=== PATIENT | male | born 1950 | race Caucasian/White ===

== ENCOUNTER 2020-09-21 10:05 | Inpatient (IN) ==
--- NOTE | 2020-08-22 14:44 | PAT Medication Instructions ---
Medication Instructions Date of Service August 22, 2020 Home Medications Medication Instructions Recorded tramadol 50 mg PO Q4H PRN #30 tab 05/23/18 diphenhydramine HCl [Benadryl] 50 mg PO HS PRN hydrocodone-acetaminophen [Vicodin HP] 1 tab PO Q6H PRN tramadol 50 mg PO Q4H PRN cholecalciferol (vitamin D3) [Vitamin D3] 100 mcg PO PM rosuvastatin 10 mg PO PM Take morning of surgery With a small sip of water, OTHERWISE NOTHING TO EAT OR DRINK AFTER MIDNIGHT: hydrocodone-acetaminophen [Vicodin HP] 1 tab PO Q6H PRN (okay to take up to 4 hours prior to surgery if needed) tramadol 50 mg PO Q4H PRN (okay to take up to 4 hours prior to surgery if needed) Take evening before surgery diphenhydramine HCl [Benadryl] 50 mg PO HS PRN (if needed) hydrocodone-acetaminophen [Vicodin HP] 1 tab PO Q6H PRN (if needed) tramadol 50 mg PO Q4H PRN (if needed) cholecalciferol (vitamin D3) [Vitamin D3] 100 mcg PO PM rosuvastatin 10 mg PO PM Other Notes If you have any questions please call us at [phone] or [phone] or [phone] or [phone]
--- NOTE | 2020-08-24 11:59 | Anesthesiology Consultation ---
Date of Service August 24, 2020 Assessment & Plan (1) Encounter for pre-operative examination: - Cardiac hx: Per patient, recent seen by cardiology for preop evaluation and stress test scheduled for 09/13. Awaiting stress test report and final cardiology clearance. - COVID screening: Per assessment on 08/24: Travel screen negative, no known COVID-19 positive contacts or current COVID-19 related symptoms. Surgeon arranging preop COVID testing. Awaiting results. - S/P Removal previous hardware, L3-L5 decompression with fusion (05/22/2018): Failed with MAC3, easy with Glidescope #4 at [facility] Chart Review Chart Review: Patient seen in Pre Admission Testing Teaching & Discussion Pre-Anesthesia Teaching/Discussion Notes: Instructed NPO after midnight before surgery,except medications with 15 cc of water. Medication instructions provided according to the PAT guidelines. History Surgery Operation Date: 09/21/20 11:25 Proposed Procedures p Right Reversed Total Shoulder Arthroplasty - Lamont Guillen MD Height/Weight Height: 5 ft 10 in Weight: 126.9 kg Allergies Allergy/AdvReac Type Severity Reaction Status Date / Time Iodinated Contrast Media Allergy Severe Anaphylaxis Verified 08/21/20 07:34 meperidine Allergy Mild Rash Verified 08/23/20 15:52 oxycodone AdvReac Mild Percocet/Percodan- Verified 08/23/20 15:52 skin crawling Penicillins AdvReac Mild Dyspepsia Verified 08/23/20 15:52 propoxyphene AdvReac Mild Darvon/Darvocet- Verified 08/23/20 15:52 skin crawling Medications Home Medications Medication Instructions Recorded Confirmed Last Taken diphenhydramine HCl [Benadryl] 50 mg PO HS PRN 04/23/18 08/21/20 Unknown hydrocodone-acetaminophen [Vicodin 1 tab PO Q6H PRN 04/23/18 08/21/20 Unknown HP] tramadol 50 mg PO Q4H PRN #30 tab 05/23/18 08/21/20 Unknown cholecalciferol (vitamin D3) 100 mcg PO PM 08/21/20 08/21/20 Unknown [Vitamin D3] rosuvastatin 10 mg PO PM 08/21/20 08/21/20 Unknown Past Medical History Medical History Concern about infectious disease without diagnosis Pt reports that if he gets an infection, he does not get any normal signs of it like fever/elevated WBC. He states he had a bad infection (? sepsis) and almost from when had colon cancer, but showed no signs until almost too late. GERD (gastroesophageal reflux disease) Occasional History of colon cancer s/p resection (hx of blood transfusion remotely in 1980s in setting of ca ncer) History of DVT (deep vein thrombosis) LLE DVT (2011) s/p TKA- treated with AC History of ileus 2018 Ileus Recurrent s/p colon cancer/resection Osteoarthritis Sleep apnea CPAP Exercise / Class Metabolic Activity II 4-5 Yardwork/Stairs/Walk up hill Past Family History Family History Mother Family history of diabetes mellitus Past Surgical History Surgical History Fusion of spine Lumbar x2 Removal previous hardware, L3-L5 decompression with fusion (05/22/2018): Failed with MAC3, easy with Glidescope #4 at [facility] H/O squamous cell carcinoma excision Left arm History of arthroscopy Right elbow History of bilateral carpal tunnel release History of bowel resection History of colonoscopy History of colostomy 2/2 colon cancer History of colostomy reversal History of esophagogastroduodenoscopy (EGD) History of repair of rotator cuff Right History of tooth extraction History of total knee replacement R/L Hx of abdominal surgery Age 2/3 (no further details) Hx of discectomy Lumbar (prior to fusion) Status post trigger finger release R/L Past Anesthesia History Difficult Airway (Removal previous hardware, L3-L5 decompression with fusion (05/22/2018): Failed with MAC3, easy with Glidescope #4 at [facility]) and No Family Hx of Anesthesia Complications History of PONV No Hx of Motion Sickness and History of PONV (Remote hx) Social History Smoking Status: Never smoker Do You Dip or Chew Tobacco: No Hx Alcohol Use: No Hx Substance Use: No substance use type: does not use Review of Systems Patient reports abdominal pain x1 day. He states he does get recurrent ileus after remotely having colon cancer and resection. He did have COVID vaccine yesterday. He states if it doesn't resolve, he will contact PCP or proceed to ER for further evaluation and let PAT know as well. Patient denies chest pain, shortness of breath, dyspnea on exertion, fever, chills, cough, wheezing, palpitations. Physical Exam Vital Signs VITALS BP 149/87 P 62 TEMP 98.0 SP02 98%RA RESP 16 PHYSICAL Mildly decreased cervical extension range of motion. Full TMJ range of motion. TMD 3.5 finger breaths Mallampati Score 3 Dentition: partial upper plate Lungs: clear throughout to auscultation Cardiac: regular rate and rhythm, no murmurs noted Spine: normal Abdomen:+ bowel sounds, soft, no guarding Carotid arteries: negative bruit Extremities: no edema Short neck Lab Results Anesthesia Preop Results Results Anesthesia Widget: WBC 4.18 K/uL (4.8-10.8) L 08/24/20 Hgb 14.2 g/dL (14.0-18.0) 08/24/20 Hct 43.0 % (42-52) 08/24/20 Plt 137 K/uL (130-400) 08/24/20 Na 140 mmol/L (136-145) 08/24/20 K 4.4 mmol/L (3.5-5.1) 08/24/20 Cl 107 mmol/L (98-107) 08/24/20 CO2 28 mmol/L (21-32) 08/24/20 BUN 14 mg/dl (7-18) 08/24/20 Creat 1.05 mg/dl (0.6-1.4) 08/24/20 Glucose Level 89 mg/dl (70-99) 08/24/20 PT 11.1 Seconds (9.0-12.0) 08/24/20 PTT 27.1 Seconds (21.0-31.0) 08/24/20 INR 1.1 (0.9-1.1) 08/24/20 HA1c 5.6 % (4.5-5.6) 08/24/20 Urine Color Dark Yellow 08/24/20 Urine Appearance Clear (Clear) 08/24/20 Urine pH 5.0 (4.5-7.5) 08/24/20 Urine Specific [place] 1.026 (1.000-1.030) 08/24/20 Urine Protein Negative (Negative) 08/24/20 Urine Glucose (UA) Negative (Negative) 08/24/20 Urine Ketones Trace (Negative) H 08/24/20 Urine Blood Negative (Negative) 08/24/20 Urine Nitrite Negative (Negative) 08/24/20 Urine Bilirubin 1+ (Negative) H 08/24/20 Urine Urobilinogen Negative (Negative) 08/24/20 Urine Leukocyte Esterase Negative (Negative) 08/24/20 Blood Type A Positive 08/24/20 Antibody Screen NEGATIVE 08/24/20 Lab Comments: Low WBC > preop testing to be forwarded to PCP for continuity of care Testing Electrocardiogram Date: 05/31/20 Sinus bradycardia with fusion complexes at 59 bpm. LAD. Chest X-Ray Date: 08/24/20 FINDINGS: PA and lateral chest radiographs are compared to study dated 12/12/2017. The heart is top normal for projection noting atherosclerotic calcification of the thoracic aorta. Chronic interstitial thickening is similar to previous. There is mild bibasilar scarring/atelectasis. No airspace consolidation or pleural effusion is identified. There is no pneumothorax. The skeletal structures are osteopenic. The bony thorax appears intact. Degenerative change is seen throughout the thoracic spine. IMPRESSION: No active disease in the chest. Echocardiogram Date: 05/31/20 EF 55%. No regional motion abnormality. Mild LVH. Mild aortic valve mitral valve sclerotic changes. Trace to mild VT/TI.
--- NOTE | 2020-09-20 20:47 | History & Physical Report ---
Date of Service September 20, 2020 Assessment & Plan (1) Rotator cuff arthropathy of right shoulder: Plan: Treatment options discussed with patient. He has a massive irreparable rotator cuff tear. He has significant pain and dysfunction. He would like to proceed with surgical management. Risks, benefits and alternatives to surgery including but not limited to infection, DVT, pain, stiffness, need for revision surgery, damage to blood vessels, damage to nerves, PE, , were discussed with the patient and they wish to proceed. Plan on right reverse total shoulder arthroplasty at [facility] on 09/21/20. All questions answered. He will follow up post operatively. History of Present Illness Chief Complaint: Right shoulder pain Primary Care Provider: Maykel Chiang 69 year old male with PMHx significant for AMRIK, high cholesterol, ileus, and colon Ca presents with ongoing right shoulder pain post a fall. Pain and weakness significantly interfering with his daily activities. He has a massive, irreparable rotator cuff tear. Has history. of prior rotator cuff repair 5 years ago. He has failed conservative management including anti-inflammatories and home exercises. He would like to proceed with replacement. Patient denies headaches, sweats, fevers, chills, double vision, blurred vision, cough, sore throat, dysphagia, chest pain, sob, wheezing, n/v/d/c, numbness, tingling, fatigue, urinary symptoms, mood disorders. ROS positive for right shoulder pain and stiffness. Allergies Allergy/AdvReac Type Severity Reaction Status Date / Time Iodinated Contrast Media Allergy Severe Anaphylaxis Verified 08/21/20 07:34 meperidine Allergy Mild Rash Verified 08/23/20 15:52 oxycodone AdvReac Mild Percocet/Percodan- Verified 08/23/20 15:52 skin crawling Penicillins AdvReac Mild Dyspepsia Verified 08/23/20 15:52 propoxyphene AdvReac Mild Darvon/Darvocet- Verified 08/23/20 15:52 skin crawling Home Medications Medication Instructions Recorded Confirmed Type diphenhydramine HCl 25 mg capsule 50 mg PO HS PRN 04/23/18 08/21/20 History (Benadryl) hydrocodone 10 mg-acetaminophen 1 tab PO Q6H PRN 04/23/18 08/21/20 History 300 mg tablet (Vicodin HP) tramadol 50 mg tablet 50 mg PO Q4H PRN #30 tab 05/23/18 08/21/20 Rx cholecalciferol (vitamin D3) 100 100 mcg PO PM 08/21/20 08/21/20 History mcg (4,000 unit) capsule rosuvastatin 10 mg tablet 10 mg PO PM 08/21/20 08/21/20 History Past Med/Surg History Medical History Concern about infectious disease without diagnosis Pt reports that if he gets an infection, he does not get any normal signs of it like fever/elevated WBC. He states he had a bad infection (? sepsis) and almost from when had colon cancer, but showed no signs until almost too late. GERD (gastroesophageal reflux disease) Occasional History of colon cancer s/p resection (hx of blood transfusion remotely in 1980s in setting of cancer) History of DVT (deep vein thrombosis) LLE DVT (2011) s/p TKA- treated with AC History of ileus 2018 Ileus Recurrent s/p colon cancer/resection Osteoarthritis Sleep apnea CPAP Surgical History Fusion of spine Lumbar x2 Removal previous hardware, L3-L5 decompression with fusion (05/22/2018): Failed with MAC3, easy with Glidescope #4 at [facility] H/O squamous cell carcinoma excision Left arm History of arthroscopy Right elbow History of bilateral carpal tunnel release History of bowel resection History of colonoscopy History of colostomy 2/2 colon cancer History of colostomy reversal History of esophagogastroduodenoscopy (EGD) History of repair of rotator cuff Right History of tooth extraction History of total knee replacement R/L Hx of abdominal surgery Age 2/3 (no further details) Hx of discectomy Lumbar (prior to fusion) Status post trigger finger release R/L Family History Mother Family history of diabetes mellitus Social History Smoking Status: Never smoker Second Hand Exposure: Yes (as kid); Hx Alcohol Use: No Hx Substance Use: No Preferred Language: Turkmen Communication Ability: Effective Visual Impairment: No Limitations Dispatcher Service Chief Required: No Beliefs That Will Affect Care: None Current Living Situation: Spouse Feels Safe at Home: Yes Assistive Devices: CPAP and Glasses Review of Systems All systems reviewed & are unremarkable except as noted in HPI & below Physical Exam Constitutional: well developed and well nourished; no acute distress Eyes: PERRL, conjunctivae normal, anicteric sclerae ENMT: external ear and nose normal, oropharynx normal Neck: trachea midline, no thyromegaly Respiratory: normal respiratory effort, lungs clear to auscultation Cardiovascular: RRR, no murmur, no edema Musculoskeletal: Right shoulder: Tenderness anterolateral acromion. Positive impingement signs. Weakness with strength testing in all directions. Active painful ROM. FF to 180 degrees, abduction to 90 degrees actively, ER to 90 degrees Skin: no rashes, warm and dry Neurologic: patellar DTR's 2+ bilat, sensation intact Psychiatric: A+Ox3, euthymic affect Results & Data ([facility]) Diagnostic Findings Right shoulder x-rays: X-rays of his right shoulder demonstrate he has a previous decompression and distal clavicle excision with some heterotopic bone around the distal clavicle, typical findings post right shoulder arthroscopic surgery. There is no proximal migration of the humerus. He has a maintained glenohumeral joint space. There are some degenerative changes of the greater tuberosity and some post surgical findings there. No acute fracture. His left shoulder he has inferior acromial spurs causing subacromial impingement, AC joint osteoarthritis, normal glenohumeral joint, no fracture. MRI demonstrates massive retracted tear of his rotator cuff with atrophy supraspinatus, tearing near musculotendinous junction as well. Superior migragtion humeral head.
[~2020-09-21 10:05] MED LIST: ACETAMINOPHEN 500 MG TAB PO SCH; BUPIVACAINE 0.5 % 5 MG/1 ML PF 10ML VIAL ONE; CeleBREX 200 MG CAP PO SCH; FAMOTIDINE 20 MG TAB PO SCH; GABAPENTIN 300 MG CAP PO SCH; LR 15ML/HR IV SCH; METOCLOPRAMIDE HCL 10 MG TABLET PO SCH; TRANEXAMIC ACID / 0.7% NACL 1,000 MG/100 ML BAG IV SCH; TRANEXAMIC ACID 1,000 MG **IV Pre-op IV SCH; dexAMETHasone 4 MG TAB PO SCH
--- NOTE | 2020-09-21 10:45 | History & Physical Bridge Note ---
Date of Service September 21, 2020 History & Physical Bridge Note I have examined the patient, reviewed the History & Physical and in the interval since the performance of the History & Physical I have noted the following changes of clinical significance: no changes noted
[2020-09-21] MEDS ORDERED: ePHEDrine sulfate 50 MG/ML AMP IV PRN (10:51)
[2020-09-21] MEDS ORDERED: fentaNYL citrate 100 MCG/2 ML VIAL IV PRN (10:51)
[2020-09-21] MEDS ORDERED: PHENYLEPHRINE 100MCG/ML 5ML SYR IV PRN (10:51)
[2020-09-21] MEDS ORDERED: LABETALOL HCL IV 5 MG/ML 20ML IV PRN (10:51)
[2020-09-21] MEDS ORDERED: HYDROmorphone INJ 1 MG/ML SYRINGE IV PRN (10:51)
[2020-09-21] MEDS ORDERED: ONDANSETRON INJ 2 MG/ML 2 ML VIAL IV PRN ×2 (10:51→16:32)
[2020-09-21] MEDS ORDERED: ATROPINE SULFATE 0.1 MG/ML 10ML SYR IV PRN (10:51)
[2020-09-21] MEDS ORDERED: fentaNYL citrate 100 MCG/2 ML VIAL ONE (11:05)
[2020-09-21] MEDS ORDERED: MIDAZOLAM HCL 1 MG/ML 2ML VIAL ONE (11:05)
[2020-09-21] MEDS ORDERED: ONDANSETRON INJ 2 MG/ML 2 ML VIAL ONE (13:15)
[2020-09-21] MEDS ORDERED: DEXAMETHASONE SOD INJ 4 MG/ML VIAL ONE (13:15)
[2020-09-21] MEDS ORDERED: PROPOFOL IV EMULSION 10 MG/ML 20 ML VIAL IV ONE (13:16)
[2020-09-21] MEDS ORDERED: SUCCINYLCHOLINE CHLORIDE 20 MG/ML 10 ML VIAL IV ONE (13:16)
[2020-09-21] MEDS ORDERED: LIDOCAINE 2% 2 ML VIAL/AMP(20MG/ML) INFIL ONE (13:16)
--- NOTE | 2020-09-21 14:42 | Operative Report ---
Post Operative Report Pre & Post Diagnosis Operation Date: 09/21/20 12:00 Pre-Op Diagnosis: Rotator cuff arthropathy of right shoulder, failed rotator cuff repair, irreparable rotator cuff tear, obesity BMI 39.8. Post-Op Diagnosis: Rotator cuff arthropathy of right shoulder, failed rotator cuff repair, irreparable rotator cuff tear, biceps tendinopathy, retained hardware post rotator cuff repair, obesity BMI 39.8. I identified the patient and participated in the time-out.: Yes Procedure Operation Date: 09/21/20 12:00 Actual Procedures p Right Reversed Total Shoulder Arthroplasty, Biceps Tenodesis, removal hardware (suture anchors and suture material) - Lamont Guillen MD Surgeon Lamont Guillen MD Fire Lieutenant Wyatt BURKETT Estimated Blood Loss 100 Findings Consistent with Post-Op Diagnosis Specimens Humeral head Drains 2 Hemovac Anesthesia Type General Regional Complications none Disposition Disposition: Recovery Room Indications 69-year-old male with chronic right shoulder pain weakness failed conservative management. History of rotator cuff repair in the past that failed. Now has a large retracted rotator cuff tear with significant tendinopathy of subscapularis tendon with possible previous tenotomy of the biceps are ruptured biceps with biceps tendinopathy in the lower groove area with rotator cuff arthropathy and arthritic changes developing in the glenohumeral joint. Description of Procedure The patient was taken to the operating room and anesthetized under regional block and general anesthetic. The patient was positioned on the operating table in a 30 beach chair position with a towel roll under the medial border of the right scapula. The arm was draped free to be able to manipulate the shoulder as needed. The right upper extremity was prepped and draped in usual sterile fashion. Exam demonstrated good passive range of motion crepitation range of motion and patient had moderate obesity of the arm and shoulder area.. An anterior deltopectoral approach was performed. A longitudinal incision was made in the deltopectoral interval. The skin was incised sharply. Subcutaneous flaps were elevated off the fascia. The cephalic vein was dissected out and retracted lateral with the deltoid. The clavipectoral fascia was divided at the lateral margin of the conjoined tendon and extended up to the CA ligament. The following findings were noted: The subscapularis tendon was intact but was thin and there was tendinopathy on the intra-articular side of the tendon with some partial tearing of the upper third of the subscapularis tendon. There was some scarred supraspinatus rotator interval tissue anteriorly but then there was a complete tear of the supraspinatus and infraspinatus with retraction intact teres minor. There were old suture tapes and anchors from prior rotator cuff repair noted. There was thickened subacromial bursa and bursa over the subscapularis tendon which was resected.. The upper centimeter of the pectoralis was released for inferior exposure. The biceps tendon findings demonstrated edematous biceps tendon with some loose articular fragments in the biceps tendon sheath that came off the joint. Biceps tendon appeared to have ruptured intra-articularly and scarred in the upper bicipital groove area. the biceps tendon was freed up in the bicipital groove retracted proximally and then was tenodesed to the pectoralis tendon with #2 FiberWire. The thickened biceps tenosynovitis was removed along with the loose bodies and then the the proximal degenerative biceps was resected. The subscapularis tendon was taken down off the lesser tuberosity using a subperiosteal dissection. A #1 Vicryl traction suture was placed into the free end of the subscapularis tendon and capsule. The subscapular muscle fibers were split longitudinally at the level of the circumflex vessels. The circumflex vessels were identified and tied off with silk ties and divided laterally. A Kitner elevator was used to free up the inferior fibers of the subscapularis off of the capsule. The axillary nerve was identified with a tug test and protected with a blunt Truman retractor between the nerve and the capsule. The subscapularis tendon was then taken down off of the lesser tuberosity subperiosteally and subperiosteal dissection was performed along the neck of the humerus as the arm is gradually externally rotated exposing the humeral head. The humeral head findings demonstrated transverse marked articular thinning close to being exposed bone extending from anterior to posterior along the inferior humeral head and some generalized arthritic changes and superior humeral head with grade II chondromalacia. A Hyde elevator was used to assist in releasing the capsule of the neck of the humerus. The capsule which was very thickened was divided with Chan scissors down to the glenoid released off the anterior glenoid and the rotator interval was released to meet the capsular release and a 360 release of the subscapularis was accomplished. The scarred right interval tissue was resected and the torn retracted supraspinatus tendon tissue was resected. A Fukuda retractor was placed into the joint retracting the humeral head posterior. Glenoid findings demonstrated the inferior articular surface was delaminating off the glenoid and blistering away from the glenoid bone and there was grade 2 -3 chondromalacia of the glenoid.. The the glenoid labrum was resected circumferentially. an anterior-inferior and posterior inferior capsular release were performed with electrocautery and a Hyde elevator on bone with the axillary nerve protected inferiorly by the retractor. Attention was then taken to the humeral preparation. The cutting guide was placed into the humeral head. It was positioned at 20 of retroversion. Oscillating saw was used to resect the humeral head giving the cut above the level of the posterior rotator cuff insertion site. The humerus was then prepared for the stem. I used the ascend flex stem from [employer]. First because were several suture anchors in the canal and suture material noted from prior failed rotator cuff repair the suture tapes were removed and the anchors that were in the way which were peek type plastic anchors were removed with a rongeur. The sizing broaches were used followed by trial broaches up to a size 4B long for the ascend flex PTC stem which had the appropriate fit and fill. The appropriate sized cut protector was placed. The humerus was then retracted posterior to the glenoid. The glenoid was sized for a 29 standard baseplate. The guide for the baseplate was positioned in a 10 inferior tilt and the central drill hole was made. The reamer for the 29 baseplate was used. The central drill was widened for the peg. The Tornier aequalis 29 mm hydroxyapatite-coated baseplate was impacted into position. The base plate was transfixed with superior and inferior locking screws and anterior and posterior compression screws with stable fixation. The fan reamer was used for the 42 millimeter glenoid sphere. After irrigation the 42 standard glenoid sphere was impacted onto the baseplate and the security screw was tightened. Attention was taken back to the humerus. The cut protector was removed and the plus or high offset humeral tray trial was assembled to the trial stem rotated appropriately to get bony coverage and then screwed in position. A trial reduction was performed. A 9 mm trial insert demonstrated good stability and no shuck. The trials were removed. 3 drill holes are made into the harder bone in the bicipital groove area and 3 #5 FiberWire sutures were placed transosseously. The canal was irrigated with pulsatile lavage saline solution. The final component was assembled. The final component was 4B long ascend flex PTC stem assembled to the plus or high offset tray and a 42+9 reversed insert. This was then impacted into the humerus with a tight press-fit. It was reduced to the glenoid sphere. Stability was verified. Subscapularis was repaired with the #5 FiberWire sutures using Jarod-Sharad suture technique. Lateral row soft tissue repair was performed with #2 FiberWire [id number] sutures. I stressed the infraspinatus this was able to be mobilized laterally and sutured to the teres minor. Some of the frayed edge of the infraspinatus was debrided first and then 2 [id number] #2 FiberWire sutures were used to repair the infraspinatus to the teres minor to increase external rotation strength. The pectoralis was repaired with #2 FiberWire [id number] sutures reinforcing the biceps tendon tenodesis. The arm was taken through a range of motion which demonstrated 130 degrees forward flexion 60 degrees external rotation 90 degrees abduction and without any tension on repair.. The implant was stable through the range of motion tested. The wound was copiously irrigated. 2 Hemovac drains were placed. The deltopectoral interval was closed with [id number] #1 Vicryl sutures. The subcutaneous tissues were closed with 2-0 Vicryl sutures. The skin was closed with miriam. Sterile dressings were applied and a shoulder immobilizer. Wyatt BURKETT my physician speech therapy assistant assisted in the procedure to the entire procedure including patient positioning arm positioning prepping and draping soft tissue retraction instrument management suture management and performed the subcutaneous and skin closure and will participate in the postoperative care of the patient. I attest to the content of the Intraoperative Record and any orders documented therein. Any exceptions are noted below.
--- NOTE | 2020-09-21 15:46 | XRay Report ---
XR shoulder RT min 2V routine CLINICAL HISTORY: Post shoulder surgery COMPARISON: None. DISCUSSION: Metallic prosthetic right shoulder joint is seen. Subcutaneous emphysema, surgical drainage and skin miriam are seen. Visualized portion of the lung parenchyma is clear. Degenerative changes of the spine are seen. IMPRESSION: Postoperative changes as above. ACT 112: Negative or not required by law. The above report was generated using voice recognition software. It may contain grammatical, syntax o r spelling errors. Electronically signed by: Cortney Peña DO 09/21/2020 3:45 PM
[2020-09-21] MEDS ORDERED: diphenhydrAMINE Capsule 25 MG CAP PO PRN (16:32)
[2020-09-21] MEDS ORDERED: bisacodyL 10 MG SUPP PR PRN (16:32)
[2020-09-21] MEDS ORDERED: MAGNESIUM HYDROXIDE SUSP 30 ML UDC PO PRN (16:32)
[2020-09-21] MEDS ORDERED: NALOXONE HCL 0.4 MG/1 ML VIAL/CARP IV PRN (16:32)
[2020-09-21] MEDS ORDERED: METOCLOPRAMIDE HCL INJ 5 MG/ML 2 ML VIAL IV PRN (16:32)
--- NOTE | 2020-09-21 16:36 | Anesthesiology Progress Note ---
Date of Service September 21, 2020 Anesthesia Post Procedure Vital Signs Vital Signs: Temp Pulse Pulse Pulse Resp BP Pulse Ox 09/21/20 16:20 36.4 C L 65 18 137/72 94 09/21/20 16:05 66 15 136/69 96 09/21/20 15:50 36.5 C 61 15 133/70 94 09/21/20 15:40 67 18 125/74 94 09/21/20 15:30 65 19 140/75 94 09/21/20 15:20 70 19 130/72 95 09/21/20 15:10 69 20 124/70 97 09/21/20 15:03 36 C L 69 18 128/67 98 09/21/20 10:47 36.7 C 61 18 137/73 97 Pain Intensity Right Arm: Pain Intensity: 4 Transfer of Care Handoff Completed per policy Notes Mental Status: alert / awake / arousable Patient Amnestic to Procedure: Yes Nausea / Vomiting: adequately controlled Pain: adequately controlled Airway Patency, RR, SpO2: stable & adequate BP & HR: stable & adequate Hydration State: stable & adequate Anesthetic Complications: no major complications apparent Notes: block working well in pacu
[2020-09-21] MEDS: SODIUM CHLORIDE 0.9% 1000ML 1,000 ML IV SCH (17:40)
[2020-09-21] MEDS ORDERED: HYDROmorphone INJ 0.5 MG/0.5 ML SYR IV PRN (19:35)
[2020-09-21] MEDS: HYDROmorphone INJ 0.5 MG/0.5 ML SYR IV PRN (19:58)
[2020-09-21] MEDS: HYDROmorphone HCL 2 MG TAB PO PRN (21:30)
[2020-09-21] MEDS: ceFAZolin 2000MG 2,000 MG/15 ML SYR IV SCH (21:30)
[2020-09-21] MEDS: ACETAMINOPHEN 500 MG TAB PO SCH (21:34)
[2020-09-21] MEDS: CHOLECALCIFEROL 1,000 UNITS 25 MCG TAB PO SCH (21:34)
[2020-09-21] MEDS: DOCUSATE SODIUM 100 MG CAP PO SCH (21:34)
[2020-09-21] MEDS: ROSUVASTATIN CALCIUM 10 MG TAB PO SCH (21:35)
[2020-09-21] MEDS: SENNA 8.6 MG TAB PO SCH (21:35)
[2020-09-22] MEDS: HYDROmorphone INJ 0.5 MG/0.5 ML SYR IV PRN ×4 (00:03→21:13)
[2020-09-22] MEDS: SODIUM CHLORIDE 0.9% 1000ML 1,000 ML IV SCH (02:12)
[2020-09-22] MEDS: HYDROmorphone HCL 2 MG TAB PO PRN ×3 (02:12→22:04)
[2020-09-22] MEDS: ceFAZolin 2000MG 2,000 MG/15 ML SYR IV SCH (04:11)
[2020-09-22] MEDS: ACETAMINOPHEN 500 MG TAB PO SCH ×3 (06:05→21:12)
[2020-09-22 06:37] LABS: Hematocrit (blood only) 36.3 % (42-52); Hemoglobin 12.1 g/dL (14.0-18.0); Immature Granulocytes # (auto) 0.02 K/uL (0.00-0.02); Immature Granulocytes % (auto) 0.2 %; Lymphocytes # (auto) 0.66 K/uL (1.2-3.4); Mean Corpuscular Hemoglobin 29.6 pg (25-34); Mean Corpuscular Hgb Conc 33.3 g/dL (32-36); Mean Corpuscular Volume 88.8 fL (80-100); Mean Platelet Volume 10.9 fL (7.4-10.4); Monocytes # (auto) 0.55 K/uL (0.11-0.59); Monocytes % (auto) 5.9 %; Neutrophils # (auto) 8.15 K/uL (1.4-6.5); Neutrophils % (auto) 86.9 %; Platelet Count 140 K/uL (130-400); RDW Coefficient of Variation 14.6 % (11.5-14.5); RDW Standard Deviation 47.6 fL (36.4-46.3); Red Blood Count 4.09 M/uL (4.7-6.1); White Blood Count 9.38 K/uL (4.8-10.8)
[2020-09-22 07:08] LABS: BUN Creatinine Ratio 15.9 (10-20); Calcium 7.8 mg/dl (8.5-10.1); Creatinine Clr Calc Pharmacy 87.6 ml/min; Est GFR (Non-African American) 69.9 ml/min; Potassium 3.9 mmol/L (3.5-5.1)
--- NOTE | 2020-09-22 07:25 | Orthopedic Progress Note ---
Date of Service September 22, 2020 Assessment & Plan (1) S/p reverse total shoulder arthroplasty: Plan: POD#1 right reverse TSA -Pain management as written -PT/OT-no shoulder motion, may do elbow/wrist/hand, shrugs, pendulums -DVT prophylaxis-ASA 81mg once daily -Am labs-hemoglobin at 12.1 from 14.2 preoperative due to surgical loss/dilutional effect -D/C planning-plan on discharge home likely tomorrow when pain is better controlled, Admission and Anticipated Discharge Date Admission Date: September 21, 2020 Subjective Patient is POD#1 right reverse TSA. Having increasing pain in shoulder, states was unable to sleep last night. No other complaints. Denies chest pain, sob, dizziness, headache, fever, chills. Review of Systems Review of Systems: All systems reviewed & are unremarkable except as noted in Subjective Physical Exam Physical Exam: Dressing and sling to RUE c/d/i. Sensation to hand is increasing, has not regained motor activity of hand yet, likely due to block. H emovac inplace. Constitutional: well developed and well nourished; no acute distress Results & Data ([facility]) Vital Signs (Past 12 Hours) Vital Signs Temp Pulse Resp BP Pulse Ox 09/22/20 03:08 36.6 C 70 17 118/66 97 09/21/20 23:03 36.7 C 75 17 148/73 H 96 Laboratory Results H & H 09/22/20 Range/Units 06:24 Hgb 12.1 L (14.0-18.0) g/dL Hct 36.3 L (42-52) %
--- NOTE | 2020-09-22 08:00 | Hospitalist Consultation ---
Date of Consultation September 22, 2020 Assessment & Plan (1) S/p reverse total shoulder arthroplasty: POD #1 s/p Right Reversed Total Shoulder Arthroplasty, Biceps Tenodesis, removal hardware (suture anchors and suture material) - Lamont Guillen MD EBL 100cc Hemovac 170cc Pre-op h/h 14.2/43 H/h dropped to 12.1/36.3 -- acute blood loss anemia and some dilutional from IVF PT/OT/pain management/bowel regimen/DVT prophylaxis per primary service Given prior DVT after joint surgery, discussion was had with ortho and increased aspirin to 81mg BID. No lovenox given increased risk for bleeding. No evidence of DVT at this time, but monitor closely Labs in AM Also with hx spinal stenosis and chronic nerve/neuropathy type pain. Will order dose of gabapentin 100mg x 1 -- if effective could continue Ca low 7.8, albumin 3.2 --> correct 8.4 and will order 1gm calcium and added Vit D level to am labs --> low normal in 40s. On 100mcg daily supplementation and would consider increase at discharge (2) HLD (hyperlipidemia): Continue crestor daily (3) Sleep apnea: Continue CPAP HS (4) History of DVT (deep vein thrombosis): following knee replacement in 2011 DVT prophylaxis per primary service --> discussed as above and placed on ASA 81mg BID. (5) Morbid obesity: diet/weight loss recommended (6) History of colon cancer: s/p resection, temporary colostomy and reversal bowel regimen and ambulation encouraged to prevent post-op ileus -- scheduled senna, docusate. will add miralax BID continue to monitor Dispo: continued inpatient stay to ensure pain controlled with plans for d/c tomorrow Thank you for allowing hospitalist group to participate in the care of Mr Orourke. Hospitalist service will sign off at this time. Please call with any questions/concerns. Supervising Physician Co-Signing Physician Notes KWADWO Supervision Note: I personally saw and examined the patient. I verified all moralez points and agree with KWADWO Daniels with the following exceptions and/or additions: S-patient is here for postop medical management after right reverse total shoulder arthroplasty. He is getting sensation of movement back in his hand and wants to make sure that his pain is controlled prior to discharge. Reports that the gabapentin he took today did make his stomach hurt and he recalled in the past that he is tried this medicine and it did the same thing then. I will discontinue the medication. He denies chest pain or shortness of breath, no nausea. Is passing flatus but no bowel movement yet. O- Vitals reviewed Gen: AAOx3, NAD HEENT: Anicteric sclerae, EOMI CV: RRR no mgr nl S1S2 Pulm: CTAB no wcr Abd: +BS soft NT ND no masses or hernias Ext: RUE in sling, dressing in place over right shoulder, neurovascularly intact in the right hand Skin: No rashes, warm/dry Neuro: Full strength throughout except right shoulder not tested A/O[id number]-old male with history noted as above, here recovering from right reverse TSA. Doing well, continue postop care Plan for increasing aspirin to 81 mg twice daily given history of DVT in the past. KWADWO Daniels discussed the care with the orthopedic PA who thought that Lovenox presented to have a bleeding risk especially in a shoulder arthroplasty. Shoulder arthroplasties are also less risk for DVT. -Discontinue gabapentin as this causes stomach upset Continue increased bowel regimen Medical service will sign off at this time. Please feel free to reconsult for new or acute issues. History of Present Illness Reason for Consultation: medical management Requesting Physician: Dr Guillen Attending Physician: Lamont Guillen MD History of Present Illness 69yo male with PMHx significant for HLD, spinal stenosis, AMRIK, colon ca (s/p colon resection and colostomy, since reversed), DVT in L popliteal region s/p knee replacement in May 2011, and strong family history of heart disease presented to the hospital for right shoulder replacement with Dr. Guillen. Underwent Right Reversed Total Shoulder Arthroplasty, Biceps Tenodesis, removal hardware (suture anchors and suture material) with Dr. Guillen yesterday. Had increased pain and was uncomfortable overnight and pain medications were ordered, which have been effective today. He notes previous ileus after surgeries and hadn't had one in several years but he thought he was getting one this morning. He notes he has thought he had one a couple of times over the past couple months and knows when he vomits that he has one, from his previous surgeries and adhesive disease and plans on follow up with prior surgeon about possible lysis of adhesions in future if they become more frequent. Has been up and moving and passing gas since then and feeling better. Discussed continued ambulation and if abd pain increased/pain to alert nursing sooner. He still has numbness and lack of motor sensation since nerve block but is regaining sensation to fingers, slowly. Discussed ASA increased to BID for DVT proph given prior DVT after knee surgery. He notes multiple other surgeries without complications but he does note he was to start a baby aspirin per his primary in the past but never did. Has CPAP in room and uses faithfully. Plans for OPPT in several weeks after eval by ortho. He does note great experience with hospital staff/surgery but he was upset about surgeon only calling and not speaking to her directly in the waiting room. No fever, chills, chest pain, shortness of breath, abdominal pain , nausea vomiting or dysuria at this time. Plans for d/c tomorrow if pain controlled. Strong family cardiac history in brother and was seen by PCP and had negative pharmacological stress test September 13, 2020. Also notes brother paralyzed from recent back surgery by Dr. Rodríguez earlier this month (patient has had [address] Rodríguez himself, most recent 2018). Allergies Allergy/AdvReac Type Severity Reaction Status Date / Time Iodinated Contrast Media Allergy Severe Anaphylaxis Verified 09/21/20 10:42 meperidine Allergy Mild Rash Verified 09/21/20 10:42 oxycodone AdvReac Mild Percocet/Percodan- Verified 09/21/20 10:42 skin crawling Penicillins AdvReac Mild Dyspepsia Verified 09/21/20 10:42 propoxyphene AdvReac Mild Darvon/Darvocet- Verified 09/21/20 10:42 skin crawling Home Medications Medication Instructions Recorded Confirmed Type diphenhydramine HCl 25 mg capsule 50 mg PO HS PRN 04/23/18 09/21/20 History (Benadryl) hydrocodone 10 mg-acetaminophen 1 tab PO Q6H PRN 04/23/18 09/21/20 History 300 mg tablet (Vicodin HP) cholecalciferol (vitamin D3) 100 100 mcg PO PM 08/21/20 09/21/20 History mcg (4,000 unit) capsule rosuvastatin 10 mg tablet 10 mg PO PM 08/21/20 09/21/20 History Patient History Medical History (Updated 09/22/20 @ 07:57 by Arlette Daniels PA-C) Concern about infectious disease without diagnosis Pt reports that if he gets an infection, he does not get any normal signs of it like fever/elevated WBC. He states he had a bad infection (? sepsis) and almost from when had colon cancer, but showed no signs until almost too late. 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 History of arthroscopy Right elbow History of bilateral carpal tunnel release History of bowel resection History of colonoscopy History of colostomy 2/2 colon cancer History of colostomy reversal History of esophagogastroduodenoscopy (EGD) History of repair of rotator cuff Right History of tooth extraction History of total knee replacement R/L Hx of abdominal surgery Age 2/3 (no further details) Hx of discectomy Lumbar (prior to fusion) Status post trigger finger release R/L Family History Mother Family history of diabetes mellitus Social History Smoking Status: Never smoker Second Hand Exposure: Yes (as kid); Do You Dip or Chew Tobacco: No; Tobacco Cessation Education Requested by Patient: No Hx Alcohol Use: No Hx Substance Use: No Preferred Language: Samoan Communication Ability: Effective Visual Impairment: No Limitations Budget Consultant Required: No Beliefs That Will Affect Care: None marital status: Current Living Situation: Spouse Other Information That Helps Us Care for You: No Feels Safe at Home: Yes Safety Concerns: Feels Safe At This Time Assistive Devices: None Review of Systems Review of Systems: All systems reviewed & are unremarkable except as noted in HPI & below Physical Exam Physical Exam: WN, WD, obese male sitting up in bed, laughing, no acute d istress HEENT: normocephalic, atraumatic, trachea midline without deviation, mmm, EOMI RESP: CTAB, no w/c/r CV: RRR, no m/r/g ABD: previous surgical scar well healed, +BS throughout, non-tender to palpation MSK: prior back incisions well healed, some decreased sensation to dorsum of R foot, but plantar service with some neuropathy R shoulder in sling, hemovac with bloody drainage, numbness throughout with some sensation to light touch returning to lateral 5th digit. No motor function yet. Some edema, but pulses palpable and good cap refill. dressing c/d/i Skin: warm, dry : No reza Results & Data Results & Data ([facility]) Vital Signs (Past 12 Hours) Vital Signs Temp Pulse Resp BP Pulse Ox 09/22/20 03:08 36.6 C 70 17 118/66 97 09/21/20 23:03 36.7 C 75 17 148/73 H 96 Laboratory Results 09/22/20 09/22/20 09/22/20 Range/Units 08:35 08:35 06:24 WBC (4.8-10.8) K/uL RBC (4.7-6.1) M/uL Hgb (14.0-18.0) g/dL Hct (42-52) % MCV (80-100) fL MCH (25-34) pg MCHC (32-36) g/dL RDW Std Deviation (36.4-46.3) fL RDW Coeff of Saray (11.5-14.5) % Plt Count (130-400) K/uL MPV (7.4-10.4) fL Immature Gran % (Auto) % Neut % (Auto) % Lymph % (Auto) % [place] % (Auto) % Eos % (Auto) % Baso % (Auto) % Neut # (Auto) (1.4-6.5) K/uL Lymph # (Auto) (1.2-3.4) K/uL [place] # (Auto) (0.11-0.59) K/uL Eos # (Auto) (0-0.5) K/uL Baso # (Auto) (0-0.2) K/uL Immature Gran # (Auto) (0.00-0.02) K/uL Sodium 137 (136-145) mmol/L Potassium 3.9 (3.5-5.1) mmol/L Chloride 107 (98-107) mmol/L Carbon Dioxide 24 (21-32) mmol/L Anion Gap 6.0 (3-11) BUN 17 (7-18) mg/dl Creatinine 1.09 (0.6-1.4) mg/dl Est Cr Clr Drug Dosing 87.6 ml/min Est GFR ( Amer) 81.0 ml/min Est GFR (Non-Af Amer) 69.9 ml/min BUN/Creatinine Ratio 15.9 (10-20) Glucose 134 H (70-99) mg/dl Calcium 7.8 L (8.5-10.1) mg/dl Albumin 3.2 L (3.4-5.0) gm/dl 25-OH Vitamin D Total 41.1 (30-100) ng/ml Hepatitis C Ab Screen (Neg) SARS-CoV-2, RNA, NAAT (NEGATIVE) 09/22/20 09/21/20 09/21/20 Range/Units 06:24 10:46 10:28 WBC 9.38 (4.8-10.8) K/uL RBC 4.09 L (4.7-6.1) M/uL Hgb 12.1 L (14.0-18.0) g/dL Hct 36.3 L (42-52) % MCV 88.8 (80-100) fL MCH 29.6 (25-34) pg MCHC 33.3 (32-36) g/dL RDW Std Deviation 47.6 H (36.4-46.3) fL RDW Coeff of Saray 14.6 H (11.5-14.5) % Plt Count 140 (130-400) K/uL MPV 10.9 H (7.4-10.4) fL Immature Gran % (Auto) 0.2 % Neut % (Auto) 86.9 % Lymph % (Auto) 7.0 % [place] % (Auto) 5.9 % Eos % (Auto) 0.0 % Baso % (Auto) 0.0 % Neut # (Auto) 8.15 H (1.4-6.5) K/uL Lymph # (Auto) 0.66 L (1.2-3.4) K/uL [place] # (Auto) 0.55 (0.11-0.59) K/uL Eos # (Auto) 0.00 (0-0.5) K/uL Baso # (Auto) 0.00 (0-0.2) K/uL Immature Gran # (Auto) 0.02 (0.00-0.02) K/uL Sodium (136-145) mmol/L Potassium (3.5-5.1) mmol/L Chloride (98-107) mmol/L Carbon Dioxide (21-32) mmol/L Anion Gap (3-11) BUN (7-18) mg/dl Creatinine (0.6-1.4) mg/dl Est Cr Clr Drug Dosing ml/min Est GFR ( Amer) ml/min Est GFR (Non-Af Amer) ml/min BUN/Creatinine Ratio (10-20) Glucose (70-99) mg/dl Calcium (8.5-10.1) mg/dl Albumin (3.4-5.0) gm/dl 25-OH Vitamin D Total (30-100) ng/ml Hepatitis C Ab Screen Neg (Neg) SARS-CoV-2, RNA, NAAT NEGATIVE (NEGATIVE) Diagnostic Findings Shoulder X-Ray 09/21/20 15:06 XR shoulder RT min 2V routine CLINICAL HISTORY: Post shoulder surgery COMPARISON: None. DISCUSSION: Metallic prosthetic right shoulder joint is seen. Subcutaneous emphysema, surgical drainage and skin miriam are seen. Visualized portion of the lung parenchyma is clear. Degenerative changes of the spine are seen. IMPRESSION: Postoperative changes as above. ACT 112: Negative or not required by law. The above report was generated using voice recognition software. It may contain grammatical, syntax or spelling errors. Electronically signed by: Cortney Peña DO 09/21/2020 3:45 PM PG Care Time/CCT Total # of Minutes Spent Total Time Spent with Patient: Total time spent is greater than 50% in coordination of care (as documented) at patient's floor/unit and/or counseling patient: Coding Level of Care Code 66425 Inpt Consult Level 3 Diagnoses S/p reverse total shoulder arthroplasty Z96.619 Morbid obesity E66.01 History of colon cancer Z85.038 History of DVT (deep vein thrombosis) Z86.718 HLD (hyperlipidemia) E78.5 Sleep apnea G47.30
[2020-09-22] MEDS: DOCUSATE SODIUM 100 MG CAP PO SCH ×2 (08:39→21:12)
[2020-09-22] MEDS: MULTIVITAMIN TAB PO SCH (08:39)
[2020-09-22] MEDS ORDERED: ASPIRIN 81 MG ECTAB PO SCH (09:00)
[2020-09-22] MEDS ORDERED: GABAPENTIN 100 MG CAP PO SCH (11:00)
[2020-09-22] MEDS ORDERED: CALCIUM GLUCONATE 10% 1,000 MG in SODIUM CHLORIDE 0.9% 50 ML IV ONE (11:00)
[2020-09-22] MEDS: POLYETHYLENE (MIRALAX) 17 GM PACK PO SCH ×2 (12:11→21:12)
[2020-09-22] MEDS: ASPIRIN 81 MG ECTAB PO SCH (21:12)
[2020-09-22] MEDS: SENNA 8.6 MG TAB PO SCH (21:12)
[2020-09-22] MEDS: CHOLECALCIFEROL 1,000 UNITS 25 MCG TAB PO SCH (21:13)
[2020-09-22] MEDS: ROSUVASTATIN CALCIUM 10 MG TAB PO SCH (21:13)
[2020-09-23] MEDS: HYDROmorphone INJ 0.5 MG/0.5 ML SYR IV PRN ×3 (01:01→13:33)
[2020-09-23] MEDS: HYDROmorphone HCL 2 MG TAB PO PRN ×3 (01:58→11:20)
[2020-09-23] MEDS: CALCIUM CARBONATE 500 MG CHEWABLE TAB PO PRN ×3 (01:58→11:20)
[2020-09-23] MEDS: ACETAMINOPHEN 500 MG TAB PO SCH ×2 (05:03→13:33)
[2020-09-23] MEDS ORDERED: HYDROmorphone INJ 0.5 MG/0.5 ML SYR IV STA (08:06)
[2020-09-23] MEDS: POLYETHYLENE (MIRALAX) 17 GM PACK PO SCH (08:37)
[2020-09-23] MEDS: MULTIVITAMIN TAB PO SCH (08:37)
[2020-09-23] MEDS: ASPIRIN 81 MG ECTAB PO SCH (08:37)
[2020-09-23] MEDS: DOCUSATE SODIUM 100 MG CAP PO SCH (08:37)
--- NOTE | 2020-09-23 10:52 | Orthopedic Progress Note ---
Date of Service September 23, 2020 Assessment & Plan (1) S/p reverse total shoulder arthroplasty: Plan: POD#2 right reverse TSA -Pain management as written -PT/OT-no shoulder motion, may do elbow/wrist/hand, shrugs, pendulums -DVT prophylaxis-ASA 81mg once daily -D/C planning-plan on discharge home today Admission and Anticipated Discharge Date Admission Date: September 21, 2020 Subjective Patient is POD#2 right reverse TSA.He notes appropriate pain through the night. No other complaints. Denies chest pain, sob, dizziness, headache, fever, chills. Physical Exam Physical Exam: Digits mobile, NVI. Calves soft, non tender. Dressing in place right shoulder. Results & Data ([facility]) Vital Signs (Past 12 Hours) Vital Signs Temp Pulse Resp BP Pulse Ox 09/23/20 07:00 36.6 C 60 20 134/76 97 09/22/20 23:07 36.4 C L 61 16 130/74 97
--- NOTE | 2020-09-23 22:14 | Discharge Summary ---
Date of Service September 23, 2020 Admission HPI Per Admitting Provider 69 year old male with PMHx significant for AMRIK, high cholesterol, ileus, and colon Ca presents with ongoing right shoulder pain post a fall. Pain and weakness significantly interfering with his daily activities. He has a massive, irreparable rotator cuff tear. Has history. of prior rotator cuff repair 5 years ago. He has failed conservative management including anti-inflammatories and home exercises. He would like to proceed with replacement. Patient denies headaches, sweats, fevers, chills, double vision, blurred vision, cough, sore throat, dysphagia, chest pain, sob, wheezing, n/v/d/c, numbness, tingling, fat igue, urinary symptoms, mood disorders. ROS positive for right shoulder pain and stiffness. Admission Exam Per Admitting Provider Constitutional: well developed and well nourished; no acute distress Eyes: PERRL, conjunctivae normal, anicteric sclerae ENMT: external ear and nose normal, oropharynx normal Neck: trachea midline, no thyromegaly Respiratory: normal respiratory effort, lungs clear to auscultation Cardiovascular: RRR, no murmur, no edema Musculoskeletal: Right shoulder: Tenderness anterolateral acromion. Positive impingement signs. Weakness with strength testing in all directions. Active painful ROM. FF to 180 degrees, abduction to 90 degrees actively, ER to 90 degrees Skin: no rashes, warm and dry Neurologic: patellar DTR's 2+ bilat, sensation intact Psychiatric: A+Ox3, euthymic affect Principal Diagnosis Right shoulder rotator cuff arthropathy Discharge Exam Constitutional well developed and well nourished; no acute distress Eyes PERRL, conjunctivae normal, anicteric sclerae ENMT external ear and nose normal, oropharynx normal Neck trachea midline, no thyromegaly Respiratory normal respiratory effort, lungs clear to auscultation Cardiovascular RRR, no murmur, no edema Skin no rashes, warm and dry Neurologic patellar DTR's 2+ bilat, sensation intact Psychiatric A+Ox3, euthymic affect Discharge Data Allergies Allergy/AdvReac Type Severity Reaction Status Date / Time Iodinated Contrast Media Allergy Severe Anaphylaxis Verified 09/21/20 10:42 meperidine Allergy Mild Rash Verified 09/21/20 10:42 oxycodone AdvReac Mild Percocet/Percodan- Verified 09/21/20 10:42 skin crawling Penicillins AdvReac Mild Dyspepsia Verified 09/21/20 10:42 propoxyphene AdvReac Mild Darvon/Darvocet- Verified 09/21/20 10:42 skin crawling Consultations 09/18/20 17:55 Consult Hospitalist Routine Procedures Performed Operation Date: 09/21/20 12:00 Actual Procedures p Right Reversed Total Shoulder Arthroplasty; Biceps Tenodesis - Lamont Guillen MD Ordered Studies 09/21/20 05:00 US - OR guided needle placemen Routine Hospital Course (1) S/p reverse total shoulder arthroplasty: Patient presented for same day admission following right reverse total shoulder arthroplasty on 09/21/20. He tolerated procedure well. The Patient had an uneventful hospital course. Post-operatively, his activity was progressed and well tolerated. They participated in PT without complication. Labs remained stable- lowest hemoglobin recorded:12.1. Dr. Skye Pagan of medical service was consulted for medical management during admission. Pain controlled on oral medications. Please refer to daily progress notes and PT notes for complete details. After exam on 09/23/20, patient was felt to be stable for discharge home. Patient will f/u in the office in about 2 weeks for further evaluation including x-rays and incision check, sooner if having any issues or concerns. POD#2 right reverse TSA -Pain management as written -PT/OT-no shoulder motion, may do elbow/wrist/hand, shrugs, pendulums -DVT prophylaxis-ASA 81mg once daily -D/C planning-plan on discharge home today Lab Results 09/21/20 09/21/20 09/21/20 Range/Units 10:28 10:28 10:46 WBC (4.8-10.8) K/uL RBC (4.7-6.1) M/uL Hgb (14.0-18.0) g/dL Hct (42-52) % MCV (80-100) fL MCH (25-34) pg MCHC (32-36) g/dL RDW Std Deviation (36.4-46.3) fL RDW Coeff of Saray (11.5-14.5) % Plt Count (130-400) K/uL MPV (7.4-10.4) fL Immature Gran % (Auto) % Neut % (Auto) % Lymph % (Auto) % Bryan % (Auto) % Eos % (Auto) % Baso % (Auto) % Neut # (Auto) (1.4-6.5) K/uL Lymph # (Auto) (1.2-3.4) K/uL Bryan # (Auto) (0.11-0.59) K/uL Eos # (Auto) (0-0.5) K/uL Baso # (Auto) (0-0.2) K/uL Immature Gran # (Auto) (0.00-0.02) K/uL Sodium (136-145) mmol/L Potassium (3.5-5.1) mmol/L Chloride (98-107) mmol/L Carbon Dioxide (21-32) mmol/L Anion Gap (3-11) BUN (7-18) mg/dl Creatinine (0.6-1.4) mg/dl Est Cr Clr Drug Dosing ml/min Est GFR ( Amer) ml/min Est GFR (Non-Af Amer) ml/min BUN/Creatinine Ratio (10-20) Glucose (70-99) mg/dl Calcium (8.5-10.1) mg/dl Albumin (3.4-5.0) gm/dl 25-OH Vitamin D Total (30-100) ng/ml COVID-19 Eval Order Covid19 [facility] Hepatitis C Ab Screen Neg (Neg) SARS-CoV-2, RNA, NAAT NEGATIVE (NEGATIVE) 09/22/20 09/22/20 09/22/20 Range/Units 06:24 06:24 08:35 WBC 9.38 (4.8-10.8) K/uL RBC 4.09 L (4.7-6.1) M/uL Hgb 12.1 L (14.0-18.0) g/dL Hct 36.3 L (42-52) % MCV 88.8 (80-100) fL MCH 29.6 (25-34) pg MCHC 33.3 (32-36) g/dL RDW Std Deviation 47.6 H (36.4-46.3) fL RDW Coeff of Saray 14.6 H (11.5-14.5) % Plt Count 140 (130-400) K/uL MPV 10.9 H (7.4-10.4) fL Immature Gran % (Auto) 0.2 % Neut % (Auto) 86.9 % Lymph % (Auto) 7.0 % Bryan % (Auto) 5.9 % Eos % (Auto) 0.0 % Baso % (Auto) 0.0 % Neut # (Auto) 8.15 H (1.4-6.5) K/uL Lymph # (Auto) 0.66 L (1.2-3.4) K/uL Bryan # (Auto) 0.55 (0.11-0.59) K/uL Eos # (Auto) 0.00 (0-0.5) K/uL Baso # (Auto) 0.00 (0-0.2) K/uL Immature Gran # (Auto) 0.02 (0.00-0.02) K/uL Sodium 137 (136-145) mmol/L Potassium 3.9 (3.5-5.1) mmol/L Chloride 107 (98-107) mmol/L Carbon Dioxide 24 (21-32) mmol/L Anion Gap 6.0 (3-11) BUN 17 (7-18) mg/dl Creatinine 1.09 (0.6-1.4) mg/dl Est Cr Clr Drug Dosing 87.6 ml/min Est GFR ( Amer) 81.0 ml/min Est GFR (Non-Af Amer) 69.9 ml/min BUN/Creatinine Ratio 15.9 (10-20) Glucose 134 H (70-99) mg/dl Calcium 7.8 L (8.5-10.1) mg/dl Albumin 3.2 L (3.4-5.0) gm/dl 25-OH Vitamin D Total (30-100) ng/ml COVID-19 Eval Order Hepatitis C Ab Screen (Neg) SARS-CoV-2, RNA, NAAT (NEGATIVE) 09/22/20 Range/Units 08:35 WBC (4.8-10.8) K/uL RBC (4.7-6.1) M/uL Hgb (14.0-18.0) g/dL Hct (42-52) % MCV (80-100) fL MCH (25-34) pg MCHC (32-36) g/dL RDW Std Deviation (36.4-46.3) fL RDW Coeff of Saray (11.5-14.5) % Plt Count (130-400) K/uL MPV (7.4-10.4) fL Immature Gran % (Auto) % Neut % (Auto) % Lymph % (Auto) % Bryan % (Auto) % Eos % (Auto) % Baso % (Auto) % Neut # (Auto) (1.4-6.5) K/uL Lymph # (Auto) (1.2-3.4) K/uL Bryan # (Auto) (0.11-0.59) K/uL Eos # (Auto) (0-0.5) K/uL Baso # (Auto) (0-0.2) K/uL Immature Gran # (Auto) (0.00-0.02) K/uL Sodium (136-145) mmol/L Potassium (3.5-5.1) mmol/L Chloride (98-107) mmol/L Carbon Dioxide (21-32) mmol/L Anion Gap (3-11) BUN (7-18) mg/dl Creatinine (0.6-1.4) mg/dl Est Cr Clr Drug Dosing ml/min Est GFR ( Amer) ml/min Est GFR (Non-Af Amer) ml/min BUN/Creatinine Ratio (10-20) Glucose (70-99) mg/dl Calcium (8.5-10.1) mg/dl Albumin (3.4-5.0) gm/dl 25-OH Vitamin D Total 41.1 (30-100) ng/ml COVID-19 Eval Order Hepatitis C Ab Screen (Neg) SARS-CoV-2, RNA, NAAT (NEGATIVE) Total Time Total Time Spent Total Time Spent (In Minutes): 20 Discharge Plan Discharge Items Patient Disposition: Home - Self-Care Reason For Visit: Right Shoulder Arthropathy Discharge Diagnosis: Right shoulder arthropathy Activity: Per Instructions section Weightbearing: Right non-weightbearing Non-emergency contact: Surgeon Call non-emergency contact if: you have any medication questions, your pain is not controlled, your temperature is above 101.5, your wound has increased redness and your wound has increased drainage Follow-up/Referrals: Maykel Chiang [Primary Care Provider] - Diet: Regular Addtl Attending Provider Instructions: ACTIVITY RECOMMENDATIONS: SELF CARE INSTRUCTIONS AFTER TOTAL SHOULDER ARTHROPLASTY REVERSE A. You may do daily exercises as taught in physical therapy while in hospital. No lifting with the operative arm. B. You are to wear your sling/immobilizer at all times EXCEPT when performing your daily exercises and for hygiene purposes. C. You may perform dry, daily dressing changes. Please keep your incision covered. You may shower 48 hours after surgery. Do not apply soap or any ointment/lotions directly over incision. Do not soak incision in bath tub/swimming pool. D. You may use ice as needed to operative shoulder. SPECIAL CARE INSTRUCTIONS: VERY IMPORTANT TO READ AND REVIEW A. There are a few signs you need to watch for after you are home. Call [facility] at [phone] if you experience any of the followin. Increased severe shoulder pain. Some pain is expected especially when you exercise. 2. Increased swelling in you shoulder or arm; pain or swelling in either upper extremity. 3. Any fluid drainage from the incision. 4. Shortness of breath or chest pain. B. Please call [facility] at [phone] if you have any questions or concerns about your operation or recovery. C. Call your physician if: 1. Temperature is greater than 101 degrees (F). 2. Pain is not relieved by prescribed pain medications. 3. Increase drainage or redness from incision. 4. Unanswered questions or concerns. FOLLOW UP VISIT: Please call [facility] at [phone] to schedule a follow up appointment with Dr. Guillen or his PA in 12-14 days from your surgery date. Pending Studies at Discharge: No Stand-Alone Forms: [facility], Opioid Pain Management, Smoking Cessation Medications and DC Order Prescriptions: New multivitamin [Daily-Aster] Tablet 1 tab PO QAM 30 Days Qty: 30 RF: 0 sennosides [Senokot] 8.6 mg Tablet 17.2 mg PO HS 30 Days Qty: 60 RF: 0 aspirin 81 mg Tablet,Delayed Release (Dr/Ec) 81 mg PO BID 30 Days Qty: 60 RF: 0 acetaminophen [Tylenol Extra Strength] 500 mg Tablet 1,000 mg PO Q8 30 Days Qty: 180 RF: 0 hydromorphone [Dilaudid] 2 mg Tablet 2 mg PO Q4H PRN (Reason: pain) Qty: 20 RF: 0 calcium carbonate [Tums] 200 mg calcium (500 mg) Tablet,Chewable 500 mg PO DAILY PRN (Reason: dyspepsia) 30 Days Qty: 90 RF: 0 docusate sodium 100 mg Capsule 100 mg PO BID 30 Days Qty: 60 RF: 0 cholecalciferol (vitamin D3) 25 mcg (1,000 unit) Capsule 4,000 unit PO PM 30 Days RF: 0 gabapentin 100 mg capsule 100 mg PO DAILY Qty: 30 RF: 0 Continued diphenhydramine HCl [Benadryl] 25 mg Capsule 50 mg PO HS PRN (Reason: Insomnia) RF: 0 rosuvastatin 10 mg Tablet 10 mg PO PM RF: 0 Discontinued hydrocodone-acetaminophen [Vicodin HP] 10-300 mg Tablet 1 tab PO Q6H PRN (Reason: Pain) RF: 0 Vitamin D3 100 mcg (4,000 unit) Capsule 100 mcg PO PM RF: 0 Discharge Orders: Discharge Order (Routine); Ordered 09/23/20 Ordered By: Alee Cordova/Other Patient Handouts: DVT Post Op Prevention Admission Data Admit Date/Time: 09/21/20 15:06 Attending Provider: Lamont Guillen Admit Provider: Lamont Guillen Primary Care Provider: Maykel Chiang Other Providers: Skye Pagan Other Interventions: Discharge Summary Assessment (RN) Last Done: 09/23/20 11:50
== END 2020-09-23 14:35 | disposition home or self-care (01) | DRG 483 ==
LOC: EDBD → ASU 10:05 → PACUINP 15:06 → 3E 16:29

== ENCOUNTER 2023-11-19 17:07 | Observation (INO) ==
[2023-11-19] MEDS: HYDROmorphone INJ 1 MG/ML SYRINGE IV STA (18:51)
[2023-11-19] MEDS: ONDANSETRON INJ 2 MG/ML 2 ML VIAL IV STA (18:51)
[2023-11-19] MEDS: SODIUM CHLORIDE 0.9% 500 ML IV SCH (18:51)
--- NOTE | 2023-11-19 18:57 | CT Scan Report ---
ABDOMEN AND PELVIS CT WITHOUT CONTRAST CT DOSE: 1465.17 mGy.cm HISTORY: Acute left upper quadrant abdominal pain abd pain TECHNIQUE: Multiaxial CT images of the abdomen and pelvis were performed without contrast. A dose lo wering technique was utilized adhering to the principles of ALARA. COMPARISON STUDY: None. FINDINGS: Coronary artery calcifications. Mild right hemidiaphragmatic elevation. No free air. Unrema rkable spleen, atrophic pancreas and right adrenal gland. 1.5 cm left adrenal adenoma. Probable cyst of the left hepatic lobe, 1.9 cm. Gallbladder is within normal limits. No hydronephrosis. Probable cyst of the lateral interpolar left kidney, 3 cm. Unremarkable urinary bl adder. Prostatomegaly. Atherosclerosis of the aorta. No lymphadenopathy. Moderate colonic fecal reten tion. There are small bilateral fat filled ventral hernias. The right inguinal hernia contains trace free fluid in nonobstructed appendix. The left inguinal hernia contains mesenteric fat and a portion of nonobstructed sigmoid colon. There are a few loops of fluid and stool filled nondilated small aime l within the midabdomen measuring up to 2.6 cm transversely which demonstrate mild circumferential wa ll thickening with trace interloop edema. No high-grade bowel obstruction. Degenerative and postopera tive changes of the spine. IMPRESSION: 1. No high-grade bowel obstruction or pneumoperitoneum. 2. There are a few air, fluid and stool filled loops of mid abdominal small bowel which demonstrate m ild wall thickening with interloop edema suggestive of a mild enteritis. Low-grade small bowel obstru ction considered less likely. 3. Small fat filled inguinal hernias. The right inguinal hernia contains a noninflamed appendix and t he left hernia contains a portion of the sigmoid colon. ACT 112: Negative or not required by law. The above report was generated using voice recognition software. It may contain grammatical, syntax o r spelling errors. Electronically signed by: Clemente Woodson M.D. 11/19/2023 6:55 PM
[2023-11-19 18:59] LABS: Basophils # (auto) 0.04 K/uL (0.00-0.20); Basophils % (auto) 0.4 %; Eosinophils # (auto) 0.06 K/uL (0.00-0.50); Eosinophils % (auto) 0.6 %; Hematocrit (blood only) 43.2 % (42.0-52.0); Hemoglobin 14.2 g/dl (14.0-18.0); Immature Granulocytes # (auto) 0.02 K/uL (0.01-0.20); Immature Granulocytes % (auto) 0.2 %; Lymphocytes # (auto) 1.65 K/uL (1.20-3.40); Lymphocytes % (auto) 17.5 %; Mean Corpuscular Hemoglobin 28.9 pg (25.0-34.0); Mean Corpuscular Hgb Conc 32.9 g/dL (32.0-36.0); Mean Platelet Volume 11.2 fL (9.4-12.4); Monocytes # (auto) 0.65 K/uL (0.11-0.59); Monocytes % (auto) 6.9 %; Neutrophils # (auto) 7.03 K/uL (1.40-6.50); Neutrophils % (auto) 74.4 %; Platelet Count 154 K/uL (130-400); RDW Coefficient of Variation 14.5 % (11.5-14.5); RDW Standard Deviation 46.7 fL (36.4-46.3); Red Blood Count 4.91 M/uL (4.70-6.10); White Blood Count 9.45 K/ul (4.8-10.8)
[2023-11-19 19:01] LABS: iSTAT Creatinine 0.7 mg/dl (0.6-1.3); iSTAT Hemoglobin 11.9 g/dl (14.0-18.0); iSTAT Ionized Calcium 1.01 mmol/l (1.12-1.32); iSTAT Potassium 3.5 mmol/L (3.3-5.0)
[2023-11-19 19:05] LABS: Albumin Globulin Ratio 1.5 (0.9-2); Albumin Level 4.4 gm/dl (3.4-5.0); BUN Creatinine Ratio 12.6 (10-20); Bilirubin,Total 0.7 mg/dl (0.2-1.0); Calcium 9.2 mg/dl (8.6-10.3); Creatinine Clr Calc Pharmacy 96.8 ml/min; Est GFR (Non-African American) 80.2 ml/min; Potassium 3.9 mmol/L (3.5-5.1); Total Protein 7.4 gm/dl (6.0-8.3)
--- NOTE | 2023-11-19 19:43 | Emergency Department Note ---
History of Present Illness General Chief Complaint: Abdominal Pain Stated Complaint: ABD PAIN Time Seen by Provider: 11/19/23 18:01 History of Present Illness Provider Complaint: abdominal pain Onset (ago): 1 day(s) Pain Consistency: constant Location: diffuse Severity: moderate Maximum Pain Intensity: 6 Quality: + stabbing, + aching, + sharp and + dull Relieved By: + nothing Exacerbated By: + nothing Context: + history of similar episodes (History of multiple ileus as well as SBO's. Feels very similar.); no foreign travel, no possible food poisoning, no sick contacts, no recent antibiotic use, no recent surgery/procedure or no recent injury Associated Symptoms: + nausea; no vomiting, no diarrhea, no fever, no chills, no constipation, no dysuria, no hematemesis, no hematochezia, no melena, no hematuria, no headache, no chest pain and no breathing difficulty Home Medications Medication Instructions Recorded Confirmed Type diphenhydramine HCl 25 mg capsule 50 mg PO HS PRN Insomnia 04/23/18 11/19/23 History (Benadryl) rosuvastatin 10 mg tablet 10 mg PO PM 08/21/20 11/19/23 History cholecalciferol (vitamin D3) 100 1,000 unit PO DAILY 11/19/23 11/19/23 History mcg (4,000 unit) capsule hydrocodone 5 mg-acetaminophen 325 1 tab PO DAILY PRN Pain, Mild 11/19/23 11/19/23 History mg tablet losartan 50 mg tablet 50 mg PO DAILY 11/19/23 11/19/23 History methocarbamol 500 mg tablet 500 mg PO DAILY PRN MUSCLE SPASMS 11/19/23 11/19/23 History Allergies Allergy/AdvReac Type Severity Reaction Status Date / Time Iodinated Contrast Media Allergy Severe Anaphylaxis Verified 11/19/23 19:36 meperidine Allergy Mild Rash Verified 11/19/23 19:36 oxycodone AdvReac Mild Percocet/Percodan- Verified 11/19/23 19:36 skin crawling Penicillins AdvReac Mild Dyspepsia Verified 11/19/23 19:36 propoxyphene AdvReac Mild Darvon/Darvocet- Verified 11/19/23 19:36 skin crawling Past Med/Surg History Problem List (Updated 11/19/23 @ 19:45 by Saeed Serrano MD) SBO (small bowel obstruction) (Acute) Lumbosacral radiculopathy Sleep apnea CPAP HLD (hyperlipidemia) History of colon cancer s/p resection (hx of blood transfusion remotely in 1980s in setting of cancer) History of DVT (deep vein thrombosis) LLE DVT (2011) s/p TKA- treated with AC S/p reverse total shoulder arthroplasty Morbid obesity Rotator cuff arthropathy of right shoulder Wrist pain, right (Acute) Osteoarthritis of right knee Status post total right knee replacement Encounter for pre-operative examination Spinal stenosis, lumbar region with neurogenic claudication Medical History Ileus Recurrent s/p colon cancer/resection Concern about infectious disease without diagnosis Pt reports that if he gets an infection, he does not get any normal signs of it like fever/elevated WBC. He states he had a bad infection (? sepsis) and almost from when had colon cancer, but showed no signs until almost too late. Osteoarthritis GERD (gastroesophageal reflux disease) Occasional History of ileus 2018 Surgical History Hx of abdominal surgery Age 2/3 (no further details) History of esophagogastroduodenoscopy (EGD) History of tooth extraction H/O squamous cell carcinoma excision Left arm Hx of discectomy Lumbar (prior to fusion) History of repair of rotator cuff Right Status post trigger finger release R/L History of total knee replacement R/L History of bilateral carpal tunnel release History of bowel resection History of colonoscopy History of arthroscopy Right elbow History of colostomy reversal History of colostomy 2/2 colon cancer Fusion of spine Lumbar x2 Removal previous hardware, L3-L5 decompression with fusion (05/22/2018): Failed with MAC3, easy with Glidescope #4 at [facility] Family History Mother Family history of diabetes mellitus Social History Smoking Status: Never smoker Second Hand Exposure: Yes (as kid); Do You Dip or Chew Tobacco: No; Hx Alcohol Use: No Hx Substance Use: No Preferred Language: Mauritian Communication Ability: Effective Visual Impairment: No Limitations Disintegrator Operator Required: No Beliefs That Will Affect Care: None marital status: Current Living Situation: Spouse Feels Safe at Home: Yes Assistive Devices: None Physical Exam 2 Vital Signs: Vital Signs - 24 hr 11/19/23 17:39 11/19/23 18:44 11/19/23 19:00 Temperature 36.8 C Temperature Source Temporal Artery Sc an Pulse Rate 64 66 Pulse Rate [Finger ] 63 Respiratory Rate 18 18 Respiratory Effort / Characteristics Non-Labored Sponta neous Respiratory Depth Normal Blood Pressure 160/102 H Blood Pressure [Ri ght Arm] 144/84 H Blood Pressure Marissa n 121 Blood Pressure Marissa n [Right Arm] 104 Pulse Oximetry 98 99 Oxygen Delivery Me thod Room Air Room Air Sepsis Recent Feve r Within 48 Hours No Sepsis New/Unexpla ined Change in Men harshad Status No Sepsis Action Take n by Nursing No Action Required Physical Exam: Physical Exam GENERAL: oriented to person, place, and time. appears well-developed and well- nourished. HENT: Exam performed. - Head: Normocephalic and atraumatic. EYES: Conjunctivae and EOM are normal. Right eye exhibits no discharge. Left eye exhibits no discharge. No scleral icterus. NECK: Normal range of motion. Neck supple. No JVD present. CV: Normal rate, regular rhythm, normal heart sounds and intact distal pulses. There is no peripheral edema. Palpable radial pulses bue. PULM/CHEST: Effort normal and breath sounds normal. No respiratory distress. No stridor. no wheezes. no rales. ABD: The abdomen is soft. There is diffuse tenderness to palpation. NEURO: Motor and sensation grossly intact. SKIN: Skin is warm and dry. He is not diaphoretic. PSYCH: normal mood and affect. Behavior is normal. Judgment and thought content normal. Course Course 1800: The patient was evaluated in room B4. A complete history and physical exam was performed Cardiac monitoring: An order was placed for continuous cardiac monitoring. The monitor shows a rate of 70 with sinus rhythm interpreted by me 1944: Vital signs stable. Labs are unremarkable. Imaging shows possible low- grade small bowel obstruction versus enteritis. [facility] team. Dr. Barr on-call general surgery notified via [place] text and agreed to be on consult. Administered Medications Sodium Chloride (Nss) 500 mls @ 125 mls/hr IV .Q4H MARJ Stop: 12/19/23 18:29 Last Admin: 11/19/23 18:51 Dose: 125 mls/hr Documented By: ASHLEY Discontinued Medications Hydromorphone HCl (Hydromorphone Inj 1 Mg/Ml Syringe) 1 mg IV NOW STA Stop: 11/19/23 18:26 Last Admin: 11/19/23 18:51 Dose: 1 mg Documented By: ASHLEY Ondansetron HCl (Ondansetron Inj 2 Mg/Ml 2 Ml Vial) 4 mg IV NOW STA Stop: 11/19/23 18:26 Last Admin: 11/19/23 18:51 Dose: 4 mg Documented By: ASHLEY Medical Decision Making Laboratory Data Attestation: I reviewed the patient's lab results. 11/19/23 17:53 11/19/23 17:53 Lab Results 11/19/23 11/19/23 Range/Units 17:53 18:48 WBC 9.45 (4.8-10.8) K/ul RBC 4.91 (4.70-6.10) M/uL Hgb 14.2 (14.0-18.0) g/dl POC Hgb 11.9 L (14.0-18.0) g/dl Hct 43.2 (42.0-52.0) % POC Hct 35 L (42-52) % MCV 88.0 (80.0-100.0) fL MCH 28.9 (25.0-34.0) pg MCHC 32.9 (32.0-36.0) g/dL RDW Std Deviation 46.7 H (36.4-46.3) fL RDW Coeff of Saray 14.5 (11.5-14.5) % Plt Count 154 (130-400) K/uL MPV 11.2 (9.4-12.4) fL Immature Gran % (Auto) 0.2 % Neut % (Auto) 74.4 % Lymph % (Auto) 17.5 % [place] % (Auto) 6.9 % Eos % (Auto) 0.6 % Baso % (Auto) 0.4 % Neut # (Auto) 7.03 H (1.40-6.50) K/uL Lymph # (Auto) 1.65 (1.20-3.40) K/uL [place] # (Auto) 0.65 H (0.11-0.59) K/uL Eos # (Auto) 0.06 (0.00-0.50) K/uL Baso # (Auto) 0.04 (0.00-0.20) K/uL Immature Gran # (Auto) 0.02 (0.01-0.20) K/uL POC Sodium 143 (135-144) mmol/L Sodium 139 (136-145) mmol/L POC Potassium 3.5 (3.3-5.0) mmol/L Potassium 3.9 (3.5-5.1) mmol/L POC Chloride 111 (101-112) mmol/L Chloride 105 (98-107) mmol/L Carbon Dioxide 27 (21-32) mmol/L POC Total CO2 21 L (24-31) mmol/L Anion Gap 7 (3-11) POC Anion Gap 16.0 (16-25) mmol/L POC BUN 10 (7-18) mg/dl BUN 12 (6-23) mg/dl Creatinine 0.95 (0.6-1.4) mg/dl POC Creatinine 0.7 (0.6-1.3) mg/dl Est Cr Clr Drug Dosing 96.8 ml/min Est GFR ( Amer) 93.0 ml/min Est GFR (Non-Af Amer) 80.2 ml/min BUN/Creatinine Ratio 12.6 (10-20) Glucose 82 (70-99(Fasting)) mg/dl POC Glucose (other) 72 (70-99) mg/dl Calcium 9.2 (8.6-10.3) mg/dl POC Ioniz Calcium Jesus 1.01 L (1.12-1.32) mmol/l Total Bilirubin 0.7 (0.2-1.0) mg/dl AST 23 (13-39) U/L ALT 28 (7-52) U/L Alkaline Phosphatase 58 (34-104) U/L Total Protein 7.4 (6.0-8.3) gm/dl Albumin 4.4 (3.4-5.0) gm/dl Globulin 3.0 (2.5-4.0) gm/dl Albumin/Globulin Ratio 1.5 (0.9-2) Lipase 24 (11-82) U/L Imaging Data Radiologist's Impression: Abdomen/Pelvis CT 11/19/23 18:[address] WITHOUT CONTRAST CT DOSE: 1465.17 mGy.cm HISTORY: Acute left upper quadrant abdominal pain abd pain TECHNIQUE: Multiaxial CT images of the abdomen and pelvis were performed without contrast. A dose lowering technique was utilized adhering to the principles of ALARA. COMPARISON STUDY: None. FINDINGS: Coronary artery calcifications. Mild right hemidiaphragmatic elevation. No free air. Unremarkable spleen, atrophic pancreas and right adrenal gland. 1.5 cm left adrenal adenoma. Probable cyst of the left hepatic lobe, 1.9 cm. Gallbladder is within normal limits. No hydronephrosis. Probable cyst of the lateral interpolar left kidney, 3 cm. Unremarkable urinary bladder. Prostatomegaly. Atherosclerosis of the aorta. No lymphadenopathy. Moderate colonic fecal retention. There are small bilateral fat filled ventral hernias. The right inguinal hernia contains trace free fluid in nonobstructed appendix. The left inguinal hernia contains mesenteric fat and a portion of nonobstructed sigmoid colon. There are a few loops of fluid and stool filled nondilated small bowel within the midabdomen measuring up to 2.6 cm transversely which demonstrate mild circumferential wall thickening with trace interloop edema. No high-grade bowel obstruction. Degenerative and postoperative changes of the spine. IMPRESSION: 1. No high-grade bowel obstruction or pneumoperitoneum. 2. There are a few air, fluid and stool filled loops of mid abdominal small bowel which demonstrate mild wall thickening with interloop edema suggestive of a mild enteritis. Low-grade small bowel obstruction considered less likely. 3. Small fat filled inguinal hernias. The right inguinal hernia contains a noninflamed appendix and the left hernia contains a portion of the sigmoid colon. ACT 112: Negative or not required by law. The above report was generated using voice recognition software. It may contain grammatical, syntax or spelling errors. Electronically signed by: Clemente Woodson M.D. 11/19/2023 6:55 PM [facility] Narrative 1801: The patient was evaluated in room B4. A complete history and physical exam was performed Cardiac monitoring: An order was placed for continuous cardiac monitoring. The monitor shows a rate of 70 with sinus rhythm interpreted by me 1944: Vital signs stable. Labs are unremarkable. Imaging shows possible low- grade small bowel obstruction versus enteritis. Patient will be admitted to the [facility] team. Dr. Barr on-call general surgery notified via [place] text and agreed to be on consult. Impression & Plan SBO (small bowel obstruction) Discharge Plan Visit Data Chief Complaint: Abdominal Pain Stated Complaint: ABD PAIN ED Provider: Saeed Serrano Discharge Problem: SBO (small bowel obstruction) Patient Disposition: Admitted As Inpatient Forms Stand Alone Forms: My [facility] Prescriptions Prescriptions: No Action diphenhydramine HCl [Benadryl] 25 mg Capsule 50 mg PO HS PRN (Reason: Insomnia) rosuvastatin 10 mg Tablet 10 mg PO PM losartan 50 mg tablet 50 mg PO DAILY methocarbamol 500 mg tablet 500 mg PO DAILY PRN (Reason: MUSCLE SPASMS) hydrocodone-acetaminophen 5-325 mg tablet 1 tab PO DAILY PRN (Reason: Pain, Mild) Vitamin D3 100 mcg (4,000 unit) Capsule 1,000 unit PO DAILY Referrals Referrals: Denver Dinero [Primary Care Provider] -
[2023-11-19] MEDS ORDERED: KETOROLAC TROMETHAMINE 15 MG/ML VIAL IV PRN (20:05)
--- NOTE | 2023-11-19 20:12 | History & Physical Report ---
Date of Service November 19, 2023 Assessment & Plan (1) SBO (small bowel obstruction): (2) Enteritis: (3) Sleep apnea: (4) HLD (hyperlipidemia): (5) History of colon cancer: (6) History of DVT (deep vein thrombosis): (7) Spinal stenosis, lumbar region with neurogenic claudication: Plan Recurrent small bowel obstruction/ileus/enteritis- History of colon cancer status post resection in the [place] Status post 500 mL normal saline, Zofran 4 mg IV and Dilaudid 1 mg IV from the ED Place on NSS + KCl 20 mill equivalents at 100 mL/h x 2 L Acetaminophen 1 g IV every 8 hours as needed for mild pain or fever Toradol 15 mg IV every 6 hours as needed for moderate pain Dilaudid 0.5 mg IV every 3 hours as needed for severe pain Zofran 4 mg IV every 4 hours as needed History of DVT- Associated with TKA in 2011 SCDs Heparin 5000 subcu every 12 hours Lumbar spinal stenosis with neurogenic claudication- IV pain medications as noted above, holding oral [place] Hypertension- Hold losartan, current blood pressure 139/82 with pulse 58 History of Present Illness Chief Complaint: The patient presents to the emergency department with acute onset of abdominal pain that began the evening of 11/17, persisted throughout the day today, and despite his usual conservative treatment when he gets the symptoms, the symptoms have progressed and he presents to the ED for assessment this evening. He has also had nausea without vomiting. He has had multiple episodes of enteritis and bowel obstructions in the past. He denies any recent travels or sick exposures. He denies any questionable food or liquid intakes. He denies blood in stool. Primary Care Provider: Denver Dinero The patient is a 73-year-old male with a past medical history including sleep apnea, hyperlipidemia, colon cancer, history of DVT, morbid obesity, osteoarthritis, lumbar spinal stenosis with neurogenic claudication. He presents with symptoms similar to previous bowel obstructions, with the symptoms having been ongoing for the past 24 hours. Allergies Allergy/AdvReac Type Severity Reaction Status Date / Time Iodinated Contrast Media Allergy Severe Anaphylaxis Verified 11/19/23 19:36 meperidine Allergy Mild Rash Verified 11/19/23 19:36 oxycodone AdvReac Mild Percocet/Percodan- Verified 11/19/23 19:36 skin crawling Penicillins AdvReac Mild Dyspepsia Verified 11/19/23 19:36 propoxyphene AdvReac Mild Darvon/Darvocet- Verified 11/19/23 19:36 skin crawling Home Medications Medication Instructions Recorded Confirmed Type diphenhydramine HCl 25 mg capsule 50 mg PO HS PRN Insomnia 04/23/18 11/19/23 History (Benadryl) rosuvastatin 10 mg tablet 10 mg PO PM 08/21/20 11/19/23 History cholecalciferol (vitamin D3) 100 1,000 unit PO DAILY 11/19/23 11/19/23 History mcg (4,000 unit) capsule hydrocodone 5 mg-acetaminophen 325 1 tab PO DAILY PRN Pain, Mild 11/19/23 11/19/23 History mg tablet losartan 50 mg tablet 50 mg PO DAILY 11/19/23 11/19/23 History methocarbamol 500 mg tablet 500 mg PO DAILY PRN MUSCLE SPASMS 11/19/23 11/19/23 History Past Med/Surg History Problem List (Updated 11/19/23 @ 23:00 by Lucas Koo MD) Enteritis SBO (small bowel obstruction) (Acute) Lumbosacral radiculopathy Sleep apnea CPAP HLD (hyperlipidemia) History of colon cancer s/p resection (hx of blood transfusion remotely in 1980s in setting of cancer) History of DVT (deep vein thrombosis) LLE DVT (2011) s/p TKA- treated with AC S/p reverse total shoulder arthroplasty Morbid obesity Rotator cuff arthropathy of right shoulder Wrist pain, right (Acute) Osteoarthritis of right knee Status post total right knee replacement Encounter for pre-operative examination Spinal stenosis, lumbar region with neurogenic claudication Medical History Ileus Recurrent s/p colon cancer/resection Concern about infectious disease without diagnosis Pt reports that if he gets an infection, he does not get any normal signs of it like fever/elevated WBC. He states he had a bad infection (? sepsis) and almost from when had colon cancer, but showed no signs until almost too late. Osteoarthritis GERD (gastroesophageal reflux disease) Occasional History of ileus 2018 Surgical History Hx of abdominal surgery Age 2/3 (no further details) History of esophagogastroduodenoscopy (EGD) History of tooth extraction H/O squamous cell carcinoma excision Left arm Hx of discectomy Lumbar (prior to fusion) History of repair of rotator cuff Right Status post trigger finger release R/L History of total knee replacement R/L History of bilateral carpal tunnel release History of bowel resection History of colonoscopy History of arthroscopy Right elbow History of colostomy reversal History of colostomy 2/2 colon cancer Fusion of spine Lumbar x2 Removal previous hardware, L3-L5 decompression with fusion (05/22/2018): Failed with MAC3, easy with Glidescope #4 at [facility] Family History Mother Family history of diabetes mellitus Social History Smoking Status: Never smoker Second Hand Exposure: Yes (as kid); Do You Dip or Chew Tobacco: No; Hx Alcohol Use: No Hx Substance Use: No Preferred Language: Tuvaluan Communication Ability: Effective Visual Impairment: No Limitations Foreign Languages Professor Required: No Beliefs That Will Affect Care: None marital status: Current Living Situation: Spouse Feels Safe at Home: Yes Assistive Devices: None Review of Systems Review of Systems: The patient denies chest pain, palpitations, shortness of breath, dyspnea on exertion, cough, lower extremity swelling, sore throat, fevers, chills, sweats, weight change, vomiting blood in urine or stool, dysuria, urinary frequency or urgency, lightheadedness, dizziness, headache, memory loss, loss of consciousness, rash, abnormal bruising or bleeding, imbalance, focal or generalized weakness, numbness or tingling in arms or legs, generalized arthralgias or myalgias, back or neck pain, or night sweats. The review of systems is otherwise negative other than for that already noted above, and at least 10 systems have been reviewed. Physical Exam Physical Exam: The patient is awake, alert and oriented 3, well developed and well nourished, normocephalic and atraumatic, lying in bed and in no acute distress. HEENT--PERRL, EOMI, mucous membranes and oropharynx mildly dry. Neck--supple. No JVD. No bruits. Thyroid normal, trachea midline, no adenopathy. Heart--normal S1 and S2. No murmurs, rubs or gallops. Lungs--clear bilaterally, no respiratory distress, no accessory muscle use. Abdomen--decreased bowel sounds and soft. Nontender post Dilaudid. Mildly distended. Extremities--no cyanosis or clubbing. No edema. There are good distal pulses b/l. Dermatologic--normal skin turgor, normal color, no abnormal lymph nodes, no rash. Neurologic--cranial nerves II through XII grossly intact. Rheumatologic--normal range of motion. Psychiatric--normal affect. Results & Data Results & Data Vital Signs (Past 12 Hours) Vital Signs Temp Pulse Pulse Resp BP BP Pulse Ox 11/19/23 19:00 66 11/19/23 18:44 63 18 144/84 H 99 11/19/23 17:39 36.8 C 64 18 160/102 H 98 O2 Del Method 11/19/23 19:00 11/19/23 18:44 Room Air 11/19/23 17:39 Room Air Laboratory Results Laboratory Results WBC 9.45 K/ul (4.8-10.8) 11/19/23 17:53 RBC 4.91 M/uL (4.70-6.10) 11/19/23 17:53 Hgb 14.2 g/dl (14.0-18.0) 11/19/23 17:53 POC Hgb 11.9 g/dl (14.0-18.0) L 11/19/23 18:48 Hct 43.2 % (42.0-52.0) 11/19/23 17:53 POC Hct 35 % (42-52) L 11/19/23 18:48 MCV 88.0 fL (80.0-100.0) 11/19/23 17:53 MCH 28.9 pg (25.0-34.0) 11/19/23 17:53 MCHC 32.9 g/dL (32.0-36.0) 11/19/23 17:53 RDW Std Deviation 46.7 fL (36.4-46.3) H 11/19/23 17:53 RDW Coeff of [place]ay 14.5 % (11.5-14.5) 11/19/23 17:53 Plt Count 154 K/uL (130-400) 11/19/23 17:53 MPV 11.2 fL (9.4-12.4) 11/19/23 17:53 Immature Gran % (Auto) 0.2 % 11/19/23 17:53 Neut % (Auto) 74.4 % 11/19/23 17:53 Lymph % (Auto) 17.5 % 11/19/23 17:53 [place] % (Auto) 6.9 % 11/19/23 17:53 Eos % (Auto) 0.6 % 11/19/23 17:53 Baso % (Auto) 0.4 % 11/19/23 17:53 Neut # (Auto) 7.03 K/uL (1.40-6.50) H 11/19/23 17:53 Lymph # (Auto) 1.65 K/uL (1.20-3.40) 11/19/23 17:53 [place] # (Auto) 0.65 K/uL (0.11-0.59) H 11/19/23 17:53 Eos # (Auto) 0.06 K/uL (0.00-0.50) 11/19/23 17:53 Baso # (Auto) 0.04 K/uL (0.00-0.20) 11/19/23 17:53 Immature Gran # (Auto) 0.02 K/uL (0.01-0.20) 11/19/23 17:53 POC Sodium 143 mmol/L (135-144) 11/19/23 18:48 Sodium 139 mmol/L (136-145) 11/19/23 17:53 POC Potassium 3.5 mmol/L (3.3-5.0) 11/19/23 18:48 Potassium 3.9 mmol/L (3.5-5.1) 11/19/23 17:53 POC Chloride 111 mmol/L (101-112) 11/19/23 18:48 Chloride 105 mmol/L (98-107) 11/19/23 17:53 Carbon Dioxide 27 mmol/L (21-32) 11/19/23 17:53 POC Total CO2 21 mmol/L (24-31) L 11/19/23 18:48 Anion Gap 7 (3-11) 11/19/23 17:53 POC Anion Gap 16.0 mmol/L (16-25) 11/19/23 18:48 POC BUN 10 mg/dl (7-18) 11/19/23 18:48 BUN 12 mg/dl (6-23) 11/19/23 17:53 Creatinine 0.95 mg/dl (0.6-1.4) 11/19/23 17:53 POC Creatinine 0.7 mg/dl (0.6-1.3) 11/19/23 18:48 Est Cr Clr Drug Dosing 96.8 ml/min 11/19/23 17:53 Est GFR ( Amer) 93.0 ml/min 11/19/23 17:53 Est GFR (Non-Af Amer) 80.2 ml/min 11/19/23 17:53 BUN/Creatinine Ratio 12.6 (10-20) 11/19/23 17:53 Glucose 82 mg/dl (70-99(Fasting)) 11/19/23 17:53 POC Glucose (other) 72 mg/dl (70-99) 11/19/23 18:48 Calcium 9.2 mg/dl (8.6-10.3) 11/19/23 17:53 POC Ioniz Calcium Jesus 1.01 mmol/l (1.12-1.32) L 11/19/23 18:48 Total Bilirubin 0.7 mg/dl (0.2-1.0) 11/19/23 17:53 AST 23 U/L (13-39) 11/19/23 17:53 ALT 28 U/L (7-52) 11/19/23 17:53 Alkaline Phosphatase 58 U/L (34-104) 11/19/23 17:53 Total Protein 7.4 gm/dl (6.0-8.3) 11/19/23 17:53 Albumin 4.4 gm/dl (3.4-5.0) 11/19/23 17:53 Globulin 3.0 gm/dl (2.5-4.0) 11/19/23 17:53 Albumin/Globulin Ratio 1.5 (0.9-2) 11/19/23 17:53 Lipase 24 U/L (11-82) 11/19/23 17:53 Impressions Abdomen/Pelvis CT 11/19/23 18:[address] WITHOUT CONTRAST CT DOSE: 1465.17 mGy.cm HISTORY: Acute left upper quadrant abdominal pain abd pain TECHNIQUE: Multiaxial CT images of the abdomen and pelvis were performed without contrast. A dose lowering technique was utilized adhering to the principles of ALARA. COMPARISON STUDY: None. FINDINGS: Coronary artery calcifications. Mild right hemidiaphragmatic elevation. No free air. Unremarkable spleen, atrophic pancreas and right adrenal gland. 1.5 cm left adrenal adenoma. Probable cyst of the left hepatic lobe, 1.9 cm. Gallbladder is within normal limits. No hydronephrosis. Probable cyst of the lateral interpolar left kidney, 3 cm. Unremarkable urinary bladder. Prostatomegaly. Atherosclerosis of the aorta. No lymphadenopathy. Moderate colonic fecal retention. There are small bilateral fat filled ventral hernias. The right inguinal hernia contains trace free fluid in nonobstructed appendix. The left inguinal hernia contains mesenteric fat and a portion of nonobstructed sigmoid colon. There are a few loops of fluid and stool filled nondilated small bowel within the midabdomen measuring up to 2.6 cm transversely which demonstrate mild circumferential wall thickening with trace interloop edema. No high-grade bowel obstruction. Degenerative and postoperative changes of the spine. IMPRESSION: 1. No high-grade bowel obstruction or pneumoperitoneum. 2. There are a few air, fluid and stool filled loops of mid abdominal small bowel which demonstrate mild wall thickening with interloop edema suggestive of a mild enteritis. Low-grade small bowel obstruction considered less likely. 3. Small fat filled inguinal hernias. The right inguinal hernia contains a noninflamed appendix and the left hernia contains a portion of the sigmoid colon. ACT 112: Negative or not required by law. The above report was generated using voice recognition software. It may contain grammatical, syntax or spelling errors. Electronically signed by: Clemente Woodson M.D. 11/19/2023 6:55 PM Code Status & VTE Plan Code Status Full code VTE Prophylaxis Plan VTE Prophylaxis will be ordered: Yes PG Care Time/CCT Total # of Minutes Spent Total Time Spent with Patient: Total time spent is greater than 50% in coordination of care (as documented) at patient's floor/unit and/or counseling patient: Coding Level of Care Code 62136 INT INP/OBS CARE 3/75MIN Diagnoses SBO (small bowel obstruction) K56.609 Enteritis K52.9 Sleep apnea G47.30 HLD (hyperlipidemia) E78.5 History of colon cancer Z85.038 History of DVT (deep vein thrombosis) Z86.718 Spinal stenosis, lumbar region with neurogenic claudication M48.062
[2023-11-19] MEDS: NSS + 20MEQ KCL 20 MEQ/1,000 ML BAG IV SCH (21:07)
[2023-11-19] MEDS: ACETAMINOPHEN 1,000 MG/100 ML VIAL IV PRN (22:52)
[2023-11-20] MEDS: HYDROmorphone INJ 0.5 MG/0.5 ML SYR IV PRN ×3 (00:35→12:43)
[2023-11-20] MEDS: HEPARIN SOD 5,000 UNIT/0.5 ML VIAL SQ SCH (00:35)
[2023-11-20 00:59] VITALS: RESP 16
[2023-11-20 07:04] VITALS: TEMP 97.3
[2023-11-20 08:03] LABS: Basophils # (auto) 0.03 K/uL (0.00-0.20); Basophils % (auto) 0.7 %; Eosinophils # (auto) 0.09 K/uL (0.00-0.50); Hematocrit (blood only) 38.1 % (42.0-52.0); Hemoglobin 12.5 g/dl (14.0-18.0); Immature Granulocytes # (auto) 0.01 K/uL (0.01-0.20); Immature Granulocytes % (auto) 0.2 %; Lymphocytes # (auto) 1.29 K/uL (1.20-3.40); Lymphocytes % (auto) 28.4 %; Mean Corpuscular Hemoglobin 28.9 pg (25.0-34.0); Mean Corpuscular Hgb Conc 32.8 g/dL (32.0-36.0); Mean Corpuscular Volume 88.2 fL (80.0-100.0); Mean Platelet Volume 10.9 fL (9.4-12.4); Monocytes # (auto) 0.43 K/uL (0.11-0.59); Monocytes % (auto) 9.5 %; Neutrophils % (auto) 59.2 %; Platelet Count 116 K/uL (130-400); RDW Coefficient of Variation 14.5 % (11.5-14.5); Red Blood Count 4.32 M/uL (4.70-6.10); White Blood Count 4.55 K/ul (4.8-10.8)
[2023-11-20 09:31] LABS: Appearance Urine Clear (Clear); Bilirubin Urine Negative (Negative); Blood Urine Negative (Negative); Color Urine Yellow; Glucose Urine UA Negative (Negative); Ketones Urine Negative (Negative); Leukocyte Esterase Urine Negative (Negative); Nitrite Urine Negative (Negative); Protein Urine Negative (Negative); Specific Gravity Urine 1.016 (1.000-1.030); Urobilinogen Urine Negative (Negative); pH Urine 5.5 (4.5-7.5)
[2023-11-20 09:44] LABS: Albumin Level 3.8 gm/dl (3.4-5.0); Bilirubin,Total 0.7 mg/dl (0.2-1.0); Calcium 8.6 mg/dl (8.6-10.3); Magnesium 1.9 mg/dl (1.7-2.4); Potassium 4.1 mmol/L (3.5-5.1)
[2023-11-20 09:50] LABS: Albumin Globulin Ratio 1.5 (0.9-2); BUN Creatinine Ratio 15.7 (10-20); Creatinine Clr Calc Pharmacy 110.6 ml/min; Est GFR (African American) 102.6 ml/min; Est GFR (Non-African American) 88.5 ml/min; Globulin 2.5 gm/dl (2.5-4.0); Total Protein 6.3 gm/dl (6.0-8.3)
--- NOTE | 2023-11-20 10:10 | Hospitalist Progress Note ---
Date of Service November 20, 2023 Assessment & Plan (1) SBO (small bowel obstruction): (2) History of DVT (deep vein thrombosis): (3) History of colon cancer: (4) Lumbosacral radiculopathy: Plan 73-year-old male with a past medical history including sleep apnea, hyperlipidem ia, colon cancer, history of DVT, morbid obesity, osteoarthritis, lumbar spinal stenosis with neurogenic claudication. Recurrent small bowel obstruction/ileus/enteritis- History of colon cancer status post resection in the [facility] Place on NSS + KCl 20 mill equivalents at 100 mL/h x 2 L Acetaminophen 1 g IV every 8 hours as needed for mild pain or fever Toradol 15 mg IV every 6 hours as needed for moderate pain Dilaudid 0.5 mg IV every 3 hours as needed for severe pain Zofran 4 mg IV every 4 hours as needed - Will advanced diet as tolerate History of DVT- Associated with TKA in 2011 SCDs Heparin 5000 subcu every 12 hours Lumbar spinal stenosis with neurogenic claudication- IV pain medications as noted above, holding oral [place] Hypertension- Hold losartan, current blood pressure 139/82 with pulse 58 Plan: Med Surg DVT prophylaxis: Heparin sq 5,000 BID Clear liquid, advanced as tolerate Admission and Anticipated Discharge Date Admission Date: November 19, 2023 Supervising Physician Co-Signing Physician Notes I personally examined the patient and verified all moralez points of history and exam, discussed case, and agree with decision making with Dr Jayce Seymour feeling better. Feels like he could probably get home by the end of the day or tomorrow. Symptoms resolving nicely. Vitals noted, in general he is awake and alert pleasant no distress. HEENT normocephalic atraumatic mucous membranes moist. Breathing unlabored no accessory muscle use good effort. Skin without rashes pallor or icterus. Neuro without focal deficits. Abdomen soft nondistended nontender no masses organomegaly. Recurrent small bowel obstructionalmost certainly adhesionalappears to be resolving nicely. Advance diet. Once tolerating regular diet without pain or nauseahome. Small chance of hopefully later today versus likely into tomorrow depending on his progress. Subjective Seen this morning. Refers pain had improved since admission. Review of Systems Review of Systems: as per HPI Physical Exam Constitutional: WD/WN, vitals as above Eyes: PERRL, conjunctivae normal, anicteric sclerae Respiratory: normal respiratory effort, lungs clear to auscultation Cardiovascular: RRR, no murmur, no edema Gastrointestinal (Abdomen): normal bowel sounds, soft, nontender, no hepatosp lenomegaly Neurologic: PERRL, EOMI, accommodation nl, no face palsy, no dysarthria Results & Data Results & Data Vital Signs (Past 12 Hours) Vital Signs Temp Pulse Resp BP Pulse Ox O2 Del Method 11/20/23 07:02 36.3 C L 53 L 16 136/74 97 Room Air 11/20/23 00:15 Room Air 11/20/23 00:15 36.4 C L 57 L 16 160/90 H 97 Room Air 11/19/23 23:04 Room Air Resident Activity Tracking Resident Involvement: Resident Care Provided Care Provided: Adult Hospital Medicine
--- NOTE | 2023-11-20 12:26 | Billing Data ---
Date of Service November 20, 2023 Coding Level of Care Code 99722 SUB INP/OBS CARE
[2023-11-20] MEDS: ONDANSETRON INJ 2 MG/ML 2 ML VIAL IV PRN (14:14)
[2023-11-20 14:37] VITALS: BP 145/69; PULSE 63; O2SAT 96
--- NOTE | 2023-11-20 18:11 | Discharge Summary ---
Date of Service November 20, 2023 Admission HPI Per Admitting Provider The patient is a 73-year-old male with a past medical history including sleep apnea, hyperlipidemia, colon cancer, history of DVT, morbid obesity, osteoarthritis, lumbar spinal stenosis with neurogenic claudication. He presents with symptoms similar to previous bowel obstructions, with the symptoms having been ongoing for the past 24 hours. Principal Diagnosis Small bowel obstruction Discharge Exam Constitutional WD/WN, vitals as above Eyes PERRL, conjunctivae normal, anicteric sclerae Respiratory normal respiratory effort, lungs clear to auscultation Cardiovascular RRR, no murmur, no edema Gastrointestinal (Abdomen) normal bowel sounds, soft, nontender, no hepatosplenomegaly Neurologic PERRL, EOMI, accommodation nl, no face palsy, no dysarthria Discharge Data Allergies Allergy/AdvReac Type Severity Reaction Status Date / Time Iodinated Contrast Media Allergy Severe Anaphylaxis Verified 11/19/23 19:36 meperidine Allergy Mild Rash Verified 11/19/23 19:36 oxycodone AdvReac Mild Percocet/Percodan- Verified 11/19/23 19:36 skin crawling Penicillins AdvReac Mild Dyspepsia Verified 11/19/23 19:36 propoxyphene AdvReac Mild Darvon/Darvocet- Verified 11/19/23 19:36 skin crawling Consultations 11/19/23 19:43 ED Decision to Admit Stat Ordered Studies 11/19/23 18:02 CT abd pelvis wo con Stat Hospital Course (1) SBO (small bowel obstruction): (2) History of DVT (deep vein thrombosis): (3) History of colon cancer: (4) Lumbosacral radiculopathy: Plan 73-year-old male with a past medical history including sleep apnea, hyperlipidemia, colon cancer, history of DVT, morbid obesity, osteoarthritis, lumbar spinal stenosis with neurogenic claudication. Recurrent small bowel obstruction/ileus/enteritis- History of colon cancer status post resection in the 1980s s/p NSS + KCl 20 mill equivalents at 100 mL/h x 2 L Pain management prn Zofran 4 mg IV every 4 hours as needed - After bowel rest, pain and nausea resolved - Diet was advanced as tolerated - Recommended low fiber diet History of DVT- Associated with TKA in 2011 Lumbar spinal stenosis with neurogenic claudication- continue oral [place] Hypertension- Continue losartan Plan: Med Surg DVT prophylaxis: Heparin sq 5,000 BID Clear liquid, advanced as tolerate Total Time Total Time Spent Total Time Spent (In Minutes): . Discharge Plan Discharge Items Patient Disposition: Home - Self-Care Reason For Visit: ENTERITIS Discharge Diagnosis: Small bowel obstruction Activity: Per Instructions section Non-emergency contact: Primary Care Provider Call non-emergency contact if: you have any medication questions, your symptoms worsen and your pain is not controlled Follow-up/Referrals: Denver Dinero [Primary Care Provider] - 11/24/23 10:00 am Diet: Low Fiber Addtl Attending Provider Instructions: You were admitted to the hospital for small bowel obstruction. After bowel rest your abdominal benavides and nausea resolved. You were hydrated with IV fluids. You are stable to be discharge home. We recommend low fiber diet. A discharge summary will be sent to your primary care physician to ensure continuity of care. Please bring this discharge summary with you to your next office appointment so that your provider can review it at that time. Medications: Your medication list has been reviewed and reconciled upon discharge to ensure accuracy and continuity of care. An updated list of all your medications is included with your hospital discharge paperwork. Please review this list closely and make note of any changes to your medications. Follow up appointments: - Make a follow up appointment with your PCP within the next week. It is very important that you follow up with them shortly after discharge from the hospital. - Keep all of your follow up appointments as already scheduled. If you cannot make an appointment, notify your provider. CONTACT YOUR PRIMARY CARE PROVIDER if you experience any of the following: - Difficulty following your treatment plan - Difficulty taking any of your medications CALL 911 OR GO TO THE EMERGENCY DEPARTMENT if you experience any of the following: - Sudden, severe abdominal pain or nausea/vomiting - Severe chest pain or chest pain that radiates to your jaw or arm - Sudden, severe shortness of breath or difficulty breathing Pending Studies at Discharge: No Stand-Alone Forms: My [employer], Smoking Cessation Medications and DC Order Prescriptions: Continued diphenhydramine HCl [Benadryl] 25 mg Capsule 50 mg PO HS PRN (Reason: Insomnia) rosuvastatin 10 mg Tablet 10 mg PO PM losartan 50 mg tablet 50 mg PO DAILY methocarbamol 500 mg tablet 500 mg PO DAILY PRN (Reason: MUSCLE SPASMS) hydrocodone-acetaminophen 5-325 mg tablet 1 tab PO DAILY PRN (Reason: Pain, Mild) cholecalciferol (vitamin D3) 100 mcg (4,000 unit) Capsule 1,000 unit PO DAILY Discharge Orders: Discharge Order (Routine); Ordered 11/20/23 Ordered By: Dot Seymour Admission Data Admit Date/Time: 11/19/23 20:12 Attending Provider: Solomon Murphy Admit Provider: Lucas Koo Primary Care Provider: Denver Dinero Other Providers: Lucas Koo Other Interventions: Discharge Summary Assessment (RN) Last Done: 11/20/23 18:28 Supervising Physician Co-Signing Physician Notes I personally examined the patient and verified all moralez points of history and exam, discussed case, and agree with decision making with Dr Jayce Seymour feeling better. Feels like he could probably get home by the end of the day or tomorrow. Symptoms resolving nicely. Vitals noted, in general he is awake and alert pleasant no distress. HEENT normocephalic atraumatic mucous membranes moist. Breathing unlabored no accessory muscle use good effort. Skin without rashes pallor or icterus. Neuro without focal deficits. Abdomen soft nondistended nontender no masses organomegaly. Recurrent small bowel obstructionalmost certainly adhesionalappears to be resolving nicely. Advance diet. Once tolerating regular diet without pain or nauseahome. Small chance of hopefully later today versus likely into tomorrow depending on his progress. *late addendum - did well, able to go home.
--- NOTE | 2023-11-21 17:27 | Billing Data ---
Date of Service November 20, 2023 Coding Level of Care Code 16644 IN/OBS DISCH 30 MIN/LESS Comment disregard other code, was discharged
== END 2023-11-20 19:17 | disposition home or self-care (01) ==
LOC: ED 17:07 → 3N 17:07 → SUATTDRO 20:12 → 3N 23:04
DX: Z79.899 Other long term (current) drug therapy; Z85.038 Personal history of other malignant neoplasm of large intestine; K56.609 Unspecified intestinal obstruction, unspecified as to partial versus complete obstruction; Z88.5 Allergy status to narcotic agent; Z88.8 Allergy status to other drugs, medicaments and biological substances; G47.30 Sleep apnea, unspecified; K52.9 Noninfective gastroenteritis and colitis, unspecified; E78.5 Hyperlipidemia, unspecified; Z86.718 Personal history of other venous thrombosis and embolism; M48.062 Spinal stenosis, lumbar region with neurogenic claudication; Z91.041 Radiographic dye allergy status; Z88.0 Allergy status to penicillin

== ENCOUNTER 2024-04-16 23:08 | Observation (INO) ==
--- NOTE | 2024-04-17 00:12 | Emergency Department Note ---
Impression & Plan Abdominal pain ED Provider Note ED Provider Note NAME: JOHN JACINTO AGE:73 SEX: Male : 1950 ARRIVES VIA: Private vehicle INFORMANT: Patient ED PROVIDER(s): Yolanda Neely DO CHIEF COMPLAINT: Abdominal pain HPI: This is a 73-year-old male presents emergency department due to concern for abdominal pain. Patient states he has been having intermittent abdominal pain over the course of the last month. He did see his PCP and was sent for an outpatient ultrasound. Patient states symptoms do feel similar to prior episodes of ileus which she has had. He denies fevers or chills, change in medication, or change in diet. Patient with prior colon cancer requiring extensive abdominal surgery. He states this is the cause of his multiple ileus is that of occurred as well as a few bowel obstructions. He states he has intermittently taken a muscle relaxer and oxycodone which he has at home to help with pain over the course of the last few weeks although states it never seemed to help. Patient states he did have a bowel movement today. He has not noted any recent melena or hematochezia. No other recent illness, no recent travel. PAST MEDICAL HISTORY:See Below PAST SURGICAL HISTORY:See Below FAMILY HISTORY:See Below SOCIAL HISTORY:See Below HOME MEDICATIONS:See Below ALLERGIES:See Below VITALS:See Below PHYSICAL EXAMINATION: GENERAL: alert, well appearing, well nourished, no distress, non-toxic, BMI 42 EYE EXAM: normal conjunctiva, PERRL and EOM's grossly intact OROPHARYNX: no exudate, no erythema, lips, buccal mucosa, and tongue normal and mucous membranes are moist NECK: supple, no nuchal rigidity, no adenopathy, non-tender LUNGS: Clear to auscultation. Normal chest wall mechanics, no w/r/r HEART: no murmurs, S1 normal and S2 normal ABDOMEN: abdomen soft, mild right mid abdominal tenderness with palpation, normo-active bowel sounds, no masses, no rebound or guarding. BACK: Back is symmetrical on inspection and there is no deformity, no midline tenderness, no CVA tenderness. SKIN: no rashes, petechiae, orbruising UPPER EXTREMITIES: upper extremities are grossly normal. FROM, nml pulses b/l. LOWER EXTREMITIES: No pitting edema. FROM, nml pulses b/l. NEURO EXAM: Normal sensorium, cranial nerves II-XII grossly intact, normal speech, no facial droop,nogross weakness of arms, no gross weakness of legs. Gross sensation intact. No ataxia. Vital Signs: reviewed and remarkable Differential Diagnosis: Appendicitis, diverticulitis, UTI, obstruction, mesenteric ischemia, aortic pathology, inflammatory bowel disease, renal colic, PUD, pancreatitis, biliary pathology, hernia, volvulus, constipation, as well as other pathologies. MEDICAL DECISION MAKING: This is a 73-year-old male presents due to concern for waxing and waning abdominal pain over the course of the last month, worse in recent days. Patient was afebrile hemodynamically stable. Labs drawn and sent, IV established, EKG performed at bedside interpreted by me and patient monitored on telemetry. Patient given IV Zofran and IV Dilaudid initially for symptoms and was started on gentle IV fluid hydration. Patient given IV Reglan and oral Bentyl additionally as well as IV Tylenol. Patient continued to have pain and required additional IV Dilaudid. Labs and imaging reassuring. We discussed all results as well as ongoing symptoms. Due to concern for symptomatic control and unclear etiology as well as prior surgical history and risk of recurrent SBO versus ileus, case was discussed with the hospitalist team for additional evaluation and management. At this time I do not suspect occult infectious etiology or mesenteric ischemia, no evidence of other acute vascular emergency. Consultation(s): 0445: Discussed with Dr. Koo, [facility] hospitalist team, for additional evaluation and management. ER Treatment Provided: See below Diagnostics Interpreted By Me: -ECG: Normal sinus at 60, leftward axis, normal intervals, no acute ST/T wave changes, PAC noted -Cardiac Monitoring: An order was placed for continuous cardiac monitoring. The monitor shows a rate of 59 with sinus bradycardia rhythm. -Laboratory studies: As stated above and show below. -Imaging studies: CT a/p -no SBO, no perf Triage Nursing Note Reviewed Prior/Outside Records Reviewed Past Med/Surg History Problem List Abdominal pain (Acute) S/p reverse total shoulder arthroplasty Morbid obesity Rotator cuff arthropathy of right shoulder Wrist pain, right (Acute) Osteoarthritis of right knee Status post total right knee replacement Encounter for pre-operative examination Medical History Enteritis SBO (small bowel obstruction) Lumbosacral radiculopathy HLD (hyperlipidemia) Spinal stenosis, lumbar region with neurogenic claudication History of colon cancer s/p resection (hx of blood transfusion remotely in 1980s in setting of cancer) History of DVT (deep vein thrombosis) LLE DVT (2011) s/p TKA- treated with AC Sleep apnea CPAP Ileus Recurrent s/p colon cancer/resection Concern about infectious disease without diagnosis Pt reports that if he gets an infection, he does not get any normal signs of it like fever/elevated WBC. He states he had a bad infection (? sepsis) and almost from when had colon cancer, but showed no signs until almost too late. Osteoarthritis GERD (gastroesophageal reflux disease) Occasional History of ileus 2018 Surgical History Hx of abdominal surgery Age 2/3 (no further details) History of esophagogastroduodenoscopy (EGD) History of tooth extraction H/O squamous cell carcinoma excision Left arm Hx of discectomy Lumbar (prior to fusion) History of repair of rotator cuff Right Status post trigger finger release R/L History of total knee replacement R/L History of bilateral carpal tunnel release History of bowel resection History of colonoscopy History of arthroscopy Right elbow History of colostomy reversal History of colostomy 2/2 colon cancer Fusion of spine Lumbar x2 Removal previous hardware, L3-L5 decompression with fusion (05/22/2018): Failed with MAC3, easy with Glidescope #4 at [facility] Family History Mother Family history of diabetes mellitus Social History Smoking Status: Never smoker Second Hand Exposure: No; Do You Dip or Chew Tobacco: No; Tobacco Cessation Education Requested by Patient: No Hx Alcohol Use: No Hx Substance Use: No Preferred Language: Brazilian Communication Ability: Effective Visual Impairment: No Limitations Hand Lens Polisher Required: No Beliefs That Will Affect Care: None marital status: Current Living Situation: Spouse Other Information That Helps Us Care for You: No Feels Safe at Home: Yes Safety Concerns: Feels Safe At This Time Assistive Devices: Glasses and Hospital Bed Allergies Allergies Allergy/AdvReac Type Severity Reaction Status Date / Time Iodinated Contrast Media Allergy Severe Anaphylaxis Verified 04/16/24 23:30 meperidine Allergy Mild Rash Verified 04/16/24 23:30 oxycodone AdvReac Mild Percocet/Percodan- Verified 04/16/24 23:30 skin crawling Penicillins AdvReac Mild Dyspepsia Verified 04/16/24 23:30 propoxyphene AdvReac Mild Darvon/Darvocet- Verified 04/16/24 23:30 skin crawling Home Meds Home Medications Medication Instructions Recorded Confirmed diphenhydramine HCl 25 mg capsule 50 mg PO HS PRN Insomnia 04/23/18 04/16/24 (Benadryl) rosuvastatin 10 mg tablet 10 mg PO PM 08/21/20 04/16/24 cholecalciferol (vitamin D3) 100 1,000 unit PO DAILY 11/19/23 04/16/24 mcg (4,000 unit) capsule losartan 50 mg tablet 50 mg PO DAILY 11/19/23 04/16/24 acetaminophen 325 mg tablet 650 mg PO . NEEDED PRN Pain 04/16/24 04/16/24 methocarbamol 750 mg tablet 750 mg PO Q4H 04/16/24 04/16/24 oxycodone 10 mg tablet 10 mg PO Q4 PRN Pain 04/16/24 04/16/24 Results & Data (ED) Vital Signs Vital Signs - 24 hr 04/16/24 23:13 04/16/24 23:57 04/17/24 00:30 Temperature 36.5 C Temperature Source Temporal Artery Scan Pulse Rate 64 62 61 Respiratory Rate 19 20 Blood Pressure 168/98 H 123/70 Blood Pressure Mean 121 101 Pulse Oximetry 98 99 Oxygen Delivery Method Room Air Room Air Sepsis Recent Fever Within 48 Hours No Sepsis New/Unexplained Change in Mental Status N/A Sepsis Action Taken by Nursing No Action Required 04/17/24 01:41 04/17/24 02:30 04/17/24 04:00 Temperature Temperature Source Pulse Rate 66 54 L 56 L Respiratory Rate 18 16 Blood Pressure 155/84 H 140/76 Blood Pressure Mean 97 107 Pulse Oximetry 99 97 Oxygen Delivery Method Room Air Room Air Sepsis Recent Fever Within 48 Hours Sepsis New/Unexplained Change in Mental Status Sepsis Action Taken by Nursing 04/17/24 04:00 04/17/24 04:30 Temperature Temperature Source Pulse Rate 56 L 65 Respiratory Rate 16 16 Blood Pressure 116/65 134/81 Blood Pressure Mean 92 92 Pulse Oximetry 98 95 Oxygen Delivery Method Room Air Room Air Sepsis Recent Fever Within 48 Hours Sepsis New/Unexplained Change in Mental Status Sepsis Action Taken by Nursing Laboratory Data 04/17/24 00:40 04/17/24 00:40 Lab Results 04/17/24 04/17/24 Range/Units 00:15 00:40 WBC 5.99 (4.8-10.8) K/ul RBC 4.53 L (4.70-6.10) M/uL Hgb 12.4 L (14.0-18.0) g/dl Hct 37.8 L (42.0-52.0) % MCV 83.4 (80.0-100.0) fL MCH 27.4 (25.0-34.0) pg MCHC 32.8 (32.0-36.0) g/dL RDW Std Deviation 46.6 H (36.4-46.3) fL RDW Coeff of Saray 15.4 H (11.5-14.5) % Plt Count 154 (130-400) K/uL MPV 10.5 (9.4-12.4) fL Immature Gran % (Auto) 0.3 % Neut % (Auto) 57.3 % Lymph % (Auto) 29.5 % [place] % (Auto) 10.2 % Eos % (Auto) 2.0 % Baso % (Auto) 0.7 % Neut # (Auto) 3.43 (1.40-6.50) K/uL Lymph # (Auto) 1.77 (1.20-3.40) K/uL [place] # (Auto) 0.61 H (0.11-0.59) K/uL Eos # (Auto) 0.12 (0.00-0.50) K/uL Baso # (Auto) 0.04 (0.00-0.20) K/uL Immature Gran # (Auto) 0.02 (0.01-0.20) K/uL Sodium 139 (136-145) mmol/L Potassium 4.0 (3.5-5.1) mmol/L Chloride 107 (98-107) mmol/L Carbon Dioxide 26 (21-32) mmol/L Anion Gap 6 (3-11) BUN 19 (6-23) mg/dl Creatinine 0.98 (0.6-1.4) mg/dl Est Cr Clr Drug Dosing 92.4 ml/min eGFR 82.44 BUN/Creatinine Ratio 19.4 (10-20) Glucose 110 H (70-99(Fasting)) mg/dl Lactate 1.4 (0.4-2.0) mmol/L Calcium 9.4 (8.6-10.3) mg/dl Magnesium 2.0 (1.7-2.4) mg/dl Total Bilirubin 0.4 (0.2-1.0) mg/dl AST 19 (13-39) U/L ALT 20 (7-52) U/L Alkaline Phosphatase 54 (34-104) U/L Total Protein 7.3 (6.0-8.3) gm/dl Albumin 4.1 (3.4-5.0) gm/dl Globulin 3.2 (2.5-4.0) gm/dl Albumin/Globulin Ratio 1.3 (0.9-2) Lipase 38 (11-82) U/L Urine Color Yellow Urine Appearance Clear (Clear) Urine pH 5.5 (4.5-7.5) Ur Specific [place] 1.027 (1.000-1.030) Urine Protein Negative (Negative) Urine Glucose (UA) Negative (Negative) Urine Ketones Trace H (Negative) Urine Blood Trace H (Negative) Urine Nitrite Negative (Negative) Urine Bilirubin Negative (Negative) Urine Urobilinogen Negative (Negative) Ur Leukocyte Esterase Negative (Negative) Urine WBC (Auto) 0-5 (0-5) /hpf Urine RBC (Auto) 0-2 (0-2) /hpf U Hyaline Cast (Auto) 0-2 (0-2) /lpf U Epithel Cells (Auto) 0-2 (0-2) /hpf Urine Bacteria (Auto) None Seen (None Seen) Administered Medications Sodium Chloride (Nss) 1,000 mls @ 125 mls/hr IV .Q8H MARJ Stop: 04/18/24 00:14 Last Admin: 04/17/24 01:32 Dose: 125 mls/hr Documented By: MBL Lactated Ringer's (Lr) 1,000 mls @ 125 mls/hr IV .Q8H MARJ Stop: 04/17/24 13:29 Last Admin: 04/17/24 05:50 Dose: 125 mls/hr Documented By: MARGOTH Discontinued Medications Dicyclomine HCl (Dicyclomine Hcl 10 Mg Cap) 10 mg PO NOW ONE Stop: 04/17/24 03:12 Last Admin: 04/17/24 03:23 Dose: 10 mg Documented By: ROMIE Diphenhydramine HCl (Diphenhydramine 50 Mg/Ml Vial) 25 mg IV NOW STA Stop: 04/17/24 00:28 Last Admin: 04/17/24 01:32 Dose: 25 mg Documented By: ROMIE Hydromorphone HCl (Hydromorphone Inj 0.5 Mg/0.5 Ml Syr) 0.5 mg IV Q15M PRN PRN Reason: Pain Stop: 05/01/24 00:03 Last Admin: 04/17/24 04:37 Dose: 0.5 mg Documented By: Admin: 04/17/24 01:44 Dose: 0.5 mg Documented By: ROMIE Acetaminophen (Ofirmev) 1,000 mg in 100 mls @ 400 mls/hr IV NOW STA Stop: 04/17/24 04:48 Last Infusion: 04/17/24 06:31 Dose: Infused Documented By: Admin: 04/17/24 04:46 Dose: 400 mls/hr Documented By: ROMIE Ioversol (Optiray 320 100ml) 94 ml IV ONCE ONE Stop: 04/17/24 01:59 Last Admin: 04/17/24 01:58 Dose: 94 ml Documented By: LASHAE Metoclopramide HCl (Metoclopramide Hcl Inj 5 Mg/Ml 2 Ml Vial) 5 mg IV ONE ONE Stop: 04/17/24 03:12 Last Admin: 04/17/24 03:23 Dose: 5 mg Documented By: ROMIE Ondansetron HCl (Ondansetron Inj 2 Mg/Ml 2 Ml Vial) 4 mg IV NOW STA Stop: 04/17/24 00:05 Last Admin: 04/17/24 01:33 Dose: 4 mg Documented By: ROMIE Imaging Data Radiologist's Impression: Abdomen/Pelvis CT 04/17/24 00:27 EXAM: CT abd pelvis IV con only CLINICAL HISTORY: abd pain, nausea, TECHNIQUE: Contiguous axial images were obtained from the level of the diaphragm to the pubic symphysis without and with intravenous contrast. Coronal and sagittal reconstructions were likewise performed and indicated to increase the sensitivity for detecting clinically relevant pathology. If IV contrast material had not been administered, the likelihood of detecting abnormalities relevant to the patient's condition would have been substantially decreased. CT scan was performed according to ALARA (as low as reasonable achievable). COMPARISON: 19 November 2023 FINDINGS: The visualized lung bases are clear. The liver is normal in size and attenuation. Stable hypodense lesion of size10 x 10 mm is noted involving left lobe of liver - appears hemangioma. There is no intra or extrahepatic biliary ductal dilatation. Hepatic vasculature is patent. The gallbladder is present. The spleen, pancreas, and adrenal glands are unremarkable. Stable nodule of size 9 x 9 mm involving left adrenal gland. The kidneys are normal in size and attenuation. There is no hydronephrosis or perinephric fat stranding. No renal calculi or renal masses are identified. Stable cortical cyst is noted involving left kidney. The ureters are normal in caliber and no ureteral calculi are seen. The bladder is normal in contour. Pelvic viscera are unremarkable. No focal or diffuse bowel wall thickening or evidence of bowel obstruction is identified. The appendix is visualized in the right lower quadrant and appears within normal limits. Abdominal and pelvic vasculature is patent. No adenopathy or fluid collections are seen. No aggressive appearing osseous lesions are identified. IMPRESSION: 1. Stable cortical cyst is noted involving left kidney. 2. Stable hypodense lesion involving left lobe of liver - appears hemangioma. 3. Stable left adrenal nodule. 4. No other new interval abnormality since prior study. Electronically signed by Walter Lazcano 04-17-2024 03:01 AM Discharge Plan Visit Data Chief Complaint: Abdominal Pain Stated Complaint: ABD PAIN, BACK PAIN, POS BLOCKAGE ED Provider: Yolanda Neely Discharge Problem: Abdominal pain
[2024-04-17 00:34] LABS: Appearance Urine Clear (Clear); Bacteria Urine Automated None Seen (None Seen); Bilirubin Urine Negative (Negative); Blood Urine Trace (Negative); Cast Urine Automated 0-2 /lpf (0-2); Color Urine Yellow; Epithelial Cell Urine Auto 0-2 /hpf (0-2); Glucose Urine UA Negative (Negative); Ketones Urine Trace (Negative); Leukocyte Esterase Urine Negative (Negative); Nitrite Urine Negative (Negative); Protein Urine Negative (Negative); RBC Urine Automated 0-2 /hpf (0-2); Specific Gravity Urine 1.027 (1.000-1.030); Urobilinogen Urine Negative (Negative); WBC Urine Automated 0-5 /hpf (0-5); pH Urine 5.5 (4.5-7.5)
[2024-04-17 01:04] LABS: Basophils # (auto) 0.04 K/uL (0.00-0.20); Basophils % (auto) 0.7 %; Eosinophils # (auto) 0.12 K/uL (0.00-0.50); Hematocrit (blood only) 37.8 % (42.0-52.0); Hemoglobin 12.4 g/dl (14.0-18.0); Immature Granulocytes # (auto) 0.02 K/uL (0.01-0.20); Immature Granulocytes % (auto) 0.3 %; Lymphocytes # (auto) 1.77 K/uL (1.20-3.40); Lymphocytes % (auto) 29.5 %; Mean Corpuscular Hemoglobin 27.4 pg (25.0-34.0); Mean Corpuscular Hgb Conc 32.8 g/dL (32.0-36.0); Mean Corpuscular Volume 83.4 fL (80.0-100.0); Mean Platelet Volume 10.5 fL (9.4-12.4); Monocytes # (auto) 0.61 K/uL (0.11-0.59); Monocytes % (auto) 10.2 %; Neutrophils # (auto) 3.43 K/uL (1.40-6.50); Neutrophils % (auto) 57.3 %; Platelet Count 154 K/uL (130-400); RDW Coefficient of Variation 15.4 % (11.5-14.5); RDW Standard Deviation 46.6 fL (36.4-46.3); Red Blood Count 4.53 M/uL (4.70-6.10); White Blood Count 5.99 K/ul (4.8-10.8)
[2024-04-17 01:16] LABS: Albumin Globulin Ratio 1.3 (0.9-2); Albumin Level 4.1 gm/dl (3.4-5.0); BUN Creatinine Ratio 19.4 (10-20); Bilirubin,Total 0.4 mg/dl (0.2-1.0); Calcium 9.4 mg/dl (8.6-10.3); Creatinine Clr Calc Pharmacy 92.4 ml/min; Globulin 3.2 gm/dl (2.5-4.0); Total Protein 7.3 gm/dl (6.0-8.3)
[2024-04-17] MEDS: SODIUM CHLORIDE 0.9% 1,000 ML IV SCH (01:32)
[2024-04-17] MEDS: diphenhydrAMINE 50 MG/ML VIAL IV STA (01:32)
[2024-04-17] MEDS: ONDANSETRON INJ 2 MG/ML 2 ML VIAL IV STA (01:33)
[2024-04-17] MEDS: HYDROmorphone INJ 0.5 MG/0.5 ML SYR IV PRN ×2 (01:44→11:43)
[2024-04-17] MEDS: OPTIRAY 320 100ml IV ONE (01:58)
--- NOTE | 2024-04-17 03:01 | CT Scan Report ---
EXAM: CT abd pelvis IV con only CLINICAL HISTORY: abd pain, nausea, TECHNIQUE: Contiguous axial images were obtained from the level of the diaphragm to the pubic symphysis without and with intravenous contrast. Coronal and sagittal reconstructions were likewise performed and indicated to increase the sensitivity for detecting clinically relevant pathology. If IV contrast material had not been administered, the likelihood of detecting abnormalities relevant to the patient's condition would have been substantially decreased. CT scan was performed according to ALARA (as low as reasonable achievable). COMPARISON: 19 November 2023 FINDINGS: The visualized lung bases are clear. The liver is normal in size and attenuation. Stable hypodense lesion of size10 x 10 mm is noted involving left lobe of liver - appears hemangioma. There is no intra or extrahepatic biliary ductal dilatation. Hepatic vasculature is patent. The gallbladder is present. The spleen, pancreas, and adrenal glands are unremarkable. Stable nodule of size 9 x 9 mm involving left adrenal gland. The kidneys are normal in size and attenuation. There is no hydronephrosis or perinephric fat stranding. No renal calculi or renal masses are identified. Stable cortical cyst is noted involving left kidney. The ureters are normal in caliber and no ureteral calculi are seen. The bladder is normal in contour. Pelvic viscera are unremarkable. No focal or diffuse bowel wall thickening or evidence of bowel obstruction is identified. The appendix is visualized in the right lower quadrant and appears within normal limits. Abdominal and pelvic vasculature is patent. No adenopathy or fluid collections are seen. No aggressive appearing osseous lesions are identified. IMPRESSION: 1. Stable cortical cyst is noted involving left kidney. 2. Stable hypodense lesion involving left lobe of liver - appears hemangioma. 3. Stable left adrenal nodule. 4. No other new interval abnormality since prior study. Electronically signed by Walter Lazcano 04-17-2024 03:01 AM
[2024-04-17] MEDS: DICYCLOMINE HCL 10 MG CAP PO ONE (03:23)
[2024-04-17] MEDS: METOCLOPRAMIDE HCL INJ 5 MG/ML 2 ML VIAL IV ONE (03:23)
[2024-04-17] MEDS: ACETAMINOPHEN 1,000 MG/100 ML VIAL IV STA (04:46)
--- NOTE | 2024-04-17 04:52 | History & Physical Report ---
Date of Service April 17, 2024 Assessment & Plan (1) Abdominal pain: Plan 73-year-old male PMHx AMRIK, hypercholesterolemia, ileus, colon cancer presenting for abdominal pain. ED course reveals no leukocytosis, H&H 2.4/37.8, grossly WNL CMP, and UA negative. CTAP all with stable findings nothing acute. Received NSS, metoclopramide, Zofran, Dilaudid, diphenhydramine, and acetaminophen in ED. #Intractable abdominal pain History of recurrent SBO, ileus, and colon cancer () with extensive abdominal surgery. ? symptoms 2/2 medications vs symptoms from adhesions given prior sx. No correlation of onset of symptoms around time of taking specific medications. Hemodynamically stable; very low suspicion for vascular condition causing symptomatology. Pt states that he thought this was another ileus. No extensive NSAID use, no dyspepsia or reflux. - CBC without leukocytosis, CMP grossly WNL; lipase 38; UA without acute findings; pending Pro-Sree, lactate, and ESR. - Pending stool studies - CTAP without acute findings - Tylenol + toradol prn for pain, minimize opioid use as able - Zofran for N/V - LR @ 125 mL/hr x 1 L - Consider GI consult in am #History of DVT- Associated TKA in 2011 #Stenosis with neurogenic claudication- Oxycodone outpatient; Methocarbamo - PDMP checked #HLD-Rosuvastatin #HTN- Losartan #Insomnia- Benadryl Dispo: Admit, med/sx VTE Prophylaxis: Lovenox This document was dictated utilizing Weemba. Please excuse any grammatical errors that may be secondary to use of this software. 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 States that he is stomach problems at baseline as well as a previous ileus. Having nausea but no vomiting which comes and goes, has loose stools at baseline, slightly worse over the past few days. Some back pain as well after having a back fusion in December of 2023. States that the pain is worse after eating and mainly located to the right flank, feels as though someone has punched him in the stomach and his muscles are recovering from it. Was admitted and discharged for similar symptoms from 11/19/2023 until 11/20/2023. No correlation of pain when taking muscle relaxers. Pt states that he has been told before he likely has adhesions. No chest pain, SOB, palpitations, constipation, numbness/tingling, LUTS, or F/C. States that his pain is not managed well with pain meds and it takes a lot to alleviate the pain. Pain free at time of admission. ED course reveals no leukocytosis, H&H 2.4/37.8, grossly WNL CMP, and UA negative. CTAP all with stable findings nothing acute. Received NSS, metoclopramide, Zofran, Dilaudid, diphenhydramine, and acetaminophen in ED. Please see Dr. Koo's attestation for adjustments/additions to treatment plan. Allergies Allergy/AdvReac Type Severity Reaction Status Date / Time Iodinated Contrast Media Allergy Severe Anaphylaxis Verified 04/16/24 23:30 meperidine Allergy Mild Rash Verified 04/16/24 23:30 oxycodone AdvReac Mild Percocet/Percodan- Verified 04/16/24 23:30 skin crawling Penicillins AdvReac Mild Dyspepsia Verified 04/16/24 23:30 propoxyphene AdvReac Mild Darvon/Darvocet- Verified 04/16/24 23:30 skin crawling Home Medications Medication Instructions Recorded Confirmed Type diphenhydramine HCl 25 mg capsule 50 mg PO HS PRN Insomnia 04/23/18 04/16/24 History (Benadryl) rosuvastatin 10 mg tablet 10 mg PO PM 08/21/20 04/16/24 History cholecalciferol (vitamin D3) 100 1,000 unit PO DAILY 11/19/23 04/16/24 History mcg (4,000 unit) capsule losartan 50 mg tablet 50 mg PO DAILY 11/19/23 04/16/24 History acetaminophen 325 mg tablet 650 mg PO . NEEDED PRN Pain 04/16/24 04/16/24 History methocarbamol 750 mg tablet 750 mg PO Q4H 04/16/24 04/16/24 History oxycodone 10 mg tablet 10 mg PO Q4 PRN Pain 04/16/24 04/16/24 History Past Med/Surg History Problem List (Updated 04/17/24 @ 07:28 by Lorri Monteiro, DO) Hypertension Abdominal pain (Acute) S/p reverse total shoulder arthroplasty Morbid obesity Rotator cuff arthropathy of right shoulder Wrist pain, right (Acute) Osteoarthritis of right knee Status post total right knee replacement Encounter for pre-operative examination Medical History Enteritis SBO (small bowel obstruction) Lumbosacral radiculopathy HLD (hyperlipidemia) Spinal stenosis, lumbar region with neurogenic claudication History of colon cancer s/p resection (hx of blood transfusion remotely in 1980s in setting of cancer) History of DVT (deep vein thrombosis) LLE DVT (2011) s/p TKA- treated with AC Sleep apnea CPAP Ileus Recurrent s/p colon cancer/resection Concern about infectious disease without diagnosis Pt reports that if he gets an infection, he does not get any normal signs of it like fever/elevated WBC. He states he had a bad infection (? sepsis) and almost from when had colon cancer, but showed no signs until almost too late. Osteoarthritis GERD (gastroesophageal reflux disease) Occasional History of ileus 2018 Surgical History Hx of abdominal surgery Age 2/3 (no further details) History of esophagogastroduodenoscopy (EGD) History of tooth extraction H/O squamous cell carcinoma excision Left arm Hx of discectomy Lumbar (prior to fusion) History of repair of rotator cuff Right Status post trigger finger release R/L History of total knee replacement R/L History of bilateral carpal tunnel release History of bowel resection History of colonoscopy History of arthroscopy Right elbow History of colostomy reversal History of colostomy 2/2 colon cancer Fusion of spine Lumbar x2 Removal previous hardware, L3-L5 decompression with fusion (05/22/2018): Failed with MAC3, easy with Glidescope #4 at [facility] Family History Mother Family history of diabetes mellitus Social History Smoking Status: Never smoker Second Hand Exposure: No; Do You Dip or Chew Tobacco: No; Tobacco Cessation Education Requested by Patient: No Hx Alcohol Use: No Hx Substance Use: No Preferred Language: French Communication Ability: Effective Visual Impairment: No Limitations 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 Beliefs That Will Affect Care: None marital status: Current Living Situation: Spouse Other Information That Helps Us Care for You: No Feels Safe at Home: Yes Safety Concerns: Feels Safe At This Time Assistive Devices: Glasses and Hospital Bed Review of Systems Review of Systems: All systems reviewed & are unremarkable except as noted in Subjective Physical Exam Physical Exam: General: No acute distress Skin: Warm and dry Head: Normocephalic, atraumatic Eyes: PERRL, conjunctivae clear, sclera non-icteric ENT: External ear and ear canal without swelling; nose atraumatic; good dentition, tongue normal appearance, pharynx normal Neck: Supple, no LAD Cardio: RRR, no M/G/R, S1 and S2 normal Resp: No respiratory distress, Lungs CTA in all lobes bilaterally, no wheezes, rales, or rhonchi Abdomen: Soft, symmetric, mild tenderness along R side of abdomen, nontender otherwise; no distention; No masses or hepatosplenomegaly; Bowel sounds normoactive MSK: No deformities; pulses palpable and equal; no edema. Neuro: Awake, alert; CN intact Psych: Appropriate mood and affect; good judgement and insight. Results & Data Results & Data Vital Signs (Past 12 Hours) Vital Signs Temp Pulse Resp BP Pulse Ox O2 Del Method 04/17/24 04:00 56 L 04/17/24 00:30 61 20 123/70 99 Room Air 04/16/24 23:57 62 04/16/24 23:13 36.5 C 64 19 168/98 H 98 Room Air Laboratory Results 04/17/24 04/17/24 00:40 00:15 WBC 5.99 RBC 4.53 L Hgb 12.4 L Hct 37.8 L MCV 83.4 MCH 27.4 MCHC 32.8 RDW Std Deviation 46.6 H RDW Coeff of Saray 15.4 H Plt Count 154 MPV 10.5 Immature Gran % (Auto) 0.3 Neut % (Auto) 57.3 Lymph % (Auto) 29.5 Mcleod % (Auto) 10.2 Eos % (Auto) 2.0 Baso % (Auto) 0.7 Neut # (Auto) 3.43 Lymph # (Auto) 1.77 Mcleod # (Auto) 0.61 H Eos # (Auto) 0.12 Baso # (Auto) 0.04 Immature Gran # (Auto) 0.02 Sodium 139 Potassium 4.0 Chloride 107 Carbon Dioxide 26 Anion Gap 6 BUN 19 Creatinine 0.98 Est Cr Clr Drug Dosing 92.4 eGFR 82.44 BUN/Creatinine Ratio 19.4 Glucose 110 H Lactate 1.4 Calcium 9.4 Magnesium 2.0 Total Bilirubin 0.4 AST 19 ALT 20 Alkaline Phosphatase 54 Total Protein 7.3 Albumin 4.1 Globulin 3.2 Albumin/Globulin Ratio 1.3 Lipase 38 Urine Color Yellow Urine Appearance Clear Urine pH 5.5 Ur Specific [place] 1.027 Urine Protein Negative Urine Glucose (UA) Negative Urine Ketones Trace H Urine Blood Trace H Urine Nitrite Negative Urine Bilirubin Negative Urine Urobilinogen Negative Ur Leukocyte Esterase Negative Urine WBC (Auto) 0-5 Urine RBC (Auto) 0-2 U Hyaline Cast (Auto) 0-2 U Epithel Cells (Auto) 0-2 Urine Bacteria (Auto) None Seen Diagnostic Findings Abdomen/Pelvis CT 04/17/24 00:27 EXAM: CT abd pelvis IV con only CLINICAL HISTORY: abd pain, nausea, TECHNIQUE: Contiguous axial images were obtained from the level of the diaphragm to the pubic symphysis without and with intravenous contrast. Coronal and sagittal reconstructions were likewise performed and indicated to increase the sensitivity for detecting clinically relevant pathology. If IV contrast material had not been administered, the likelihood of detecting abnormalities relevant to the patient's condition would have been substantially decreased. CT scan was performed according to ALARA (as low as reasonable achievable). COMPARISON: 19 November 2023 FINDINGS: The visualized lung bases are clear. The liver is normal in size and attenuation. Stable hypodense lesion of size10 x 10 mm is noted involving left lobe of liver - appears hemangioma. There is no intra or extrahepatic biliary ductal dilatation. Hepatic vasculature is patent. The gallbladder is present. The spleen, pancreas, and adrenal glands are unremarkable. Stable nodule of size 9 x 9 mm involving left adrenal gland. The kidneys are normal in size and attenuation. There is no hydronephrosis or perinephric fat stranding. No renal calculi or renal masses are identified. Stable cortical cyst is noted involving left kidney. The ureters are normal in caliber and no ureteral calculi are seen. The bladder is normal in contour. Pelvic viscera are unremarkable. No focal or diffuse bowel wall thickening or evidence of bowel obstruction is identified. The appendix is visualized in the right lower quadrant and appears within normal limits. Abdominal and pelvic vasculature is patent. No adenopathy or fluid collections are seen. No aggressive appearing osseous lesions are identified. IMPRESSION: 1. Stable cortical cyst is noted involving left kidney. 2. Stable hypodense lesion involving left lobe of liver - appears hemangioma. 3. Stable left adrenal nodule. 4. No other new interval abnormality since prior study. Electronically signed by Walter Lazcano 04-17-2024 03:01 AM Medications Administered NSS 1L and Zofran 4 mg IV x 1 Metoclopramide 5 mg IV x 1 Hydromorphone 0.5 mg IV x 1 Diphenhydramine 25 mg IV x 1 Dicyclomine 10 mg p.o. x 1 Acetaminophen 1 g IV x 1 ECG Additional Comments: Sinus rhythm, PVCs, LAD 60 bpm, NJ 196, QRS 88, QT/QTc 416/416, PRT 61/-41/25 Code Status & VTE Plan Code Status Full Supervising Physician Co-Signing Physician Notes Attending addendum: I have physically seen this patient, have supervised the SAMANTA's activities, and agree with the H&P unless as otherwise noted. Assessment and Plan: The patient is a 73-year-old male with past medical history including AMRIK, hypercholesterolemia, ileus, colon cancer, previous small bowel obstructions, who presents to the emergency department with symptoms concerning for recurrent small bowel obstruction. He reports severe abdominal pain, which in emergency department had partial relief with Tylenol IV, Dilaudid IV, Benadryl, Reglan and Bentyl administration from the ED Patient is referred for evaluation for admission to the [facility] Hospitalist service. #Intractable abdominal pain- History of recurrent small bowel obstruction, ileus history of colon cancer with extensive abdominal surgery in the 1980s Concern regarding possible adhesions given prior symptoms and prior reports NPO Stool studies pending CT abdomen and pelvis without acute findings Acetaminophen 1 g IV every 8 hours as needed for mild pain or fever Toradol 10 mg IV every 6 hours as needed for moderate pain Dilaudid as needed for breakthrough pain Zofran 4 mg IV every 6 hours as needed LR at 125 mL/h x 1 L Gastroenterology consult for the a.m. Remaining orders and notations as noted PG Care Time/CCT Total # of Minutes Spent Total Time Spent with Patient: Total time spent is greater than 50% in coordination of care (as documented) at patient's floor/unit and/or counseling patient: Coding Level of Care Code 07674 INT INP/OBS CARE 3/75MIN Diagnoses Abdominal pain R10.9
[2024-04-17] MEDS: LACTATED RINGER'S 1,000 ML IV SCH (05:50)
[2024-04-17] MEDS ORDERED: ONDANSETRON INJ 2 MG/ML 2 ML VIAL IV PRN (06:02)
[2024-04-17] MEDS ORDERED: MELATONIN 3 MG TAB PO PRN (06:02)
[2024-04-17] MEDS ORDERED: ACETAMINOPHEN 325 MG TAB PO PRN ×2 (06:02)
[2024-04-17] MEDS ORDERED: POLYETHYLENE (MIRALAX) 17 GM PACK PO PRN (06:02)
--- NOTE | 2024-04-17 07:30 | Hospitalist Progress Note ---
Date of Service April 17, 2024 Assessment & Plan (1) Abdominal pain: (2) HLD (hyperlipidemia): (3) Hypertension: (4) History of DVT (deep vein thrombosis): Plan 73-year-old male PMHx AMRIK, hypercholesterolemia, ileus, colon cancer presenting for abdominal pain. ED course reveals no leukocytosis, H&H 2.4/37.8, grossly WNL CMP, and UA negative. CTAP all with stable findings nothing acute. Received NSS, metoclopramide, Zofran, Dilaudid, diphenhydramine, and acetaminophen in ED. #Intractable abdominal pain History of recurrent SBO, ileus, and colon cancer () with extensive abdominal surgery. ? symptoms 2/2 medications vs symptoms from adhesions given prior sx. No correlation of onset of symptoms around time of taking specific medications. Hemodynamically stable; very low suspicion for vascular condition causing symptomatology. Pt states that he thought this was another ileus. No extensive NSAID use, no dyspepsia or reflux. - CBC without leukocytosis, CMP grossly WNL; lipase 38; UA without acute findings; pending Pro-Rsee, lactate, and ESR. - CTAP without acute findings - Tylenol, Toradol, Dilaudid prn for pain, minimize opioid use as able but pa - Zofran for N/V - Patient feel that symptoms worsened after taking methocarbamol this afternoon, will hold this temporarily - Able to tolerate eating full liquids for lunch, can advance diet as tolerated and if symptoms controlled in a.m. could discharge - Patient will need to re-establish with new GI provider after discharge #History of DVT- Associated TKA in 2011 #Stenosis with neurogenic claudication- Oxycodone outpatient; Methocarbamol - PDMP checked #HLD-Rosuvastatin #HTN- Losartan #Insomnia- Benadryl VTE Prophylaxis: Lovenox Code Status: Full Code Admission and Anticipated Discharge Date Admission Date: April 17, 2024 Supervising Physician Co-Signing Physician Notes ATTESTATION I also saw the patient and confirmed moralez portions of the history and exam. I agree with the impression and plan in the resident documentation, and as summarized below. 73-year-old male admitted to our service this morning after presenting to the emergency department noting worsening abdominal pain for the last month, Particularly uncomfortable in the past 24 hours. Noted history of colon cancer and recurrent ileus/small bowel obstruction. Fortunately CT of the abdomen pelvis in the emergency department showed no acute abnormalities. EXAM 109/63, 52, 19, 36.4, 97% room air Upon exam, he is pleasant. No appreciated distress. He thinks he is feeling better overall. Cardiovascular regular, heart sounds distant respirations nonlabored abdomen obese, nondistended, minimal tenderness, right mid abdominal area with palpation, but no rebound or guarding DATA Labs Hemoglobin 12.4, platelet count 154 ESR 21 sodium 139, potassium 4.0, BUN 19, creatinine 0.[address] abdomen pelvis completed 04/17/2024: Stable cortical cyst is noted involving left kidney, Stable hypodense lesion involving left lobe of liver - appears hemangioma, Stable left adrenal nodule. Micro None IMPRESSION & PLAN abdominal pain, uncertain etiology, improved Reassuring imaging, labs, and clinical markers will advance diet this afternoon and see how he feels Additional per resident documentation Subjective Patient seen and examined at bedside. Patient reports that pain is somewhat better than before- currently 08/03. Endorses history of many episodes of ileus requiring hospital admissions at [place]. States he ate a battered fish dinner and then several hours later started having the abdominal pain/nausea that prompted him to go to the ED. Denies fever/body aches/chills/recent illness. States he used to follow with a GI doctor in [place] but he recently retired. Reports that his last ileus was in the fall, also had his second back surgery in December. Review of Systems Review of Systems: As per above Physical Exam Constitutional: WD/WN, vitals as above Eyes: + anicteric sclerae; no conjunctival abn ormality ENMT: Ears: no external ear abnormality Nose: no external nose abnormality moist mucous membranes Respiratory: normal respiratory effort, lungs clear to auscultation Cardiovascular: Rate/Rhythm: regular rate and regular rhythm Extremities: no edema Gastrointestinal (Abdomen): Inspection/Auscultation: normal bowel sounds Percussion/Palpation: + abdomen tender and abdomen soft; no guarding and abdomen not rigid Musculoskeletal: Moves all limbs independently Skin: no rashes, warm and dry Psychiatric: A+Ox3, euthymic affect Results & Data Results & Data Vital Signs (Past 12 Hours) Vital Signs Temp Pulse Pulse Resp BP BP Pulse Ox 04/17/24 07:03 36.4 C L 52 L 19 109/63 97 04/17/24 05:50 04/17/24 05:50 36.9 C 56 L 16 133/74 98 04/17/24 05:50 36.9 C 56 L 16 133/74 98 04/17/24 05:30 52 L 18 130/77 99 04/17/24 05:00 55 L 16 123/75 97 04/17/24 04:30 65 16 134/81 95 04/17/24 04:00 56 L 16 116/65 98 04/17/24 04:00 56 L 04/17/24 02:30 54 L 16 140/76 97 04/17/24 01:41 66 18 155/84 H 99 04/17/24 00:30 61 20 123/70 99 04/16/24 23:57 62 04/16/24 23:13 36.5 C 64 19 168/98 H 98 O2 Del Method 04/17/24 07:03 Room Air 04/17/24 05:50 Room Air, CPAP 04/17/24 05:50 Room Air 04/17/24 05:50 Room Air 04/17/24 05:30 Room Air 04/17/24 05:00 Room Air 04/17/24 04:30 Room Air 04/17/24 04:00 Room Air 04/17/24 04:00 04/17/24 02:30 Room Air 04/17/24 01:41 Room Air 04/17/24 00:30 Room Air 04/16/24 23:57 04/16/24 23:13 Room Air Resident Activity Tracking Resident Involvement: Resident Care Provided Care Provided: Adult Hospital Medicine
[2024-04-17] MEDS: ENOXAPARIN INJ 40 MG/0.4 ML SYR SQ SCH (08:22)
[2024-04-17] MEDS: METHOCARBAMOL 750 MG TABLET PO SCH (08:22)
[2024-04-17] MEDS: LOSARTAN POTASSIUM 50 MG TAB PO SCH (08:23)
--- NOTE | 2024-04-17 10:05 | Electrocardiogram Report ---
Test Reason : Blood Pressure : */* mmHG Vent. Rate : 60 BPM Atrial Rate : 60 BPM P-R Int : 196 ms QRS Dur : 88 ms QT Int : 416 ms P-R-T Axes : 61 -41 25 degrees QTcB Int : 416 ms Sinus rhythm with Premature supraventricular complexes Left axis deviation Abnormal ECG When compared with ECG of 12-Dec-2017 11:06, Premature ventricular complexes are no longer Present Premature supraventricular complexes are now Present Confirmed by Terrell Kelley ([id number]) on 04/17/2024 10:04:49 AM Referred By: REFERRED SELF Confirmed By: Terrell Kelley
[2024-04-17] MEDS ORDERED: HYDROmorphone INJ 0.5 MG/0.5 ML SYR IV PRN (10:47)
[2024-04-17] MEDS: KETOROLAC TROMETHAMINE 15 MG/ML VIAL IV PRN (10:52)
[2024-04-17] MEDS: ROSUVASTATIN CALCIUM 10 MG TAB PO SCH (20:07)
[2024-04-17] MEDS: diphenhydrAMINE Capsule 25 MG CAP PO PRN (21:34)
[2024-04-17 23:12] VITALS: PULSE 60; O2SAT 96
[2024-04-18 07:24] VITALS: BP 112/67; RESP 16; TEMP 97.7
--- NOTE | 2024-04-18 08:04 | Hospitalist Progress Note ---
Date of Service April 18, 2024 Assessment & Plan (1) Abdominal pain: (2) HLD (hyperlipidemia): (3) Hypertension: (4) History of DVT (deep vein thrombosis): Plan 73-year-old male PMHx AMRIK, hypercholesterolemia, ileus, colon cancer presenting for abdominal pain. ED course reveals no leukocytosis, H&H 2.4/37.8, grossly WNL CMP, and UA negative. CTAP all with stable findings nothing acute. Received NSS, metoclopramide, Zofran, Dilaudid, diphenhydramine, and acetaminophen in ED. #Intractable abdominal pain History of recurrent SBO, ileus, and colon cancer () with extensive abdominal surgery. ? symptoms 2/2 medications vs symptoms from adhesions given prior sx. No correlation of onset of symptoms around time of taking specific medications. Hemodynamically stable; very low suspicion for vascular condition causing symptomatology. Pt states that he thought this was another ileus. No extensive NSAID use, no dyspepsia or reflux. - CBC without leukocytosis, CMP grossly WNL; lipase 38; UA without acute findings; pending Pro-Sree, lactate, and ESR. - CTAP without acute findings - Tylenol, Toradol, Dilaudid prn for pain, minimize opioid use as able but pa - Zofran for N/V - Patient feel that symptoms worsened after taking methocarbamol this afternoon, will hold this temporarily - Able to tolerate eating full liquids for lunch, can advance diet as tolerated and if symptoms controlled in a.m. could discharge - Patient will need to re-establish with new GI provider after discharge #History of DVT- Associated TKA in 2011 #Stenosis with neurogenic claudication- Oxycodone outpatient; Methocarbamol - PDMP checked #HLD-Rosuvastatin #HTN- Losartan #Insomnia- Benadryl VTE Prophylaxis: Lovenox Code Status: Full Code Admission and Anticipated Discharge Date Admission Date: April 17, 2024 Review of Systems Review of Systems: As per above Physical Exam Constitutional: WD/WN, vitals as above Eyes: + anicteric sclerae; no conjunctival abn ormality ENMT: Ears: no external ear abnormality Nose: no external nose abnormality Respiratory: normal respiratory effort, lungs clear to auscultation Cardiovascular: Rate/Rhythm: regular rate and regular rhythm Extremities: no edema Gastrointestinal (Abdomen): Inspection/Auscultation: normal bowel sounds Percussion/Palpation: + abdomen tender and abdomen soft; no guarding and abdomen not rigid Skin: no rashes, warm and dry Psychiatric: A+Ox3, euthymic affect Results & Data Results & Data Vital Signs (Past 12 Hours) Vital Signs Temp Pulse Resp BP Pulse Ox O2 Del Method 04/18/24 07:23 36.5 C 60 16 112/67 96 Room Air 04/17/24 23:09 36.3 C L 60 20 135/79 96 CPAP 04/17/24 20:07 Room Air, CPAP
[2024-04-18] MEDS: HYDROCODONE/ACETAMOPHEN 5/325MG TAB PO PRN (08:09)
--- NOTE | 2024-04-18 14:24 | Discharge Summary ---
Date of Service April 18, 2024 Admission HPI Per Admitting Provider 73-year-old male PMHx AMRIK, hypercholesterolemia, ileus, colon cancer presenting for abdominal pain x 1 month, worsening the day [employer]. States that he is stomach problems at baseline as well as a previous ileus. Having nausea but no vomiting which comes and goes, has loose stools at baseline, slightly worse over the past few days. Some back pain as well after having a back fusion in December of 2023. States that the pain is worse after eating and mainly located to the right flank, feels as though someone has punched him in the stomach and his muscles are recovering from it. Was admitted and discharged for similar symptoms from 11/19/2023 until 11/20/2023. No correlation of pain when taking muscle relaxers. Pt states that he has been told before he likely has adhesions. No chest pain, SOB, palpitations, constipation, numbness/tingling, LUTS, or F/C. States that his pain is not managed well with pain meds and it takes a lot to alleviate the pain. Pain free at time of admission. ED course reveals no leukocytosis, H&H 2.4/37.8, grossly WNL CMP, and UA negative. CTAP all with stable findings nothing acute. Received NSS, metoclopramide, Zofran, Dilaudid, diphenhydramine, and acetaminophen in ED. Please see Dr. Koo's attestation for adjustments/additions to treatment plan. Admission Exam Per Admitting Provider General: No acute distress Skin: Warm and dry Head: Normocephalic, atraumatic Eyes: PERRL, conjunctivae clear, sclera non-icteric ENT: External ear and ear canal without swelling; nose atraumatic; good dentition, tongue normal appearance, pharynx normal Neck: Supple, no LAD Cardio: RRR, no M/G/R, S1 and S2 normal Resp: No respiratory distress, Lungs CTA in all lobes bilaterally, no wheezes, rales, or rhonchi Abdomen: Soft, symmetric, mild tenderness along R side of abdomen, nontender otherwise; no distention; No masses or hepatosplenomegaly; Bowel sounds normoactive MSK: No deformities; pulses palpable and equal; no edema. Neuro: Awake, alert; CN intact Psych: Appropriate mood and affect; good judgement and insight. Principal Diagnosis abdominal pain Discharge Exam Constitutional WD/WN, vitals as above Eyes + anicteric sclerae; no conjunctival abnormality ENMT Ears: no external ear abnormality Nose: no external nose abnormality Moist mucous membranes Respiratory normal respiratory effort, lungs clear to auscultation Cardiovascular Rate/Rhythm: regular rate and regular rhythm Extremities: no edema Gastrointestinal (Abdomen) Inspection/Auscultation: abdomen normal to inspection and normal bowel sounds; abdomen not distended Percussion/Palpation: abdomen soft; abdomen nontender and no guarding Skin no rashes, warm and dry Psychiatric A+Ox3, euthymic affect Discharge Data Allergies Allergy/AdvReac Type Severity Reaction Status Date / Time Iodinated Contrast Media Allergy Severe Anaphylaxis Verified 04/16/24 23:30 meperidine Allergy Mild Rash Verified 04/16/24 23:30 oxycodone AdvReac Mild Percocet/Percodan- Verified 04/16/24 23:30 skin crawling Penicillins AdvReac Mild Dyspepsia Verified 04/16/24 23:30 propoxyphene AdvReac Mild Darvon/Darvocet- Verified 04/16/24 23:30 skin crawling Consultations 04/17/24 04:36 ED Decision to Admit Stat Ordered Studies 04/17/24 00:27 CT abd pelvis IV con only Stat Abdomen/Pelvis CT 04/17/24 00:27 EXAM: CT abd pelvis IV con only CLINICAL HISTORY: abd pain, nausea, TECHNIQUE: Contiguous axial images were obtained from the level of the diaphragm to the pubic symphysis without and with intravenous contrast. Coronal and sagittal reconstructions were likewise performed and indicated to increase the sensitivity for detecting clinically relevant pathology. If IV contrast material had not been administered, the likelihood of detecting abnormalities relevant to the patient's condition would have been substantially decreased. CT scan was performed according to ALARA (as low as reasonable achievable). COMPARISON: 19 November 2023 FINDINGS: The visualized lung bases are clear. The liver is normal in size and attenuation. Stable hypodense lesion of size10 x 10 mm is noted involving left lobe of liver - appears hemangioma. There is no intra or extrahepatic biliary ductal dilatation. Hepatic vasculature is patent. The gallbladder is present. The spleen, pancreas, and adrenal glands are unremarkable. Stable nodule of size 9 x 9 mm involving left adrenal gland. The kidneys are normal in size and attenuation. There is no hydronephrosis or perinephric fat stranding. No renal calculi or renal masses are identified. Stable cortical cyst is noted involving left kidney. The ureters are normal in caliber and no ureteral calculi are seen. The bladder is normal in contour. Pelvic viscera are unremarkable. No focal or diffuse bowel wall thickening or evidence of bowel obstruction is identified. The appendix is visualized in the right lower quadrant and appears within normal limits. Abdominal and pelvic vasculature is patent. No adenopathy or fluid collections are seen. No aggressive appearing osseous lesions are identified. IMPRESSION: 1. Stable cortical cyst is noted involving left kidney. 2. Stable hypodense lesion involving left lobe of liver - appears hemangioma. 3. Stable left adrenal nodule. 4. No other new interval abnormality since prior study. Electronically signed by Walter Lazcano 04-17-2024 03:01 AM Hospital Course (1) Abdominal pain: (2) HLD (hyperlipidemia): (3) Hypertension: (4) History of DVT (deep vein thrombosis): Plan 73-year-old male PMHx AMRIK, hypercholesterolemia, ileus, colon cancer presenting for abdominal pain. ED course reveals no leukocytosis, H&H 2.4/37.8, grossly WNL CMP, and UA negative. CTAP all with stable findings nothing acute. Received NSS, metoclopramide, Zofran, Dilaudid, diphenhydramine, and acetaminophen in ED. #Intractable abdominal pain History of recurrent SBO, ileus, and colon cancer () with extensive abdominal surgery. ? symptoms 2/2 medications vs symptoms from adhesions given prior sx. No correlation of onset of symptoms around time of taking specific medications. Hemodynamically stable; very low suspicion for vascular condition causing symptomatology. Pt states that he thought this was another ileus. No extensive NSAID use, no dyspepsia or reflux. - CBC without leukocytosis, CMP grossly WNL; lipase 38; UA without acute findings; pending Pro-Sree, lactate, and ESR. - CTAP without acute findings- no evidence of ileus, acute infection - Treated with Tylenol, Toradol, Dilaudid for pain. Patient states he has some remaining prescribed oxycodone at home which he can take if needed for the pain - Patient feel that symptoms worsened after taking methocarbamol doses during admission, as patient feels this medicine was not providing relief we will discontinue it at the time of discharge - Able to tolerate eating full liquids and later a regular diet without symptoms so patient was comfortable to discharge home at this time - Patient will need to re-establish with new GI provider, is interested in establishing with a GI in [place]. Will ask nurse navigator to assist with this upon discharge. #History of DVT- Associated TKA in 2011 #Stenosis with neurogenic claudication- Oxycodone outpatient; Methocarbamol (now discontinued at discharge). #HLD-Rosuvastatin #HTN- Losartan #Insomnia- Benadryl Total Time Total Time Spent Total Time Spent (In Minutes): I spent 15 minutes [id number], 10 minutes reviewing data and documenting. (SALLY) Discharge Plan Discharge Items Patient Disposition: Home - Self-Care Reason For Visit: INTRACTABLE ABDOMINAL PAIN Discharge Diagnosis: abdominal pain Activity: Per Instructions section Non-emergency contact: Primary Care Provider and Publisher Assistant Call non-emergency contact if: you have any medication questions and your symptoms worsen Follow-up/Referrals: Denver Dinero [Primary Care Provider] - (please schedule hospital discharge within 1-2 weeks) Diet: Regular Addtl Attending Provider Instructions: You were admitted to the hospital for abdominal pain. You were treated with pain medication and fortunately imaging did not show any acute findings. After resuming a diet and your pain was under reasonable control, we felt you were safe for discharge and follow up with GI as an outpatient. We recommended discontinuing the methocarbamol at discharge due to concern that this was contributing to some of your pain. A discharge summary will be sent to your primary care physician to ensure continuity of care. Follow-up appointments: Make a follow-up appointment with your PCP within the next week. It is very important that you follow up with them shortly after discharge from the hospital. Medications: Your medication list has been reviewed and reconciled upon discharge to ensure accuracy and continuity of care. An updated list of all your medications is included with your hospital discharge paperwork. Please review this list closely, and make note of any changes. -For pain control, recommend continuing Tylenol as needed. You can use your previously prescribed oxycodone as needed. -If symptoms worsen or change, please contact your PCP or present to ED for evaluation. CALL 911 OR GO TO THE EMERGENCY DEPARTMENT if you experience any of the following: Sudden, severe abdominal pain or nausea/vomiting Severe chest pain, or chest pain that radiates (moves) to your jaw or arm Sudden, severe shortness of breath or difficulty breathing Thank you for allowing us to participate in your care. Pending Studies at Discharge: No Stand-Alone Forms: My [facility], Smoking Cessation Medications and DC Order Prescriptions: Continued diphenhydramine HCl [Benadryl] 25 mg Capsule 50 mg PO HS PRN (Reason: Insomnia) rosuvastatin 10 mg Tablet 10 mg PO PM losartan 50 mg tablet 50 mg PO DAILY cholecalciferol (vitamin D3) 100 mcg (4,000 unit) Capsule 1,000 unit PO DAILY acetaminophen 325 mg Tablet 650 mg PO . NEEDED PRN (Reason: Pain) oxycodone 10 mg tablet 10 mg PO Q4 MDD DO NOT EXCEED 6 PER 24 HOURS PRN (Reason: Pain) Discontinued methocarbamol 750 mg tablet 750 mg PO Q4H Discharge Orders: Discharge Order (Routine); Ordered 04/18/24 Ordered By: Lorri Cordova/Other Patient Handouts: Preventing Deep Vein Thrombosis Admission Data Admit Date/Time: 04/17/24 04:56 Attending Provider: Agustin Gordon Admit Provider: Lucas Koo Primary Care Provider: Denver Dinero Other Providers: Lucas Koo Other Interventions: Discharge Summary Assessment (RN) Last Done: 04/18/24 14:16 Supervising Physician Co-Signing Physician Notes ATTESTATION I also saw the patient and confirmed moralez portions of the history and exam. I agree with the impression and plan in the resident documentation, and as summarized below. he feels better overall. Less pain. Tolerating diet without nausea or vomiting. EXAM 112/67, 60, 16, 36.5, 96% room air Cardiovascular regular, heart sounds distant respirations nonlabored abdomen obese, nondistended, nontender without rebound or guarding DATA IMPRESSION & PLAN abdominal pain, resolved lab work and imaging reassuring pain resolved and tolerating full oral diet without nausea or vomiting he is anticipating discharge home with outpatient follow-up as needed discussed establish with gastroenterology discussed return to the emergency department should symptoms recur Additional per resident documentation Resident Activity Tracking Resident Involvement: Resident Care Provided Care Provided: Adult Hospital Medicine
== END 2024-04-18 14:46 | disposition home or self-care (01) ==
LOC: SUATTDRO → 3W 23:08 → ED 23:08 → SUATTDRO 04-17 04:56 → 3W 04-17 05:43

== ENCOUNTER 2024-05-18 01:36 | Inpatient (IN) ==
[2024-05-18] MEDS: SODIUM CHLORIDE 0.9% 500 ML IV ONE (02:50)
[2024-05-18] MEDS: ONDANSETRON INJ 2 MG/ML 2 ML VIAL IV STA ×2 (02:50→06:20)
[2024-05-18] MEDS: HYDROmorphone INJ 1 MG/ML SYRINGE IV STA (02:52)
[2024-05-18] MEDS: diphenhydrAMINE 50 MG/ML VIAL IV STA ×2 (02:55→20:45)
--- NOTE | 2024-05-18 02:57 | Emergency Department Note ---
Impression & Plan Intractable nausea, Left sided abdominal pain, History of ileus admit to the [facility] ED Provider Note NAME: JOHN JACINTO AGE: 73 SEX: Male INFORMANT: Patient ED PROVIDER(S): Liz Cui DO CHIEF COMPLAINT: abdominal pain PLAN: Disposition: admit to the [facility] MEDICAL DECISION MAKING: this is a 73-year-old male patient with a history of previous ileus and small bowel obstruction who presents to the emergency department with increasing abdominal pain and nausea since 430 this afternoon. Patient had normal bowel movements earlier in the day but began to develop his usual typical pain associated with his ileus around 430 this afternoon. He then became nauseated so he stopped taking anything by mouth and presents here for evaluation. vital signs were stable on presentation. Laboratory studies revealed no leukocytosis or anemia. Renal function was normal. Glucose was 158. Patient was medicated with IV analgesia and IV antiemetics. He went for CT scan of the abdomen/pelvis which was normal. He had moderate relief of the pain but had persistent nausea and received an additional dose of IV Zofran. Patient was placed on a normal saline drip. He explains that routinely what occurs is that he will require admission to the hospital until his symptoms resolve otherwise, he will have persistent nausea/vomiting and return to the emergency department. Triage Nursing notes: reviewed and agree With them. Vital Signs: reviewed and unremarkable Additional History obtained from: patient's son who is at the bedside Chronic Medical/Social Conditions affecting care: recurrent ileus and previous history of small bowel obstruction Differential Diagnosis: colitis, small bowel obstruction, ileus, volvulus, diverticulitis Diagnostics, independently interpreted by me: Imaging studies: CT scan of the abdomen/pelvis: As per Imbro HPI: 73 year old Male arrives for evaluation of abdominal pain and nausea. patient with a history of previous ileus and small bowel obstruction who presents to the emergency department with increasing abdominal pain and nausea since 430 this afternoon. Patient had normal bowel movements earlier in the day but began to develop his usual typical pain associated with his ileus around 430 this afternoon. He then became nauseated so he stopped taking anything by mouth and presents here for evaluation. . PAST MEDICAL HISTORY: See Below, PAST SURGICAL HISTORY: See Below, SOCIAL HISTORY: See Below, HOME MEDICATIONS: see list ALLERGIES: see list VITALS: See Below PHYSICAL EXAMINATION: HEENT: Head - normocephalic and atraumatic Pupils are equal, round, and reactive to light. Extraocular eye muscles are intact, and sclera are anicteric. Nose - moist nasal mucosa without discharge. Mouth - moist buccal mucosa. Oropharynx is nonerythematous and there is no tonsillar exudate or edema noted. Neck: Supple; no Cervical lymphadenopathy or JVD Heart: Regular rate and rhythm. There is a normal S1 and S2 with no murmurs, clicks, or gallops appreciated. Lungs: Clear to auscultation bilaterally with no wheezes, rales, or rhonchi. Abdomen: Soft, mildly tender to palpation just to the left of the umbilicus. There are no palpable pulsatile masses or hepatosplenomegaly. There is no guarding, rigidity, or rebound noted. Extremities: No evidence of cyanosis, clubbing, or edema. There are easily palpable peripheral pulses. Skin: warm and dry with good turgor and no rashes. Emergency Department treatment: IV normal saline drip, IV Zofran x 2, IV Dilaudid Emergency Department course: The patient was evaluated in room C-7. A complete history and physical was performed. IV lock was initiated and labs are drawn as above. Patient was medicated with IV Zofran and IV Dilaudid for pain and nausea. He went for CT scan of the abdomen/pelvis as described above. Patient describes persistent nausea. He was given a second dose of IV Zofran. Past Med/Surg History Problem List (Updated 05/18/24 @ 16:44 by Liz Cui DO) History of ileus (Acute) Left sided abdominal pain (Acute) Intractable nausea (Acute) Hypertension Abdominal pain (Acute) S/p reverse total shoulder arthroplasty Morbid obesity Rotator cuff arthropathy of right shoulder Wrist pain, right (Acute) Osteoarthritis of right knee Status post total right knee replacement Encounter for pre-operative examination Medical History Enteritis SBO (small bowel obstruction) Lumbosacral radiculopathy HLD (hyperlipidemia) Spinal stenosis, lumbar region with neurogenic claudication History of colon cancer s/p resection (hx of blood transfusion remotely in 1980s in setting of cancer) History of DVT (deep vein thrombosis) LLE DVT (2011) s/p TKA- treated with AC Sleep apnea CPAP Ileus Recurrent s/p colon cancer/resection Concern about infectious disease without diagnosis Pt reports that if he gets an infection, he does not get any normal signs of it like fever/elevated WBC. He states he had a bad infection (? sepsis) and almost from when had colon cancer, but showed no signs until almost too late. Osteoarthritis GERD (gastroesophageal reflux disease) Occasional History of ileus 2017 Surgical History Hx of abdominal surgery Age 2/3 (no further details) History of esophagogastroduodenoscopy (EGD) History of tooth extraction H/O squamous cell carcinoma excision Left arm Hx of discectomy Lumbar (prior to fusion) History of repair of rotator cuff Right Status post trigger finger release R/L History of total knee replacement R/L History of bilateral carpal tunnel release History of bowel resection History of colonoscopy History of arthroscopy Right elbow History of colostomy reversal History of colostomy 2/2 colon cancer Fusion of spine Lumbar x2 Removal previous hardware, L3-L5 decompression with fusion (05/22/2018): Failed with MAC3, easy with Glidescope #4 at [facility] Family History Mother Family history of diabetes mellitus Social History Smoking Status: Never smoker Second Hand Exposure: No; Do You Dip or Chew Tobacco: No; Hx Alcohol Use: No Hx Substance Use: No Preferred Language: Urdu Communication Ability: Effective Visual Impairment: No Limitations Hand Shoes Sewer Required: No Beliefs That Will Affect Care: None marital status: Current Living Situation: Spouse Feels Safe at Home: Yes Assistive Devices: Glasses and Hospital Bed Allergies Allergies Allergy/AdvReac Type Severity Reaction Status Date / Time Iodinated Contrast Media Allergy Severe Anaphylaxis Verified 05/18/24 08:06 meperidine Allergy Mild Rash Verified 05/18/24 08:06 oxycodone AdvReac Mild Percocet/Percodan- Verified 05/18/24 08:06 skin crawling Penicillins AdvReac Mild Dyspepsia Verified 05/18/24 08:06 propoxyphene AdvReac Mild Darvon/Darvocet- Verified 05/18/24 08:06 skin crawling Home Meds Home Medications Medication Instructions Recorded Confirmed diphenhydramine HCl 25 mg capsule 50 mg PO HS PRN Insomnia 04/23/18 05/18/24 (Benadryl) rosuvastatin 10 mg tablet 10 mg PO PM 08/21/20 05/18/24 losartan 50 mg tablet 50 mg PO DAILY 11/19/23 05/18/24 acetaminophen 325 mg tablet 650 mg PO Q6H PRN Pain 04/16/24 05/18/24 cholecalciferol (vitamin D3) 25 25 mcg PO DAILY 05/18/24 05/18/24 mcg (1,000 unit) tablet (Vitamin D3) Results & Data (ED) Vital Signs Vital Signs - 24 hr 05/18/24 01:39 05/18/24 02:39 05/18/24 02:41 Temperature 36.9 C Temperature Source Oral Pulse Rate 80 76 73 Pulse Rate from SpO2 Sensor 75 Pulse Rhythm Respiratory Rate 20 19 Respiratory Effort / Characteristics Non-Labored Spontaneous Respiratory Depth Normal Blood Pressure 152/74 H Blood Pressure Mean 100 Pulse Oximetry 97 97 Oxygen Delivery Method Room Air Room Air Sepsis Recent Fever Within 48 Hours No Sepsis New/Unexplained Change in Mental Status N/A Sepsis Action Taken by Nursing No Action Required 05/18/24 02:49 05/18/24 03:00 05/18/24 04:21 Temperature Temperature Source Pulse Rate 77 78 65 Pulse Rate from SpO2 Sensor 78 64 Pulse Rhythm Regular Respiratory Rate 18 15 18 Respiratory Effort / Characteristics Respiratory Depth Blood Pressure 133/103 H 124/83 Blood Pressure Mean 113 96 Pulse Oximetry 98 97 98 Oxygen Delivery Method Room Air Room Air Room Air Sepsis Recent Fever Within 48 Hours Sepsis New/Unexplained Change in Mental Status Sepsis Action Taken by Nursing 05/18/24 04:30 05/18/24 05:00 05/18/24 05:30 Temperature Temperature Source Pulse Rate 62 67 65 Pulse Rate from SpO2 Sensor 63 61 65 Pulse Rhythm Respiratory Rate 14 13 16 Respiratory Effort / Characteristics Respiratory Depth Blood Pressure 145/90 H 154/105 H 129/83 Blood Pressure Mean 108 121 98 Pulse Oximetry 97 96 97 Oxygen Delivery Method Room Air Room Air Room Air Sepsis Recent Fever Within 48 Hours Sepsis New/Unexplained Change in Mental Status Sepsis Action Taken by Nursing 05/18/24 06:18 05/18/24 06:42 05/18/24 07:24 Temperature Temperature Source Pulse Rate 67 111 H 62 Pulse Rate from SpO2 Sensor 67 61 Pulse Rhythm Respiratory Rate 16 14 Respiratory Effort / Characteristics Respiratory Depth Blood Pressure 120/67 Blood Pressure Mean 84 Pulse Oximetry 98 97 Oxygen Delivery Method Room Air Room Air Sepsis Recent Fever Within 48 Hours Sepsis New/Unexplained Change in Mental Status Sepsis Action Taken by Nursing 05/18/24 07:30 05/18/24 07:33 Temperature Temperature Source Pulse Rate 66 Pulse Rate from SpO2 Sensor 67 Pulse Rhythm Respiratory Rate 22 Respiratory Effort / Characteristics Respiratory Depth Blood Pressure 117/68 Blood Pressure Mean 83 Pulse Oximetry 99 Oxygen Delivery Method Room Air Sepsis Recent Fever Within 48 Hours Sepsis New/Unexplained Change in Mental Status Sepsis Action Taken by Nursing Laboratory Data 05/18/24 02:35 05/18/24 02:35 Lab Results 05/18/24 05/18/24 Range/Units 02:35 04:51 WBC 10.34 (4.8-10.8) K/ul RBC 5.00 (4.70-6.10) M/uL Hgb 13.9 L (14.0-18.0) g/dl Hct 42.2 (42.0-52.0) % MCV 84.4 (80.0-100.0) fL MCH 27.8 (25.0-34.0) pg MCHC 32.9 (32.0-36.0) g/dL RDW Std Deviation 48.9 H (36.4-46.3) fL RDW Coeff of Saray 15.9 H (11.5-14.5) % Plt Count 178 (130-400) K/uL MPV 11.1 (9.4-12.4) fL Immature Gran % (Auto) 0.2 % Neut % (Auto) 76.0 % Lymph % (Auto) 15.3 % Fleming % (Auto) 7.3 % Eos % (Auto) 0.7 % Baso % (Auto) 0.5 % Neut # (Auto) 7.87 H (1.40-6.50) K/uL Lymph # (Auto) 1.58 (1.20-3.40) K/uL Fleming # (Auto) 0.75 H (0.11-0.59) K/uL Eos # (Auto) 0.07 (0.00-0.50) K/uL Baso # (Auto) 0.05 (0.00-0.20) K/uL Immature Gran # (Auto) 0.02 (0.01-0.20) K/uL Sodium 140 (136-145) mmol/L Potassium 4.0 (3.5-5.1) mmol/L Chloride 107 (98-107) mmol/L Carbon Dioxide 24 (21-32) mmol/L Anion Gap 9 (3-11) BUN 21 (6-23) mg/dl Creatinine 1.04 (0.6-1.4) mg/dl Est Cr Clr Drug Dosing 88.2 ml/min eGFR 76.77 BUN/Creatinine Ratio 20.2 H (10-20) Glucose 158 H (70-99(Fasting)) mg/dl Calcium 9.6 (8.6-10.3) mg/dl Total Bilirubin 0.6 (0.2-1.0) mg/dl AST 28 (13-39) U/L ALT 33 (7-52) U/L Alkaline Phosphatase 61 (34-104) U/L Total Protein 7.8 (6.0-8.3) gm/dl Albumin 4.6 (3.4-5.0) gm/dl Globulin 3.2 (2.5-4.0) gm/dl Albumin/Globulin Ratio 1.4 (0.9-2) Lipase 38 (11-82) U/L Urine Color Yellow Urine Appearance Clear (Clear) Urine pH 5.0 (4.5-7.5) Ur Specific [place] > 1.045 H (1.000-1.030) Urine Protein Negative (Negative) Urine Glucose (UA) Negative (Negative) Urine Ketones Negative (Negative) Urine Blood Negative (Negative) Urine Nitrite Negative (Negative) Urine Bilirubin Negative (Negative) Urine Urobilinogen Negative (Negative) Ur Leukocyte Esterase Negative (Negative) Administered Medications Diphenhydramine HCl (Diphenhydramine Capsule 25 Mg Cap) 25 mg PO DAILY PRN PRN Reason: Itching Stop: 06/17/24 15:23 Last Admin: 05/18/24 15:44 Dose: 25 mg Documented By: AA Hydromorphone HCl (Hydromorphone Inj 1 Mg/Ml Syringe) 1 mg IV Q3H PRN PRN Reason: Pain Stop: 06/01/24 08:25 Last Admin: 05/18/24 13:26 Dose: 1 mg Documented By: Admin: 05/18/24 09:11 Dose: 1 mg Documented By: VINOD Sodium Chloride (Nss) 1,000 mls @ 100 mls/hr IV .Q10H MARJ Stop: 05/19/24 15:29 Last Admin: 05/18/24 15:47 Dose: 100 mls/hr Documented By: JOSSIE Ondansetron HCl (Ondansetron Inj 2 Mg/Ml 2 Ml Vial) 4 mg IV Q6H PRN PRN Reason: Nausea Stop: 06/17/24 08:25 Last Admin: 05/18/24 15:47 Dose: 4 mg Documented By: JOSSIE Discontinued Medications Diphenhydramine HCl (Diphenhydramine 50 Mg/Ml Vial) 25 mg IV NOW STA Stop: 05/18/24 02:36 Last Admin: 05/18/24 02:55 Dose: 25 mg Documented By: DONNA Hydromorphone HCl (Hydromorphone Inj 1 Mg/Ml Syringe) 1 mg IV NOW STA Stop: 05/18/24 02:44 Last Admin: 05/18/24 02:52 Dose: 1 mg Documented By: DONNA Sodium Chloride (Nss) 500 mls @ 999 mls/hr IV .Q31M ONE Stop: 05/18/24 03:05 Last Infusion: 05/18/24 04:24 Dose: Infused Documented By: Admin: 05/18/24 02:50 Dose: 999 mls/hr Documented By: DONNA Sodium Chloride (Nss) 500 mls @ 125 mls/hr IV .Q4H MARJ Stop: 05/18/24 09:44 Last Infusion: 05/18/24 10:59 Dose: Infused Documented By: Admin: 05/18/24 06:20 Dose: 125 mls/hr Documented By: DONNA Ondansetron HCl (Ondansetron Inj 2 Mg/Ml 2 Ml Vial) 4 mg IV NOW STA Stop: 05/18/24 02:36 Last Admin: 05/18/24 02:50 Dose: 4 mg Documented By: DONNA Ondansetron HCl (Ondansetron Inj 2 Mg/Ml 2 Ml Vial) 4 mg IV NOW STA Stop: 05/18/24 05:42 Last Admin: 05/18/24 06:20 Dose: 4 mg Documented By: DONNA Imaging Data Radiologist's Impression: Abdomen/Pelvis CT 05/18/24 03:07 EXAM: CT abd pelvis IV con only CLINICAL HISTORY: abd. pain; h/o ileus and sbo TECHNIQUE: Contiguous axial images were obtained from the level of the diaphragm to the pubic symphysis with intravenous contrast. Coronal and sagittal reconstructions were likewise performed and indicated to increase the sensitivity for detecting clinically relevant pathology. If IV contrast material had not been administered, the likelihood of detecting abnormalities relevant to the patient's condition would have been substantially decreased. CT scan was performed according to ALARA (as low as reasonable achievable). 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 The liver is normal in size and attenuation. Stable hypodense lesion of size10 x 10 mm is noted involving left lobe of liver - appears hemangioma. There is no intra or extrahepatic biliary ductal dilatation. Hepatic vasculature is patent. The gallbladder is present. The spleen, pancreas, and adrenal glands are unremarkable. Stable nodule of size 9 x 9 mm involving left adrenal gland. The kidneys are normal in size and attenuation. There is no hydronephrosis or perinephric fat stranding. No renal calculi or renal masses are identified. Stable cortical cyst is noted involving left kidney. The ureters are normal in caliber and no ureteral calculi are seen. The bladder is normal in contour. Pelvic viscera are unremarkable. No focal or diffuse bowel wall thickening or evidence of bowel obstruction is identified. Abdominal and pelvic vasculature is patent. No adenopathy or fluid collections are seen. No aggressive appearing osseous lesions are identified. 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 It appears within the normal limits IMPRESSION: 1. Stable cortical cyst is noted involving left kidney. 2. Stable hypodense lesion involving left lobe of liver - appears hemangioma. 3. Stable left adrenal nodule. 4. 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 5. No other new interval abnormality since prior study. Electronically signed by Walter Lazcano 05-18-2024 05:16 AM Discharge Plan Visit Data Chief Complaint: Abdominal Pain Stated Complaint: abdominal pain ED Provider: Liz Cui Discharge Problem: Intractable nausea, Left sided abdominal pain, History of ileus Patient Disposition: Admitted As Inpatient Discharge Instructions Interventions: ED Discharge Assessment Last Done: 05/18/24 08:26
[2024-05-18 03:00] LABS: Basophils # (auto) 0.05 K/uL (0.00-0.20); Basophils % (auto) 0.5 %; Eosinophils # (auto) 0.07 K/uL (0.00-0.50); Eosinophils % (auto) 0.7 %; Hematocrit (blood only) 42.2 % (42.0-52.0); Hemoglobin 13.9 g/dl (14.0-18.0); Immature Granulocytes # (auto) 0.02 K/uL (0.01-0.20); Immature Granulocytes % (auto) 0.2 %; Lymphocytes # (auto) 1.58 K/uL (1.20-3.40); Lymphocytes % (auto) 15.3 %; Mean Corpuscular Hemoglobin 27.8 pg (25.0-34.0); Mean Corpuscular Hgb Conc 32.9 g/dL (32.0-36.0); Mean Corpuscular Volume 84.4 fL (80.0-100.0); Mean Platelet Volume 11.1 fL (9.4-12.4); Monocytes # (auto) 0.75 K/uL (0.11-0.59); Monocytes % (auto) 7.3 %; Neutrophils # (auto) 7.87 K/uL (1.40-6.50); Platelet Count 178 K/uL (130-400); RDW Coefficient of Variation 15.9 % (11.5-14.5); RDW Standard Deviation 48.9 fL (36.4-46.3); White Blood Count 10.34 K/ul (4.8-10.8)
[2024-05-18 03:15] LABS: Albumin Globulin Ratio 1.4 (0.9-2); Albumin Level 4.6 gm/dl (3.4-5.0); BUN Creatinine Ratio 20.2 (10-20); Bilirubin,Total 0.6 mg/dl (0.2-1.0); Calcium 9.6 mg/dl (8.6-10.3); Creatinine Clr Calc Pharmacy 88.2 ml/min; Globulin 3.2 gm/dl (2.5-4.0); Total Protein 7.8 gm/dl (6.0-8.3)
[2024-05-18 04:59] LABS: Appearance Urine Clear (Clear); Bilirubin Urine Negative (Negative); Blood Urine Negative (Negative); Color Urine Yellow; Glucose Urine UA Negative (Negative); Ketones Urine Negative (Negative); Leukocyte Esterase Urine Negative (Negative); Nitrite Urine Negative (Negative); Protein Urine Negative (Negative); Specific Gravity Urine > 1.045 (1.000-1.030); Urobilinogen Urine Negative (Negative)
--- NOTE | 2024-05-18 05:16 | CT Scan Report ---
EXAM: CT abd pelvis IV con only CLINICAL HISTORY: abd. pain; h/o ileus and sbo TECHNIQUE: Contiguous axial images were obtained from the level of the diaphragm to the pubic symphysis with intravenous contrast. Coronal and sagittal reconstructions were likewise performed and indicated to increase the sensitivity for detecting clinically relevant pathology. If IV contrast material had not been administered, the likelihood of detecting abnormalities relevant to the patient's condition would have been substantially decreased. CT scan was performed according to ALARA (as low as reasonable achievable). 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 The liver is normal in size and attenuation. Stable hypodense lesion of size10 x 10 mm is noted involving left lobe of liver - appears hemangioma. There is no intra or extrahepatic biliary ductal dilatation. Hepatic vasculature is patent. The gallbladder is present. The spleen, pancreas, and adrenal glands are unremarkable. Stable nodule of size 9 x 9 mm involving left adrenal gland. The kidneys are normal in size and attenuation. There is no hydronephrosis or perinephric fat stranding. No renal calculi or renal masses are identified. Stable cortical cyst is noted involving left kidney. The ureters are normal in caliber and no ureteral calculi are seen. The bladder is normal in contour. Pelvic viscera are unremarkable. No focal or diffuse bowel wall thickening or evidence of bowel obstruction is identified. Abdominal and pelvic vasculature is patent. No adenopathy or fluid collections are seen. No aggressive appearing osseous lesions are identified. 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 It appears within the normal limits IMPRESSION: 1. Stable cortical cyst is noted involving left kidney. 2. Stable hypodense lesion involving left lobe of liver - appears hemangioma. 3. Stable left adrenal nodule. 4. 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 5. No other new interval abnormality since prior study. Electronically signed by Walter Lazcano 05-18-2024 05:16 AM
[2024-05-18] MEDS: SODIUM CHLORIDE 0.9% 500 ML IV SCH (06:20)
--- NOTE | 2024-05-18 07:55 | History & Physical Report ---
Date of Service May 18, 2024 Assessment & Plan (1) Ileus: Plan: Patient had colon cancer when he was 32 years old, following resection has had multiple episodes of ileus. Presents to the hospital today with worsening abdominal pain which he recognizes as similar to his previous episodes of ileus. CT abdomen and pelvis all within normal limits. Patient said he has not passed gas in the past few hours Will admitted to the hospital Make him n.p.o. Zofran for nausea Will have low threshold for NG tube If it worsens, will consult general surgery (2) History of colon cancer: Plan: Had colon cancer 30 years ago s/p resection (3) Hypertension: Plan: Blood pressure under good control On losartan at home (4) Morbid obesity: Plan: Patient was advised on lifestyle changes Plan Admit to [facility] Full code DVT prophylaxis SCDs History of Present Illness Chief Complaint: abd pain Primary Care Provider: Denver Dinero Is a 73-year-old male with a remote history of colon cancer with recurrent ileus, obstructive sleep apnea who presents to the hospital today on account of abdominal pain. Patient said that he was in his usual state of health until 4 hours prior to presentation when he started having abdominal pain which initially he thought strained a muscle. However given his multiple previous episodes of ileus he knew that was likely the reason so decided come to the hospital. Currently the patient, he had colon cancer at the age of 32 and has been having recurrent ileus ever since. Back in December 2023, he also had a back fusion surgery. His last bowel movement was a few hours prior to presentation. The emergency department, vital signs are stable, CT abdomen and pelvis was essentially normal. However given his previous history, will admit him to the hospital for further management. Allergies Allergy/AdvReac Type Severity Reaction Status Date / Time Iodinated Contrast Media Allergy Severe Anaphylaxis Verified 04/16/24 23:30 meperidine Allergy Mild Rash Verified 04/16/24 23:30 oxycodone AdvReac Mild Percocet/Percodan- Verified 04/16/24 23:30 skin crawling Penicillins AdvReac Mild Dyspepsia Verified 04/16/24 23:30 propoxyphene AdvReac Mild Darvon/Darvocet- Verified 04/16/24 23:30 skin crawling Home Medications Medication Instructions Recorded Confirmed Type diphenhydramine HCl 25 mg capsule 50 mg PO HS PRN Insomnia 04/23/18 04/16/24 History (Benadryl) rosuvastatin 10 mg tablet 10 mg PO PM 08/21/20 04/16/24 History cholecalciferol (vitamin D3) 100 1,000 unit PO DAILY 11/19/23 04/16/24 History mcg (4,000 unit) capsule losartan 50 mg tablet 50 mg PO DAILY 11/19/23 04/16/24 History acetaminophen 325 mg tablet 650 mg PO . NEEDED PRN Pain 04/16/24 04/16/24 History oxycodone 10 mg tablet 10 mg PO Q4 PRN Pain 04/16/24 04/16/24 History Past Med/Surg History Problem List (Updated 04/17/24 @ 07:28 by Lorri Monteiro, DO) Hypertension Abdominal pain (Acute) S/p reverse total shoulder arthroplasty Morbid obesity Rotator cuff arthropathy of right shoulder Wrist pain, right (Acute) Osteoarthritis of right knee Status post total right knee replacement Encounter for pre-operative examination Medical History Enteritis SBO (small bowel obstruction) Lumbosacral radiculopathy HLD (hyperlipidemia) Spinal stenosis, lumbar region with neurogenic claudication History of colon cancer s/p resection (hx of blood transfusion remotely in 1980s in setting of cancer) History of DVT (deep vein thrombosis) LLE DVT (2011) s/p TKA- treated with AC Sleep apnea CPAP Ileus Recurrent s/p colon cancer/resection Concern about infectious disease without diagnosis Pt reports that if he gets an infection, he does not get any normal signs of it like fever/elevated WBC. He states he had a bad infection (? sepsis) and almost from when had colon cancer, but showed no signs until almost too late. Osteoarthritis GERD (gastroesophageal reflux disease) Occasional History of ileus 2018 Surgical History Hx of abdominal surgery Age 2/3 (no further details) History of esophagogastroduodenoscopy (EGD) History of tooth extraction H/O squamous cell carcinoma excision Left arm Hx of discectomy Lumbar (prior to fusion) History of repair of rotator cuff Right Status post trigger finger release R/L History of total knee replacement R/L History of bilateral carpal tunnel release History of bowel resection History of colonoscopy History of arthroscopy Right elbow History of colostomy reversal History of colostomy 2/2 colon cancer Fusion of spine Lumbar x2 Removal previous hardware, L3-L5 decompression with fusion (05/22/2018): Failed with MAC3, easy with Glidescope #4 at [facility] Family History Mother Family history of diabetes mellitus Social History Smoking Status: Former smoker Second Hand Exposure: No; Do You Dip or Chew Tobacco: No; Hx Alcohol Use: No Hx Substance Use: No Preferred Language: Kenyan Communication Ability: Effective Visual Impairment: No Limitations Residential Electrician Required: No Beliefs That Will Affect Care: None marital status: Current Living Situation: Spouse Feels Safe at Home: Yes Assistive Devices: Glasses and Hospital Bed Review of Systems Review of Systems: All systems reviewed are negative, apart from the ones contained in the history. Physical Exam Physical Exam: The patient is awake, alert and oriented 3, well developed and well nourished, normocephalic and atraumatic, lying in bed and in no acute distress. HEENT--PERRL, EOMI, mucous membranes and oropharynx mildly dry Neck--supple. No JVD. No bruits. Thyroid normal, trachea midline, no adenopathy. Heart--normal S1 and S2. No murmurs, rubs or gallops. Lungs--clear bilaterally, no respiratory distress, no accessory muscle use. Abdomen--normal bowel sounds and soft. Extremities--no cyanosis or clubbing. No edema. Dermatologic--normal skin turgor, normal color, no abnormal lymph nodes, no rash. Neurologic--cranial nerves II through XII grossly intact. Rheumatologic--normal range of motion. Psychiatric--normal affect. Results & Data Results & Data Vital Signs (Past 12 Hours) Vital Signs Temp Pulse Resp BP Pulse Ox O2 Del Method 05/18/24 06:42 111 H 05/18/24 06:18 67 16 120/67 98 Room Air 05/18/24 05:30 65 16 129/83 97 Room Air 05/18/24 05:00 67 13 154/105 H 96 Room Air 05/18/24 04:30 62 14 145/90 H 97 Room Air 05/18/24 04:21 65 18 124/83 98 Room Air 05/18/24 03:00 78 15 133/103 H 97 Room Air 05/18/24 02:49 77 18 98 Room Air 05/18/24 02:41 73 05/18/24 02:39 76 19 97 Room Air 05/18/24 01:39 98.4 F 80 20 152/74 H 97 Room Air PG Care Time/CCT Total # of Minutes Spent Total Time Spent with Patient: Total time spent is greater than 50% in coordination of care (as documented) at patient's floor/unit and/or counseling patient: Coding Level of Care Code 91793 INT INP/OBS CARE 75MIN Diagnoses Ileus K56.7 History of colon cancer Z85.038 Hypertension I10 Morbid obesity E66.01 Time Spent (min) 75
[2024-05-18] MEDS: HYDROmorphone INJ 1 MG/ML SYRINGE IV PRN (09:11)
[2024-05-18] MEDS: diphenhydrAMINE Capsule 25 MG CAP PO PRN (15:44)
[2024-05-18] MEDS: ONDANSETRON INJ 2 MG/ML 2 ML VIAL IV PRN (15:47)
[2024-05-18] MEDS: SODIUM CHLORIDE 0.9% 1,000 ML IV SCH (15:47)
[2024-05-19 07:51] LABS: Hematocrit (blood only) 37.3 % (42.0-52.0); Hemoglobin 11.9 g/dl (14.0-18.0); Mean Corpuscular Hemoglobin 27.5 pg (25.0-34.0); Mean Corpuscular Hgb Conc 31.9 g/dL (32.0-36.0); Mean Corpuscular Volume 86.3 fL (80.0-100.0); Mean Platelet Volume 11.1 fL (9.4-12.4); Platelet Count 143 K/uL (130-400); RDW Coefficient of Variation 15.9 % (11.5-14.5); RDW Standard Deviation 50.6 fL (36.4-46.3); Red Blood Count 4.32 M/uL (4.70-6.10); White Blood Count 4.46 K/ul (4.8-10.8)
[2024-05-19 08:52] LABS: Calcium 8.7 mg/dl (8.6-10.3); Potassium 4.1 mmol/L (3.5-5.1)
[2024-05-19 08:58] LABS: BUN Creatinine Ratio 15.6 (10-20); Creatinine Clr Calc Pharmacy 84.1 ml/min
--- NOTE | 2024-05-19 10:34 | Hospitalist Progress Note ---
Date of Service May 19, 2024 Assessment & Plan (1) Ileus: Plan: Patient had colon cancer when he was 32 years old, following resection has had multiple episodes of ileus. Presented to the hospital with worsening abdominal pain which he recognizes as similar to his previous episodes of ileus. CT abdomen and pelvis all within normal limits. Patient now passing gas Will start clear liquid diet (2) History of colon cancer: Plan: Had colon cancer 30 years ago s/p resection (3) Hypertension: Plan: Blood pressure under good control On losartan at home (4) Morbid obesity: Plan: Patient was advised on lifestyle changes Plan Admit to [facility] Full code DVT prophylaxis SCDs Admission and Anticipated Discharge Date Admission Date: May 18, 2024 Subjective patient seen and examined, now passing gas, willing to try clears Review of Systems Review of Systems: All systems reviewed are negative, apart from the ones contained in the history. Physical Exam Physical Exam: The patient is awake, alert and oriented 3, well developed and well nourished, normocephalic and atraumatic, lying in bed and in no acute distress. HEENT--PERRL, EOMI, mucous membranes and oropharynx mildly dry Neck--supple. No JVD. No bruits. Thyroid normal, trachea midline, no adenopathy. Heart--normal S1 and S2. No murmurs, rubs or gallops. Lungs--clear bilaterally, no respiratory distress, no accessory muscle use. Abdomen--normal bowel sounds and soft. Extremities--no cyanosis or clubbing. No edema. Dermatologic--normal skin turgor, normal color, no abnormal lymph nodes, no rash. Neurologic--cranial nerves II through XII grossly intact. Rheumatologic--normal range of motion. Psychiatric--normal affect. Results & Data Results & Data Vital Signs (Past 12 Hours) Vital Signs Temp Pulse Resp BP Pulse Ox O2 Del Method 05/19/24 07:10 97.6 F 61 18 105/60 93 Room Air PG Care Time/CCT Total # of Minutes Spent Total Time Spent with Patient: Total time spent is greater than 50% in coordination of care (as documented) at patient's floor/unit and/or counseling patient: Coding Level of Care Code 14132 SUB INP/OBS CARE 2/35MIN Diagnoses Ileus K56.7 History of colon cancer Z85.038 Hypertension I10 Morbid obesity E66.01 Time Spent (min) 35
[2024-05-19 19:05] VITALS: RESP 16
[2024-05-20 07:16] LABS: Hemoglobin 11.3 g/dl (14.0-18.0); Mean Corpuscular Hemoglobin 28.1 pg (25.0-34.0); Mean Corpuscular Hgb Conc 33.2 g/dL (32.0-36.0); Mean Corpuscular Volume 84.6 fL (80.0-100.0); Mean Platelet Volume 10.4 fL (9.4-12.4); Platelet Count 127 K/uL (130-400); RDW Coefficient of Variation 15.6 % (11.5-14.5); RDW Standard Deviation 47.8 fL (36.4-46.3); Red Blood Count 4.02 M/uL (4.70-6.10); White Blood Count 4.42 K/ul (4.8-10.8)
[2024-05-20 07:39] LABS: BUN Creatinine Ratio 12.1 (10-20); Calcium 8.8 mg/dl (8.6-10.3); Creatinine Clr Calc Pharmacy 85.7 ml/min; Potassium 3.7 mmol/L (3.5-5.1)
[2024-05-20 07:50] VITALS: BP 134/80; PULSE 57; TEMP 97.9; O2SAT 95
[2024-05-20] MEDS: HYDROmorphone HCL 2 MG TAB PO PRN (07:59)
--- NOTE | 2024-05-20 09:50 | Discharge Summary ---
Date of Service May 20, 2024 Admission HPI Per Admitting Provider Is a 73-year-old male with a remote history of colon cancer with recurrent ileus, obstructive sleep apnea who presents to the hospital today on account of abdominal pain. Patient said that he was in his usual state of health until 4 hours prior to presentation when he started having abdominal pain which initially he thought strained a muscle. However given his multiple previous episodes of ileus he knew that was likely the reason so decided come to the hospital. Currently the patient, he had colon cancer at the age of 32 and has been having recurrent ileus ever since. Back in December 2023, he also had a back fusion surgery. His last bowel movement was a few hours prior to presentation. The emergency department, vital signs are stable, CT abdomen and pelvis was essentially normal. However given his previous history, will admit him to the hospital for further management. Admission Exam (Per Admitting) Constitutional The patient is awake, alert and oriented 3, well developed and well nourished, normocephalic and atraumatic, lying in bed and in no acute distress. HEENT--PERRL, EOMI, mucous membranes and oropharynx mildly dry Neck--supple. No JVD. No bruits. Thyroid normal, trachea midline, no adenopathy. Heart--normal S1 and S2. No murmurs, rubs or gallops. Lungs--clear bilaterally, no respiratory distress, no accessory muscle use. Abdomen--normal bowel sounds and soft. Extremities--no cyanosis or clubbing. No edema. Dermatologic--normal skin turgor, normal color, no abnormal lymph nodes, no rash. Neurologic--cranial nerves II through XII grossly intact. Rheumatologic--normal range of motion. Psychiatric--normal affect. Discharge Data Consultations 05/18/24 05:43 ED Decision to Admit Stat Hospital Course (1) Ileus: Patient had colon cancer when he was 32 years old, following resection has had multiple episodes of ileus. Presented to the hospital with worsening abdominal pain which he recognizes as similar to his previous episodes of ileus. CT abdomen and pelvis all within normal limits. Patient now passing gas also had a bowel movement tolerating regular diet (2) History of colon cancer: Had colon cancer 30 years ago s/p resection (3) Hypertension: Blood pressure under good control On losartan at home (4) Morbid obesity: Patient was advised on lifestyle changes Plan Admit to [facility] Full code DVT prophylaxis SCDs Coding Level of Care Code 87962 INP/OBS DISCH >30 MIN Diagnoses Ileus K56.7 History of colon cancer Z85.038 Hypertension I10 Morbid obesity E66.01 Time Spent (min) 35
== END 2024-05-20 11:00 | disposition home or self-care (01) | DRG 389 ==
LOC: ED 01:36 → EDINP 07:46 → 3W 14:58

== ENCOUNTER 2024-07-14 10:19 | Inpatient (IN) ==
--- NOTE | 2024-07-14 11:23 | XRay Report ---
XR chest 1V portable CLINICAL HISTORY: Chest pain, nonspecific COMPARISON STUDY: 08/24/2020 FINDINGS: There is mild cardiomegaly with pulmonary vascular congestion. Inspiration is shallow. Ther e is interval mild stranding at the left lung base. Otherwise the lungs remain aerated. IMPRESSION: 1. Mild CHF. 2. Likely atelectasis left lung base. ACT 112: Negative or not required by law. Electronically signed by: Ned Velez M.D. 07/14/2024 11:22 AM
--- NOTE | 2024-07-14 11:27 | Emergency Department Note ---
Impression & Plan Pulmonary embolism, bilateral, Pulmonary infarction, Pleuritic chest pain, Thrombocytopenia ED Provider Note NAME: JOHN JACINTO AGE: 73 SEX: M : 1950 ARRIVES VIA: Walk-In INFORMANT: Patient ED PROVIDER(S): Vazquez Billings MD CHIEF COMPLAINT: Left chest pain, right thigh pain PLAN: Disposition: Admit MEDICAL DECISION MAKING: The patient is a pleasant 73-year-old gentleman with a past medical history of DVT/PE in setting of having surgery remotely no longer on anticoagulation, hypertension, hyperlipidemia who presents to the emergency department via walk- in accompanied by his for evaluation of left-sided chest pain that has been constant and worse with breathing over the past several days. Patient also reports having right thigh pain during the same amount of time. Patient is not on anticoagulation. On evaluation the patient is no acute distress, afebrile with stable vital signs. He exhibits reproducible left anterior and lateral chest discomfort without bony crepitus. EKG without overt acute ischemia. CXR demonstrates mild vascular congestion and suspected left lower lung atelectasis per my personal preliminary review/interpretation. Lung findings better characterized on CT imaging. WBC within normal limits. H/H similar to prior. Platelets 116K, similar to prior and recent range of values. D-dimer was elevated at 4900. Chemistry without metabolic acidosis. Electrolytes and LFTs otherwise unremarkable. Hide significant troponin 5.5, within normal limits. UA without evidence of infection. CTA of the chest and CT of the abdomen pelvis were performed. Findings significant for occlusive segmental pulmonary emboli within the left lower lobe with associated left lower lobe pulmonary infarct and small pleural effusion. Additional lobar pulmonary embolus with the right lower lobe is described. No CT evidence of right heart strain. No acute intra-abdominal findings noted. Findings reviewed with the patient and his at the bedside. Patient denies any history of GI bleeding or acute bleeding otherwise. Patient does agree with plan for admission for treatment with anticoagulation and monitoring. IV heparin bolus and drip ordered. Case was discussed with Dr. Adorno, [facility] hospitalist, who will evaluate the patient for admission. Further management per admitting team. Triage Nursing notes reviewed and agree them. Prior/external medical records reviewed Vital Signs: reviewed Differential diagnosis: Cardiac ischemia, aortic dissection, pulmonary embolism, pneumothorax, pneumonia, pericarditis, myocarditis, esophageal rupture, GERD, cholecystitis, pancreatitis, musculoskeletal, as well as other pathologies. ER treatment provided: See below. Diagnostics interpreted by me: ECG: Sinus rhythm with PVCs, 76 bpm, incomplete right bundle branch block, LVH, no overt ST elevation or depression, QTc 432, QRS 94 Cardiac Monitoring: An order for continuous cardiac monitoring was placed and demonstrated Sinus rhythm with PVCs, 76 bpm, Laboratory studies: See below Imaging studies: See below Consultation(s): Dr. Adorno, [facility] hospitalist, HPI: Per MDM. ROS: See above HPI for pertinent positives & negatives. A total of 10 systems reviewed and were otherwise negative. VITALS:See Below PHYSICAL EXAMINATION: GENERAL: Awake, alert, in no distress, BMI 41.1. HENT: Normocephalic, atraumatic. Oropharynx with dry mucous membranes and otherwise unremarkable. EYES: Normal conjunctiva. Sclera non-icteric. NECK: Supple. No nuchal rigidity. FROM. No JVD. RESPIRATORY: Clear to auscultation. CARDIAC: Regular rate, normal rhythm. Extremities warm and well perfused. Pulses equal. ABDOMEN: Soft, non-distended. No tenderness to palpation. No rebound or guarding. No masses. MUSCULOSKELETAL: Chest examination reveals reproducible left anterior and lateral chest discomfort without bony crepitus. The back is symmetrical on inspection without obvious abnormality. There is no CVA tenderness to palpation. No joint edema. LOWER EXTREMITIES: Calves are equal size bilaterally and non-tender. No edema. No discoloration. NEURO: Normal sensorium. No sensory or motor deficits noted. SKIN: No rash or jaundice noted. ED COURSE: Critical Care: I have personally spent greater than 35minutes of critical care time in the direct management of this patient. This includes bedside care, interpretation of diagnostic studies, and testing, discussion with consultants, patient, and family members, and other required patient management activities. This 35 minutes is in excess of all separately billable procedures. Vazquez Billings MD Past Med/Surg History Problem List (Updated 07/15/24 @ 03:08 by Vazquez Bililngs MD) Pleuritic chest pain (Acute) Pulmonary infarction (Acute) Pulmonary embolism, bilateral (Acute) Thrombocytopenia (Acute) Anemia Headache Lumbar back pain with radiculopathy affecting left lower extremity Pulmonary embolism and infarction S/P lumbar fusion 12/26/2023 -- [facility] [place]; L1-L5 fusion History of ileus (Acute) Left sided abdominal pain (Acute) Intractable nausea (Acute) Hypertension Abdominal pain (Acute) S/p reverse total shoulder arthroplasty Morbid obesity Rotator cuff arthropathy of right shoulder Wrist pain, right (Acute) Osteoarthritis of right knee Status post total right knee replacement Encounter for pre-operative examination Medical History Enteritis SBO (small bowel obstruction) Lumbosacral radiculopathy HLD (hyperlipidemia) Spinal stenosis, lumbar region with neurogenic claudication History of colon cancer s/p resection (hx of blood transfusion remotely in 1980s in setting of cancer) History of DVT (deep vein thrombosis) LLE DVT (2011) s/p TKA- treated with AC Sleep apnea CPAP Ileus Recurrent s/p colon cancer/resection Concern about infectious disease without diagnosis Pt reports that if he gets an infection, he does not get any normal signs of it like fever/elevated WBC. He states he had a bad infection (? sepsis) and almost from when had colon cancer, but showed no signs until almost too late. Osteoarthritis GERD (gastroesophageal reflux disease) Occasional History of ileus 2018 Surgical History Hx of abdominal surgery Age 2/3 (no further details) History of esophagogastroduodenoscopy (EGD) History of tooth extraction H/O squamous cell carcinoma excision Left arm Hx of discectomy Lumbar (prior to fusion) History of repair of rotator cuff Right Status post trigger finger release R/L History of total knee replacement R/L History of bilateral carpal tunnel release History of bowel resection History of colonoscopy History of arthroscopy Right elbow History of colostomy reversal History of colostomy 2/2 colon cancer Fusion of spine Lumbar x2 Removal previous hardware, L3-L5 decompression with fusion (05/22/2018): Failed with MAC3, easy with Glidescope #4 at [facility] Family History Mother Family history of diabetes mellitus Son VTE (venous thromboembolism) Father Bladder cancer Daughter , age 42 Breast cancer Daughter Suicide Social History Smoking Status: Never smoker Second Hand Exposure: No; Do You Dip or Chew Tobacco: No; Hx Alcohol Use: No Hx Substance Use: No Preferred Language: Lao Communication Ability: Effective Visual Impairment: No Limitations Health Evaluator Required: No Beliefs That Will Affect Care: None marital status: Current Living Situation: Spouse Current Living Situation Comment: home in [place] 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; 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 How many Children do You have: 5 How many Children do You have Comment: 3 children 1st marriage; 2 children 2nd marriage; 2 kids are Other Information That Helps Us Care for You: No Feels Safe at Home: Yes Safety Concerns: Feels Safe At This Time Assistive Devices: Cane and Walker Allergies Allergies Allergy/AdvReac Type Severity Reaction Status Date / Time Iodinated Contrast Media Allergy Severe Anaphylaxis Verified 05/18/24 08:06 meperidine Allergy Mild Rash Verified 05/18/24 08:06 oxycodone AdvReac Mild Percocet/Percodan- Verified 05/18/24 08:06 skin crawling Penicillins AdvReac Mild Dyspepsia Verified 05/18/24 08:06 propoxyphene AdvReac Mild Darvon/Darvocet- Verified 05/18/24 08:06 skin crawling Home Meds Home Medications Medication Instructions Recorded Confirmed diphenhydramine HCl 25 mg capsule 50 mg PO HS PRN Insomnia 04/23/18 07/14/24 (Benadryl) rosuvastatin 10 mg tablet 10 mg PO PM 08/21/20 07/14/24 losartan 50 mg tablet 50 mg PO PM 11/19/23 07/14/24 acetaminophen 325 mg tablet 650 mg PO Q6H PRN Pain 04/16/24 07/14/24 cholecalciferol (vitamin D3) 25 25 mcg PO PM 05/18/24 07/14/24 mcg (1,000 unit) tablet (Vitamin D3) Previous Rx's Medication Instructions Recorded oxycodone 5 mg tablet 5 mg PO Q8H PRN pain #10 tabs 06/30/24 tizanidine 4 mg tablet 4 mg PO Q8H PRN muscle spasticity 06/30/24 #10 tabs Results & Data (ED) Vital Signs Vital Signs - 24 hr 07/14/24 10:28 07/14/24 10:51 07/14/24 10:52 Temperature 36.5 C Temperature Source Temporal Artery Scan Pulse Rate 79 81 Pulse Rate [Apical] 88 Pulse Rhythm Pulse Rhythm [Apical] Regular Pulse Strength [Apical] Normal Respiratory Rate 18 20 Respiratory Effort / Characteristics Non-Labored Spontaneous Respiratory Depth Normal Respiratory Pattern Regular Blood Pressure 132/81 Blood Pressure [Right Arm] 141/88 H Blood Pressure Mean 98 Blood Pressure Mean [Right Arm] 105 Blood Pressure Position [Right Arm] Lying Pulse Oximetry 97 Oxygen Delivery Method Room Air Room Air Sepsis Recent Fever Within 48 Hours No Sepsis New/Unexplained Change in Mental Status No Sepsis Action Taken by Nursing No Action Required 07/14/24 11:23 07/14/24 12:20 07/14/24 14:21 Temperature Temperature Source Pulse Rate 84 Pulse Rate [Apical] 78 68 Pulse Rhythm Regular Pulse Rhythm [Apical] Regular Regular Pulse Strength [Apical] Normal Normal Respiratory Rate 23 20 20 Respiratory Effort / Characteristics Non-Labored Spontaneous Non-Labored Spontaneous Respiratory Depth Normal Normal Respiratory Pattern Regular Regular Blood Pressure Blood Pressure [Right Arm] 144/79 H 127/71 Blood Pressure Mean Blood Pressure Mean [Right Arm] 100 89 Blood Pressure Position [Right Arm] Lying Lying Pulse Oximetry 98 99 96 Oxygen Delivery Method Room Air Room Air Room Air Sepsis Recent Fever Within 48 Hours Sepsis New/Unexplained Change in Mental Status Sepsis Action Taken by Nursing 07/14/24 14:51 Temperature Temperature Source Pulse Rate 72 Pulse Rate [Apical] Pulse Rhythm Pulse Rhythm [Apical] Pulse Strength [Apical] Respiratory Rate Respiratory Effort / Characteristics Respiratory Depth Respiratory Pattern Blood Pressure Blood Pressure [Right Arm] Blood Pressure Mean Blood Pressure Mean [Right Arm] Blood Pressure Position [Right Arm] Pulse Oximetry Oxygen Delivery Method Sepsis Recent Fever Within 48 Hours Sepsis New/Unexplained Change in Mental Status Sepsis Action Taken by Nursing Laboratory Data Attestation: I reviewed the patient's lab results. 07/14/24 11:05 07/14/24 11:05 Lab Results 07/14/24 07/14/24 Range/Units 11:05 15:51 WBC 9.43 (4.8-10.8) K/ul RBC 4.48 L (4.70-6.10) M/uL Hgb 12.7 L (14.0-18.0) g/dl Hct 38.4 L (42.0-52.0) % MCV 85.7 (80.0-100.0) fL MCH 28.3 (25.0-34.0) pg MCHC 33.1 (32.0-36.0) g/dL RDW Std Deviation 49.4 H (36.4-46.3) fL RDW Coeff of Saray 15.8 H (11.5-14.5) % Plt Count 116 L (130-400) K/uL MPV 10.6 (9.4-12.4) fL Immature Gran % (Auto) 0.3 % Neut % (Auto) 75.9 % Lymph % (Auto) 12.6 % Gilliam % (Auto) 9.9 % Eos % (Auto) 1.1 % Baso % (Auto) 0.2 % Neut # (Auto) 7.16 H (1.40-6.50) K/uL Lymph # (Auto) 1.19 L (1.20-3.40) K/uL Gilliam # (Auto) 0.93 H (0.11-0.59) K/uL Eos # (Auto) 0.10 (0.00-0.50) K/uL Baso # (Auto) 0.02 (0.00-0.20) K/uL Immature Gran # (Auto) 0.03 (0.01-0.20) K/uL PT 10.9 (9.0-12.0) Seconds INR 1.0 (0.9-1.1) D-Dimer 4920 H* (0-500) ug/L FEU Sodium 136 (136-145) mmol/L Potassium 4.2 (3.5-5.1) mmol/L Chloride 104 (98-107) mmol/L Carbon Dioxide 26 (21-32) mmol/L Anion Gap 6 (3-11) BUN 14 (6-23) mg/dl Creatinine 1.04 (0.6-1.4) mg/dl Est Cr Clr Drug Dosing 88.3 ml/min eGFR 76.77 BUN/Creatinine Ratio 13.5 (10-20) Glucose 165 H (70-99(Fasting)) mg/dl Calcium 8.6 (8.6-10.3) mg/dl Phosphorus 2.6 (2.5-4.9) mg/dl Magnesium 2.1 (1.7-2.4) mg/dl Total Bilirubin 0.7 (0.2-1.0) mg/dl AST 16 (13-39) U/L ALT 22 (7-52) U/L Alkaline Phosphatase 53 (34-104) U/L Troponin I High Sens 5.5 (0-20) pg/ml Total Protein 6.8 (6.0-8.3) gm/dl Albumin 3.5 (3.4-5.0) gm/dl Globulin 3.3 (2.5-4.0) gm/dl Albumin/Globulin Ratio 1.1 (0.9-2) Lipase 31 (11-82) U/L TSH 0.134 L (0.300-4.500) uIu/ml Free T4 1.15 (0.61-1.60) ng/dl Urine Color Yellow Urine Appearance Clear (Clear) Urine pH 7.0 (4.5-7.5) Ur Specific [place] 1.015 (1.000-1.030) Urine Protein Negative (Negative) Urine Glucose (UA) Negative (Negative) Urine Ketones Negative (Negative) Urine Blood Negative (Negative) Urine Nitrite Negative (Negative) Urine Bilirubin Negative (Negative) Urine Urobilinogen Negative (Negative) Ur Leukocyte Esterase Negative (Negative) Urine Comment SARS-CoV-2 (PCR) NEGATIVE (Negative) Influenza Type A (PCR) Negative (Neg) Influenza Type B (PCR) Negative (Neg) RSV (RT-PCR) Negative (Neg) Administered Medications Diphenhydramine HCl (Diphenhydramine Capsule 25 Mg Cap) 50 mg PO HS PRN PRN Reason: Insomnia Stop: 08/13/24 20:31 Last Admin: 07/14/24 23:36 Dose: 50 mg Documented By: DYLAN Gabapentin (Gabapentin 100 Mg Cap) 100 mg PO BID MARJ Stop: 08/13/24 20:59 Last Admin: 07/14/24 21:09 Dose: 100 mg Documented By: MLChristina Hydromorphone HCl (Hydromorphone Inj 0.5 Mg/0.5 Ml Syr) 0.25 mg IV Q4H PRN PRN Reason: 7-10/10 pain scale Stop: 07/28/24 15:44 Last Admin: 07/14/24 21:10 Dose: 0.25 mg Documented By: MLChristina Admin: 07/14/24 18:25 Dose: 0.25 mg Documented By: MPMilla Heparin Sodium/Dextrose (Heparin 02811 Unit/500 Ml D5w) 25,000 units in 500 mls @ 28 mls/hr IV .[id number] MARJ; Protocol Stop: 08/13/24 15:14 Last Titration: 07/14/24 23:32 Dose: 1,400 units/hr, 28 mls/hr Documented By: DYLAN Co-signed By: JASON Titration: 07/14/24 22:30 Dose: 0 units/hr, 0 mls/hr Documented By: DYLAN Co-signed By: JASON Admin: 07/14/24 15:15 Dose: 1,700 units/hr, 34 mls/hr Documented By: KATT Co-signed By: QGV Losartan Potassium (Losartan Potassium 50 Mg Tab) 50 mg PO PM MARJ Stop: 08/13/24 20:59 Last Admin: 07/14/24 21:08 Dose: 50 mg Documented By: KENROY Rosuvastatin Calcium (Rosuvastatin Calcium 10 Mg Tab) 10 mg PO PM MARJ Stop: 08/13/24 20:59 Last Admin: 07/14/24 21:09 Dose: 10 mg Documented By: KENROY Vitamin D (Cholecalciferol 25 Mcg (1000 Units) Tab) 25 mcg PO PM MARJ Stop: 08/13/24 20:59 Last Admin: 07/14/24 21:08 Dose: 25 mcg Documented By: KENROY Discontinued Medications Dexamethasone Sodium Phosphate (DexamethasonePf 10 Mg/Ml Vial) 10 mg IV NOW ONE Stop: 07/14/24 12:15 Last Admin: 07/14/24 12:35 Dose: 10 mg Documented By: KATIE Diphenhydramine HCl (Diphenhydramine 50 Mg/Ml Vial) 25 mg IV NOW STA Stop: 07/14/24 12:15 Last Admin: 07/14/24 12:35 Dose: 25 mg Documented By: KATIE Heparin Sodium (Porcine) (Heparin Sod (Porcine) 1000 Unit/Ml) 1 units IV NOW ONE Stop: 07/14/24 15:05 Last Admin: 07/14/24 15:16 Dose: 8,000 units Documented By: KATT Co-signed By: QGV Heparin Sodium (Porcine) (Heparin Sod (Porcine) 1000 Unit/Ml) 8,000 units IV NOW ONE Stop: 07/14/24 15:46 Last Admin: 07/14/24 15:58 Dose: Not Given Documented By: MPD Heparin Sodium/Dextrose (Heparin Iv Adult Wt-Based Standard W/ Initial Bolus Protocol) 1 each IV NOW STA; Protocol Stop: 07/14/24 14:46 Last Admin: 07/14/24 15:16 Dose: Not Given Documented By: KATT Sodium Chloride (Nss) 500 mls @ 999 mls/hr IV .Q31M ONE Stop: 07/14/24 11:14 Last Infusion: 07/14/24 12:56 Dose: Infused Documented By: Admin: 07/14/24 11:20 Dose: 999 mls/hr Documented By: DILEEP Acetaminophen (Ofirmev) 1,000 mg in 100 mls @ 400 mls/hr IV NOW STA Stop: 07/14/24 12:23 Last Infusion: 07/14/24 13:37 Dose: Infused Documented By: Admin: 07/14/24 12:56 Dose: 400 mls/hr Documented By: QGV Ioversol (Optiray 320 125ml) 118 ml IV ONCE ONE Stop: 07/14/24 12:53 Last Admin: 07/14/24 12:52 Dose: 118 ml Documented By: CHRIS Ketorolac Tromethamine (Ketorolac Tromethamine 15 Mg/Ml Vial) 15 mg IV NOW STA Stop: 07/14/24 12:10 Last Admin: 07/14/24 12:21 Dose: 15 mg Documented By: DILEEP Morphine Sulfate (Morphine Sulfate 4 Mg/Ml 1 Ml Carp\Vial) 4 mg IV NOW STA Stop: 07/14/24 15:11 Last Admin: 07/14/24 15:18 Dose: 4 mg Documented By: KATT Imaging Data Radiologist's Impression: Venous Doppler Study 07/14/24 15:44 Clinical History: Bilateral pulmonary embolism Technique: Venous ultrasound evaluation was performed utilizing grayscale, color Doppler and wave form evaluation. Images were also obtained with and without compression Comparison is made to the ultrasound of the right leg dated 01/12/2018 Findings: There is extensive new right leg deep venous thrombosis with thrombus seen within the common femoral, superficial femoral, popliteal, peroneal, and anterior tibial veins. The right posterior tibial vein appears patent. There is also thrombus within the right greater saphenous vein There is extensive left leg deep venous thrombosis, extending from the common femoral vein through the superficial femoral vein into the popliteal vein and left posterior tibial and peroneal veins. The left anterior tibial vein appears patent. There is also thrombus with the left greater saphenous vein Impression: Extensive bilateral deep venous thrombosis ACT 112: Positive. There are findings on this exam that require communication between the performing entity and the patient following Patient Test Result Information Act ([place] ACT 112) guidelines. Electronically signed by Yury Vega 07-14-2024 6:58 PM Discharge Plan Visit Data Chief Complaint: Pain (Generalized) Stated Complaint: PAIN WHEN TAKING DEEP BREATHS, THIGH PAIN ED Provider: Vazquez Billings Discharge Problem: Pulmonary embolism, bilateral, Pulmonary infarction, Pleuritic chest pain, Thrombocytopenia Patient Disposition: Admitted As Inpatient Condition: Serious Discharge Instructions Interventions: ED Discharge Assessment Last Done: 07/14/24 20:32
[2024-07-14 11:34] LABS: Basophils # (auto) 0.02 K/uL (0.00-0.20); Basophils % (auto) 0.2 %; Eosinophils % (auto) 1.1 %; Hematocrit (blood only) 38.4 % (42.0-52.0); Hemoglobin 12.7 g/dl (14.0-18.0); Immature Granulocytes # (auto) 0.03 K/uL (0.01-0.20); Immature Granulocytes % (auto) 0.3 %; Lymphocytes # (auto) 1.19 K/uL (1.20-3.40); Lymphocytes % (auto) 12.6 %; Mean Corpuscular Hemoglobin 28.3 pg (25.0-34.0); Mean Corpuscular Hgb Conc 33.1 g/dL (32.0-36.0); Mean Corpuscular Volume 85.7 fL (80.0-100.0); Mean Platelet Volume 10.6 fL (9.4-12.4); Monocytes # (auto) 0.93 K/uL (0.11-0.59); Monocytes % (auto) 9.9 %; Neutrophils # (auto) 7.16 K/uL (1.40-6.50); Neutrophils % (auto) 75.9 %; Platelet Count 116 K/uL (130-400); RDW Coefficient of Variation 15.8 % (11.5-14.5); RDW Standard Deviation 49.4 fL (36.4-46.3); Red Blood Count 4.48 M/uL (4.70-6.10); White Blood Count 9.43 K/ul (4.8-10.8)
[2024-07-14 11:48] LABS: Albumin Globulin Ratio 1.1 (0.9-2); Albumin Level 3.5 gm/dl (3.4-5.0); BUN Creatinine Ratio 13.5 (10-20); Bilirubin,Total 0.7 mg/dl (0.2-1.0); Calcium 8.6 mg/dl (8.6-10.3); Creatinine Clr Calc Pharmacy 88.3 ml/min; Globulin 3.3 gm/dl (2.5-4.0); Magnesium 2.1 mg/dl (1.7-2.4); Phosphorus 2.6 mg/dl (2.5-4.9); Potassium 4.2 mmol/L (3.5-5.1); Total Protein 6.8 gm/dl (6.0-8.3)
[2024-07-14 11:54] LABS: Troponin I High Sensitivity 5.5 pg/ml (0-20)
[2024-07-14 12:03] LABS: Thyroid Stimulating Hormone 0.134 uIu/ml (0.300-4.500)
[2024-07-14 12:05] LABS: Prothrombin Time 10.9 Seconds (9.0-12.0)
[2024-07-14 12:16] LABS: D Dimer 4920 ug/L FEU (0-500)
[2024-07-14 12:44] LABS: T4 Free Thyroxine 1.15 ng/dl (0.61-1.60)
--- NOTE | 2024-07-14 13:12 | CT Scan Report ---
CT ANGIOGRAM OF THE CHEST CLINICAL HISTORY: Left-sided chest pain. Elevated d-dimer. COMPARISON STUDY: Chest radiograph performed earlier today. Chest radiograph August 24, 2020. TECHNIQUE: Patient was premedicated for IV dye allergy as per ED protocol. Following the IV administr ation of 118 cc of Optiray 320, CT angiogram of the chest was performed from the upper abdomen to the thoracic inlet utilizing the pulmonary embolus protocol. Images are reviewed in the axial, sagittal, and coronal planes. 3-D MIPS images are created and assessed. IV contrast was administered without c omplication. A dose lowering technique was utilized adhering to the principles of ALARA. CT DOSE: 2363.75 mGy.cm FINDINGS: Left lower lobe pulmonary emboli are noted with occlusion of multiple segmental branches wi thin the left lower lobe. There is associated groundglass opacity within left lower lobe with a small left pleural effusion. There is an additional embolus within the right lower lobe pulmonary artery. No saddle pulmonary embolus is present. There is no evidence for right heart strain. There is no reed cardial effusion. Size of the heart is normal. No thoracic lymphadenopathy is present. There is no pn eumothorax. No fractures or suspicious lesions within the bony thorax are present. The abdomen and pe lvis CT will be reported separately. IMPRESSION: 1. Occlusive segmental pulmonary emboli within the left lower lobe. Associated left lower lobe pulmon christ infarct and a small left pleural effusion. Additional lobar pulmonary embolus within the right lo wer lobe. Findings will be called/faxed to ordering provider at time of dictation. 2. No CT evidence for right heart strain. ACT 112: Negative or not required by law. Electronically signed by: Keegan Hoskins M.D. 07/14/2024 1:10 PM
--- NOTE | 2024-07-14 13:40 | CT Scan Report ---
ABDOMEN AND PELVIS CT WITH IV CONTRAST HISTORY: Acute chest and abdominal pain with pulmonary emboli righ groin/thigh pain, elevated d-dime r TECHNIQUE: Multiaxial CT images of the abdomen and pelvis were performed following the IV administrat ion of 118 cc of Optiray, A dose lowering technique was utilized adhering to the principles of ALARA . COMPARISON STUDY: CTA chest of same day, CT abdomen and pelvis 05/18/2024 FINDINGS: Left basilar predominant pulmonary emboli. Coronary artery calcifications. Trace left pleur al effusion with left basilar predominant patchy opacities. No pneumatosis or pneumoperitoneum. Unrem arkable spleen, mildly atrophic pancreas and right adrenal gland. Unchanged 1.8 cm left adrenal gland nodule. There are a few scattered subcentimeter hypodensities of the liver which demonstrates hepati c steatosis. Patency of the hepatic and portal veins. Unremarkable gallbladder. Probable cyst of the lateral interpolar left kidney, 2.8 cm. No hydronephrosis. Prostamegaly. Bladder wall thickening with partial distention. Atherosclerosis of the aorta without aneurysm. No definite deep venous thrombi identified within the IVC or iliac veins. Surgical suture material again noted in the presacral tissues along with a partially air-filled structure on image 314 series 7. Colonic div erticulosis. Moderate colonic fecal retention. Small fat filled inguinal hernias with a noninflamed a ppendix extending into the right hernia sac. Degenerative and postoperative changes of the spine. IMPRESSION: 1. Pulmonary emboli are better seen and described on the same day CTA of the chest. 2. Trace pleural effusions with left basilar atelectasis/developing pulmonary infarct. 3. No bowel obstruction or bowel wall thickening. 4. Small right inguinal hernia. 5. Additional findings as above. ACT 112: Negative or not required by law. The above report was generated using voice recognition software. It may contain grammatical, syntax o r spelling errors. Electronically signed by: Clemente Woodson M.D. 07/14/2024 1:38 PM
--- NOTE | 2024-07-14 14:47 | Electrocardiogram Report ---
Test Reason : Blood Pressure : */* mmHG Vent. Rate : 76 BPM Atrial Rate : 76 BPM P-R Int : 176 ms QRS Dur : 94 ms QT Int : 384 ms P-R-T Axes : 26 -33 44 degrees QTcB Int : 432 ms Sinus rhythm with Premature ventricular complexes Left axis deviation Incomplete right bundle branch block Minimal voltage criteria for LVH, may be normal variant ( R in aVL ) Abnormal ECG When compared with ECG of 17-Apr-2024 00:25, Premature ventricular complexes are now Present Premature supraventricular complexes are no longer Present Confirmed by Terrell Kelley ([id number]) on 07/14/2024 2:46:56 PM Referred By: Denver Dinero Confirmed By: Terrell Kelley
--- NOTE | 2024-07-14 15:03 | History & Physical Report ---
Date of Service July 14, 2024 Assessment & Plan (1) Pulmonary embolism and infarction: (2) Lumbar back pain with radiculopathy affecting left lower extremity: (3) S/P lumbar fusion: (4) Morbid obesity: (5) HLD (hyperlipidemia): (6) History of colon cancer: (7) History of DVT (deep vein thrombosis): (8) Sleep apnea: (9) GERD (gastroesophageal reflux disease): (10) Headache: (11) Anemia: (12) Thrombocytopenia: Plan 73yo male with history of post-operative LLE DVT in 2012 following knee surgery, colon cancer at age 32, HTN, morbid obesity, severe lumbar DDD s/p multiple surgeries for such most recent December 2023, AMRIK, prior colostomy s/p reversal, and hyperlipidemia who presented with 3 days of left lower chest pleuritic pain. Although he denied dyspnea his has noted dyspnea on exertion for the last 2-3 days. He then developed right thigh pain last night that awoke him from sleep. Denies any cough, URI symptoms, wheezing, or dyspnea at rest. #bilateral pulmonary emboli with LLL pulmonary infarction - -risk factors - recent immobility due to acute/chronic low back pain and LLE radicular pain, possibly genetic/hereditary (son with VTE as well) -cannot rule out occult malignancy especially in light of his previous colon ca at age 32 -no recent travel, surgery (back surgery was 12/2023), or COVID infection -started on heparin drip in the ER -as long as cost is not a factor hopefully he can take Eliquis -if cost for a DOAC is prohibitive then only option would be lovenox bridge with coumadin -anticoagulation will likely be needed lifelong as this is his 2nd episode of VTE -check dopplers of b/l legs - r/o DVT -will need occult malignancy work-up as outpatient especially repeat colonoscopy given the previous colon cancer -pleuritic pain 2nd to pulmonary infarction - norco 7.5's for mild/moderate pain; dilaudid 0.25mg IV prn severe pain -flutter valve, incentive spirometry #right thigh pain - -worrisome for DVT -dopplers b/l legs ordered #history of colon cancer ~age 32 - -few details are known about his colon ca other than he had radiation & surgery along with colostomy for 1-2 years then reversal -gets colonoscopy every 5 years; is due this year -previous colonoscopy done by Dr Corbin in [place] but he has retired and thus he will need a new GI physician #prior h/o LLE DVT 2011 - -provoked due to TKR in 2011 #morbid obesity BMI 41 #HTN - -continue losartan #hyperlipidemia - -continue crestor #chronic lumbar back pain/DDD with LLE radiculopathy - -patient had MRI lumbar spine in May 2024 at [facility] (see scanned MRI report under radiology) -the LLE radiculopathy is getting worse -willing to try gabapentin again - will start 100mg BID -on CT a/p today they mention "Surgical suture material again noted in the presacral tissues along with a partially air-filled structure on image 314 series 7" -could this be contributing to his low back pain ? -consider formal ortho-spine consultation for their opinion -pain meds (norco prn, dilaudid prn) #anemia - -mild low-grade anemia for some time -MCV - 85 -check Fe studies, B12, and folate along with CBC am #thrombocytopenia - -mild, had such in April 2024 as well -trend the platelet count -check B12/folate -TSH level wnl #AMRIK - -patient brought his home CPAP unit in -order placed for such #mild headache - -patient has been feeling unwell over the last few days -will check a COVID/flu/RSV -he is not one to get headaches typically -low threshold for head imaging if headaches worsen or persist pt's updated at bedside during the admission process History of Present Illness Chief Complaint: left sided chest discomfort Primary Care Provider: Denver Dinero 73yo male with history of post-operative LLE DVT in 2011 following knee surgery, colon cancer at age 32, HTN, morbid obesity, severe lumbar DDD s/p multiple surgeries for such, AMRIK, prior colostomy in the setting of his colon cancer s/p reversal, and hyperlipidemia who presented with 3 days of left lower chest pleuritic pain. Although he denied dyspnea his has noted dyspnea on exertion for the last 2-3 days. He then developed right thigh pain last night that awoke him from sleep. Denies any cough, URI symptoms, wheezing, or dyspnea at rest. He has had a headache - occipital region and vertex of head - for several days as well. Patient mentions he has been fairly sedentary over the last few months and in particular the last few weeks due to severe lower lumbar back especially on the left. He has chronic numbness of his left leg. He mentions having "spasms" and severe pain in the toes of his left foot for several days. He was seen in our ER on June 30 for the back pain and was discharged to home on prednisone. He had an MRI of his lumbar spine in May 2024 at [facility] due to the ongoing back issues and is supposed to see a revenue specialist in [place] in the coming months. Last colonoscopy was about 5 years ago at [facility] performed by Dr Corbin who has since then retired. Denies any recent changes in his bowel habits. ER Course - CTA chest - b/l lower lobe PEs, LLL >RLL; LLL pulmonary infarct Heparin bolus followed by drip Morphine for pain Toradol for pain Dexamethasone & benadryl for prophylaxis prior to CT contrast Allergies Allergy/AdvReac Type Severity Reaction Status Date / Time Iodinated Contrast Media Allergy Severe Anaphylaxis Verified 05/18/24 08:06 meperidine Allergy Mild Rash Verified 05/18/24 08:06 oxycodone AdvReac Mild Percocet/Percodan- Verified 05/18/24 08:06 skin crawling Penicillins AdvReac Mild Dyspepsia Verified 05/18/24 08:06 propoxyphene AdvReac Mild Darvon/Darvocet- Verified 05/18/24 08:06 skin crawling Home Medications Medication Instructions Recorded Confirmed Type diphenhydramine HCl 25 mg capsule 50 mg PO HS PRN Insomnia 04/23/18 07/14/24 History (Benadryl) rosuvastatin 10 mg tablet 10 mg PO PM 08/21/20 07/14/24 History losartan 50 mg tablet 50 mg PO PM 11/19/23 07/14/24 History acetaminophen 325 mg tablet 650 mg PO Q6H PRN Pain 04/16/24 07/14/24 History cholecalciferol (vitamin D3) 25 25 mcg PO PM 05/18/24 07/14/24 History mcg (1,000 unit) tablet (Vitamin D3) oxycodone 5 mg tablet 5 mg PO Q8H PRN pain #10 tabs 06/30/24 07/14/24 Rx tizanidine 4 mg tablet 4 mg PO Q8H PRN muscle spasticity 06/30/24 07/14/24 Rx #10 tabs Past Med/Surg History Problem List (Updated 07/15/24 @ 03:08 by Vazquez Billings MD) Pleuritic chest pain (Acute) Pulmonary infarction (Acute) Pulmonary embolism, bilateral (Acute) Thrombocytopenia (Acute) Anemia Headache Lumbar back pain with radiculopathy affecting left lower extremity Pulmonary embolism and infarction S/P lumbar fusion 12/26/2023 -- [facility]; L1-L5 fusion History of ileus (Acute) Left sided abdominal pain (Acute) Intractable nausea (Acute) Hypertension Abdominal pain (Acute) S/p reverse total shoulder arthroplasty Morbid obesity Rotator cuff arthropathy of right shoulder Wrist pain, right (Acute) Osteoarthritis of right knee Status post total right knee replacement Encounter for pre-operative examination Medical History Enteritis SBO (small bowel obstruction) Lumbosacral radiculopathy HLD (hyperlipidemia) Spinal stenosis, lumbar region with neurogenic claudication History of colon cancer s/p resection (hx of blood transfusion remotely in 1980s in setting of cancer) History of DVT (deep vein thrombosis) LLE DVT (2011) s/p TKA- treated with AC Sleep apnea CPAP Ileus Recurrent s/p colon cancer/resection Concern about infectious disease without diagnosis Pt reports that if he gets an infection, he does not get any normal signs of it like fever/elevated WBC. He states he had a bad infection (? sepsis) and almost from when had colon cancer, but showed no signs until almost too late. Osteoarthritis GERD (gastroesophageal reflux disease) Occasional History of ileus 2018 Surgical History Hx of abdominal surgery Age 2/3 (no further details) History of esophagogastroduodenoscopy (EGD) History of tooth extraction H/O squamous cell carcinoma excision Left arm Hx of discectomy Lumbar (prior to fusion) History of repair of rotator cuff Right Status post trigger finger release R/L History of total knee replacement R/L History of bilateral carpal tunnel release History of bowel resection History of colonoscopy History of arthroscopy Right elbow History of colostomy reversal History of colostomy 2/2 colon cancer Fusion of spine Lumbar x2 Removal previous hardware, L3-L5 decompression with fusion (05/22/2018): Failed with MAC3, easy with Glidescope #4 at [facility] Family History Mother Family history of diabetes mellitus Son VTE (venous thromboembolism) Father Bladder cancer Daughter , age 42 Breast cancer Daughter Suicide Social History Smoking Status: Never smoker Second Hand Exposure: No; Do You Dip or Chew Tobacco: No; Hx Alcohol Use: No Hx Substance Use: No Preferred Language: Citizen Of [place] Communication Ability: Effective Visual Impairment: No Limitations 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: No Beliefs That Will Affect Care: None marital status: Current Living Situation: Spouse Current Living Situation Comment: home in [place] 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; 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 How many Children do You have: 5 How many Children do You have Comment: 3 children 1st marriage; 2 children 2nd marriage; 2 kids are Other Information That Helps Us Care for You: No Feels Safe at Home: Yes Safety Concerns: Feels Safe At This Time Assistive Devices: Cane and Walker Review of Systems Review of Systems: gen - no fevers or chills; no change in appetite; no weight loss eyes - no recent visual changes HENT - no URI symptoms CV - pleuritic chest pain on left, none on right; no central chest pain; no edema pulm - dyspnea for 2-3 days; no cough GI - no abd pain or nausea/vomiting/diarrhea; no change in bowel habits; no blood per rectum - no hematuria musculo - right thigh pain that started overnight and woke him from sleep; chronic low back pain neuro - headaches for 2-3 days; LLE numbness all the way to the foot; sharp, stabbing pains in the left foot toes skin - no rash psych - no mood change Physical Exam Physical Exam: gen - morbidly obese, NAD, lying comfortably in bed, pleasant eyes - PERRL HENT - MMM, no lesions, nose clear neck - no JVD, no lymph nodes, no thyroid mass CV - RRR, s1 s2, no murmur lungs - mild LLL rales with decreased BS L base, otherwise CTA b/l with no wheezing abd - soft NT ND BS+; no HSM ext - no palpable cords, no swelling or edema, b/l knee TKR scars vascular - pulses b/l feet 2+ neuro - strength 5/5 x 4 exts; DTRs 1+ upper ext; could not elicit any patellar reflexes; sensation grossly intact to light touch b/l LEs psych - a/o x 3 skin - no rash Results & Data Results & Data Vital Signs (Past 12 Hours) Vital Signs Temp Pulse Pulse Resp BP BP Pulse Ox 07/14/24 14:51 72 07/14/24 14:21 68 20 127/71 96 07/14/24 12:20 78 20 144/79 H 99 07/14/24 11:23 84 23 98 07/14/24 10:52 81 07/14/24 10:51 88 20 141/88 H 07/14/24 10:28 36.5 C 79 18 132/81 97 O2 Del Method 07/14/24 14:51 07/14/24 14:21 Room Air 07/14/24 12:20 Room Air 07/14/24 11:23 Room Air 07/14/24 10:52 07/14/24 10:51 Room Air 07/14/24 10:28 Room Air Laboratory Results Laboratory Results - last 24 hr 07/14/24 07/14/24 11:05 15:51 WBC 9.43 RBC 4.48 L Hgb 12.7 L Hct 38.4 L MCV 85.7 MCH 28.3 MCHC 33.1 RDW Std Deviation 49.4 H RDW Coeff of Saray 15.8 H Plt Count 116 L MPV 10.6 Immature Gran % (Auto) 0.3 Neut % (Auto) 75.9 Lymph % (Auto) 12.6 Porter % (Auto) 9.9 Eos % (Auto) 1.1 Baso % (Auto) 0.2 Neut # (Auto) 7.16 H Lymph # (Auto) 1.19 L Porter # (Auto) 0.93 H Eos # (Auto) 0.10 Baso # (Auto) 0.02 Immature Gran # (Auto) 0.03 PT 10.9 INR 1.0 D-Dimer 4920 H* Sodium 136 Potassium 4.2 Chloride 104 Carbon Dioxide 26 Anion Gap 6 BUN 14 Creatinine 1.04 Est Cr Clr Drug Dosing 88.3 eGFR 76.77 BUN/Creatinine Ratio 13.5 Glucose 165 H Calcium 8.6 Phosphorus 2.6 Magnesium 2.1 Total Bilirubin 0.7 AST 16 ALT 22 Alkaline Phosphatase 53 Troponin I High Sens 5.5 Total Protein 6.8 Albumin 3.5 Globulin 3.3 Albumin/Globulin Ratio 1.1 Lipase 31 TSH 0.134 L Free T4 1.15 Urine Color Yellow Urine Appearance Clear Urine pH 7.0 Ur Specific [place] 1.015 Urine Protein Negative Urine Glucose (UA) Negative Urine Ketones Negative Urine Blood Negative Urine Nitrite Negative Urine Bilirubin Negative Urine Urobilinogen Negative Ur Leukocyte Esterase Negative Urine Comment SARS-CoV-2 (PCR) Pending Influenza Type A (PCR) Pending Influenza Type B (PCR) Pending RSV (RT-PCR) Pending Diagnostic Findings Chest X-Ray 07/14/24 10:43 XR chest 1V portable CLINICAL HISTORY: Chest pain, nonspecific COMPARISON STUDY: 08/24/2020 FINDINGS: There is mild cardiomegaly with pulmonary vascular congestion. Inspiration is shallow. There is interval mild stranding at the left lung base. Otherwise the lungs remain aerated. IMPRESSION: 1. Mild CHF. 2. Likely atelectasis left lung base. ACT 112: Negative or not required by law. Electronically signed by: Ned Velez M.D. 07/14/2024 11:22 AM Abdomen/Pelvis CT 07/14/24 12:[address] WITH IV CONTRAST HISTORY: Acute chest and abdominal pain with pulmonary emboli righ groin/thigh pain, elevated d-dimer TECHNIQUE: Multiaxial CT images of the abdomen and pelvis were performed following the IV administration of 118 cc of Optiray, A dose lowering technique was utilized adhering to the principles of ALARA. COMPARISON STUDY: CTA chest of same day, CT abdomen and pelvis 05/18/2024 FINDINGS: Left basilar predominant pulmonary emboli. Coronary artery calcifi cations. Trace left pleural effusion with left basilar predominant patchy opacities. No pneumatosis or pneumoperitoneum. Unremarkable spleen, mildly atrophic pancreas and right adrenal gland. Unchanged 1.8 cm left adrenal gland nodule. There are a few scattered subcentimeter hypodensities of the liver which demonstrates hepatic steatosis. Patency of the hepatic and portal veins. Unremarkable gallbladder. Probable cyst of the lateral interpolar left kidney, 2.8 cm. No hydronephrosis. Prostamegaly. Bladder wall thickening with partial distention. Atherosclerosis of the aorta without aneurysm. No definite deep venous thrombi identified within the IVC or iliac veins. Surgical suture material again noted in the presacral tissues along with a partially air-filled structure on image 314 series 7. Colonic diverticulosis. Moderate colonic fecal retention. Small fat filled inguinal hernias with a noninflamed appendix extending into the right hernia sac. Degenerative and postoperative changes of the spine. IMPRESSION: 1. Pulmonary emboli are better seen and described on the same day CTA of the chest. 2. Trace pleural effusions with left basilar atelectasis/developing pulmonary infarct. 3. No bowel obstruction or bowel wall thickening. 4. Small right inguinal hernia. 5. Additional findings as above. ACT 112: Negative or not required by law. The above report was generated using voice recognition software. It may contain grammatical, syntax or spelling errors. Electronically signed by: Clemente Woodson M.D. 07/14/2024 1:38 PM Chest CTA 07/14/24 12:14 CT ANGIOGRAM OF THE CHEST CLINICAL HISTORY: Left-sided chest pain. Elevated d-dimer. COMPARISON STUDY: Chest radiograph performed earlier today. Chest radiograph August 24, 2020. TECHNIQUE: Patient was premedicated for IV dye allergy as per ED protocol. Following the IV administration of 118 cc of Optiray 320, CT angiogram of the chest was performed from the upper abdomen to the thoracic inlet utilizing the pulmonary embolus protocol. Images are reviewed in the axial, sagittal, and coronal planes. 3-D MIPS images are created and assessed. IV contrast was administered without complication. A dose lowering technique was utilized adhering to the principles of ALARA. CT DOSE: 2363.75 mGy.cm FINDINGS: Left lower lobe pulmonary emboli are noted with occlusion of multiple segmental branches within the left lower lobe. There is associated groundglass opacity within left lower lobe with a small left pleural effusion. There is an additional embolus within the right lower lobe pulmonary artery. No saddle pulmonary embolus is present. There is no evidence for right heart strain. There is no pericardial effusion. Size of the heart is normal. No thoracic lymphadenopathy is present. There is no pneumothorax. No fractures or suspicious lesions within the bony thorax are present. The abdomen and pelvis CT will be reported separately. IMPRESSION: 1. Occlusive segmental pulmonary emboli within the left lower lobe. Associated left lower lobe pulmonary infarct and a small left pleural effusion. Additional lobar pulmonary embolus within the right lower lobe. Findings will be called/faxed to ordering provider at time of dictation. 2. No CT evidence for right heart strain. ACT 112: Negative or not required by law. Electronically signed by: Keegan Hoskins M.D. 07/14/2024 1:10 PM EKG - my reading - NSR, IRBBB, LVH, PVC, no ST changes Code Status & VTE Plan Code Status full code PG Care Time/CCT Total # of Minutes Spent Total Time Spent with Patient: Total time spent is greater than 50% in coordination of care (as documented) at patient's floor/unit and/or counseling patient: Coding Level of Care Code 44288 INT INP/OBS CARE 3/75MIN Diagnoses Pulmonary embolism and infarction I26.99 Lumbar back pain with radiculopathy affecting left lower extremity M54.16 S/P lumbar fusion Z98.1 Morbid obesity E66.01 HLD (hyperlipidemia) E78.5 History of colon cancer Z85.038 History of DVT (deep vein thrombosis) Z86.718 Sleep apnea G47.30 GERD (gastroesophageal reflux disease) K21.9 Headache R51.9 Anemia D64.9 Thrombocytopenia D69.6
[2024-07-14 16:15] LABS: Appearance Urine Clear (Clear); Bilirubin Urine Negative (Negative); Blood Urine Negative (Negative); Color Urine Yellow; Glucose Urine UA Negative (Negative); Ketones Urine Negative (Negative); Leukocyte Esterase Urine Negative (Negative); Nitrite Urine Negative (Negative); Protein Urine Negative (Negative); Specific Gravity Urine 1.015 (1.000-1.030); Urobilinogen Urine Negative (Negative)
[2024-07-14 16:53] LABS: Influenza A virus by PCR Negative (Neg); Influenza B virus by PCR Negative (Neg); RSV by PCR Negative (Neg); SARS CoV2 RNA(COVID-19) Ceph NEGATIVE (Negative)
--- NOTE | 2024-07-14 18:58 | Ultrasound Report ---
Clinical History: Bilateral pulmonary embolism Technique: Venous ultrasound evaluation was performed utilizing grayscale, color Doppler and wave form evaluation. Images were also obtained with and without compression Comparison is made to the ultrasound of the right leg dated 01/12/2018 Findings: There is extensive new right leg deep venous thrombosis with thrombus seen within the common femoral, superficial femoral, popliteal, peroneal, and anterior tibial veins. The right posterior tibial vein appears patent. There is also thrombus within the right greater saphenous vein There is extensive left leg deep venous thrombosis, extending from the common femoral vein through the superficial femoral vein into the popliteal vein and left posterior tibial and peroneal veins. The left anterior tibial vein appears patent. There is also thrombus with the left greater saphenous vein Impression: Extensive bilateral deep venous thrombosis ACT 112: Positive. There are findings on this exam that require communication between the performing entity and the patient following Patient Test Result Information Act ([place] ACT 112) guidelines. Electronically signed by Yury Vega 07-14-2024 6:58 PM
[2024-07-15 06:12] LABS: Hematocrit (blood only) 35.9 % (42.0-52.0); Hemoglobin 12.1 g/dl (14.0-18.0); Mean Corpuscular Hemoglobin 28.7 pg (25.0-34.0); Mean Corpuscular Hgb Conc 33.7 g/dL (32.0-36.0); Mean Corpuscular Volume 85.1 fL (80.0-100.0); Mean Platelet Volume 10.7 fL (9.4-12.4); Platelet Count 123 K/uL (130-400); RDW Coefficient of Variation 15.2 % (11.5-14.5); RDW Standard Deviation 47.3 fL (36.4-46.3); Red Blood Count 4.22 M/uL (4.70-6.10); White Blood Count 10.37 K/ul (4.8-10.8)
[2024-07-15 06:48] LABS: Calcium 8.7 mg/dl (8.6-10.3); Creatinine Clr Calc Pharmacy 110.7 ml/min; Potassium 4.1 mmol/L (3.5-5.1)
[2024-07-15 07:00] LABS: ANTI-Xa, UFH(UnfractionatedHep 0.51 IU/ml (0.3-0.7)
[2024-07-15 07:03] LABS: Folate (Folic Acid),Ser orPlas 14.13 ng/ml (>5.38)
[2024-07-15 07:07] LABS: Ferritin 164.2 ng/ml (8-388)
[2024-07-15 08:44] LABS: Estimated Average Glucose 137 mg/dl; Hemoglobin A1C 6.4 % (4.5-5.6)
--- NOTE | 2024-07-15 11:42 | Hospitalist Progress Note ---
Date of Service July 15, 2024 Assessment & Plan (1) Pulmonary embolism and infarction: (2) Lumbar back pain with radiculopathy affecting left lower extremity: (3) Morbid obesity: (4) History of colon cancer: Plan This patient is a 73yo male with history of post-operative LLE DVT in 2011 following knee surgery, colon cancer at age 32, HTN, morbid obesity, severe lumbar DDD s/p multiple surgeries for such most recent December 2023, AMRIK, prior colostomy s/p reversal, and hyperlipidemia who presented with 3 days of left lower chest pleuritic pain and dyspnea on exertion. He then developed right thigh pain last night that awoke him from sleep. He is admitted for bilateral extensive lower extremity DVTs and bilateral PEs with left lower lobe pulmonary infarction #Bilateral pulmonary emboli with LLL pulmonary infarction/acute bilateral lower extremity DVTs-he is not hypoxic, pleuritic chest pain is improving with pain medication and anticoagulation. He is started on a heparin drip. Extensive bilateral DVTs found on bilateral lower extremity venous Dopplers.Risk factors - recent immobility due to acute/chronic low back pain and LLE radicular pain, possibly genetic/hereditary (son with VTE as well)-cannot rule out occult malignancy especially in light of his previous colon ca at age 32 -no recent travel, surgery (back surgery was 12/2023), or COVID infection. He is not hypoxic, troponin negative, no evidence of right heart strain on CT. Anticoagulation will likely be needed lifelong as this is his 2nd episode of VTE -Continue heparin [id number] levels are therapeutic -Plan to switch to Eliquis if affordable-first 30 days for free with coupon but after that, cost of Eliquis is $540 per month-will see if he qualifies for [facility] -if cost for a DOAC is prohibitive then only option would be lovenox bridge with coumadin -will need occult malignancy work-up as outpatient especially repeat colonoscopy given the previous colon cancer-he needs referral to new GI as his retired -Continue norco 7.5's for mild/moderate pain; dilaudid 0.25mg IV prn severe pain but increased frequency to every 3 hours -flutter valve, incentive spirometry #history of colon cancer ~age 32 - -few details are known about his colon ca other than he had radiation & surgery along with colostomy for 1-2 years then reversal -gets colonoscopy every 5 years; is due this year -previous colonoscopy done by Dr Corbin in [place] but he has retired and thus he will need a new GI physician #morbid obesity BMI 41 -Needs weight loss #HTN -BPs are controlled to mildly elevated -continue losartan # HLD-no acute issues -continue crestor #chronic lumbar back pain/DDD with LLE radiculopathy - -patient had MRI lumbar spine in May 2024 at [facility] (see scanned MRI report under radiology)-the LLE radiculopathy is getting worse. CT a/p here with "Surgical suture material again noted in the presacral tissues along with a partially air- filled structure on image 314 series 7"-unclear if this is contributing to low back pain but doubtful. He has had imaging as outpatient reviewed by his surgeon and will follow-up with surgeon -willing to try gabapentin again -started 100mg BID -Continue hydrocodone, Dilaudid as needed #anemia - -mild low-grade anemia for some time-MCV - 85. B12 low normal in the 200s, folate normal, iron studies normal - Start B12 1000 mcg p.o. daily - Needs follow-up colonoscopy #thrombocytopenia - -mild, had such in April 2024 as well. Platelets only mildly low at 123. B12 low normal -Follow CBC especially while on anticoagulation - Replacing B12 #AMRIK - -patient brought his home CPAP unit in #mild headache -patient has been feeling unwell over the last few days, COVID/flu/RSV negative. He reports that opioids give him headaches DVT prophylaxis-on heparin drip for acute DVT and PE Disposition-continued stay on telemetry, likely discharged home on 07/16 if stable Admission and Anticipated Discharge Date Admission Date: July 14, 2024 Subjective Patient reports ongoing lower back pain which has been an issue since he had a fall several months ago. He had lumbar spine revision surgery in 12/2023. He also has pain in the left ribs with deep breaths but that has improved since admission. He denies any pain down the legs, no swelling in the legs. He has chronic pain from the back radiating down the backs of his thighs all the way to his ankles left greater than right. He denies any issues with bleeding. His shortness of breath is improved. He reports that all opioids give him a headache Telemetry with normal sinus rhythm, rates the 50s to 70s Physical Exam Constitutional: WD/WN, vitals as above Neck: trachea midline, no thyromegaly Respiratory: normal respiratory effort, lungs clear to auscultation Cardiovascular: RRR, no murmur, no edema Chest (Breasts): Chest: normal inspection of chest Gastrointestinal (Abdomen): normal bowel sounds, soft, nontender, no hepatosplenomegaly Musculoskeletal: Extremities: extremities normal to inspection; no cyanosis and no clubbing Skin: no rashes, warm and dry Neurologic: moves all extremities and awake; no focal motor deficits Psychiatric: A+Ox3, euthymic affect Lymphatic: no lymphedema Results & Data Results & Data Vital Signs (Past 12 Hours) Vital Signs Temp Pulse Pulse Resp BP Pulse Ox O2 Del Method 07/15/24 08:06 62 07/15/24 08:03 Room Air 07/15/24 07:55 36.3 C L 61 20 137/82 97 Room Air 07/15/24 03:47 36.2 C L 62 16 111/67 98 Room Air 07/14/24 23:54 69 Laboratory Results CBC, BMP, HgbA1c, anti-Xa level reviewed PG Care Time/CCT Total # of Minutes Spent Total Time Spent with Patient: Total time spent is greater than 50% in coordination of care (as documented) at patient's floor/unit and/or counseling patient: Coding Level of Care Code 56276 SUB INP/OBS CARE 3/50MIN Diagnoses Pulmonary embolism and infarction I26.99 Lumbar back pain with radiculopathy affecting left lower extremity M54.16 Morbid obesity E66.01 History of colon cancer Z85.038
[2024-07-16 06:31] LABS: Basophils # (auto) 0.01 K/uL (0.00-0.20); Basophils % (auto) 0.1 %; Eosinophils # (auto) 0.03 K/uL (0.00-0.50); Eosinophils % (auto) 0.4 %; Hematocrit (blood only) 34.5 % (42.0-52.0); Hemoglobin 11.6 g/dl (14.0-18.0); Immature Granulocytes # (auto) 0.02 K/uL (0.01-0.20); Immature Granulocytes % (auto) 0.2 %; Lymphocytes % (auto) 18.7 %; Mean Corpuscular Hemoglobin 28.6 pg (25.0-34.0); Mean Corpuscular Hgb Conc 33.6 g/dL (32.0-36.0); Mean Platelet Volume 10.7 fL (9.4-12.4); Monocytes # (auto) 0.61 K/uL (0.11-0.59); Monocytes % (auto) 7.6 %; Neutrophils # (auto) 5.84 K/uL (1.40-6.50); Platelet Count 120 K/uL (130-400); RDW Coefficient of Variation 15.3 % (11.5-14.5); RDW Standard Deviation 47.5 fL (36.4-46.3); Red Blood Count 4.06 M/uL (4.70-6.10); White Blood Count 8.01 K/ul (4.8-10.8)
[2024-07-16 06:56] LABS: ANTI-Xa, UFH(UnfractionatedHep 0.44 IU/ml (0.3-0.7)
[2024-07-16 07:00] LABS: Calcium 8.6 mg/dl (8.6-10.3); Potassium 4.4 mmol/L (3.5-5.1)
[2024-07-16 07:05] LABS: BUN Creatinine Ratio 21.6 (10-20); Creatinine Clr Calc Pharmacy 103.7 ml/min
--- NOTE | 2024-07-16 12:39 | Hospitalist Progress Note ---
Date of Service July 16, 2024 Assessment & Plan (1) Pulmonary embolism and infarction: (2) Lumbar back pain with radiculopathy affecting left lower extremity: (3) Morbid obesity: (4) History of colon cancer: Plan This patient is a 73yo male with history of post-operative LLE DVT in 2011 following knee surgery, colon cancer at age 32, HTN, morbid obesity, severe lumbar DDD s/p multiple surgeries for such most recent December 2023, AMRIK, prior colostomy s/p reversal, and hyperlipidemia who presented with 3 days of left lower chest pleuritic pain and dyspnea on exertion. He then developed right thigh pain last night that awoke him from sleep. He is admitted for bilateral extensive lower extremity DVTs and bilateral PEs with left lower lobe pulmonary infarction #Bilateral pulmonary emboli with LLL pulmonary infarction/acute bilateral lower extremity DVTs-he is not hypoxic, pleuritic chest pain is improving with pain medication and anticoagulation. He is started on a heparin drip. Extensive bilateral DVTs found on bilateral lower extremity venous Dopplers. Risk factors - recent immobility due to acute/chronic low back pain and LLE radicular pain, possibly genetic/hereditary (son with VTE as well)-cannot rule out occult malignancy especially in light of his previous colon ca at age 32 -no recent travel, surgery (back surgery was 12/2023), and no current COVID infection. He is not hypoxic, troponin negative, no evidence of right heart strain on CT. Anticoagulation will likely be needed lifelong as this is his 2nd episode of VTE. Unfortunately, Eliquis is cost prohibitive at $540 per month. -Plan to convert heparin drip to therapeutic Lovenox 120 Mg SQ twice daily starting the evening of 07/16 for bridging -Plan to start Coumadin 7.5 mg daily on 07/17 and follow-up with anticoagulation clinic as scheduled for 07/22 -will need occult malignancy work-up as outpatient especially repeat colonoscopy given the previous colon cancer-he needs referral to new GI as his retired -Continue norco 7.5's for mild/moderate pain; dilaudid 0.25mg IV prn severe pain -flutter valve, incentive spirometry #history of colon cancer ~age 32 - -few details are known about his colon ca other than he had radiation & surgery along with colostomy for 1-2 years then reversal -gets colonoscopy every 5 years; is due this year -previous colonoscopy done by Dr Corbin in [place] but he has retired and thus he will need a new GI physician - Nurse navigator to make referral to [facility] for [facility] #morbid obesity BMI 41 -Needs weight loss #HTN -BPs are controlled -continue losartan # HLD-no acute issues -continue crestor #chronic lumbar back pain/DDD with LLE radiculopathy - -patient had MRI lumbar spine in May 2024 at [facility] (see scanned MRI report under radiology)-the LLE radiculopathy is getting worse. CT a/p here with "Surgical suture material again noted in the presacral tissues along with a partially air- filled structure on image 314 series 7"-unclear if this is contributing to low back pain but doubtful. He has had imaging as outpatient reviewed by his surgeon and will follow-up with surgeon -willing to try gabapentin again -started 100mg BID and will now increase to 200 Mg p.o. twice daily -Continue hydrocodone, Dilaudid as needed - Continue tizanidine as needed muscle spasms #anemia - -mild low-grade anemia for some time-MCV - 85. B12 low normal in the 200s, folate normal, iron studies normal - Started B12 1000 mcg p.o. daily - Needs follow-up colonoscopy #thrombocytopenia - -mild, had such in April 2024 as well. Platelets only mildly low at 120. B12 low normal -Follow CBC especially while on anticoagulation -Replacing B12 #AMRIK - -patient brought his home CPAP unit in #mild headache -COVID/flu/RSV negative. He reports that opioids give him headaches and is likely from this #Prediabetes -HgbA1c elevated here at 6.4% - Needs weight loss, diet control - Follow-up with PCP DVT prophylaxis-on heparin drip for acute DVT and PE Disposition-continued stay on telemetry, plan to discharge to home on 07/17 if pain better controlled Admission and Anticipated Discharge Date Admission Date: July 14, 2024 Subjective Patient continues to have pain in the left side of the chest with deep inspiration and his ongoing chronic lower back pain. He does not feel he is ready for discharge yet. Still has a 5 out of 10 constant pain in the right inner thigh that he thinks is from the DVT. He is ambulating and has a little bit of shortness of breath with that. Telemetry is normal sinus rhythm with rates in the 50s to 60s He is agreeable to Lovenox bridging with Coumadin as Eliquis discussed prohibitive I did discuss his care with Dr. Ge Dugan of the anticoagulation clinic Physical Exam Constitutional: WD/WN, vitals as above Neck: trachea midline, no thyromegaly Respiratory: normal respiratory effort, lungs clear to auscultation Cardiovascular: RRR, no murmur, no edema Chest (Breasts): Chest: normal inspection of chest Gastrointestinal (Abdomen): normal bowel sounds, soft, nontender, no hepatosplenomegaly Musculoskeletal: Extremities: extremities normal to inspection; no cyanosis and no clubbing Positive TTP over right inner thigh Skin: no rashes, warm and dry Neurologic: moves all extremities and awake; no focal motor deficits Psychiatric: A+Ox3, euthymic affect Lymphatic: no lymphedema Results & Data Results & Data Vital Signs (Past 12 Hours) Vital Signs Temp Pulse Pulse Resp BP Pulse Ox O2 Del Method 07/16/24 12:11 51 L 07/16/24 12:07 36.5 C 64 20 156/91 H 98 Room Air 07/16/24 09:08 Room Air 07/16/24 07:53 36.4 C L 57 L 20 132/79 98 Room Air 07/16/24 02:50 36.4 C L 60 18 174/76 H 98 Room Air Laboratory Results CBC, BMP, HgbA1c, and anti-Xa level reviewed PG Care Time/CCT Total # of Minutes Spent Total Time Spent with Patient: Total time spent is greater than 50% in coordination of care (as documented) at patient's floor/unit and/or counseling patient: Coding Level of Care Code 71426 SUB INP/OBS CARE 2/35MIN Diagnoses Pulmonary embolism and infarction I26.99 Lumbar back pain with radiculopathy affecting left lower extremity M54.16 Morbid obesity E66.01 History of colon cancer Z85.038
[2024-07-16 20:12] VITALS: RESP 18
[2024-07-17 06:22] LABS: Basophils # (auto) 0.03 K/uL (0.00-0.20); Basophils % (auto) 0.5 %; Eosinophils # (auto) 0.06 K/uL (0.00-0.50); Eosinophils % (auto) 0.9 %; Hematocrit (blood only) 37.6 % (42.0-52.0); Hemoglobin 12.5 g/dl (14.0-18.0); Immature Granulocytes # (auto) 0.02 K/uL (0.01-0.20); Immature Granulocytes % (auto) 0.3 %; Lymphocytes # (auto) 1.76 K/uL (1.20-3.40); Lymphocytes % (auto) 26.7 %; Mean Corpuscular Hemoglobin 28.3 pg (25.0-34.0); Mean Corpuscular Hgb Conc 33.2 g/dL (32.0-36.0); Mean Corpuscular Volume 85.3 fL (80.0-100.0); Mean Platelet Volume 10.4 fL (9.4-12.4); Monocytes # (auto) 0.63 K/uL (0.11-0.59); Monocytes % (auto) 9.5 %; Neutrophils % (auto) 62.1 %; Platelet Count 134 K/uL (130-400); RDW Coefficient of Variation 15.5 % (11.5-14.5); RDW Standard Deviation 48.1 fL (36.4-46.3); Red Blood Count 4.41 M/uL (4.70-6.10)
[2024-07-17 06:50] LABS: Calcium 9.5 mg/dl (8.6-10.3); Creatinine Clr Calc Pharmacy 86.2 ml/min; Potassium 4.3 mmol/L (3.5-5.1)
[2024-07-17 06:58] LABS: INR 1.1 (0.9-1.1); Prothrombin Time 11.4 Seconds (9.0-12.0)
--- NOTE | 2024-07-17 11:29 | Hospitalist Progress Note ---
Date of Service July 17, 2024 Assessment & Plan (1) Pulmonary embolism and infarction: (2) Lumbar back pain with radiculopathy affecting left lower extremity: (3) Morbid obesity: (4) History of colon cancer: Plan This patient is a 73yo male with history of post-operative LLE DVT in 2011 following knee surgery, colon cancer at age 32, HTN, morbid obesity, severe lumbar DDD s/p multiple surgeries for such most recent December 2023, AMRIK, prior colostomy s/p reversal, and hyperlipidemia who presented with 3 days of left lower chest pleuritic pain and dyspnea on exertion. He then developed right thigh pain last night that awoke him from sleep. He is admitted for bilateral extensive lower extremity DVTs and bilateral PEs with left lower lobe pulmonary infarction #Bilateral pulmonary emboli with LLL pulmonary infarction/acute bilateral lower extremity DVTs-he is not hypoxic, pleuritic chest pain is improving with pain medication and anticoagulation but does persist. He was started on a heparin drip and this was therapeutic for 2 days-he is now on therapeutic dosing of Lovenox as a bridge to Coumadin. He was found to have extensive bilateral DVTs found on bilateral lower extremity venous Dopplers. Risk factors for VTE- recent immobility due to acute/chronic low back pain and LLE radicular pain, possibly genetic/hereditary (son with VTE as well)-cannot rule out occult malignancy especially in light of his previous colon ca at age 32. He also has a history of VTE. He has no recent travel or surgery (back surgery was 12/2023), and no current COVID infection. He is not hypoxic, troponin negative, no evidence of right heart strain on CT. I discussed his case with vascular surgery on 07/15-there is no intervention indicated and the consultation was canceled. Anticoagulation will be lifelong as this is his 2nd episode of VTE. Unf ortunately, Eliquis is cost prohibitive at $540 per month. -Continue therapeutic Lovenox 120 Mg SQ twice daily for bridging -start Coumadin 7.5 mg daily on 07/17 and follow-up with anticoagulation clinic as scheduled for 07/22 -will need occult malignancy work-up as outpatient especially repeat colonoscopy given the previous colon cancer-he needs referral to new GI as his retired -Continue norco 7.5's for mild/moderate pain; dilaudid 0.25mg IV prn severe pain -flutter valve, incentive spirometry - Follow CBC, BMP, INR in the morning #history of colon cancer ~age 32 - -few details are known about his colon ca other than he had radiation & surgery along with colostomy for 1-2 years then reversal -gets colonoscopy every 5 years; is due this year -previous colonoscopy done by Dr Corbin in [place] but he has retired and thus he will need a new GI physician - Nurse navigator to make referral to [facility] colon[facility] #morbid obesity BMI 41 -Needs weight loss #HTN -BPs are controlled -continue losartan # HLD-no acute issues -continue crestor #chronic lumbar back pain/DDD with LLE radiculopathy - -patient had MRI lumbar spine in May 2024 at [facility] (see scanned MRI report under radiology)-the LLE radiculopathy is getting worse. CT a/p here with "Surgical suture material again noted in the presacral tissues along with a partially air- filled structure on image 314 series 7"-unclear if this is contributing to low back pain but doubtful. He has had imaging as outpatient reviewed by his surgeon and will follow-up with surgeon -willing to try gabapentin again -started 100mg BID and will now increase to 200 Mg p.o. twice daily -Continue hydrocodone, Dilaudid as needed - Continue tizanidine as needed muscle spasms #anemia - -mild low-grade anemia for some time-MCV - 85. B12 low normal in the 200s, folate normal, iron studies normal - Started B12 1000 mcg p.o. daily - Needs follow-up colonoscopy once stable to do so given extensive DVTs and PE #thrombocytopenia - -mild, had such in April 2024 as well. Platelets only mildly low at 120 and now improving to the 130s. Could be from B12 deficiency as B12 low normal -Follow CBC especially while on anticoagulation -Replacing B12 #AMRIK - -patient brought his home CPAP unit in #mild headache -COVID/flu/RSV negative. He reports that opioids give him headaches and is likely from this #Prediabetes -HgbA1c elevated here at 6.4% - Needs weight loss, diet control - Follow-up with PCP DVT prophylaxis-on therapeutic anticoagulation for acute DVT and PE Disposition-continued stay on telemetry, plan to discharge to home on 07/18 if pain better controlled Admission and Anticipated Discharge Date Admission Date: July 14, 2024 Anticipated date of discharge: 07/18/24 Subjective Patient reports still having pain in the left ribs with taking deep breaths and he is requiring IV Dilaudid for this. He does not feel ready to return home. Still with some dyspnea on exertion but that is improving. He is moving his bowels somewhat. Telemetry with normal sinus rhythm with rates in the 50s to 80s Physical Exam Constitutional: WD/WN, vitals as above Neck: trachea midline, no thyromegaly Respiratory: normal respiratory effort, lungs clear to auscultation Cardiovascular: RRR, no murmur, no edema Chest (Breasts): Chest: normal inspection of chest Musculoskeletal: Extremities: extremities normal to inspection; no cyanosis and no clubbing Skin: no rashes, warm and dry Neurologic: moves all extremities and awake; no focal motor deficits Psychiatric: A+Ox3, euthymic affect Lymphatic: no lymphedema Results & Data Results & Data Vital Signs (Past 12 Hours) Vital Signs Temp Pulse Pulse Resp BP Pulse Ox O2 Del Method 07/17/24 11:05 36.7 C 81 18 125/84 98 Room Air 07/17/24 07:28 36.5 C 59 L 18 129/72 97 Room Air 07/17/24 07:15 53 L 07/17/24 03:02 36.4 C L 58 L 18 157/84 H 96 Room Air Laboratory Results CBC, BMP, INR reviewed PG Care Time/CCT Total # of Minutes Spent Total Time Spent with Patient: Total time spent is greater than 50% in coordination of care (as documented) at patient's floor/unit and/or counseling patient: Coding Level of Care Code 12103 SUB INP/OBS CARE 2/35MIN Diagnoses Pulmonary embolism and infarction I26.99 Lumbar back pain with radiculopathy affecting left lower extremity M54.16 Morbid obesity E66.01 History of colon cancer Z85.038
[2024-07-18 05:57] LABS: Basophils # (auto) 0.03 K/uL (0.00-0.20); Basophils % (auto) 0.5 %; Eosinophils % (auto) 1.6 %; Hematocrit (blood only) 38.5 % (42.0-52.0); Hemoglobin 12.9 g/dl (14.0-18.0); Immature Granulocytes # (auto) 0.02 K/uL (0.01-0.20); Immature Granulocytes % (auto) 0.3 %; Lymphocytes # (auto) 1.49 K/uL (1.20-3.40); Lymphocytes % (auto) 24.5 %; Mean Corpuscular Hemoglobin 28.7 pg (25.0-34.0); Mean Corpuscular Hgb Conc 33.5 g/dL (32.0-36.0); Mean Corpuscular Volume 85.7 fL (80.0-100.0); Mean Platelet Volume 10.2 fL (9.4-12.4); Monocytes # (auto) 0.67 K/uL (0.11-0.59); Neutrophils # (auto) 3.76 K/uL (1.40-6.50); Neutrophils % (auto) 62.1 %; Platelet Count 136 K/uL (130-400); RDW Coefficient of Variation 15.3 % (11.5-14.5); Red Blood Count 4.49 M/uL (4.70-6.10); White Blood Count 6.07 K/ul (4.8-10.8)
[2024-07-18 06:13] LABS: Calcium 9.8 mg/dl (8.6-10.3); Creatinine Clr Calc Pharmacy 90.3 ml/min; Potassium 4.3 mmol/L (3.5-5.1)
[2024-07-18 06:17] LABS: INR 1.1 (0.9-1.1); Prothrombin Time 11.7 Seconds (9.0-12.0)
--- NOTE | 2024-07-18 11:08 | Discharge Summary ---
Discharge Summary Date of Service July 18, 2024 Principal Dx & Hospital Course #1 = Principal Diagnosis (1) Pulmonary embolism and infarction: (2) Lumbar back pain with radiculopathy affecting left lower extremity: (3) Morbid obesity: (4) History of colon cancer: Plan This patient is a 73yo male with history of post-operative LLE DVT in 2011 following knee surgery, colon cancer at age 32, HTN, morbid obesity, severe lumbar DDD s/p multiple surgeries for such most recent December 2023, AMRIK, prior colostomy s/p reversal, and hyperlipidemia who presented with 3 days of left lower chest pleuritic pain and dyspnea on exertion. He then developed right thigh pain last night that awoke him from sleep. He is admitted for bilateral extensive lower extremity DVTs and bilateral PEs with left lower lobe pulmonary infarction #Bilateral pulmonary emboli with LLL pulmonary infarction/acute bilateral lower extremity DVTs-he is not hypoxic, pleuritic chest pain is improving with pain medication and anticoagulation but does persist. He was started on a heparin drip and this was therapeutic for 2 days-he is now on therapeutic dosing of Lovenox as a bridge to Coumadin. He was found to have extensive bilateral DVTs found on bilateral lower extremity venous Dopplers. Risk factors for VTE- recent immobility due to acute/chronic low back pain and LLE radicular pain, possibly genetic/hereditary (son with VTE as well)-cannot rule out occult malignancy especially in light of his previous colon ca at age 32. He also has a history of VTE. He has no recent travel or surgery (back surgery was 12/2023), and no current COVID infection. He is not hypoxic, troponin negative, no evidence of right heart strain on CT. I discussed his case with vascular surgery on 07/15-there is no intervention indicated and the consultation was canceled. Anticoagulation will be lifelong as this is his 2nd episode of VTE. Unfortunately, Eliquis is cost prohibitive at $540 per month. -Continue therapeutic Lovenox 120 Mg SQ twice daily for bridging -started Coumadin 7.5 mg daily on 07/17 and follow-up with anticoagulation clinic as scheduled for 07/22-INR 1.1 on the day of discharge -will need occult malignancy work-up as outpatient especially repeat colonoscopy given the previous colon cancer-he needs referral to new GI as his retired -Continue p.o. Dilaudid on discharge as needed, Tylenol for milder pain -flutter valve, incentive spirometry #history of colon cancer ~age 32 - -few details are known about his colon ca other than he had radiation & surgery along with colostomy for 1-2 years then reversal -gets colonoscopy every 5 years; is due this year -previous colonoscopy done by Dr Corbin in [place] but he has retired and thus he will need a new GI physician - Nurse navigator to make referral to [facility] for colonoscopy #morbid obesity BMI 41 -Needs weight loss #HTN -BPs are controlled -continue losartan # HLD-no acute issues -continue crestor #chronic lumbar back pain/DDD with LLE radiculopathy - -patient had MRI lumbar spine in May 2024 at [facility] (see scanned MRI report under radiology)-the LLE radiculopathy is getting worse. CT a/p here with "Surgical suture material again noted in the presacral tissues along with a partially air- filled structure on image 314 series 7"-unclear if this is contributing to low back pain but doubtful. He has had imaging as outpatient reviewed by his surgeon and will follow-up with surgeon -willing to try gabapentin again -started 100mg BID and will then increased to 200 Mg p.o. twice daily prior to discharge-can titrate up as an outpatient with PCP and spine surgery - Continue tizanidine as needed for muscle spasms #anemia - -mild low-grade anemia for some time-MCV - 85. B12 low normal in the 200s, folate normal, iron studies normal - Started B12 1000 mcg p.o. daily - Needs follow-up colonoscopy once stable to do so given extensive DVTs and PE #thrombocytopenia - -mild, had such in April 2024 as well. Platelets only mildly low at 120 and now improving to the 130s. Could be from B12 deficiency as B12 low normal -Follow CBC especially while on [id number] as outpatient -Replacing B12 #AMRIK - -patient brought his home CPAP unit in #mild headache -COVID/flu/RSV negative. He reports that opioids give him headaches and is likely from this #Prediabetes -HgbA1c elevated here at 6.4% - Needs weight loss, diet control - Follow-up with PCP DVT prophylaxis-on therapeutic anticoagulation for acute DVT and PE Disposition-stable for discharge to home on 07/18 Notes For Next Care Provider Needs colonoscopy as an outpatient Follow CBC Medication Changes From Visit See list Admission HPI Per Admitting Provider 73yo male with history of post-operative LLE DVT in 2011 following knee surgery, colon cancer at age 32, HTN, morbid obesity, severe lumbar DDD s/p multiple cara geries for such, AMRIK, prior colostomy in the setting of his colon cancer s/p reversal, and hyperlipidemia who presented with 3 days of left lower chest pleuritic pain. Although he denied dyspnea his has noted dyspnea on exertion for the last 2-3 days. He then developed right thigh pain last night that awoke him from sleep. Denies any cough, URI symptoms, wheezing, or dyspnea at rest. He has had a headache - occipital region and vertex of head - for several days as well. Patient mentions he has been fairly sedentary over the last few months and in particular the last few weeks due to severe lower lumbar back especially on the left. He has chronic numbness of his left leg. He mentions having "spasms" and severe pain in the toes of his left foot for several days. He was seen in our ER on June 30 for the back pain and was discharged to home on prednisone. He had an MRI of his lumbar spine in May 2024 at [facility] due to the ongoing back issues and is supposed to see a assurance specialist in [place] in the coming months. Last colonoscopy was about 5 years ago at [facility] performed by Dr Corbin who has since then retired. Denies any recent changes in his bowel habits. ER Course - CTA chest - b/l lower lobe PEs, LLL >RLL; LLL pulmonary infarct Heparin bolus followed by drip Morphine for pain Toradol for pain Dexamethasone & benadryl for prophylaxis prior to CT contrast Discharge Exam Constitutional WD/WN, vitals as above Neck trachea midline, no thyromegaly Respiratory normal respiratory effort, lungs clear to auscultation Cardiovascular RRR, no murmur, no edema Chest (Breasts) Chest: normal inspection of chest Gastrointestinal (Abdomen) normal bowel sounds, soft, nontender, no hepatosplenomegaly Musculoskeletal Extremities: extremities normal to inspection; no cyanosis and no clubbing Skin no rashes, warm and dry Neurologic moves all extremities and awake; no focal motor deficits Psychiatric A+Ox3, euthymic affect Lymphatic no lymphedema Discharge Plan Discharge Items Patient Disposition: Home - Self-Care Reason For Visit: B/L PULMONARY EMBOLI Discharge Diagnosis: Bilateral deep venous thrombosis and bilateral pulmonary emboli Chronic lumbar back pain Condition on Discharge: Good Activity: As commented below Lifting: Gradually increase as tolerated Bathing: No limitations Exercise/Sports: Gradually increase as tolerated Weightbearing: Full weightbearing Non-emergency contact: Primary Care Provider Call non-emergency contact if: you have any medication questions and your symptoms worsen Follow-up/Referrals: Jeny Dugan MD, PhD [Pathologist] - 07/22/24 9:00 am Denver Dinero [Primary Care Provider] - (Follow-up within 1 to 2 weeks after discharge) Diet: Heart Healthy Diet Comment: Avoid foods with high levels of vitamin K while on Coumadin Addtl Attending Provider Instructions: You were admitted with blood clots in your legs and lungs. You are being treated with blood thinners for this and will need to remain on blood thinners for the rest of your life. Please continue taking the Lovenox blood thinner shots twice a day in addition to taking Coumadin 7.5 mg once a day in the evening prior to dinner. You have an appointment with the anticoagulation clinic on and if your Coumadin level is at the correct level, the Lovenox injections will be discontinued. If you have any trouble with bleeding from anywhere as we discussed, or if you fall and hit your head, please get checked out at the hospital right away. You can continue taking oral hydromorphone as needed for moderate to severe pain, and acetaminophen as needed for mild to moderate pain. Please continue a bowel regimen to keep your bowels moving as opioids can cause constipation. You were started back on gabapentin for your back pain. Please follow-up with your PCP on this. Your vitamin B12 levels were borderline low and you are started on a vitamin B12 supplement for this. Pending Studies at Discharge: No Stand-Alone Forms: My [facility] Medications and DC Order Prescriptions: New enoxaparin [Lovenox] 120 mg/0.8 mL Syringe 120 mg subcut Q12H Qty: 8 0RF warfarin 5 mg tablet 7.5 mg PO QDD Qty: 45 0RF gabapentin 100 mg Capsule 200 mg PO TID Qty: 180 0RF hydromorphone [Dilaudid] 2 mg tablet 2 mg PO Q6H PRN (Reason: pain (scale score 7-10)) Qty: 14 0RF cyanocobalamin (vitamin B-12) 500 mcg Tablet 1,000 mcg PO QAM Qty: 60 0RF Rx Instructions: [id number] Continued diphenhydramine HCl [Benadryl] 25 mg Capsule 50 mg PO HS PRN (Reason: Insomnia) rosuvastatin 10 mg Tablet 10 mg PO PM losartan 50 mg tablet 50 mg PO PM acetaminophen 325 mg Tablet 650 mg PO Q6H PRN (Reason: Pain) cholecalciferol (vitamin D3) [Vitamin D3] 25 mcg (1,000 unit) Tablet 25 mcg PO PM tizanidine 4 mg tablet 4 mg PO Q8H PRN (Reason: muscle spasticity) Qty: 10 0RF Discontinued oxycodone 5 mg tablet 5 mg PO Q8H PRN (Reason: pain) Qty: 10 0RF Discharge Orders: Discharge Order (Routine); Ordered 07/18/24 Ordered By: Skye Cordova/Other Patient Handouts: Prediabetes, 5 Steps for Eating Healthier Admission Data Admit Date/Time: 07/14/24 15:58 Attending Provider: Skye Pagan Admit Provider: Wilbert Adorno Primary Care Provider: Denver Dinero Other Providers: Wilbert Adorno Hospital Stay Data Consultations 07/14/24 14:50 ED Decision to Admit Stat Diagnostic Imagining Performed 07/14/24 12:14 CT abd pelvis IV con only Stat CT angio chest PE protocol Stat 07/14/24 15:44 US venous doppler LE BI Stat Pending Results Patient Have Any Pending Studies at Discharge: No Discharge Instructions Given to Patient (Per Discharging Provider) You were admitted with blood clots in your legs and lungs. You are being treated with blood thinners for this and will need to remain on blood thinners for the rest of your life. Please continue taking the Lovenox blood thinner shots twice a day in addition to taking Coumadin 7.5 mg once a day in the evening prior to dinner. You have an appointment with the anticoagulation clinic on and if your Coumadin level is at the correct level, the Lovenox injections will be discontinued. If you have any trouble with bleeding from anywhere as we discussed, or if you fall and hit your head, please get checked out at the hospital right away. You can continue taking oral hydromorphone as needed for moderate to severe pain, and acetaminophen as needed for mild to moderate pain. Please continue a bowel regimen to keep your bowels moving as opioids can cause constipation. You were started back on gabapentin for your back pain. Please follow-up with your PCP on this. Your vitamin B12 levels were borderline low and you are started on a vitamin B12 supplement for this. Total Time Total Time Spent Total Time Spent (In Minutes): 35 minutes Total Time Includes: Examination of the Patient, Discharge Planning and Medication Reconciliation Coding Level of Care Code 46797 INP/OBS DISCH >30 MIN Diagnoses Pulmonary embolism and infarction I26.99 Lumbar back pain with radiculopathy affecting left lower extremity M54.16 Morbid obesity E66.01 History of colon cancer Z85.038
[2024-07-18 11:18] VITALS: BP 128/82; PULSE 77; TEMP 98.2; O2SAT 96
== END 2024-07-18 13:12 | disposition home or self-care (01) ==
LOC: ED 10:19 → EDINP 15:58 → SUATTDRO 15:58 → 4W 20:32

== ENCOUNTER 2024-08-03 12:15 | Observation (INO) ==
--- NOTE | 2024-08-03 13:35 | Emergency Department Note ---
Impression & Plan Dizziness, Elevated INR, Headache, Visual disturbance ED Provider Note NAME: JOHN JACINTO AGE: 73 SEX: M : 1950 ARRIVES VIA: Walk-In INFORMANT: [Patient][family] ED PROVIDER(S): [Darwin Price MD] CHIEF COMPLAINT: Neurologic symptoms HISTORY OF PRESENT ILLNESS: The patient is a 73-year-old male who was recently diagnosed with PEs. He is on warfarin. Today, his INR was high at 5.8. He was told to hold the dose for 2 days. The patient states that he has been having some pleuritic chest pain on both sides for the last several days. He has had some persistent shortness of breath but the breathing issue has not worsened. Today, he had some blurry vision, felt dizzy and had some pressure in his head behind his eyes. His right arm was numb for about 5 minutes while pushing a cart at [facility], the numbness resolved when he stopped pushing the cart. The patient has not had head trauma. He has not had cough or cold or respiratory complaints, no urinary complaints. Of note, the blurry vision was bilateral, it was not 1 sided. PMHx/PSHx/Social Hx: See Below PHYSICAL EXAM: GENERAL: Patient is in no acute distress. HEENT: No acute trauma, normocephalic atraumatic, mucous membranes moist, no nasal congestion. NECK: No stridor, no adenopathy, no meningismus, trachea is midline. LUNGS: Clear to auscultation bilaterally, no wheeze, no rhonchi, breath sounds equal. HEART: Heart tones quite distant. ABDOMEN: Soft, nontender, no peritonitis. EXTREMITIES: No cyanosis, full range of motion of all the joints without pain or difficulty. NEUROLOGIC: Oriented x 3, no acute motor or sensory deficits, no focal weakness. No facial droop or speech slurring. SKIN: No jaundice, no diaphoresis. DIFFERENTIAL DIAGNOSIS: Intracranial bleeding, dysrhythmia, electrolyte balance, anemia, among others. EMERGENCY DEPARTMENT PROCEDURES: MEDICAL DECISION MAKING: There is no leukocytosis. The patient is anemic, this appears to be a chronic issue looking back at previous testing. There was a normal platelet count. No bandemia. INR was quite high at greater than 9.5. No renal failure or significant electrolyte abnormality. No concerning liver enzyme elevation. TSH was low however, the T4 was normal. ECG showed a normal sinus rhythm, no ischemia or dysrhythmia. Cardiac enzyme testing x 1 is not consistent with acute cardiac injury. Chest x-ray does not show pneumonia or CHF. Brain CT shows no acute bleed or mass effect. On exam, the patient was not toxic or febrile. No acute focal neurologic findings. Patient received IV saline, 1 L. He was given 5 mg of oral vitamin K. He received IV Dilaudid for his complaints of chest discomfort. I did speak with the coagulation consultant education. I did speak at length with the patient. Given the findings, given the marked elevation of the INR and his risk for spontaneous bleeding, admission/observation was warranted. I spoke with the case management, the on-call hospitalist was consulted. In short, at this point, the cause for his dizziness, visual disturbance, headache and weakness is unclear. His pleuritic chest discomfort is likely from the findings of PE. He marked INR elevation warrants hospitalization/observation. Prior/Outside records/notes reviewed: None ECG per my interpretation: Indication was possible stroke. The ECG shows a normal sinus rhythm with a rate of 73. There is nonspecific ST change. There is no acute ST elevation, no PVCs. QTc is 449. Continuous Cardiac Monitoring per my interpretation: An order was placed for continuous cardiac monitoring. The monitor shows a rate of 74 with normal sinus rhythm. Imaging/x-ray results per my interpretation: Chest x-ray does not show CHF or pneumonia. Chronic Medical/Social conditions affecting care: Advanced age, currently on warfarin. Care/Management discussed with: Case management, the on-call hospitalist. Coagulation consultant education-Dr. Goodman Level of care consideration(s): After review of the information above and other included data: --I believe the patient requires escalation of care to admission DISPOSITION: Admission Past Med/Surg History Problem List (Updated 08/03/24 @ 17:22 by Darwin Price MD) Visual disturbance (Acute) Headache (Acute) Elevated INR (Acute) Dizziness (Acute) Elevated INR Pleuritic chest pain (Acute) Thrombocytopenia (Acute) Anemia Lumbar back pain with radiculopathy affecting left lower extremity Pulmonary embolism and infarction S/P lumbar fusion 12/26/2023 -- [facility]; L1-L5 fusion History of ileus (Acute) Left sided abdominal pain (Acute) Intractable nausea (Acute) Hypertension Abdominal pain (Acute) S/p reverse total shoulder arthroplasty Morbid obesity Rotator cuff arthropathy of right shoulder Wrist pain, right (Acute) Osteoarthritis of right knee Status post total right knee replacement Encounter for pre-operative examination Medical History Enteritis SBO (small bowel obstruction) Lumbosacral radiculopathy HLD (hyperlipidemia) Spinal stenosis, lumbar region with neurogenic claudication History of colon cancer s/p resection (hx of blood transfusion remotely in 1980s in setting of cancer) History of DVT (deep vein thrombosis) LLE DVT (2011) s/p TKA- treated with AC Sleep apnea CPAP Ileus Recurrent s/p colon cancer/resection Concern about infectious disease without diagnosis Pt reports that if he gets an infection, he does not get any normal signs of it like fever/elevated WBC. He states he had a bad infection (? sepsis) and almost from when had colon cancer, but showed no signs until almost too late. Osteoarthritis GERD (gastroesophageal reflux disease) Occasional History of ileus 2018 Surgical History Hx of abdominal surgery Age 2/3 (no further details) History of esophagogastroduodenoscopy (EGD) History of tooth extraction H/O squamous cell carcinoma excision Left arm Hx of discectomy Lumbar (prior to fusion) History of repair of rotator cuff Right Status post trigger finger release R/L History of total knee replacement R/L History of bilateral carpal tunnel release History of bowel resection History of colonoscopy History of arthroscopy Right elbow History of colostomy reversal History of colostomy 2/2 colon cancer Fusion of spine Lumbar x2 Removal previous hardware, L3-L5 decompression with fusion (05/22/2018): Failed with MAC3, easy with Glidescope #4 at [facility] Family History Mother Family history of diabetes mellitus Son VTE (venous thromboembolism) Father Bladder cancer Daughter , age 42 Breast cancer Daughter Suicide Social History Smoking Status: Never smoker Second Hand Exposure: No; Do You Dip or Chew Tobacco: No; Hx Alcohol Use: No Hx Substance Use: No Preferred Language: Setswana Communication Ability: Effective Visual Impairment: No Limitations Wire Bound Box Machine Operator Required: No Beliefs That Will Affect Care: None marital status: Current Living Situation: Spouse Current Living Situation Comment: home in [place] 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; 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 How many Children do You have: 5 How many Children do You have Comment: 3 children 1st marriage; 2 children 2nd marriage; 2 kids are Feels Safe at Home: Yes Assistive Devices: None Allergies Allergies Allergy/AdvReac Type Severity Reaction Status Date / Time Iodinated Contrast Media Allergy Severe Anaphylaxis Verified 05/18/24 08:06 meperidine Allergy Mild Rash Verified 05/18/24 08:06 oxycodone AdvReac Mild Percocet/Percodan- Verified 05/18/24 08:06 skin crawling Penicillins AdvReac Mild Dyspepsia Verified 05/18/24 08:06 propoxyphene AdvReac Mild Darvon/Darvocet- Verified 05/18/24 08:06 skin crawling Home Meds Home Medications Medication Instructions Recorded Confirmed diphenhydramine HCl 25 mg capsule 50 mg PO HS PRN Insomnia 04/23/18 08/03/24 (Benadryl) rosuvastatin 10 mg tablet 10 mg PO PM 08/21/20 08/03/24 losartan 50 mg tablet 50 mg PO PM 11/19/23 08/03/24 acetaminophen 325 mg tablet 650 mg PO Q6H PRN Pain 04/16/24 08/03/24 cholecalciferol (vitamin D3) 25 25 mcg PO PM 05/18/24 08/03/24 mcg (1,000 unit) tablet (Vitamin D3) warfarin 5 mg tablet See Rx Instructions PO QDD 07/26/24 08/03/24 Previous Rx's Medication Instructions Recorded tizanidine 4 mg tablet 4 mg PO Q8H PRN muscle spasticity 06/30/24 #10 tabs cyanocobalamin (vitamin B-12) 500 1,000 mcg (2 x 500 mcg) PO QAM #60 07/18/24 mcg tablet tabs gabapentin 100 mg capsule 200 mg (2 x 100 mg) PO TID #180 07/18/24 caps hydromorphone 2 mg tablet 2 mg PO Q6H PRN pain (scale score 07/18/24 7-10) #14 tabs Results & Data (ED) Vital Signs Vital Signs - 24 hr 08/03/24 12:26 08/03/24 12:50 08/03/24 12:51 Temperature 36.5 C Temperature Source Temporal Artery Scan Pulse Rate 76 74 71 Pulse Rate [Right Finger] Pulse Rate from SpO2 Sensor Respiratory Rate 18 Respiratory Effort / Characteristics Non-Labored Spontaneous Respiratory Depth Normal Blood Pressure 158/91 H Blood Pressure [Right Arm] Blood Pressure Mean 113 Blood Pressure Mean [Right Arm] Blood Pressure Position Sitting Pulse Oximetry 98 Oxygen Delivery Method Room Air Sepsis Recent Fever Within 48 Hours No Sepsis New/Unexplained Change in Mental Status No Sepsis Action Taken by Nursing No Action Required 08/03/24 12:54 08/03/24 13:01 08/03/24 13:24 Temperature Temperature Source Pulse Rate 69 61 Pulse Rate [Right Finger] Pulse Rate from SpO2 Sensor 61 Respiratory Rate Respiratory Effort / Characteristics Respiratory Depth Blood Pressure 152/87 H Blood Pressure [Right Arm] Blood Pressure Mean 118 Blood Pressure Mean [Right Arm] Blood Pressure Position Pulse Oximetry 98 Oxygen Delivery Method Sepsis Recent Fever Within 48 Hours Sepsis New/Unexplained Change in Mental Status Sepsis Action Taken by Nursing 08/03/24 13:30 08/03/24 13:30 08/03/24 13:57 Temperature Temperature Source Pulse Rate 61 62 Pulse Rate [Right Finger] Pulse Rate from SpO2 Sensor 63 63 Respiratory Rate 14 14 Respiratory Effort / Characteristics Respiratory Depth Blood Pressure 120/80 Blood Pressure [Right Arm] Blood Pressure Mean 105 Blood Pressure Mean [Right Arm] Blood Pressure Position Pulse Oximetry 97 98 Oxygen Delivery Method Sepsis Recent Fever Within 48 Hours Sepsis New/Unexplained Change in Mental Status Sepsis Action Taken by Nursing 08/03/24 14:02 08/03/24 14:12 08/03/24 14:30 Temperature Temperature Source Pulse Rate 59 L Pulse Rate [Right Finger] Pulse Rate from SpO2 Sensor 59 L Respiratory Rate 18 Respiratory Effort / Characteristics Respiratory Depth Blood Pressure 120/84 130/86 Blood Pressure [Right Arm] Blood Pressure Mean 87 112 Blood Pressure Mean [Right Arm] Blood Pressure Position Pulse Oximetry 98 Oxygen Delivery Method Sepsis Recent Fever Within 48 Hours Sepsis New/Unexplained Change in Mental Status Sepsis Action Taken by Nursing 08/03/24 14:30 08/03/24 15:13 Temperature Temperature Source Pulse Rate 61 Pulse Rate [Right Finger] 56 L Pulse Rate from SpO2 Sensor 61 Respiratory Rate 19 18 Respiratory Effort / Characteristics Non-Labored Spontaneous Respiratory Depth Normal Blood Pressure Blood Pressure [Right Arm] 120/93 Blood Pressure Mean Blood Pressure Mean [Right Arm] 102 Blood Pressure Position Pulse Oximetry 98 98 Oxygen Delivery Method Room Air Sepsis Recent Fever Within 48 Hours Sepsis New/Unexplained Change in Mental Status Sepsis Action Taken by [facility] Medications Current Medication List: was personally reviewed by me Laboratory Data Attestation: I reviewed the patient's lab results. 08/03/24 13:30 08/03/24 13:30 Lab Results 08/03/24 08/03/24 08/03/24 Range/Units 13:30 15:06 15:12 WBC 4.38 L (4.8-10.8) K/ul RBC 4.30 L (4.70-6.10) M/uL Hgb 12.3 L (14.0-18.0) g/dl Hct 36.9 L (42.0-52.0) % MCV 85.8 (80.0-100.0) fL MCH 28.6 (25.0-34.0) pg MCHC 33.3 (32.0-36.0) g/dL RDW Std Deviation 48.6 H (36.4-46.3) fL RDW Coeff of Saray 15.7 H (11.5-14.5) % Plt Count 211 (130-400) K/uL MPV 10.3 (9.4-12.4) fL Immature Gran % (Auto) 0.5 % Neut % (Auto) 60.9 % Lymph % (Auto) 27.9 % Rains % (Auto) 8.4 % Eos % (Auto) 1.6 % Baso % (Auto) 0.7 % Neut # (Auto) 2.67 (1.40-6.50) K/uL Lymph # (Auto) 1.22 (1.20-3.40) K/uL Rains # (Auto) 0.37 (0.11-0.59) K/uL Eos # (Auto) 0.07 (0.00-0.50) K/uL Baso # (Auto) 0.03 (0.00-0.20) K/uL Immature Gran # (Auto) 0.02 (0.01-0.20) K/uL PT Cancelled > 90.0 H INR Cancelled > 9.5 H* APTT Cancelled 66 H PTT Ratio Cancelled 2.5 Sodium 140 (136-145) mmol/L Potassium 3.9 (3.5-5.1) mmol/L Chloride 109 H (98-107) mmol/L Carbon Dioxide 24 (21-32) mmol/L Anion Gap 7 (3-11) BUN 14 (6-23) mg/dl Creatinine 0.95 (0.6-1.4) mg/dl Est Cr Clr Drug Dosing 97.9 ml/min eGFR 85.57 BUN/Creatinine Ratio 14.7 (10-20) Glucose 164 H (70-99(Fasting)) mg/dl Calcium 8.9 (8.6-10.3) mg/dl Magnesium 1.9 (1.7-2.4) mg/dl Total Bilirubin 0.4 (0.2-1.0) mg/dl AST 24 (13-39) U/L ALT 27 (7-52) U/L Alkaline Phosphatase 51 (34-104) U/L Troponin I High Sens 5.8 (0-20) pg/ml Total Protein 6.9 (6.0-8.3) gm/dl Albumin 3.7 (3.4-5.0) gm/dl Globulin 3.2 (2.5-4.0) gm/dl Albumin/Globulin Ratio 1.2 (0.9-2) TSH 0.097 L (0.300-4.500) uIu/ml Free T4 0.93 (0.61-1.60) ng/dl Urine Color Yellow Urine Appearance Clear (Clear) Urine pH 5.5 (4.5-7.5) Ur Specific Kiefer 1.028 (1.000-1.030) Urine Protein Negative (Negative) Urine Glucose (UA) Negative (Negative) Urine Ketones Trace H (Negative) Urine Blood Negative (Negative) Urine Nitrite Negative (Negative) Urine Bilirubin Negative (Negative) Urine Urobilinogen Negative (Negative) Ur Leukocyte Esterase Negative (Negative) Urine Comment Administered Medications Discontinued Medications Hydromorphone HCl (Hydromorphone Inj 0.5 Mg/0.5 Ml Syr) 0.5 mg IV NOW STA Stop: 08/03/24 15:20 Last Admin: 08/03/24 15:26 Dose: 0.5 mg Documented By: TNK Sodium Chloride (Nss) 1,000 mls @ 999 mls/hr IV .Q1H1M ONE Stop: 08/03/24 16:34 Last Infusion: 08/03/24 17:11 Dose: Infused Documented By: Admin: 08/03/24 16:01 Dose: 999 mls/hr Documented By: CTK Phytonadione (Phytonadione 5 Mg Tab) 5 mg PO NOW STA Stop: 08/03/24 15:53 Last Admin: 08/03/24 16:00 Dose: 5 mg Documented By: CTK Imaging Data Radiologist's Impression: Chest X-Ray 08/03/24 13:36 XR chest 1V portable CLINICAL HISTORY: weakness COMPARISON STUDY: 07/14/2024 FINDINGS: Stable mild cardiomegaly without pulmonary vascular congestion. No effusion, consolidation, or pneumothorax. IMPRESSION: No acute findings. ACT 112: Negative or not required by law. Electronically signed by: Ned Velez M.D. 08/03/2024 2:[address] 08/03/24 13:36 CT head/brain wo con CLINICAL HISTORY: dhillon, inr high. TECHNIQUE: Multiple axial CT images of the head were obtained without contrast. A dose lowering technique was utilized adhering to the principles of ALARA. CT DOSE: 750.68 mGy.cm COMPARISON: None FINDINGS: No intracranial hemorrhage seen. No mass effect, midline shift, or hydrocephalus. No skull fracture seen. Visualized paranasal sinuses and mastoid air cells are clear. IMPRESSION: No acute findings. ACT 112: Negative or not required by law. The above report was generated using voice recognition software. It may contain grammatical, syntax or spelling errors. Electronically signed by: Ned Velez M.D. 08/03/2024 2:59 PM Discharge Plan Visit Data Chief Complaint: TIA Symptoms Stated Complaint: BLURRED VISION,DIZZY,HEAD PRESSURE ED Provider: Darwin Price Discharge Problem: Dizziness, Elevated INR, Headache, Visual disturbance Patient Disposition: Admitted As Inpatient Condition: Fair Forms Stand Alone Forms: My [facility] [employer] Prescriptions Prescriptions: No Action warfarin 5 mg tablet See Rx Instructions PO QDD Rx Instructions: 10 mg qMWF and 5mg x 4 days or as directed by [facility] Anticoagulation Clinic diphenhydramine HCl [Benadryl] 25 mg Capsule 50 mg PO HS PRN (Reason: Insomnia) rosuvastatin 10 mg Tablet 10 mg PO PM losartan 50 mg tablet 50 mg PO PM acetaminophen 325 mg Tablet 650 mg PO Q6H PRN (Reason: Pain) cholecalciferol (vitamin D3) [Vitamin D3] 25 mcg (1,000 unit) Tablet 25 mcg PO PM tizanidine 4 mg tablet 4 mg PO Q8H PRN (Reason: muscle spasticity) Qty: 10 0RF cyanocobalamin (vitamin B-12) 500 mcg Tablet 1,000 mcg PO QAM Qty: 60 0RF Rx Instructions: [id number] gabapentin 100 mg Capsule 200 mg PO TID Qty: 180 0RF hydromorphone 2 mg tablet 2 mg PO Q6H PRN (Reason: pain (scale score 7-10)) Qty: 14 0RF Referrals Referrals: Denver Dinero [Primary Care Provider] - Discharge Problem: Headache Qualifiers: Headache type: unspecified Headache chronicity pattern: acute headache I ntractability: not intractable Qualified Code(s): R51.9 - Headache, unspecified
[2024-08-03 13:56] LABS: Basophils # (auto) 0.03 K/uL (0.00-0.20); Basophils % (auto) 0.7 %; Eosinophils # (auto) 0.07 K/uL (0.00-0.50); Eosinophils % (auto) 1.6 %; Hematocrit (blood only) 36.9 % (42.0-52.0); Hemoglobin 12.3 g/dl (14.0-18.0); Immature Granulocytes # (auto) 0.02 K/uL (0.01-0.20); Immature Granulocytes % (auto) 0.5 %; Lymphocytes # (auto) 1.22 K/uL (1.20-3.40); Lymphocytes % (auto) 27.9 %; Mean Corpuscular Hemoglobin 28.6 pg (25.0-34.0); Mean Corpuscular Hgb Conc 33.3 g/dL (32.0-36.0); Mean Corpuscular Volume 85.8 fL (80.0-100.0); Mean Platelet Volume 10.3 fL (9.4-12.4); Monocytes # (auto) 0.37 K/uL (0.11-0.59); Monocytes % (auto) 8.4 %; Neutrophils # (auto) 2.67 K/uL (1.40-6.50); Neutrophils % (auto) 60.9 %; Platelet Count 211 K/uL (130-400); RDW Coefficient of Variation 15.7 % (11.5-14.5); RDW Standard Deviation 48.6 fL (36.4-46.3); White Blood Count 4.38 K/ul (4.8-10.8)
[2024-08-03 14:12] LABS: Albumin Globulin Ratio 1.2 (0.9-2); BUN Creatinine Ratio 14.7 (10-20); Bilirubin,Total 0.4 mg/dl (0.2-1.0); Calcium 8.9 mg/dl (8.6-10.3); Creatinine Clr Calc Pharmacy 97.9 ml/min; Globulin 3.2 gm/dl (2.5-4.0); Magnesium 1.9 mg/dl (1.7-2.4); Potassium 3.9 mmol/L (3.5-5.1); Total Protein 6.9 gm/dl (6.0-8.3)
[2024-08-03 14:19] LABS: Troponin I High Sensitivity 5.8 pg/ml (0-20)
--- NOTE | 2024-08-03 14:27 | XRay Report ---
XR chest 1V portable CLINICAL HISTORY: weakness COMPARISON STUDY: 07/14/2024 FINDINGS: Stable mild cardiomegaly without pulmonary vascular congestion. No effusion, consolidation, or pneumothorax. IMPRESSION: No acute findings. ACT 112: Negative or not required by law. Electronically signed by: Ned Velez M.D. 08/03/2024 2:26 PM
[2024-08-03 14:28] LABS: Thyroid Stimulating Hormone 0.097 uIu/ml (0.300-4.500)
--- NOTE | 2024-08-03 15:00 | CT Scan Report ---
CT head/brain wo con CLINICAL HISTORY: dhillon, inr high. TECHNIQUE: Multiple axial CT images of the head were obtained without contrast. A dose lowering tech nique was utilized adhering to the principles of ALARA. CT DOSE: 750.68 mGy.cm COMPARISON: None FINDINGS: No intracranial hemorrhage seen. No mass effect, midline shift, or hydrocephalus. No skull fracture seen. Visualized paranasal sinuses and mastoid air cells are clear. IMPRESSION: No acute findings. ACT 112: Negative or not required by law. The above report was generated using voice recognition software. It may contain grammatical, syntax o r spelling errors. Electronically signed by: Ned eVlez M.D. 08/03/2024 2:59 PM
[2024-08-03] MEDS: HYDROmorphone INJ 0.5 MG/0.5 ML SYR IV STA (15:26)
[2024-08-03 15:31] LABS: Appearance Urine Clear (Clear); Bilirubin Urine Negative (Negative); Blood Urine Negative (Negative); Color Urine Yellow; Glucose Urine UA Negative (Negative); Ketones Urine Trace (Negative); Leukocyte Esterase Urine Negative (Negative); Nitrite Urine Negative (Negative); Protein Urine Negative (Negative); Specific Gravity Urine 1.028 (1.000-1.030); Urobilinogen Urine Negative (Negative); pH Urine 5.5 (4.5-7.5)
[2024-08-03 15:38] LABS: Partial Thromboplastin Ratio 2.5; Partial Thromboplastin Time 66 Seconds (21-31); Prothrombin Time > 90.0 Seconds (9.0-12.0)
[2024-08-03 15:50] LABS: INR > 9.5 (0.9-1.1)
[2024-08-03] MEDS: PHYTONADIONE 5 MG TAB PO STA (16:00)
[2024-08-03] MEDS: SODIUM CHLORIDE 0.9% 1,000 ML IV ONE (16:01)
--- NOTE | 2024-08-03 16:38 | History & Physical Report ---
Date of Service August 03, 2024 Assessment & Plan (1) Elevated INR: (2) Pulmonary embolism and infarction: (3) Hypertension: (4) Anemia: Admission and Anticipated Discharge Date Admission Date: 73yo male presented with for admission for concerns TIA/brain bleeding w/ elevated INR at [facility] this morning (recent start for b/l DVT/LLL PE, prior DOAC entertained, but too $$) and reported some weakness/numbness tingling while at [employer]. Sx resolved (chronic lumbar stenosis/radiculopathy however) CT head negative for bleeding #Supratherapeutic INR- INR worse >9.5 compared to 5.8 w/ [facility] this morning. No recent abx/amiodarone/antifungals/SSRI/SNRIs. Does report occ use of ibuprofen for pain. Hgb stable compared to priors and denied blood in urine/stool s/p 5mg PO Vit K ER however doesn't appear actively bleeding with stable hgb compared to prior. ?not metabolizing? Discussed w/ Dr Dugan, given acute rise from this morning, concerning for not metabolizing vs other --> Rec Vit K 5mg IV x 1, monitor INR Monitor serial H&H, INR this evening Hold coumadin Avoid NSAIDs Nutrition consulted for supplements and will order boost TID (has small amt vitamin K) Note TSH LOW 0.097 w/ normal T4. check t3/not on replacement. ?underlying hyperthyroidism ?underlying occult malignancy w/ hx colon ca in 30s. Denies blood in urine or stool, UA without blood but can check focb for completeness RUQ US to be obtained for RUQ/scapular discomfort, ?underlying stone CBC/INR in AM #Hx b/l DVT, PE - recent dx june 2024, possible from immobilization w/ lumbar stenosis btu also w/ young colon ca hx and son w/ hx clot and cannot r/o hypercoagulability or underlying occult malignancy s/p PO Vit K in ER repeat 5mg IV x 1 as above monitor INR this evening/AM Can utilize Lovenox SQ if <2, reach out to coa clinic in AM #HTN - continue losartan daily # HLD - continue crestor daily #AMRIK - CPAP HS ordered, is very compliant with such -- going home for tonight but can bring in tomorrow if remaining inpatient. #Lumbar stenosis/chronic pain - continue gabapentin TID, tizanidine as needed, dilaudid 2mg po q6h prn, IV for breakthrough if needed. PT consulted Full code DVT proph: contraindicated w/ elevated INR and giving Vitamin K. Coumadin resumption pending repeat INR testing Dispo: med w/ telemetry History of Present Illness Chief Complaint: TIA, weakness, elevated INR Primary Care Provider: Denver Dinero Phill Orourke 73yo male presented for concerns for TIA/bleeding with recently being placed on coumadin for PE/LLL infarction with acute b/l LE DVTs during admission at the end of June. Eliquis too expensive and opted for coumadin and had been in range/doing well and following with coag clinic and had labs this morning. INR this morning 5.8 and instructed to hold coumadin x 2 days and then resume reduced dose w RTC in next couple of days however INR >9.5 on arrival. Patient reports he went to [facility] and was feeling a little weak, blurry vision, R arm numb for a couple minutes, pressure behind his eyes and concerns about possible brain bleed and came in and came in for evaluation Symptoms resolved w/ regards to weakness and vision, eval in C10 with . No blood in urine/stool noted, is moving bowels. Hx ileus. Does endorse having pain to his RUQ/R side and radiation to his R scapula/back, ?underlying gallbladder issues. Does report some minimal pain relief with dilaudid 0.5mg IV but typically needs more and on prn dilaudid 2mg po and uses when needed. Reports occasional ibuprofen use for joint pains, maybe 2 tablets ~3-4x/week. Does have chronic back pain and hx surgery x 4. Some occasional chest discomfort from PE but ?underling GB related. He has no thyromegaly/overt nodules and no hx hypo or hyperthryoidism but notes has been checked in the past. Was given Vit K PO in ER, discussed I spoke with Dr Dugan and given acute rise/concerns for metabolizing issue, rec for 5mg IV and will repeat INR/hgb this evening. Full code. updated on plan at bedside. Allergies Allergy/AdvReac Type Severity Reaction Status Date / Time Iodinated Contrast Media Allergy Severe Anaphylaxis Verified 05/18/24 08:06 meperidine Allergy Mild Rash Verified 05/18/24 08:06 oxycodone AdvReac Mild Percocet/Percodan- Verified 05/18/24 08:06 skin crawling Penicillins AdvReac Mild Dyspepsia Verified 05/18/24 08:06 propoxyphene AdvReac Mild Darvon/Darvocet- Verified 05/18/24 08:06 skin crawling Home Medications Medication Instructions Recorded Confirmed Type diphenhydramine HCl 25 mg capsule 50 mg PO HS PRN Insomnia 04/23/18 08/03/24 History (Benadryl) rosuvastatin 10 mg tablet 10 mg PO PM 08/21/20 08/03/24 History losartan 50 mg tablet 50 mg PO PM 11/19/23 08/03/24 History acetaminophen 325 mg tablet 650 mg PO Q6H PRN Pain 04/16/24 08/03/24 History cholecalciferol (vitamin D3) 25 25 mcg PO PM 05/18/24 08/03/24 History mcg (1,000 unit) tablet (Vitamin D3) tizanidine 4 mg tablet 4 mg PO Q8H PRN muscle spasticity 06/30/24 08/03/24 Rx #10 tabs cyanocobalamin (vitamin B-12) 500 1,000 mcg (2 x 500 mcg) PO QAM #60 07/18/24 08/03/24 Rx mcg tablet tabs gabapentin 100 mg capsule 200 mg (2 x 100 mg) PO TID #180 07/18/24 08/03/24 Rx caps hydromorphone 2 mg tablet 2 mg PO Q6H PRN pain (scale score 07/18/24 08/03/24 Rx 7-10) #14 tabs warfarin 5 mg tablet See Rx Instructions PO QDD 07/26/24 08/03/24 History warfarin 5 mg tablet 5 mg PO Q OTHER DAY #1 tab 08/04/24 Rx Past Med/Surg History Problem List (Updated 08/03/24 @ 17:22 by Darwin Price MD) Visual disturbance (Acute) Headache (Acute) Elevated INR (Acute) Dizziness (Acute) Elevated INR Pleuritic chest pain (Acute) Thrombocytopenia (Acute) Anemia Lumbar back pain with radiculopathy affecting left lower extremity Pulmonary embolism and infarction S/P lumbar fusion 12/26/2023 -- [facility]; L1-L5 fusion History of ileus (Acute) Left sided abdominal pain (Acute) Intractable nausea (Acute) Hypertension Abdominal pain (Acute) S/p reverse total shoulder arthroplasty Morbid obesity Rotator cuff arthropathy of right shoulder Wrist pain, right (Acute) Osteoarthritis of right knee Status post total right knee replacement Encounter for pre-operative examination Medical History Enteritis SBO (small bowel obstruction) Lumbosacral radiculopathy HLD (hyperlipidemia) Spinal stenosis, lumbar region with neurogenic claudication History of colon cancer s/p resection (hx of blood transfusion remotely in 1980s in setting of cancer) History of DVT (deep vein thrombosis) LLE DVT (2011) s/p TKA- treated with AC Sleep apnea CPAP Ileus Recurrent s/p colon cancer/resection Concern about infectious disease without diagnosis Pt reports that if he gets an infection, he does not get any normal signs of it like fever/elevated WBC. He states he had a bad infection (? sepsis) and almost from when had colon cancer, but showed no signs until almost too late. Osteoarthritis GERD (gastroesophageal reflux disease) Occasional History of ileus 2018 Surgical History Hx of abdominal surgery Age 2/3 (no further details) History of esophagogastroduodenoscopy (EGD) History of tooth extraction H/O squamous cell carcinoma excision Left arm Hx of discectomy Lumbar (prior to fusion) History of repair of rotator cuff Right Status post trigger finger release R/L History of total knee replacement R/L History of bilateral carpal tunnel release History of bowel resection History of colonoscopy History of arthroscopy Right elbow History of colostomy reversal History of colostomy 2/2 colon cancer Fusion of spine Lumbar x2 Removal previous hardware, L3-L5 decompression with fusion (05/22/2018): Failed with MAC3, easy with Glidescope #4 at [facility] Family History Mother Family history of diabetes mellitus Son VTE (venous thromboembolism) Father Bladder cancer Daughter , age 42 Breast cancer Daughter Suicide Social History Smoking Status: Never smoker Second Hand Exposure: No; Do You Dip or Chew Tobacco: No; Hx Alcohol Use: No Hx Substance Use: No Preferred Language: Frisian Communication Ability: Effective Visual Impairment: No Limitations Board Certified Orthodontist Required: No Beliefs That Will Affect Care: None marital status: Current Living Situation: Spouse Current Living Situation Comment: and adult son 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; 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 How many Children do You have: 5 How many Children do You have Comment: 3 children 1st marriage; 2 children 2nd marriage; 2 kids are Other Information That Helps Us Care for You: No Feels Safe at Home: Yes Safety Concerns: Feels Safe At This Time Assistive Devices: CPAP, Glasses and Hearing Aid - Bilateral Review of Systems Review of Systems: All systems reviewed & are unremarkable except as noted in HPI & below Physical Exam Physical Exam: General: 73yo male laying in bed, at bedside, mildly uncomfortable due to pain in his back/right side, pain with positional changes/sitting up HEENT: head atraumatic, normocephalic, mmm, trachea midline, no thyromegaly Resp: fine crackles in the bases, no wheezing/rales, 98% on RA CV: regular, slightly jacqueline, faint systolic murmur, no significant pitting edema, pulses present GI: +BS throughout, obese, + tenderness to palpation RUQ (reports R scapular pain as well), no guarding/rebound no reza MSK/Neuro: chronic lumbar radiculopathy since prior surgeries but strength equal bilaterally, prior knee replacements bilaterally, follows commands, not confused Psych: AOx3, cooperative and pleasant with exam Results & Data Results & Data Vital Signs (Past 12 Hours) Vital Signs Temp Pulse Pulse Resp BP BP Pulse Ox 08/03/24 15:13 56 L 18 120/93 98 08/03/24 14:30 61 19 98 08/03/24 14:30 130/86 08/03/24 14:12 59 L 18 98 08/03/24 14:02 120/84 08/03/24 13:57 62 14 98 08/03/24 13:30 61 14 97 08/03/24 13:30 120/80 08/03/24 13:24 61 98 08/03/24 13:01 152/87 H 08/03/24 12:54 69 08/03/24 12:51 71 08/03/24 12:50 74 08/03/24 12:26 36.5 C 76 18 158/91 H 98 O2 Del Method 08/03/24 15:13 Room Air 08/03/24 14:30 08/03/24 14:30 08/03/24 14:12 08/03/24 14:02 08/03/24 13:57 08/03/24 13:30 08/03/24 13:30 08/03/24 13:24 08/03/24 13:01 08/03/24 12:54 08/03/24 12:51 08/03/24 12:50 08/03/24 12:26 Room Air Laboratory Results 08/03/24 08/03/24 08/03/24 Range/Units 15:12 15:06 13:30 WBC 4.38 L (4.8-10.8) K/ul RBC 4.30 L (4.70-6.10) M/uL Hgb 12.3 L (14.0-18.0) g/dl Hct 36.9 L (42.0-52.0) % MCV 85.8 (80.0-100.0) fL MCH 28.6 (25.0-34.0) pg MCHC 33.3 (32.0-36.0) g/dL RDW Std Deviation 48.6 H (36.4-46.3) fL RDW Coeff of Saray 15.7 H (11.5-14.5) % Plt Count 211 (130-400) K/uL MPV 10.3 (9.4-12.4) fL Immature Gran % (Auto) 0.5 % Neut % (Auto) 60.9 % Lymph % (Auto) 27.9 % [place] % (Auto) 8.4 % Eos % (Auto) 1.6 % Baso % (Auto) 0.7 % Neut # (Auto) 2.67 (1.40-6.50) K/uL Lymph # (Auto) 1.22 (1.20-3.40) K/uL Inyo # (Auto) 0.37 (0.11-0.59) K/uL Eos # (Auto) 0.07 (0.00-0.50) K/uL Baso # (Auto) 0.03 (0.00-0.20) K/uL Immature Gran # (Auto) 0.02 (0.01-0.20) K/uL PT > 90.0 H Cancelled INR > 9.5 H* Cancelled APTT 66 H Cancelled PTT Ratio 2.5 Cancelled Sodium 140 (136-145) mmol/L Potassium 3.9 (3.5-5.1) mmol/L Chloride 109 H (98-107) mmol/L Carbon Dioxide 24 (21-32) mmol/L Anion Gap 7 (3-11) BUN 14 (6-23) mg/dl Creatinine 0.95 (0.6-1.4) mg/dl Est Cr Clr Drug Dosing 97.9 ml/min eGFR 85.57 BUN/Creatinine Ratio 14.7 (10-20) Glucose 164 H (70-99(Fasting)) mg/dl Calcium 8.9 (8.6-10.3) mg/dl Magnesium 1.9 (1.7-2.4) mg/dl Total Bilirubin 0.4 (0.2-1.0) mg/dl AST 24 (13-39) U/L ALT 27 (7-52) U/L Alkaline Phosphatase 51 (34-104) U/L Troponin I High Sens 5.8 (0-20) pg/ml Total Protein 6.9 (6.0-8.3) gm/dl Albumin 3.7 (3.4-5.0) gm/dl Globulin 3.2 (2.5-4.0) gm/dl Albumin/Globulin Ratio 1.2 (0.9-2) TSH 0.097 L (0.300-4.500) uIu/ml Free T4 0.93 (0.61-1.60) ng/dl Urine Color Yellow Urine Appearance Clear (Clear) Urine pH 5.5 (4.5-7.5) Ur Specific Pierce 1.028 (1.000-1.030) Urine Protein Negative (Negative) Urine Glucose (UA) Negative (Negative) Urine Ketones Trace H (Negative) Urine Blood Negative (Negative) Urine Nitrite Negative (Negative) Urine Bilirubin Negative (Negative) Urine Urobilinogen Negative (Negative) Ur Leukocyte Esterase Negative (Negative) Urine Comment Diagnostic Findings Chest X-Ray 08/03/24 13:36 XR chest 1V portable CLINICAL HISTORY: weakness COMPARISON STUDY: 07/14/2024 FINDINGS: Stable mild cardiomegaly without pulmonary vascular congestion. No ef fusion, consolidation, or pneumothorax. IMPRESSION: No acute findings. ACT 112: Negative or not required by law. Electronically signed by: Ned Velez M.D. 08/03/2024 2:[address] 08/03/24 13:36 CT head/brain wo con CLINICAL HISTORY: dhillon, inr high. TECHNIQUE: Multiple axial CT images of the head were obtained without contrast. A dose lowering technique was utilized adhering to the principles of ALARA. CT DOSE: 750.68 mGy.cm COMPARISON: None FINDINGS: No intracranial hemorrhage seen. No mass effect, midline shift, or hydrocephalus. No skull fracture seen. Visualized paranasal sinuses and mastoid air cells are clear. IMPRESSION: No acute findings. ACT 112: Negative or not required by law. The above report was generated using voice recognition software. It may contain grammatical, syntax or spelling errors. Electronically signed by: Ned Velez M.D. 08/03/2024 2:59 PM Supervising Physician Co-Signing Physician Notes Attending Attestation & Admit Note: Pt seen/examined, chart reviewed, admit care plan d/w KWADWO Daniels. I agree w/ the moralez components of her admission documentation. 73yo male - known to me from his recent hospitalization for b/l LE DVTs, b/l PEs, and left lung pulmonary infarction - ultimately discharged on coumadin as DOACS were not covered by his insurance. Presents with an episode of feeling dizzy, blurry vision, diplopia (very brief), right arm numbness, and a pain extending from the right side of his abdomen that traveled up the right chest and to the left shoulder region. The latter symptom has been present for over 24 hours. He does have worsening of this pain with taking deep breaths. This am he had visited the anticoagulation clinic and oddly his INR was elevated >5. When he came to [facility] this evening due to the above symptoms his INR was even higher at >9.5. Fortunately he denies any GI or bleeding or any other site of bleeding. Denies any etoh use. Denies any change in dietary habits. Denies any addition of new meds including OTC meds or nutritional supplements. PMH/PSH/allergies/meds/sochx/famhx - reviewed VSS, afebrile gen - resting comfortably in bed, NAD; obese eyes - PERRL; EOMI; no nystagmus neck - no JVD heart - RRR, s1 s2, no murmur lungs - CTA b/l abd - soft NT ND BS+ ext - no edema, pulses 2+ b/l feet neuro - strength 5/5 x 4 exts, no facial droop, speech wnl labs reviewed - INR >9.5 imaging reviewed EKG - NSR, RSR' pattern V1, prominent R waves anteroseptal leads, left axis deviation, no ST changes A/P: 1. episode of dizziness/diplopia/blurry vision/right arm numbness -- resolved; TIA event? other? 2. right sided abdominal discomfort with radiation to the upper L chest and L shoulder - etiology? pleuritic pain from prior PEs? other? present for 24+ hours with negative troponin making ischemia highly unlikely 3. supratherapeutic INR - uncertain etiology; no bleeding due fortunately 4. recent DVT/PE/pulmonary infarction -Ms Daniels spoke with Dr Dugan from the coumadin clinic; total of 10mg of vitamin K advised (5mg of PO, 5mg of IV) -serial INRs -obtain brain MRI - r/o CVA -agree with GB u/s - rule out biliary tract disease/hepatic disease contributing to #3 Wilbert Adorno MD PG Care Time/CCT Total # of Minutes Spent Total Time Spent with Patient: Total time spent is greater than 50% in coordination of care (as documented) at patient's floor/unit and/or counseling patient: Coding Level of Care Code 69336 INT INP/OBS CARE /MIN Diagnoses Elevated INR R79.1 Pulmonary embolism and infarction I26.99 Hypertension I10 Anemia D64.9
[2024-08-03] MEDS: HYDROmorphone INJ 1 MG/ML SYRINGE IV STA (17:13)
[2024-08-03] MEDS: PHYTONADIONE 5 MG in DEXTROSE 5% 50 ML IV ONE (17:14)
--- NOTE | 2024-08-03 17:16 | Electrocardiogram Report ---
Test Reason : Blood Pressure : */* mmHG Vent. Rate : 73 BPM Atrial Rate : 73 BPM P-R Int : 192 ms QRS Dur : 92 ms QT Int : 408 ms P-R-T Axes : 28 -35 49 degrees QTcB Int : 449 ms Normal sinus rhythm Left axis deviation Abnormal ECG When compared with ECG of 14-Jul-2024 10:46, Fusion complexes are no longer Present Premature ventricular complexes are no longer Present Confirmed by Terrence Morgan ([id number]) on 08/03/2024 5:16:21 PM Referred By: Kim Gutierrez Confirmed By: Terrence Morgan
[2024-08-03] MEDS ORDERED: ONDANSETRON INJ 2 MG/ML 2 ML VIAL IV PRN (20:50)
[2024-08-03] MEDS ORDERED: HYDROmorphone INJ 0.5 MG/0.5 ML SYR IV PRN (20:50)
[2024-08-03] MEDS ORDERED: tiZANidine HCL 4 MG TABLET PO PRN (20:50)
[2024-08-03] MEDS ORDERED: ACETAMINOPHEN 325 MG TAB PO PRN (20:50)
[2024-08-03] MEDS ORDERED: POLYETHYLENE (MIRALAX) 17 GM PACK PO PRN (20:50)
--- NOTE | 2024-08-03 23:13 | XRay Report ---
Exam(s): XR ORBITS EXAM: XR Orbits, 4 or More Views CLINICAL HISTORY: Reason for exam: Screening for foreign body for MRI. TECHNIQUE: Frontal, lateral and oblique views of the orbits. COMPARISON: Prior head CT from August 03, 2024. FINDINGS: Bones/joints: Unremarkable. No acute fracture. Sinuses: Unremarkable. No air-fluid levels. Soft tissues: Unremarkable. No radiopaque foreign body. IMPRESSION: No evidence of metallic foreign body overlying the orbits to preclude MRI. Electronically signed by: Jocy Short MD 08/03/24 23:13 PM
[2024-08-03] MEDS: GABAPENTIN 100 MG CAP PO SCH (23:39)
[2024-08-03] MEDS: CHOLECALCIFEROL 25 MCG (1000 UNITS) TAB PO SCH (23:39)
[2024-08-03] MEDS: LOSARTAN POTASSIUM 50 MG TAB PO SCH (23:40)
[2024-08-03] MEDS: ROSUVASTATIN CALCIUM 10 MG TAB PO SCH (23:40)
[2024-08-03] MEDS: HYDROmorphone HCL 2 MG TAB PO PRN (23:44)
[2024-08-03] MEDS: diphenhydrAMINE Capsule 25 MG CAP PO PRN (23:44)
[2024-08-04 00:01] LABS: Hematocrit (blood only) 36.7 % (42.0-52.0); Hemoglobin 12.1 g/dl (14.0-18.0)
[2024-08-04 00:30] LABS: INR 3.3 (0.9-1.1); Prothrombin Time 32.1 Seconds (9.0-12.0)
--- NOTE | 2024-08-04 01:46 | Magnetic Resonance Report ---
Exam(s): MRI HEAD Without Contrast EXAM: MR Head Without Intravenous Contrast CLINICAL HISTORY: Reason for exam: diplopia, dizziness, RUE numbness, recent DVTs. TECHNIQUE: Magnetic resonance images of the head/brain without intravenous contrast in multiple planes. COMPARISON: Prior head CT from August 03, 2024. FINDINGS: Brain: Unremarkable. No mass. No hemorrhage. No acute infarct. The flow voids of the base the brain are intact. Ventricles: Unremarkable. No ventriculomegaly. Bones/joints: Unremarkable. No acute fracture. Sinuses: Unremarkable as visualized. No acute sinusitis. Mastoid air cells: Unremarkable as visualized. No mastoid effusion. Orbits: Unremarkable as visualized. IMPRESSION: No evidence of acute intracanal pathology. Electronically signed by: Jocy Short MD 08/04/24 01:45 AM
--- NOTE | 2024-08-04 01:53 | Ultrasound Report ---
Exam(s): US ABDOMEN LIMITED EXAM: US Abdomen Limited, Right Upper Quadrant CLINICAL HISTORY: Reason for exam: RUQ pain, elevated INR. TECHNIQUE: Real-time ultrasound of the right upper quadrant with image documentation. COMPARISON: No relevant prior studies available. FINDINGS: Liver: Hepatic steatosis. No mass. No intrahepatic bile duct dilation. Hepatopetal flow in the main portal vein. Gallbladder: Unremarkable. No gallstones. Common bile duct: Unremarkable as visualized. No stones. No dilation. Pancreas: Pancreas not well visualized due to overlying gas. Right kidney: Unremarkable. No stones. No solid mass. No hydronephrosis. IMPRESSION: No acute findings in the right upper quadrant. Fatty infiltration of the liver. Electronically signed by: Sandip Flores MD 08/04/24 01:52 AM
[2024-08-04] MEDS: HYDROmorphone INJ 1 MG/ML SYRINGE IV PRN (04:13)
[2024-08-04 07:28] LABS: Basophils # (auto) 0.03 K/uL (0.00-0.20); Basophils % (auto) 0.6 %; Eosinophils # (auto) 0.08 K/uL (0.00-0.50); Eosinophils % (auto) 1.7 %; Hematocrit (blood only) 35.5 % (42.0-52.0); Hemoglobin 11.5 g/dl (14.0-18.0); Immature Granulocytes # (auto) 0.01 K/uL (0.01-0.20); Immature Granulocytes % (auto) 0.2 %; Lymphocytes # (auto) 1.22 K/uL (1.20-3.40); Lymphocytes % (auto) 25.3 %; Mean Corpuscular Hgb Conc 32.4 g/dL (32.0-36.0); Mean Corpuscular Volume 86.4 fL (80.0-100.0); Mean Platelet Volume 9.9 fL (9.4-12.4); Monocytes # (auto) 0.49 K/uL (0.11-0.59); Monocytes % (auto) 10.1 %; Neutrophils % (auto) 62.1 %; Platelet Count 181 K/uL (130-400); RDW Coefficient of Variation 15.7 % (11.5-14.5); RDW Standard Deviation 49.3 fL (36.4-46.3); Red Blood Count 4.11 M/uL (4.70-6.10); White Blood Count 4.83 K/ul (4.8-10.8)
[2024-08-04 08:16] VITALS: O2SAT 97
[2024-08-04 08:24] LABS: BUN Creatinine Ratio 14.6 (10-20); Bilirubin Direct 0.1 mg/dl (0-0.2); Bilirubin,Total 0.6 mg/dl (0.2-1.0); Calcium 8.5 mg/dl (8.6-10.3); Creatinine Clr Calc Pharmacy 112.7 ml/min; Potassium 3.9 mmol/L (3.5-5.1); Total Protein 6.4 gm/dl (6.0-8.3)
[2024-08-04 08:38] LABS: Partial Thromboplastin Ratio 1.3; Partial Thromboplastin Time 34 Seconds (21-31); Prothrombin Time 20.7 Seconds (9.0-12.0)
[2024-08-04] MEDS: CYANOCOBALAMIN (B-12) 500 MCG TABLET PO SCH (09:13)
--- NOTE | 2024-08-04 11:00 | Discharge Summary ---
Date of Service August 04, 2024 Admission HPI Per Admitting Provider Phill Sharad 73yo male presented for concerns for TIA/bleeding with recently being placed on coumadin for PE/LLL infarction with acute b/l LE DVTs during admission at the end of April. Eliquis too expensive and opted for coumadin and had been in range/doing well and following with coag clinic and had labs this morning. INR this morning 5.8 and instructed to hold coumadin x 2 days and then resume reduced dose w RTC in next couple of days however INR >9.5 on arrival. Patient reports he went to [employer] and was feeling a little weak, blurry vision, R arm numb for a couple minutes, pressure behind his eyes and concerns about possible brain bleed and came in and came in for evaluation Symptoms resolved w/ regards to weakness and vision, eval in C10 with . No blood in urine/stool noted, is moving bowels. Hx ileus. Does endorse having pain to his RUQ/R side and radiation to his R scapula/back, ?underlying gallbladder issues. Does report some minimal pain relief with dilaudid 0.5mg IV but typically needs more and on prn dilaudid 2mg po and uses when needed. Reports occasional ibuprofen use for joint pains, maybe 2 tablets ~3-4x/week. Does have chronic back pain and hx surgery x 4. Some occasional chest discomfort from PE but ?underling GB related. He has no thyromegaly/overt nodules and no hx hypo or hyperthryoidism but notes has been checked in the past. Was given Vit K PO in ER, discussed I spoke with Dr Dugan and given acute rise/concerns for metabolizing issue, rec for 5mg IV and will repeat INR/hgb this evening. Full code. updated on plan at bedside. Admission Exam (Per Admitting) Constitutional The patient is awake, alert and oriented 3, well developed and well nourished, normocephalic and atraumatic, lying in bed and in no acute distress. HEENT--PERRL, EOMI, mucous membranes and oropharynx mildly dry Neck--supple. No JVD. No bruits. Thyroid normal, trachea midline, no adenopathy. Heart--normal S1 and S2. No murmurs, rubs or gallops. Lungs--clear bilaterally, no respiratory distress, no accessory muscle use. Abdomen--normal bowel sounds and soft. Extremities--no cyanosis or clubbing. No edema. Dermatologic--normal skin turgor, normal color, no abnormal lymph nodes, no rash. Neurologic--cranial nerves II through XII grossly intact. Rheumatologic--normal range of motion. Psychiatric--normal affect. Discharge Data Consultations 08/03/24 16:21 ED Decision to Admit Stat Hospital Course (1) Elevated INR: sudden increase in INR, etiology is unclear MRI brain, Liver US all wnl Received vit k repeat inr this morning 2.[address] Dugan and she adviced to give 5mg coumadin today and tomorrow And for him to follow up with her in the clinic on Friday (2) Pulmonary embolism and infarction: (3) Hypertension: (4) Anemia: Coding Level of Care Code 39107 INP/OBS DISCH >30 MIN Diagnoses Elevated INR R79.1 Pulmonary embolism and infarction I26.99 Hypertension I10 Anemia D64.9 Time Spent (min) 35
[2024-08-04] MEDS: WARFARIN SOD 5 MG TAB PO ONE (11:03)
[2024-08-04 12:10] VITALS: BP 143/89; PULSE 65; RESP 18; TEMP 97.4
== END 2024-08-04 14:42 | disposition home or self-care (01) ==
LOC: ED 12:15 → 2W 12:15 → SUATTDRO 17:14 → 2W 20:03

== ENCOUNTER 2024-09-12 13:22 | Inpatient (IN) ==
--- NOTE | 2024-09-12 14:17 | Emergency Department Note ---
Impression & Plan Intractable back pain, Pulmonary emboli, On warfarin therapy ED Provider Note NAME: JOHN JACINTO AGE: 73 SEX: M : 1950 ARRIVES VIA: Walk-In INFORMANT: Patient ED PROVIDER(S): Vazquez Billings MD CHIEF COMPLAINT: Intractable back pain PLAN: Disposition: Admit MEDICAL DECISION MAKING: The patient is a pleasant 73-year-old gentleman with a past medical history of chronic back pain, history of pulmonary embolism and pulmonary infarct in June of this year currently on warfarin who presents to the emergency department via walk-in accompanied by his for evaluation of worsening intractable right mid and lateral back pain over the past week though he reports somewhat ongoing pain since February. He denies any fevers, chills, cough, congestion. He reports increased pain when he breathes deeply. Patient was seen in the sports department on 08/30 for symptoms of chest pain in setting of having supratherapeutic INR. CT imaging at that time was considered to be stable. On evaluation the patient is uncomfortable no distress, afebrile blood pressure 170/80s vital signs otherwise stable. He exhibits reproducible right mid to lower thoracic tenderness without midline tenderness to palpation or step-offs. He has normal strength in all extremities. EKG without overt acute ischemia. WBC within normal limits. H/H similar to prior. Platelets within normal limits. INR is therapeutic at 2.6. Chemistry without metabolic acidosis. LFTs unremarkable. High-sensitivity troponin 5.0, within normal limits. Lipase is normal. CTA of the chest and CT of the abdomen pelvis were performed. CT of the chest demonstrates persistent of bilateral pulmonary emboli which was reviewed with [facility] radiologist where he reports that upon his comparison he did note that right-sided pulmonary emboli were present on 08/30 study even though these were not noted on the report. He describes today that the patient's CT does demonstrate suggestion of CT evidence of right heart strain which given the persistence of pulmonary emboli since the patient's diagnosis in June may be related on a chronic basis. Otherwise, CT of the ab pelvis negative for acute abnormalities. Upon evaluation patient did report some initial improvement following treatment with IV APAP, morphine and dexamethasone. However he reports pain returning to a point where it is difficult to get comfortable. Given the persistence of the patient's intractable pain and CT imaging which suggest persistence of PEs and suggestion of right heart strain he agrees with plan for admission for further management. Case was discussed with OSE[facility] Larry hospitalist, who will evaluate the patient for admission. Further management per admitting team. Triage Nursing notes reviewed and agree them. Prior/external medical records reviewed Vital Signs: reviewed Differential diagnosis: Musculoskeletal, disc herniation, fracture, metastatic disease, cord compression, discitis, sciatica, cauda equina, infection, aortic disease, renal colic, gastrointestinal, as well as other pathologies. ER treatment provided: See below. Diagnostics interpreted by me: ECG: Sinus bradycardia, 53 bpm, no ectopy, first-degree block, no overt ST ovation or depression, QTc 397, QRS 92. Cardiac Monitoring: An order for continuous cardiac monitoring was placed and demonstrated Sinus bradycardia, 53 bpm, no ectopy Laboratory studies: See below Imaging studies: See below Consultation(s): Case was discussed with [facility]SE[facility] Larry hospitalist, who will evaluate the patient for admission. HPI: Per MDM. ROS: See above HPI for pertinent positives & negatives. A total of 10 systems reviewed and were otherwise negative. VITALS:See Below PHYSICAL EXAMINATION: GENERAL: Awake, alert, in no distress , BMI 42.6 HENT: Normocephalic, atraumatic. Oropharynx with dry mucous membranes and otherwise unremarkable. EYES: Normal conjunctiva. Sclera non-icteric. NECK: Supple. No nuchal rigidity. FROM. No JVD. RESPIRATORY: Clear to auscultation. CARDIAC: Regular rate, normal rhythm. Extremities warm and well perfused. Pulses equal. ABDOMEN: Soft, non-distended. No tenderness to palpation. No rebound or guarding. No masses. MUSCULOSKELETAL: Chest examination reveals no tenderness. The back is symmetrical on inspection without obvious abnormality. Reproducible right mid to lower thoracic tenderness without midline tenderness to palpation or step-offs. He has normal strength in all extremities. LOWER EXTREMITIES: Calves are equal size bilaterally and non-tender. No edema. No discoloration. NEURO: Normal sensorium. No sensory or motor deficits noted. SKIN: No rash or jaundice noted. Vazquez Billings MD Past Med/Surg History Problem List (Updated 09/13/24 @ 01:25 by Vazquez Billings MD) On warfarin therapy (Acute) Pulmonary emboli (Acute) Intractable back pain (Acute) Thigh pain Chronic pulmonary embolism Supratherapeutic INR (Acute) Dyspnea (Acute) Chest pain (Acute) Visual disturbance (Acute) Headache (Acute) Elevated INR (Acute) Dizziness (Acute) Elevated INR Pleuritic chest pain (Acute) Thrombocytopenia (Acute) Anemia Lumbar back pain with radiculopathy affecting left lower extremity Pulmonary embolism and infarction S/P lumbar fusion 12/26/2023 -- [facility]; L1-L5 fusion History of ileus (Acute) Left sided abdominal pain (Acute) Intractable nausea (Acute) Hypertension Abdominal pain (Acute) S/p reverse total shoulder arthroplasty Morbid obesity Rotator cuff arthropathy of right shoulder Wrist pain, right (Acute) Osteoarthritis of right knee Status post total right knee replacement Encounter for pre-operative examination Medical History Enteritis SBO (small bowel obstruction) Lumbosacral radiculopathy HLD (hyperlipidemia) Spinal stenosis, lumbar region with neurogenic claudication History of colon cancer s/p resection (hx of blood transfusion remotely in 1980s in setting of cancer) History of DVT (deep vein thrombosis) LLE DVT (2011) s/p TKA- treated with AC Sleep apnea CPAP Ileus Recurrent s/p colon cancer/resection Concern about infectious disease without diagnosis Pt reports that if he gets an infection, he does not get any normal signs of it like fever/elevated WBC. He states he had a bad infection (? sepsis) and almost from when had colon cancer, but showed no signs until almost too late. Osteoarthritis GERD (gastroesophageal reflux disease) Occasional History of ileus 2018 Surgical History Hx of abdominal surgery Age 2/3 (no further details) History of esophagogastroduodenoscopy (EGD) History of tooth extraction H/O squamous cell carcinoma excision Left arm Hx of discectomy Lumbar (prior to fusion) History of repair of rotator cuff Right Status post trigger finger release R/L History of total knee replacement R/L History of bilateral carpal tunnel release History of bowel resection History of colonoscopy History of arthroscopy Right elbow History of colostomy reversal History of colostomy 2/2 colon cancer Fusion of spine Lumbar x2 Removal previous hardware, L3-L5 decompression with fusion (05/22/2018): Failed with MAC3, easy with Glidescope #4 at [facility] Family History (Updated 09/12/24 @ 19:52 by Billy Presley MD, PhD) Mother , at 65 years of age from COPD with underlying tobacco abuse. Family history of diabetes mellitus Son VTE (venous thromboembolism) Father , at 60 years of age from bladder cancer with cystostomy. Bladder cancer Daughter , age 42 Breast cancer Daughter Suicide Social History (Updated 09/12/24 @ 19:59 by Billy Presley MD, PhD) Smoking Status: Former smoker Tobacco Type: Cigarettes Age Started Using Tobacco: 17; Age Quit Using Tobacco: 17; packs per day: 0.05; Cigarettes Per Day: 1; Second Hand Exposure: No; Do You Dip or Chew Tobacco: No; Hx Alcohol Use: No Hx Substance Use: No Preferred Language: Macanese Communication Ability: Effective Visual Impairment: No Limitations Chemical Compounder Required: No Beliefs That Will Affect Care: None marital status: marital status details: [id number];48y daught ;metBRCA,liver;27y daught ,conspiracy Current Living Situation: Spouse Current Living Situation Comment: 2nd x30y; 52y live-in son w/bipolar d/o and IQ 160, unemployed current occupational status: retired 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; 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 How many Children do You have: 5 How many Children do You have Comment: 3 children 1st marriage; 2 children 2nd marriage; 2 kids are Feels Safe at Home: Yes Assistive Devices: None Allergies Allergies Allergy/AdvReac Type Severity Reaction Status Date / Time Iodinated Contrast Media Allergy Severe Anaphylaxis Verified 08/15/24 00:57 meperidine Allergy Mild Rash Verified 08/15/24 00:57 oxycodone AdvReac Mild Percocet/Percodan- Verified 08/15/24 00:57 skin crawling Penicillins AdvReac Mild Dyspepsia Verified 08/15/24 00:57 propoxyphene AdvReac Mild Darvon/Darvocet- Verified 08/15/24 00:57 skin crawling Home Meds Home Medications Medication Instructions Recorded Confirmed diphenhydramine HCl 25 mg capsule 50 mg PO HS PRN Insomnia 04/23/18 09/12/24 (Benadryl) rosuvastatin 10 mg tablet 10 mg PO HS 08/21/20 09/12/24 losartan 50 mg tablet 50 mg PO HS 11/19/23 09/12/24 acetaminophen 325 mg tablet 650 mg PO Q6H PRN Pain 04/16/24 09/12/24 cholecalciferol (vitamin D3) 25 25 mcg PO PM 05/18/24 09/12/24 mcg (1,000 unit) tablet (Vitamin D3) warfarin 5 mg tablet 5 mg PO .M,T,W,TH,F,SAT 08/30/24 09/12/24 cyanocobalamin (vitamin B-12) 500 1,000 mcg PO QAM 09/12/24 09/12/24 mcg tablet warfarin 5 mg tablet 2.5 mg PO .Sundays09/12/24 09/12/24 Previous Rx's Medication Instructions Recorded tizanidine 4 mg tablet 4 mg PO Q8H PRN muscle spasticity 06/30/24 #10 tabs gabapentin 100 mg capsule 200 mg (2 x 100 mg) PO TID #180 07/18/24 caps hydromorphone 2 mg tablet 2 mg PO Q6H PRN pain (scale score 07/18/24 7-10) #14 tabs Results & Data (ED) Vital Signs Vital Signs - 24 hr 09/12/24 13:29 09/12/24 14:33 09/12/24 15:04 Temperature 36.6 C Temperature Source Oral Pulse Rate 62 Pulse Rate [Apical] 61 Pulse Rate from SpO2 Sensor Respiratory Rate 18 24 Respiratory Effort / Characteristics Non-Labored Spontaneous Respiratory Depth Normal Blood Pressure 176/80 H Blood Pressure [Left Arm] 151/88 H Blood Pressure Mean 112 Blood Pressure Mean [Left Arm] 109 Blood Pressure Position Sitting Pulse Oximetry 98 98 Oxygen Delivery Method Room Air Room Air Room Air Sepsis Recent Fever Within 48 Hours No Sepsis New/Unexplained Change in Mental Status N/A Sepsis Action Taken by Nursing No Action Required 09/12/24 15:30 09/12/24 15:58 09/12/24 16:27 Temperature Temperature Source Pulse Rate 63 61 63 Pulse Rate [Apical] Pulse Rate from SpO2 Sensor 60 61 Respiratory Rate 25 H 17 Respiratory Effort / Characteristics Respiratory Depth Blood Pressure Blood Pressure [Left Arm] Blood Pressure Mean Blood Pressure Mean [Left Arm] Blood Pressure Position Pulse Oximetry 99 98 Oxygen Delivery Method Room Air Room Air Sepsis Recent Fever Within 48 Hours Sepsis New/Unexplained Change in Mental Status Sepsis Action Taken by Nursing 09/12/24 17:00 Temperature Temperature Source Pulse Rate Pulse Rate [Apical] 60 Pulse Rate from SpO2 Sensor Respiratory Rate 20 Respiratory Effort / Characteristics Respiratory Depth Blood Pressure Blood Pressure [Left Arm] 139/74 Blood Pressure Mean Blood Pressure Mean [Left Arm] 95 Blood Pressure Position Pulse Oximetry 98 Oxygen Delivery Method Room Air Sepsis Recent Fever Within 48 Hours Sepsis New/Unexplained Change in Mental Status Sepsis Action Taken by Nursing Laboratory Data Attestation: I reviewed the patient's lab results. 09/12/24 14:20 09/12/24 14:20 Lab Results 09/12/24 09/12/24 Range/Units 14:20 17:17 WBC 5.37 (4.8-10.8) K/ul RBC 4.43 L (4.70-6.10) M/uL Hgb 12.8 L (14.0-18.0) g/dl Hct 37.8 L (42.0-52.0) % MCV 85.3 (80.0-100.0) fL MCH 28.9 (25.0-34.0) pg MCHC 33.9 (32.0-36.0) g/dL RDW Std Deviation 48.1 H (36.4-46.3) fL RDW Coeff of Saray 15.5 H (11.5-14.5) % Plt Count 159 (130-400) K/uL MPV 10.2 (9.4-12.4) fL Immature Gran % (Auto) 0.2 % Neut % (Auto) 59.9 % Lymph % (Auto) 27.0 % [place] % (Auto) 10.1 % Eos % (Auto) 1.9 % Baso % (Auto) 0.9 % Neut # (Auto) 3.22 (1.40-6.50) K/uL Lymph # (Auto) 1.45 (1.20-3.40) K/uL [place] # (Auto) 0.54 (0.11-0.59) K/uL Eos # (Auto) 0.10 (0.00-0.50) K/uL Baso # (Auto) 0.05 (0.00-0.20) K/uL Immature Gran # (Auto) 0.01 (0.01-0.20) K/uL PT 25.9 H (9.0-12.0) Seconds INR 2.6 H (0.9-1.1) Sodium 141 (136-145) mmol/L Potassium 4.0 (3.5-5.1) mmol/L Chloride 107 (98-107) mmol/L Carbon Dioxide 25 (21-32) mmol/L Anion Gap 9 (3-11) BUN 19 (6-23) mg/dl Creatinine 1.01 (0.6-1.4) mg/dl Est Cr Clr Drug Dosing 92.7 ml/min eGFR 79.51 BUN/Creatinine Ratio 18.8 (10-20) Glucose 123 H (70-99(Fasting)) mg/dl Calcium 8.9 (8.6-10.3) mg/dl Total Bilirubin 0.5 (0.2-1.0) mg/dl AST 18 (13-39) U/L ALT 21 (7-52) U/L Alkaline Phosphatase 49 (34-104) U/L Troponin I High Sens 5.0 4.9 (0-20) pg/ml B-Natriuretic Peptide 65 (0-100) pg/ml Total Protein 7.1 (6.0-8.3) gm/dl Albumin 3.9 (3.4-5.0) gm/dl Globulin 3.2 (2.5-4.0) gm/dl Albumin/Globulin Ratio 1.2 (0.9-2) Lipase 34 (11-82) U/L Administered Medications Gabapentin (Gabapentin 100 Mg Cap) 200 mg PO TID MARJ Stop: 10/12/24 20:59 Last Admin: 09/12/24 20:44 Dose: 200 mg Documented By: Losartan Potassium (Losartan Potassium 50 Mg Tab) 50 mg PO HS MARJ Stop: 10/12/24 20:59 Last Admin: 09/12/24 20:44 Dose: 50 mg Documented By: Morphine Sulfate (Morphine Sulfate 10 Mg/Ml Carp/Vial) 10 mg IV Q2H PRN PRN Reason: Pain 4-10;SOB;pleurisy Stop: 09/26/24 17:37 Last Admin: 09/12/24 23:42 Dose: 10 mg Documented By: Admin: 09/12/24 21:18 Dose: 10 mg Documented By: Admin: 09/12/24 19:06 Dose: 10 mg Documented By: LCD Rosuvastatin Calcium (Rosuvastatin Calcium 10 Mg Tab) 10 mg PO HS MARJ Stop: 10/12/24 20:59 Last Admin: 09/12/24 20:44 Dose: 10 mg Documented By: ANABELLE Warfarin Sodium (Warfarin Sod 2.5 Mg Tab) 2.5 mg PO San@1600 [facility] Stop: 10/12/24 17:44 Last Admin: 09/12/24 18:28 Dose: 2.5 mg Documented By: MIREYA Discontinued Medications Dexamethasone Sodium Phosphate (DexamethasonePf 10 Mg/Ml Vial) 10 mg IV NOW ONE Stop: 09/12/24 14:14 Last Admin: 09/12/24 14:29 Dose: 10 mg Documented By: MIREYA Diphenhydramine HCl (Diphenhydramine 50 Mg/Ml Vial) 25 mg IV NOW STA Stop: 09/12/24 15:16 Last Admin: 09/12/24 15:22 Dose: 25 mg Documented By: MIREYA Acetaminophen (Ofirmev) 1,000 mg in 100 mls @ 400 mls/hr IV NOW STA Stop: 09/12/24 14:27 Last Infusion: 09/12/24 15:03 Dose: Infused Documented By: Admin: 09/12/24 14:32 Dose: 400 mls/hr Documented By: MIREYA Ioversol (Optiray 320 125ml) 119 ml IV ONCE ONE Stop: 09/12/24 15:43 Last Admin: 09/12/24 15:43 Dose: 119 ml Documented By: CHRIS Morphine Sulfate (Morphine Sulfate 10 Mg/Ml Carp/Vial) 8 mg IV NOW STA Stop: 09/12/24 14:14 Last Admin: 09/12/24 14:30 Dose: 8 mg Documented By: MIREYA Morphine Sulfate (Morphine Sulfate 10 Mg/Ml Carp/Vial) 8 mg IV NOW STA Stop: 09/12/24 17:04 Last Admin: 09/12/24 17:10 Dose: 8 mg Documented By: MIREYA Imaging Data Radiologist's Impression: Abdomen/Pelvis CT 09/12/24 14:13 CT ABDOMEN and PELVIS with INTRAVENOUS CONTRAST HISTORY: Abdominal pain TECHNIQUE: CT abdomen and pelvis with contrast. IV CONTRAST: 100 mL of OMNIPAQUE 300 ENTERIC CONTRAST: Not Given COMPARISON: CT abdomen pelvis July 14, 2024 FINDINGS: LIVER: No focal lesion identified. Hepatic steatosis and hepatomegaly. GALLBLADDER/BILIARY: Unremarkable gallbladder. No abnormal biliary dilatation. SPLEEN: Unremarkable. PANCREAS: Unremarkable. ADRENALS: Incompletely characterized left adrenal nodule measuring 1.0 cm. KIDNEYS: Cortical cysts. No stones or hydronephrosis identified. PERITONEUM/RETROPERITONEUM. No lymphadenopathy by size criteria. No aortic aneurysm. GASTROINTESTINAL: No obstruction. Normal appendix in the right inguinal hernia. REPRODUCTIVE: Unremarkable prostate gland ABDOMINAL WALL: Small fat-containing hernias. BONES: No acute findings. Posterior instrumented lumbar spinal fusion with laminectomies IMPRESSION: No urolithiasis, hydronephrosis or hydroureter. Normal appendix within the right inguinal hernia. Electronically signed by Asael Borjas 09-12-2024 4:31 PM Chest CTA 09/12/24 14:13 CT PULMONARY ANGIOGRAM. HISTORY: Chest pain TECHNIQUE: Enhanced CT examination of the chest was performed using pulmonary embolism protocol. IV CONTRAST: 100 mL of OMNIPAQUE 300 COMPARISON: CT thorax August 30, 2024 FINDINGS: PULMONARY ARTERIES: Similar quantity of small pulmonary emboli in the right upper lobe and right lower lobe segmental and segmental branches and in the left lower lobe segmental and segmental arteries. LYMPH NODES: No lymphadenopathy by size criteria. CARDIOVASCULAR: Enlarged cardiac size. Mild right heart strain that is new from prior examination. No pericardial effusion. No aortic aneurysm. There are coronary artery calcifications in keeping with coronary artery disease. MEDIASTINUM: No solid or cystic mediastinal masses. The esophagus is normally decompressed. LUNGS/PLEURA: The central tracheo-bronchial tree is patent. No mass or consolidation identified. No pleural effusion or pneumothorax. No suspicious pulmonary nodules. BONES: No suspicious osseous lesions. Right shoulder arthroplasty. VISUALIZED LOWER NECK: Unremarkable. IMPRESSION: Redemonstration of similar quantity of small pulmonary emboli in the right upper lobe and right lower lobe segmental and segmental branches and in the left lower lobe segmental and segmental arteries. Mild right heart strain that is new from prior examination. Notification to clinician of alert: [facility] ED was notified about above findings by phone on September 12, 2024 at 4:27 PM by Asael Borjas MD. Readback confirmation was obtained. Electronically signed by Asael Borjas 09-12-2024 4:31 PM Discharge Plan Visit Data Chief Complaint: Back Injury/Pain Stated Complaint: BACK PAIN,SPASMS ED Provider: Vazquez Billings Discharge Problem: Intractable back pain, Pulmonary emboli, On warfarin therapy Patient Disposition: Admitted As Inpatient Condition: Fair Discharge Instructions Interventions: ED Discharge Assessment Last Done: 09/12/24 19:45 Discharge Problem: Pulmonary emboli Qualifiers: Pulmonary embolism type: unspecified Chronicity: chronic Acute cor pulmonale presence: unspecified Qualified Code(s): I27.82 - Chronic pulmonary embolism
[2024-09-12] MEDS: dexAMETHasone**PF** 10 MG/ML VIAL IV ONE (14:29)
[2024-09-12] MEDS: MoRPHine SULFATE 10 MG/ML CARP/VIAL IV STA ×2 (14:30→17:10)
[2024-09-12] MEDS: ACETAMINOPHEN 1,000 MG/100 ML VIAL IV STA (14:32)
[2024-09-12 14:35] LABS: Hematocrit (blood only) 37.8 % (42.0-52.0); Hemoglobin 12.8 g/dl (14.0-18.0); Immature Granulocytes # (auto) 0.01 K/uL (0.01-0.20); Immature Granulocytes % (auto) 0.2 %; Mean Corpuscular Hemoglobin 28.9 pg (25.0-34.0); Mean Corpuscular Volume 85.3 fL (80.0-100.0); Platelet Count 159 K/uL (130-400); RDW Standard Deviation 48.1 fL (36.4-46.3); Red Blood Count 4.43 M/uL (4.70-6.10); White Blood Count 5.37 K/ul (4.8-10.8)
[2024-09-12 14:41] LABS: INR 2.6 (0.9-1.1); Prothrombin Time 25.9 Seconds (9.0-12.0)
[2024-09-12 14:59] LABS: Alanine Aminotransferase 21.0 U/L (7-52); Albumin Globulin Ratio 1.2 (0.9-2); Alkaline Phosphatase 49.0 U/L (34-104); Anion Gap 9.0 (3-11); Bilirubin,Total 0.5 mg/dl (0.2-1.0); Blood Urea Nitrogen 19.0 mg/dl (6-23); Calcium 8.9 mg/dl (8.6-10.3); Carbon Dioxide 25.0 mmol/L (21-32); Chloride 107.0 mmol/L (98-107); Creatinine Clr Calc Pharmacy 92.7 ml/min; Globulin 3.2 gm/dl (2.5-4.0); Glucose 123.0 mg/dl (70-99(Fasting)); Lipase 34.0 U/L (11-82); Potassium 4.0 mmol/L (3.5-5.1); Sodium 141.0 mmol/L (136-145); Total Protein 7.1 gm/dl (6.0-8.3)
[2024-09-12] MEDS: diphenhydrAMINE 50 MG/ML VIAL IV STA (15:22)
[2024-09-12] MEDS: OPTIRAY 320 125ml IV ONE (15:43)
--- NOTE | 2024-09-12 16:31 | CT Scan Report ---
CT PULMONARY ANGIOGRAM. HISTORY: Chest pain TECHNIQUE: Enhanced CT examination of the chest was performed using pulmonary embolism protocol. IV CONTRAST: 100 mL of OMNIPAQUE 300 COMPARISON: CT thorax August 30, 2024 FINDINGS: PULMONARY ARTERIES: Similar quantity of small pulmonary emboli in the right upper lobe and right lower lobe segmental and segmental branches and in the left lower lobe segmental and segmental arteries. LYMPH NODES: No lymphadenopathy by size criteria. CARDIOVASCULAR: Enlarged cardiac size. Mild right heart strain that is new from prior examination. No pericardial effusion. No aortic aneurysm. There are coronary artery calcifications in keeping with coronary artery disease. MEDIASTINUM: No solid or cystic mediastinal masses. The esophagus is normally decompressed. LUNGS/PLEURA: The central tracheo-bronchial tree is patent. No mass or consolidation identified. No pleural effusion or pneumothorax. No suspicious pulmonary nodules. BONES: No suspicious osseous lesions. Right shoulder arthroplasty. VISUALIZED LOWER NECK: Unremarkable. IMPRESSION: Redemonstration of similar quantity of small pulmonary emboli in the right upper lobe and right lower lobe segmental and segmental branches and in the left lower lobe segmental and segmental arteries. Mild right heart strain that is new from prior examination. Notification to clinician of alert: [facility] was notified about above findings by phone on September 12, 2024 at 4:27 PM by Asael Borjas MD. Readback confirmation was obtained. Electronically signed by Asael Borjas 09-12-2024 4:31 PM
--- NOTE | 2024-09-12 16:32 | CT Scan Report ---
CT ABDOMEN and PELVIS with INTRAVENOUS CONTRAST HISTORY: Abdominal pain TECHNIQUE: CT abdomen and pelvis with contrast. IV CONTRAST: 100 mL of OMNIPAQUE 300 ENTERIC CONTRAST: Not Given COMPARISON: CT abdomen pelvis July 14, 2024 FINDINGS: LIVER: No focal lesion identified. Hepatic steatosis and hepatomegaly. GALLBLADDER/BILIARY: Unremarkable gallbladder. No abnormal biliary dilatation. SPLEEN: Unremarkable. PANCREAS: Unremarkable. ADRENALS: Incompletely characterized left adrenal nodule measuring 1.0 cm. KIDNEYS: Cortical cysts. No stones or hydronephrosis identified. PERITONEUM/RETROPERITONEUM. No lymphadenopathy by size criteria. No aortic aneurysm. GASTROINTESTINAL: No obstruction. Normal appendix in the right inguinal hernia. REPRODUCTIVE: Unremarkable prostate gland ABDOMINAL WALL: Small fat-containing hernias. BONES: No acute findings. Posterior instrumented lumbar spinal fusion with laminectomies IMPRESSION: No urolithiasis, hydronephrosis or hydroureter. Normal appendix within the right inguinal hernia. Electronically signed by Asael Borjas 09-12-2024 4:31 PM
[2024-09-12] MEDS ORDERED: diphenhydrAMINE Capsule 25 MG CAP PO PRN (17:44)
[2024-09-12] MEDS: WARFARIN SOD 2.5 MG TAB PO SCH (18:28)
[2024-09-12] MEDS: MoRPHine SULFATE 10 MG/ML CARP/VIAL IV PRN (19:06)
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
[2024-09-12 19:27] LABS: Appearance Urine Clear (Clear); Bacteria Urine Automated None Seen (None Seen); Cast Urine Automated 0-2 /lpf (0-2); Epithelial Cell Urine Auto 0-2 /hpf (0-2); Glucose Urine UA Negative (Negative); RBC Urine Automated 0-2 /hpf (0-2); WBC Urine Automated 0-5 /hpf (0-5)
[2024-09-12] MEDS: ROSUVASTATIN CALCIUM 10 MG TAB PO SCH (20:44)
[2024-09-12] MEDS: LOSARTAN POTASSIUM 50 MG TAB PO SCH (20:44)
[2024-09-12] MEDS: GABAPENTIN 100 MG CAP PO SCH (20:44)
[2024-09-13 00:51] VITALS: RESP 18
--- NOTE | 2024-09-13 01:07 | Ultrasound Report ---
Exam(s): US VENOUS BILATERAL LOWER EXTREMITIES EXAM: US Duplex Bilateral Lower Extremities Veins CLINICAL HISTORY: Reason for exam: leg pain / swelling. TECHNIQUE: Real-time duplex ultrasound scan of the bilateral lower extremity veins integrating B-mode two-dimensional vascular structure, Doppler spectral analysis, color flow Doppler imaging and compression. COMPARISON: 07/14/2024. FINDINGS: Right deep veins: There is nonocclusive thrombus involving the common femoral vein, the femoral vein and the popliteal vein. Right superficial veins: No thrombus in the visualized right great saphenous vein. Left deep veins: There is nonocclusive thrombus involving the common femoral vein, the femoral vein and the popliteal vein. Left superficial veins: No thrombus in the visualized left great saphenous vein. Soft tissues: No acute findings. No popliteal cyst. IMPRESSION: There is extensive nonocclusive deep venous thrombosis in the lower extremities bilaterally. This appears somewhat improved compared to previous examination.. Electronically signed by: Jimy Chavarria MD 09/13/24 01:06 AM
[2024-09-13 07:11] LABS: Hematocrit (blood only) 39.2 % (42.0-52.0); Hemoglobin 12.9 g/dl (14.0-18.0); Immature Granulocytes # (auto) 0.04 K/uL (0.01-0.20); Immature Granulocytes % (auto) 0.5 %; Mean Corpuscular Hemoglobin 28.2 pg (25.0-34.0); Mean Corpuscular Volume 85.6 fL (80.0-100.0); Platelet Count 194 K/uL (130-400); RDW Standard Deviation 48.0 fL (36.4-46.3); Red Blood Count 4.58 M/uL (4.70-6.10); White Blood Count 8.87 K/ul (4.8-10.8)
[2024-09-13 07:22] LABS: INR 2.1 (0.9-1.1); Prothrombin Time 21.8 Seconds (9.0-12.0)
[2024-09-13 07:28] LABS: Anion Gap 9.0 (3-11); Blood Urea Nitrogen 19.0 mg/dl (6-23); Calcium 8.8 mg/dl (8.6-10.3); Carbon Dioxide 23.0 mmol/L (21-32); Chloride 104.0 mmol/L (98-107); Creatinine Clr Calc Pharmacy 95.2 ml/min; Glucose 171.0 mg/dl (70-99(Fasting)); Potassium 4.2 mmol/L (3.5-5.1); Sodium 136.0 mmol/L (136-145)
[2024-09-13 08:22] VITALS: O2SAT 96
[2024-09-13] MEDS: ONDANSETRON INJ 2 MG/ML 2 ML VIAL IV PRN (08:31)
[2024-09-13] MEDS: ACETAMINOPHEN 325 MG TAB PO PRN (08:31)
[2024-09-13 08:38] LABS: Magnesium 1.9 mg/dl (1.7-2.4)
--- NOTE | 2024-09-13 11:31 | XCELERA ---
[id number]
[2024-09-13 11:37] VITALS: TEMP 97.3
--- NOTE | 2024-09-13 13:56 | Electrocardiogram Report ---
Test Reason : Blood Pressure : */* mmHG Vent. Rate : 53 BPM Atrial Rate : 53 BPM P-R Int : 210 ms QRS Dur : 92 ms QT Int : 424 ms P-R-T Axes : -13 -14 -17 degrees QTcB Int : 397 ms Sinus bradycardia with 1st degree A-V block Inferior infarct , age undetermined Abnormal ECG When compared with ECG of 30-Aug-2024 17:13, Inferior infarct is now Present T wave inversion now evident in Inferior leads Confirmed by Mariano River ([id number]) on 09/13/2024 1:56:04 PM Referred By: REFERRED SELF Confirmed By: Mariano River
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
[2024-09-13 15:41] VITALS: BP 164/93; PULSE 61
[2024-09-13] MEDS: WARFARIN SOD 5 MG TAB PO SCH (15:45)
== END 2024-09-13 16:23 | disposition home or self-care (01) | DRG 176 ==
LOC: SUATTDRO → ED 13:22 → 2N 17:38 → OBSVTOIN 17:38 → INTOOBSV 17:38 → 2N 19:45

== ENCOUNTER 2025-01-13 14:06 | Observation (INO) ==
--- NOTE | 2025-01-13 14:24 | Emergency Department Note ---
Impression & Plan Intractable vomiting with nausea, Intractable abdominal pain ED Provider Note NAME: JOHN JACINTO AGE: 74 SEX: M : 1950 ARRIVES VIA: Walk-In INFORMANT: The patient himself. ED PROVIDER(S): Ryann Graham PA-C, [Kellie Prieto MD] CHIEF COMPLAINT: Abdominal pain, nausea HISTORY OF PRESENTING ILLNESS: The patient is a 74-year-old male with a PMH obesity, HTN, colon CA, ileus, PE, back pain, and anemia who presents to the emergency department due to 1 week of abdominal pain and nausea. He reports his colon cancer was in 1988 and he has been in remission since. He reports having 30 episodes of ileus since his colon resection that presented similar to this. He states "whenever this happens I need to be admitted to the hospital for pain management and fluids and then I feel better in the next couple of days". He denies fever but does report chills. He denies chest pain, shortness of breath, back pain, URI symptoms, blood in his stool, or urinary symptoms. REVIEW OF SYSTEMS: See HPI for pertinent positives and pertinent negatives. ALLERGIES: Meperidine, oxycodone, penicillin, propoxyphene, iodine contrast media MEDICATIONS: See below PAST MEDICAL HISTORY: See below PHYSICAL EXAM: VITALS: Vitals are noted on the nurses note and reviewed by myself. Vital signs stable. GENERAL: 74-year-old male, holding an emesis bag, in no acute distress, nondiaphoretic, well-developed well-nourished. SKIN: Capillary refill less than 2 seconds. HEENT: Normocephalic. PERRLA. EOMI. Nares patent. Mucous membranes moist. Neck is supple without nuchal rigidity. HEART: Regular rate and rhythm without murmurs gallops or rubs. LUNGS: CTA BL without wheezes, rales or rhonchi. No retractions or accessory muscle use. ABDOMEN: Positive BS x 4. Soft, diffuse abdominal tenderness, worse in the umbilical and left lower quadrant, without masses or organomegaly. No guarding or rebound tenderness. MUSCULOSKELETAL: No gross musculoskeletal defects. NEURO: Patient was alert and oriented to person place and time. No focal neurological deficits. DIFFERENTIAL DIAGNOSIS: Differential diagnosis includes appendicitis, diverticulitis, ileus, bowel obstruction, inflammatory bowel disease, renal colic, PUD, biliary pathology, pancreatitis, mesenteric ischemia, aortic pathology, infection, genitourinary, UTI, perforated viscus, among others. ED COURSE AND MEDICAL DECISION MAKING: MEDICATIONS GIVEN: Zofran 4 mg IV, Benadryl 50 mg IV, Solu-Medrol 40 mg IV, Tylenol 1000 mg IV, 1 L normal saline, Dilaudid 0.5 mg IV, Reglan 10 mg IV INTERPRETATION OF LABS: I interpreted the labs with full lab results as below in the lab section of this note. Pertinent lab results discussed in the MDM section below. INTERPRETATION OF IMAGING: I informally interpreted the patient's CT abdomen pelvis which does not show evidence of obvious small bowel obstruction, ileus, nephrolithiasis, or diverticulitis and reviewed formal report below. ESCALATION OF CARE CONSIDERED: Escalation of care considered as the patient has had reoccurring episodes of ileus and presents with similar findings. Workup completed here in the ER and imaging does not reveal acute abnormality at this time. Labs reassuring however patient's nausea and abdominal pain has not improved with treatment here in the ER. Patient was admitted for further management. CONSULTATIONS: On-call [facility] hospitalist - Presented the patient to the provider and his past medical history. Patient has had abdominal pain, nausea, and vomiting for 1 week that is worse today. The patient was given treatment here in the emergency department without improvement of his symptoms. I do believe the patient would benefit from admission for further workup and treatment. They agreed to evaluate the patient for admission. housecalls nurse general surgery - Dr. Broussard - Presented the patient to the provider and hernia containing the appendix on the right side. This is noted on patient's previous imaging and on PE patient's pain is not localized to that area. Surgeon does not believe that surgical procedure is not emergently warranted however may be done in the outpatient setting. MDM SUMMARY: I evaluated the 74-year-old male who presents to the emergency department due to abdominal pain, nausea, and vomiting for 1 week that worsened today. See HPI and PE above. Patient is hypertensive 166/92. Patient has a history of HTN and reports taking his medications today. This may be elevated due to discomfort. Will continue to monitor. Patient denies symptoms. Initially Zofran, Tylenol, and 1 L normal saline given for symptom management. Patient has not noted anaphylactic allergy to contrast however confirms having recent imaging with prophylactic treatment of Benadryl and steroids without any difficulty. The patient was given 50 mg IV Benadryl and 40 mg Solu-Medrol for imaging. Labs obtained showing no leukocytosis. Mild anemia consistent with patient's previous labs. Hemodynamically stable. No electrolyte abnormality. No LISA. Normal LFTs. Lipase 33. Troponin 6.1. Urinalysis obtained showing no hematuria or bacteria. On reevaluation patient confirms his pain has not improved. He was given a dose of Dilaudid and Reglan. CT scan shows left adrenal nodule unchanged from previous image and a left renal cyst. Incidental findings reviewed with the patient. Small right inguinal hernia containing the appendix and small left inguinal hernia containing only fat noted from previous imaging over a year ago. Patient denies right lower quadrant pain and on exam is unremarkable. Consultation with on-call general surgery can be seen in detail above who recommended possible outpatient surgical procedure if the patient would prefer to avoid this becoming an issue however would not do anything emergently. Again on reevaluation of the patient he confirms that his symptoms have not improved and that his pain is worse. He has not had any episodes of vomiting here in the ER. Consultation with the on-call hospitalist can be seen in detail above due to intractable abdominal pain, nausea, and vomiting. Abdominal pain is not out of proportion on exam. Patient is resting comfortably and nontoxic-appearing. They agreed to evaluating the patient and admitting him to medicine for further management. Patient is agreeable and all questions answered. The patient was admitted in stable condition. DIAGNOSIS: Intractable nausea and vomiting, intractable abdominal pain The chart was completed utilizing [employer] Speech voice recognition software. Grammatical errors, random word insertions, pronoun errors, and incomplete sentences are an occasional consequence of this system due to software limitations, ambient noise, and hardware issues. Any formal questions or concerns about the content, text, or information contained within the body of this dictation should be directly addressed to the provider for clarification. TREATMENT PLAN/DISCHARGE INSTRUCTIONS: The patient was admitted to medicine. See that note for further workup and treatment plan. Past Med/Surg History Problem List (Updated 01/16/25 @ 17:47 by Ryann Graham PA-C) Intractable abdominal pain (Acute) Intractable vomiting with nausea (Acute) Intractable abdominal pain Intractable nausea and vomiting Chronic SI joint pain Postlaminectomy syndrome of lumbosacral region Visual disturbance (Acute) Headache (Acute) Elevated INR (Acute) Dizziness (Acute) Elevated INR Pleuritic chest pain (Acute) Thrombocytopenia (Acute) Anemia Lumbar back pain with radiculopathy affecting left lower extremity Pulmonary embolism and infarction S/P lumbar fusion 12/26/2023 -- [facility]; L1-L5 fusion History of ileus (Acute) Left sided abdominal pain (Acute) Intractable nausea (Acute) Hypertension Abdominal pain (Acute) S/p reverse total shoulder arthroplasty Morbid obesity Rotator cuff arthropathy of right shoulder Wrist pain, right (Acute) Osteoarthritis of right knee Status post total right knee replacement Encounter for pre-operative examination Medical History On warfarin therapy Pulmonary emboli 2024 Intractable back pain Thigh pain Chronic pulmonary embolism Enteritis SBO (small bowel obstruction) Lumbosacral radiculopathy HLD (hyperlipidemia) Spinal stenosis, lumbar region with neurogenic claudication History of colon cancer s/p resection (hx of blood transfusion remotely in 1980s in setting of cancer) History of DVT (deep vein thrombosis) LLE DVT (2011) s/p TKA- treated with AC Sleep apnea CPAP Ileus Recurrent s/p colon cancer/resection Concern about infectious disease without diagnosis Pt reports that if he gets an infection, he does not get any normal signs of it like fever/elevated WBC. He states he had a bad infection (? sepsis) and almost from when had colon cancer, but showed no signs until almost too late. Osteoarthritis GERD (gastroesophageal reflux disease) Occasional History of ileus 2017 Surgical History Hx of abdominal surgery Age 2/3 (no further details) History of esophagogastroduodenoscopy (EGD) History of tooth extraction H/O squamous cell carcinoma excision Left arm Hx of discectomy Lumbar (prior to fusion) History of repair of rotator cuff Right Status post trigger finger release R/L History of total knee replacement R/L History of bilateral carpal tunnel release History of bowel resection History of colonoscopy History of arthroscopy Right elbow History of colostomy reversal History of colostomy 2/2 colon cancer Fusion of spine Lumbar x2 Removal previous hardware, L3-L5 decompression with fusion (05/22/2018): Failed with MAC3, easy with Glidescope #4 at [facility] Family History Mother , at 65 years of age from COPD with underlying tobacco abuse. Family history of diabetes mellitus Son VTE (venous thromboembolism) Father , at 60 years of age from bladder cancer with cystostomy. Bladder cancer Daughter , age 42 Breast cancer Daughter Suicide Social History Smoking Status: Never smoker Tobacco Type: Cigarettes Age Started Using Tobacco: 17; Age Quit Using Tobacco: 17; packs per day: 0.05; Cigarettes Per Day: 1; Second Hand Exposure: No; Do You Dip or Chew Tobacco: No; Hx Alcohol Use: No Hx Substance Use: No Preferred Language: Indian Communication Ability: Effective Visual Impairment: No Limitations Marketing Database Analyst Required: No Beliefs That Will Affect Care: None marital status: marital status details: [id number];48y daught ;metBRCA,liver;29y daught ,conspiracy Current Living Situation: Spouse Current Living Situation Comment: 2nd x30y; 52y live-in son w/bipolar d/o and IQ 160, unemployed current occupational status: retired 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; 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 How many Children do You have: 5 How many Children do You have Comment: 3 children 1st marriage; 2 children 2nd marriage; 2 kids are Feels Safe at Home: Yes Assistive Devices: CPAP Allergies Allergies Allergy/AdvReac Type Severity Reaction Status Date / Time Iodinated Contrast Media Allergy Severe Anaphylaxis Verified 01/13/25 16:17 meperidine Allergy Mild Rash Verified 01/13/25 16:17 oxycodone AdvReac Mild Percocet/Percodan- Verified 01/13/25 16:17 skin crawling Penicillins AdvReac Mild Dyspepsia Verified 01/13/25 16:17 propoxyphene AdvReac Mild Darvon/Darvocet- Verified 01/13/25 16:17 skin crawling Home Meds Home Medications Medication Instructions Recorded Confirmed diphenhydramine HCl 25 mg capsule 50 mg PO HS PRN Insomnia 04/23/18 01/13/25 (Benadryl) rosuvastatin 10 mg tablet 10 mg PO HS 08/21/20 01/13/25 losartan 50 mg tablet 50 mg PO HS 11/19/23 01/13/25 acetaminophen 325 mg tablet 650 mg PO Q6H PRN Pain 04/16/24 01/13/25 cholecalciferol (vitamin D3) 25 25 mcg PO PM 05/18/24 01/13/25 mcg (1,000 unit) tablet (Vitamin D3) cyanocobalamin (vitamin B-12) 500 1,000 mcg PO QAM 09/12/24 01/13/25 mcg tablet hydrocodone 5 mg-acetaminophen 325 1 tab PO Q6H PRN severe pain 09/30/24 01/13/25 mg tablet Previous Rx's Medication Instructions Recorded tizanidine 4 mg tablet 4 mg PO Q8H PRN muscle spasticity 06/30/24 #10 tabs gabapentin 100 mg capsule 200 mg (2 x 100 mg) PO TID #180 07/18/24 caps pantoprazole 40 mg tablet,delayed 40 mg PO BID #60 tabs 09/13/24 release warfarin 5 mg tablet See Rx Instructions PO UD #30 tabs 12/02/24 ondansetron HCl 4 mg tablet 4 mg PO Q6H PRN nausea and 01/15/25 vomiting #30 tabs Results & Data (ED) Vital Signs Vital Signs - 24 hr 01/13/25 14:12 01/13/25 14:19 01/13/25 14:58 Temperature 36.5 C Temperature Source Temporal Artery Scan Pulse Rate 63 57 L Pulse Rate [Apical] Pulse Rate from SpO2 Sensor Respiratory Rate 19 Respiratory Effort / Characteristics Non-Labored Spontaneous Respiratory Depth Normal Normal Blood Pressure 180/142 H 162/90 H Blood Pressure [Right Arm] Blood Pressure Mean 154 125 Blood Pressure Mean [Right Arm] Blood Pressure Position Sitting Blood Pressure Position [Right Arm] Pulse Oximetry 98 99 Oxygen Delivery Method Room Air Room Air Sepsis Recent Fever Within 48 Hours No Sepsis New/Unexplained Change in Mental Status No Sepsis Action Taken by Nursing No Action Required 01/13/25 16:08 01/13/25 16:51 01/13/25 17:44 Temperature Temperature Source Pulse Rate 52 L 56 L Pulse Rate [Apical] 54 L Pulse Rate from SpO2 Sensor 56 L Respiratory Rate 10 L 16 Respiratory Effort / Characteristics Non-Labored Respiratory Depth Normal Blood Pressure Blood Pressure [Right Arm] 137/81 Blood Pressure Mean Blood Pressure Mean [Right Arm] 99 Blood Pressure Position Blood Pressure Position [Right Arm] Sitting Pulse Oximetry 98 96 Oxygen Delivery Method Room Air Room Air Sepsis Recent Fever Within 48 Hours Sepsis New/Unexplained Change in Mental Status Sepsis Action Taken by Nursing Laboratory Data 01/15/25 05:30 01/15/25 05:30 Lab Results 01/13/25 01/13/25 Range/Units 15:08 15:16 WBC 5.49 (4.8-10.8) K/ul RBC 4.49 L (4.70-6.10) M/uL Hgb 12.8 L (14.0-18.0) g/dL POC Hgb 12.6 L (14.0-18.0) g/dl Hct 38.2 L (42.0-52.0) % POC Hct 37 L (42-52) % MCV 85.1 (80.0-100.0) fL MCH 28.5 (25.0-34.0) pg MCHC 33.5 (32.0-36.0) g/dL RDW Std Deviation 45.0 (36.4-46.3) fL RDW Coeff of Saray 14.6 H (11.5-14.5) % Plt Count 158 (130-400) K/uL MPV 10.7 (9.4-12.4) fL Immature Gran % (Auto) 0.2 % Neut % (Auto) 62.9 % Lymph % (Auto) 25.1 % Eaton % (Auto) 9.3 % Eos % (Auto) 2.0 % Baso % (Auto) 0.5 % Neut # (Auto) 3.45 (1.40-6.50) K/uL Lymph # (Auto) 1.38 (1.20-3.40) K/uL Eaton # (Auto) 0.51 (0.11-0.59) K/uL Eos # (Auto) 0.11 (0.00-0.50) K/uL Baso # (Auto) 0.03 (0.00-0.20) K/uL Immature Gran # (Auto) 0.01 (0.01-0.20) K/uL POC Sodium 142 (135-144) mmol/L Sodium 139 (136-145) mmol/L POC Potassium 4.0 (3.3-5.0) mmol/L Potassium 4.0 (3.5-5.1) mmol/L POC Chloride 107 (101-112) mmol/L Chloride 108 H (98-107) mmol/L Carbon Dioxide 25 (21-32) mmol/L POC Total CO2 22 L (24-31) mmol/L Anion Gap 6 (3-11) POC Anion Gap 19.0 (16-25) mmol/L POC BUN 15 (7-18) mg/dl BUN 15 (6-23) mg/dl Creatinine 0.88 (0.6-1.4) mg/dl POC Creatinine 1.1 (0.6-1.3) mg/dl Est Cr Clr Drug Dosing 102.2 ml/min eGFR 91.36 BUN/Creatinine Ratio 17.0 (10-20) Glucose 98 (70-99(Fasting)) mg/dl POC Glucose (other) 96 (70-99) mg/dl Calcium 9.0 (8.6-10.3) mg/dl POC Ioniz Calcium Jesus 1.17 (1.12-1.32) mmol/l Total Bilirubin 0.4 (0.2-1.0) mg/dl AST 26 (13-39) U/L ALT 27 (7-52) U/L Alkaline Phosphatase 58 (34-104) U/L Troponin I High Sens 6.1 (0-20) pg/ml Total Protein 7.2 (6.0-8.3) gm/dl Albumin 4.0 (3.4-5.0) gm/dl Globulin 3.2 (2.5-4.0) gm/dl Albumin/Globulin Ratio 1.3 (0.9-2) Lipase 33 (11-82) U/L Administered Medications Discontinued Medications Cyanocobalamin (Cyanocobalamin (B-12) 500 Mcg Tablet) 1,000 mcg PO QAM [facility] Stop: 02/13/25 08:59 Last Admin: 01/15/25 09:21 Dose: 1,000 mcg Documented By: Admin: 01/14/25 08:58 Dose: 1,000 mcg Documented By: MK Diphenhydramine HCl (Diphenhydramine 50 Mg/Ml Vial) 50 mg IV ONE ONE Stop: 01/13/25 14:58 Last Admin: 01/13/25 15:29 Dose: 50 mg Documented By: MMG Gabapentin (Gabapentin 100 Mg Cap) 200 mg PO TID MARJ Stop: 02/12/25 22:18 Last Admin: 01/15/25 09:22 Dose: 200 mg Documented By: Admin: 01/14/25 21:35 Dose: 200 mg Documented By: psc Admin: 01/14/25 15:18 Dose: 200 mg Documented By: Admin: 01/14/25 08:58 Dose: 200 mg Documented By: Admin: 01/14/25 00:27 Dose: 200 mg Documented By: vadim Hydromorphone HCl (Hydromorphone Inj 0.5 Mg/0.5 Ml Syr) 0.5 mg IV NOW STA Stop: 01/13/25 17:03 Last Admin: 01/13/25 17:22 Dose: 0.5 mg Documented By: MMG Hydromorphone HCl (Hydromorphone Inj 1 Mg/Ml Syringe) 1 mg IV NOW STA Stop: 01/13/25 18:54 Last Admin: 01/13/25 19:06 Dose: 1 mg Documented By: OLESYA Hydromorphone HCl (Hydromorphone Inj 1 Mg/Ml Syringe) 1 mg IV Q4H PRN PRN Reason: Moderate Pain (Scale 4, 5, 6) Stop: 01/27/25 22:18 Last Admin: 01/15/25 09:26 Dose: 1 mg Documented By: Admin: 01/15/25 02:29 Dose: 1 mg Documented By: psc Admin: 01/14/25 21:28 Dose: 1 mg Documented By: psc Admin: 01/14/25 14:52 Dose: 1 mg Documented By: dano Admin: 01/14/25 09:49 Dose: 1 mg Documented By: pse Admin: 01/14/25 04:31 Dose: 1 mg Documented By: psc Admin: 01/14/25 00:20 Dose: 1 mg Documented By: psc Sodium Chloride (Nss) 1,000 mls @ 999 mls/hr IV .Q1H1M ONE Stop: 01/13/25 15:52 Last Infusion: 01/13/25 17:09 Dose: Infused Documented By: MMSolange Admin: 01/13/25 15:29 Dose: 999 mls/hr Documented By: TAMMY Acetaminophen (Ofirmev) 1,000 mg in 100 mls @ 400 mls/hr IV NOW STA Stop: 01/13/25 15:06 Last Infusion: 01/13/25 16:22 Dose: Infused Documented By: Admin: 01/13/25 15:29 Dose: 400 mls/hr Documented By: MMSolange Promethazine HCl (Phenergan) 12.5 mg in 50.5 mls @ 202 mls/hr IV Q6H PRN PRN Reason: Nausea And Vomiting Stop: 02/12/25 22:18 Last Infusion: 01/14/25 22:00 Dose: Infused Documented By: psc Admin: 01/14/25 21:29 Dose: 202 mls/hr Documented By: psc Infusion: 01/14/25 15:10 Dose: Infused Documented By: Admin: 01/14/25 14:52 Dose: 202 mls/hr Documented By: dano Sodium Chloride (Nss) 1,000 mls @ 125 mls/hr IV .Q8H MARJ Stop: 01/16/25 22:18 Last Admin: 01/15/25 02:20 Dose: 125 mls/hr Documented By: psc Infusion: 01/15/25 02:20 Dose: Infused Documented By: psc Admin: 01/14/25 18:19 Dose: 125 mls/hr Documented By: Infusion: 01/14/25 17:51 Dose: Infused Documented By: Admin: 01/14/25 09:51 Dose: 125 mls/hr Documented By: pse Infusion: 01/14/25 08:48 Dose: Infused Documented By: Admin: 01/14/25 00:31 Dose: 125 mls/hr Documented By: vadim Ioversol (Optiray 320 100ml) 90 ml IV ONCE ONE Stop: 01/13/25 15:54 Last Admin: 01/13/25 15:53 Dose: 90 ml Documented By: IMANI Losartan Potassium (Losartan Potassium 50 Mg Tab) 50 mg PO HS MARJ Stop: 02/12/25 22:18 Last Admin: 01/14/25 21:35 Dose: 50 mg Documented By: psc Admin: 01/14/25 00:29 Dose: 50 mg Documented By: psc Methylprednisolone (Methylprednisolone 125 Mg/2 Ml Vial) 40 mg IV NOW ONE Stop: 01/13/25 14:58 Last Admin: 01/13/25 15:29 Dose: 40 mg Documented By: MMSolange Metoclopramide HCl (Metoclopramide Hcl Inj 5 Mg/Ml 2 Ml Vial) 10 mg IV NOW STA Stop: 01/13/25 17:04 Last Admin: 01/13/25 17:21 Dose: 10 mg Documented By: TAMMY Ondansetron HCl (Ondansetron Inj 2 Mg/Ml 2 Ml Vial) 4 mg IV NOW STA Stop: 01/13/25 14:53 Last Admin: 01/13/25 15:29 Dose: 4 mg Documented By: TAMMY Ondansetron HCl (Ondansetron Inj 2 Mg/Ml 2 Ml Vial) 4 mg IV NOW STA Stop: 01/13/25 18:59 Last Admin: 01/13/25 19:07 Dose: 4 mg Documented By: OLESYA Ondansetron HCl (Ondansetron Inj 2 Mg/Ml 2 Ml Vial) 4 mg IV Q6H PRN PRN Reason: Nausea Stop: 02/12/25 22:18 Last Admin: 01/15/25 02:29 Dose: 4 mg Documented By: psc Admin: 01/14/25 11:57 Dose: 4 mg Documented By: dano Admin: 01/14/25 00:20 Dose: 4 mg Documented By: psc Pantoprazole Sodium (Pantoprazole 40 Mg Tab) 40 mg PO BID MARJ Stop: 02/12/25 22:18 Last Admin: 01/15/25 09:22 Dose: 40 mg Documented By: Admin: 01/14/25 21:36 Dose: 40 mg Documented By: psc Admin: 01/14/25 08:58 Dose: 40 mg Documented By: Admin: 01/14/25 00:28 Dose: 40 mg Documented By: psc Rosuvastatin Calcium (Rosuvastatin Calcium 10 Mg Tab) 10 mg PO HS MARJ Stop: 02/12/25 22:18 Last Admin: 01/14/25 21:34 Dose: 10 mg Documented By: psc Admin: 01/14/25 00:28 Dose: 10 mg Documented By: psc Vitamin D (Cholecalciferol 25 Mcg (1000 Units) Tab) 25 mcg PO PM MARJ Stop: 02/12/25 22:18 Last Admin: 01/14/25 21:34 Dose: 25 mcg Documented By: psc Admin: 01/14/25 00:30 Dose: 25 mcg Documented By: psc Warfarin Sodium (Warfarin Sod 5 Mg Tab) 5 mg PO MoTuWeThFrSa@1600 [facility] Stop: 02/13/25 01:44 Last Admin: 01/14/25 02:24 Dose: 5 mg Documented By: psc Warfarin Sodium (Warfarin Sod 5 Mg Tab) 5 mg PO MoTuWeThFrSa@0900 [facility] Stop: 02/14/25 08:59 Last Admin: 01/15/25 09:22 Dose: 5 mg Documented By: BT Imaging Data Radiologist's Impression: Abdomen/Pelvis CT 01/13/25 14:57 Clinical History: Abdominal pain Technique: Axial computed tomography images were obtained of the abdomen and pelvis after the administration of intravenous contrast. Comparison is made to the prior CT dated 09/12/2024 Findings: The liver is overall of normal size, attenuation, and contour with no sign of cirrhosis or significant fatty infiltration. No liver mass lesion is seen. The portal vein is patent. The gallbladder appears unremarkable. No bile duct dilatation is noted. The spleen is of normal size. No focal splenic lesion is evident. The pancreas appears normal with no sign of acute or chronic pancreatitis and no mass lesion noted. The pancreatic duct is of normal caliber. There is an unchanged 1.7 cm left adrenal nodule. The right adrenal gland appears normal No definite renal or proximal ureteral calculi are seen on this contrast-enhanced study. There is no hydronephrosis or perinephric stranding. No renal mass lesion is identified. There is a 2.5 cm left renal cyst The aorta is of normal caliber. No abdominal adenopathy is seen. The stomach appears normal. There is no sign of small bowel obstruction. The colon appears unremarkable. There is a small right inguinal hernia containing the appendix. There is no definite side effect and situs. No free intraperitoneal fluid or air is identified. No distal ureteral or bladder calculi are seen. No bladder mass lesion is evident. The iliac arteries are of normal caliber. No pelvic adenopathy is noted. There is a small left inguinal hernia containing fat There is mild bilateral lower lobe atelectasis. There is a fusion of L1-S1. No fracture is identified. No focal osseous lesion is seen Impression: 1. Unchanged small left adrenal nodule, indeterminate in nature but likely a benign adenoma 2. Left renal cyst 3. Small right inguinal hernia containing the appendix 4. Small left inguinal hernia containing only fat ACT 112: Positive. There are findings on this exam that require communication between the performing entity and the patient following Patient Test Result Information Act ([place] ACT 112) guidelines. Electronically signed by Yury Vega 01-13-2025 4:29 PM Discharge Plan Visit Data Chief Complaint: Abdominal Pain Stated Complaint: ABDOMINAL PAIN, NAUSEA ED Provider: Kellie Prieto ED Midlevel Provider: Ryann Graham Discharge Problem: Intractable vomiting with nausea, Intractable abdominal pain Patient Disposition: Admitted As Inpatient Condition: Good Discharge Instructions Interventions: ED Discharge Assessment Last Done: 01/13/25 22:19
--- NOTE | 2025-01-13 15:13 | Emergency Department Note ---
ED Visit Note I was consulted by the Advanced Practice Provider, Ryann Graham PA-C. I performed a substantive portion of the visit. This includes aspects of: History: Patient is a 74-year-old male presenting with bilateral lower abdominal pain that started last week. He states symptoms have not gotten any better. He has had nausea. Denies any fevers or chills. MDM: Laboratory workup in the emergency department was grossly unremarkable. CT imaging in the emergency department did not show any acute pathology. Noted to have a right inguinal hernia containing the appendix. Surgery was consulted for this and stated patient did not need any acute surgical interventions at this time. Patient has no focal pain at this area. However, patient is still complaining of abdominal pain after medication in the Emergency Department. Will discuss case with hospitalist service. .
[2025-01-13 15:27] LABS: Hematocrit (blood only) 38.2 % (42.0-52.0); Hemoglobin 12.8 g/dL (14.0-18.0); Immature Granulocytes # (auto) 0.01 K/uL (0.01-0.20); Immature Granulocytes % (auto) 0.2 %; Mean Corpuscular Hemoglobin 28.5 pg (25.0-34.0); Mean Corpuscular Volume 85.1 fL (80.0-100.0); Platelet Count 158 K/uL (130-400); RDW Standard Deviation 45.0 fL (36.4-46.3); Red Blood Count 4.49 M/uL (4.70-6.10); White Blood Count 5.49 K/ul (4.8-10.8)
[2025-01-13] MEDS: ONDANSETRON INJ 2 MG/ML 2 ML VIAL IV STA ×2 (15:29→19:07)
[2025-01-13] MEDS: SODIUM CHLORIDE 0.9% 1,000 ML IV ONE (15:29)
[2025-01-13] MEDS: ACETAMINOPHEN 1,000 MG/100 ML VIAL IV STA (15:29)
[2025-01-13] MEDS: diphenhydrAMINE 50 MG/ML VIAL IV ONE (15:29)
[2025-01-13 15:44] LABS: Alanine Aminotransferase 27.0 U/L (7-52); Albumin Globulin Ratio 1.3 (0.9-2); Albumin Level 4.0 gm/dl (3.4-5.0); Alkaline Phosphatase 58.0 U/L (34-104); Anion Gap 6.0 (3-11); Bilirubin,Total 0.4 mg/dl (0.2-1.0); Blood Urea Nitrogen 15.0 mg/dl (6-23); Calcium 9.0 mg/dl (8.6-10.3); Carbon Dioxide 25.0 mmol/L (21-32); Chloride 108.0 mmol/L (98-107); Creatinine Clr Calc Pharmacy 102.2 ml/min; Globulin 3.2 gm/dl (2.5-4.0); Glucose 98.0 mg/dl (70-99(Fasting)); Lipase 33.0 U/L (11-82); Potassium 4.0 mmol/L (3.5-5.1); Sodium 139.0 mmol/L (136-145); Total Protein 7.2 gm/dl (6.0-8.3)
[2025-01-13] MEDS: OPTIRAY 320 100ml IV ONE (15:53)
--- NOTE | 2025-01-13 16:29 | CT Scan Report ---
Clinical History: Abdominal pain Technique: Axial computed tomography images were obtained of the abdomen and pelvis after the administration of intravenous contrast. Comparison is made to the prior CT dated 09/12/2024 Findings: The liver is overall of normal size, attenuation, and contour with no sign of cirrhosis or significant fatty infiltration. No liver mass lesion is seen. The portal vein is patent. The gallbladder appears unremarkable. No bile duct dilatation is noted. The spleen is of normal size. No focal splenic lesion is evident. The pancreas appears normal with no sign of acute or chronic pancreatitis and no mass lesion noted. The pancreatic duct is of normal caliber. There is an unchanged 1.7 cm left adrenal nodule. The right adrenal gland appears normal No definite renal or proximal ureteral calculi are seen on this contrast-enhanced study. There is no hydronephrosis or perinephric stranding. No renal mass lesion is identified. There is a 2.5 cm left renal cyst The aorta is of normal caliber. No abdominal adenopathy is seen. The stomach appears normal. There is no sign of small bowel obstruction. The colon appears unremarkable. There is a small right inguinal hernia containing the appendix. There is no definite side effect and situs. No free intraperitoneal fluid or air is identified. No distal ureteral or bladder calculi are seen. No bladder mass lesion is evident. The iliac arteries are of normal caliber. No pelvic adenopathy is noted. There is a small left inguinal hernia containing fat There is mild bilateral lower lobe atelectasis. There is a fusion of L1-S1. No fracture is identified. No focal osseous lesion is seen Impression: 1. Unchanged small left adrenal nodule, indeterminate in nature but likely a benign adenoma 2. Left renal cyst 3. Small right inguinal hernia containing the appendix 4. Small left inguinal hernia containing only fat ACT 112: Positive. There are findings on this exam that require communication between the performing entity and the patient following Patient Test Result Information Act ([place] ACT 112) guidelines. Electronically signed by Yury Vega 01-13-2025 4:29 PM
[2025-01-13] MEDS: METOCLOPRAMIDE HCL INJ 5 MG/ML 2 ML VIAL IV STA (17:21)
[2025-01-13] MEDS: HYDROmorphone INJ 0.5 MG/0.5 ML SYR IV STA (17:22)
--- NOTE | 2025-01-13 18:09 | History & Physical Report ---
Date of Service January 13, 2025 Assessment & Plan (1) Intractable abdominal pain: (2) Intractable nausea: (3) History of ileus: Analy Pollock is a pleasant 74-year-old man with past medical history of multiple VTEs (postoperative LLE DVT in 2011, bilateral PE and bilateral LE DVTs in June 2024) on Coumadin, colon cancer at age 32, hypertension, morbid obesity, severe lumbar DDD s/p multiple surgeries, AMRIK, prior colostomy s/p reversal, hyperlipidemia. He presented to the ED due to intractable nausea and abdominal pain that feels similar to his prior ileus. His workup in the ED was fairly unremarkable regarding his labs and CT A/P. However due to no improvement with medications provided in ED, patient was referred for admission for management of his intractable nausea and abdominal pain. #Intractable nausea and abdominal pain - CT A/P on arrival notes a small right inguinal hernia containing the appendix. This finding was discussed by the ED provider with the on-call general surgeon who reportedly recommended no acute surgical interventions needed at this time - Respiratory BioFire ordered to assess for enterovirus, as this can cause intractable N/V and abdominal pain - Lactate ordered on admission, pending. If elevated, consider further workup for mesenteric ischemia - Nausea regimen: Zofran IV first line, Phenergan IV second line, Compazine IV third line - Pain regimen: Tylenol PRN mild pain/fever, Dilaudid 1-1.5 mg IV PRN mod-severe pain #History of VTE - INR goal of 2-3 - Continue Coumadin 2.5 mg on Sundays, 5mg daily for every other day of the week - PT/INR with AM labs #History of colon cancer ~age 32 - few details are known about his colon ca other than he had radiation & surgery along with colostomy for 1-2 years then reversal -gets colonoscopy every 5 years; is due this year - He was supposed to get established with [facility] after his hospitalization earlier this year in June, but has not yet done so - He needs a repeat colonoscopy given his seemingly unprovoked VTEs earlier this year with his history of colon cancer #HTN -BPs are controlled -continue losartan # HLD-no acute issues -continue crestor #chronic lumbar back pain/DDD with LLE radiculopathy - Continue gabapentin 200 mg TID, tizanidine as needed for muscle spasms, and home hydrocodone/acetaminophen 5-325 mg Q6H PRN severe pain #anemia - mild low-grade anemia for some time. B12 low normal in the 200s, folate normal, iron studies normal in June 2024 - Continue B12 1000 mcg p.o. daily #AMRIK - CPAP HS #Prediabetes - HgbA1c elevated at 6.4% in June 2024 - Needs weight loss, diet control - Follow-up with PCP VTE PPx: Coumadin Dispo: Observation on med/surg Reviewed prior medical records updated at bedside on admission History of Present Illness Chief Complaint: Intractable nausea, abdominal pain Primary Care Provider: Denver Pollock is a pleasant 74-year-old man with past medical history of multiple VTEs (postoperative LLE DVT in 2011, bilateral PE and bilateral LE DVTs in June 2024) on Coumadin, colon cancer at age 32, hypertension, morbid obesity, severe lumbar DDD s/p multiple surgeries, AMRIK, prior colostomy s/p reversal, hyperlipidemia. He presented from home with intractable nausea and abdominal pain. At the time of my exam, the patient was lying in bed in no acute distress with his present. He states he began developing nausea and diffuse abdominal pain last Sunday 01/07. He attempted to manage this at home with dietary changes under the presumption the symptoms were from an ileus as he has had multiple times previously with similar presentation. He continues to pass gas and had a bowel movement this morning. He initially thought this was improving, however earlier today he experienced severe diffuse abdominal pain and nausea after eating a bowl of cereal for lunch. This prompted him to come to the ED. Patient reports that he took all of his regular morning medications today; no recent change in medications. He does not use supplemental oxygen at baseline. He does wear his CPAP at night. Vitals on admission significant for mild bradycardia with HR 54; vitals otherwise stable. Labs on admission are significant for normocytic anemia with Hgb 12.8 (baseline). No leukocytosis. Platelets WNL. Electrolytes WNL. Renal function WNL. Liver enzymes WNL. Troponin normal at 6.1. CT A/P on admission reveals unchanged small left adrenal nodule (indeterminate in nature but likely a benign adenoma), left renal cyst, small right inguinal hernia containing the appendix, small left inguinal hernia containing only fat. We discussed code status, patient wishes to be a full code. Allergies Allergy/AdvReac Type Severity Reaction Status Date / Time Iodinated Contrast Media Allergy Severe Anaphylaxis Verified 01/13/25 16:17 meperidine Allergy Mild Rash Verified 01/13/25 16:17 oxycodone AdvReac Mild Percocet/Percodan- Verified 01/13/25 16:17 skin crawling Penicillins AdvReac Mild Dyspepsia Verified 01/13/25 16:17 propoxyphene AdvReac Mild Darvon/Darvocet- Verified 01/13/25 16:17 skin crawling Home Medications Medication Instructions Recorded Confirmed Type diphenhydramine HCl 25 mg capsule 50 mg PO HS PRN Insomnia 04/23/18 01/13/25 History (Benadryl) rosuvastatin 10 mg tablet 10 mg PO HS 08/21/20 01/13/25 History losartan 50 mg tablet 50 mg PO HS 11/19/23 01/13/25 History acetaminophen 325 mg tablet 650 mg PO Q6H PRN Pain 04/16/24 01/13/25 History cholecalciferol (vitamin D3) 25 25 mcg PO PM 05/18/24 01/13/25 History mcg (1,000 unit) tablet (Vitamin D3) tizanidine 4 mg tablet 4 mg PO Q8H PRN muscle spasticity 06/30/24 01/13/25 Rx #10 tabs gabapentin 100 mg capsule 200 mg (2 x 100 mg) PO TID #180 07/18/24 01/13/25 Rx caps cyanocobalamin (vitamin B-12) 500 1,000 mcg PO QAM 09/12/24 01/13/25 History mcg tablet pantoprazole 40 mg tablet,delayed 40 mg PO BID #60 tabs 09/13/24 01/13/25 Rx release hydrocodone 5 mg-acetaminophen 325 1 tab PO Q6H PRN severe pain 09/30/24 01/13/25 History mg tablet warfarin 5 mg tablet See Rx Instructions PO UD #30 tabs 12/02/24 01/13/25 Rx Past Med/Surg History Problem List (Updated 01/13/25 @ 18:07 by Betty Muller PA-C) Intractable abdominal pain Intractable nausea and vomiting Chronic SI joint pain Postlaminectomy syndrome of lumbosacral region Visual disturbance (Acute) Headache (Acute) Elevated INR (Acute) Dizziness (Acute) Elevated INR Pleuritic chest pain (Acute) Thrombocytopenia (Acute) Anemia Lumbar back pain with radiculopathy affecting left lower extremity Pulmonary embolism and infarction S/P lumbar fusion 12/26/2023 -- [facility]; L1-L5 fusion History of ileus (Acute) Left sided abdominal pain (Acute) Intractable nausea (Acute) Hypertension Abdominal pain (Acute) S/p reverse total shoulder arthroplasty Morbid obesity Rotator cuff arthropathy of right shoulder Wrist pain, right (Acute) Osteoarthritis of right knee Status post total right knee replacement Encounter for pre-operative examination Medical History On warfarin therapy Pulmonary emboli 2024 Intractable back pain Thigh pain Chronic pulmonary embolism Enteritis SBO (small bowel obstruction) Lumbosacral radiculopathy HLD (hyperlipidemia) Spinal stenosis, lumbar region with neurogenic claudication History of colon cancer s/p resection (hx of blood transfusion remotely in 1980s in setting of cancer) History of DVT (deep vein thrombosis) LLE DVT (2011) s/p TKA- treated with AC Sleep apnea CPAP Ileus Recurrent s/p colon cancer/resection Concern about infectious disease without diagnosis Pt reports that if he gets an infection, he does not get any normal signs of it like fever/elevated WBC. He states he had a bad infection (? sepsis) and almost from when had colon cancer, but showed no signs until almost too late. Osteoarthritis GERD (gastroesophageal reflux disease) Occasional History of ileus 2018 Surgical History Hx of abdominal surgery Age 2/3 (no further details) History of esophagogastroduodenoscopy (EGD) History of tooth extraction H/O squamous cell carcinoma excision Left arm Hx of discectomy Lumbar (prior to fusion) History of repair of rotator cuff Right Status post trigger finger release R/L History of total knee replacement R/L History of bilateral carpal tunnel release History of bowel resection History of colonoscopy History of arthroscopy Right elbow History of colostomy reversal History of colostomy 2/2 colon cancer Fusion of spine Lumbar x2 Removal previous hardware, L3-L5 decompression with fusion (05/22/2018): Failed with MAC3, easy with Glidescope #4 at [facility] Family History Mother , at 65 years of age from COPD with underlying tobacco abuse. Family history of diabetes mellitus Son VTE (venous thromboembolism) Father , at 60 years of age from bladder cancer with cystostomy. Bladder cancer Daughter , age 42 Breast cancer Daughter Suicide Social History Smoking Status: Never smoker Tobacco Type: Cigarettes Age Started Using Tobacco: 17; Age Quit Using Tobacco: 17; packs per day: 0.05; Cigarettes Per Day: 1; Second Hand Exposure: No; Do You Dip or Chew Tobacco: No; Hx Alcohol Use: No Hx Substance Use: No Preferred Language: Khmer Communication Ability: Effective Visual Impairment: No Limitations Master Control Supervisor Required: No Beliefs That Will Affect Care: None marital status: marital status details: [id number];48y daught ;metBRCA,liver;27y daught ,conspiracy Current Living Situation: Spouse Current Living Situation Comment: 2nd x30y; 52y live-in son w/bipolar d/o and IQ 160, unemployed current occupational status: retired 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 Skin: Warm, dry. No rashes noted. Trace peripheral edema noted. Cardiac: Regular rate and rhythm without murmurs gallops or rubs. Pulm: Clear to auscultation bilaterally without wheezes, rales or rhonchi. Normal respiratory effort. 96% on room air. Abdominal: Soft, nondistended. Diffuse tenderness to palpation. No rebound, guarding, or rigidity. Bowel sounds present. Neuro: A&O x3. No focal neurological deficits. Results & Data Results & Data Vital Signs (Past 12 Hours) Vital Signs Temp Pulse Pulse Resp BP BP Pulse Ox 01/13/25 17:44 54 L 16 137/81 96 01/13/25 16:51 56 L 10 L 98 01/13/25 16:08 52 L 01/13/25 14:58 57 L 162/90 H 99 01/13/25 14:12 97.7 F 63 19 180/142 H 98 O2 Del Method 01/13/25 17:44 Room Air 01/13/25 16:51 Room Air 01/13/25 16:08 01/13/25 14:58 Room Air 01/13/25 14:12 Room Air Laboratory Results Reviewed CBC with differential, CMP, chemistries Diagnostic Findings Reviewed CT A/P Code Status & VTE Plan VTE Prophylaxis Plan VTE Prophylaxis will be ordered: Yes Supervising Physician Co-Signing Physician Notes PA Supervision Note: I personally saw and examined the patient. I verified all moralez points and agree with KWADWO Muller with the following exceptions and/or additions: S-patient is a 74-year-old male with history of DVT/PE on warfarin after failure of Eliquis, colon cancer, prediabetes, AMRIK, anemia, chronic lower back pain, HTN, HLD, who presents with abdominal pain and nausea. This has been going on for 6 days and he tried making himself n.p.o. for several days which improved his symptoms. He then ate a bowl of cereal for breakfast this morning and his pain returned but yet he was still ate a sandwich for lunch. He continued to have nausea and abdominal pain and decided come in to get checked out. He denies having any fevers. His CT A/P did not show a bowel obstruction or anything acute. He has chronic bilateral inguinal hernias with his appendix in the groin. His laboratory values were fairly unremarkable. He was given IV Dilaudid and IV Tylenol along with Reglan and Zofran for nausea. He started to feel better after second dose of Dilaudid. He will be admitted for abdominal pain and nausea O- Vitals reviewed Gen: AAOx3, NAD HEENT: Anicteric sclerae, EOMI CV: RRR no mgr nl S1S2 Pulm: CTAB no wcr Abd: +BS soft mildly tender in epigastric region without guarding or rebound, ND no masses or hernias Ext: No edema Skin: No rashes, warm/dry Neuro: Full strength throughout CBC, BMP, LFTs, lactate, troponin, lipase reviewed A/E-[id number]-old male with history as above, here with nausea and abdominal pain, no evidence of ileus or bowel obstruction on imaging. More likely some sort of viral gastroenteritis - Check BioFire of nasal swab - Give IV fluids, antiemetics, pain control as needed - Follow INR while on Coumadin PG Care Time/CCT Total # of Minutes Spent Total Time Spent with Patient: Total time spent is greater than 50% in coordination of care (as documented) at patient's floor/unit and/or counseling patient: Coding Level of Care Code 38955 INT INP/OBS CARE 3/75MIN Diagnoses Intractable abdominal pain R10.9 Intractable nausea R11.0 History of ileus Z87.19
[2025-01-13] MEDS: HYDROmorphone INJ 1 MG/ML SYRINGE IV STA (19:06)
[2025-01-13 19:22] LABS: Appearance Urine Clear (Clear); Glucose Urine UA Negative (Negative)
[2025-01-13] MEDS ORDERED: ALUMINUM/MAGNESIUM SUSP 30 ML UDC PO PRN (22:19)
[2025-01-13] MEDS ORDERED: POLYETHYLENE (MIRALAX) 17 GM PACK PO PRN (22:19)
[2025-01-13] MEDS ORDERED: HYDROmorphone INJ 2 MG/ML SYR/VIAL IV PRN (22:19)
[2025-01-13] MEDS ORDERED: diphenhydrAMINE Capsule 25 MG CAP PO PRN (22:19)
[2025-01-13] MEDS ORDERED: PROCHLORPERAZINE 5 MG in SYRINGE 4 ML IV PRN (22:19)
[2025-01-13] MEDS ORDERED: ACETAMINOPHEN 325 MG TAB PO PRN (22:19)
[2025-01-14] MEDS: HYDROmorphone INJ 1 MG/ML SYRINGE IV PRN (00:20)
[2025-01-14] MEDS: ONDANSETRON INJ 2 MG/ML 2 ML VIAL IV PRN (00:20)
[2025-01-14] MEDS: GABAPENTIN 100 MG CAP PO SCH (00:27)
[2025-01-14] MEDS: ROSUVASTATIN CALCIUM 10 MG TAB PO SCH (00:28)
[2025-01-14] MEDS: LOSARTAN POTASSIUM 50 MG TAB PO SCH (00:29)
[2025-01-14] MEDS: CHOLECALCIFEROL 25 MCG (1000 UNITS) TAB PO SCH (00:30)
[2025-01-14] MEDS: SODIUM CHLORIDE 0.9% 1,000 ML IV SCH (00:31)
[2025-01-14 00:51] LABS: INR 2.2 (0.9-1.1); Prothrombin Time 22.7 Seconds (9.0-12.0)
[2025-01-14] MEDS: WARFARIN SOD 5 MG TAB PO SCH (02:24)
[2025-01-14 05:53] LABS: Hematocrit (blood only) 35.0 % (42.0-52.0); Hemoglobin 12.0 g/dL (14.0-18.0); Mean Corpuscular Hemoglobin 29.0 pg (25.0-34.0); Mean Corpuscular Volume 84.5 fL (80.0-100.0); Platelet Count 146 K/uL (130-400); RDW Standard Deviation 44.1 fL (36.4-46.3); Red Blood Count 4.14 M/uL (4.70-6.10); White Blood Count 7.13 K/ul (4.8-10.8)
[2025-01-14 06:11] LABS: Anion Gap 7.0 (3-11); Blood Urea Nitrogen 15.0 mg/dl (6-23); Calcium 8.8 mg/dl (8.6-10.3); Carbon Dioxide 23.0 mmol/L (21-32); Chloride 108.0 mmol/L (98-107); Creatinine Clr Calc Pharmacy 113.9 ml/min; Glucose 140.0 mg/dl (70-99(Fasting)); Potassium 4.1 mmol/L (3.5-5.1); Sodium 138.0 mmol/L (136-145)
[2025-01-14 06:21] LABS: INR 2.2 (0.9-1.1); Prothrombin Time 21.8 Seconds (9.0-12.0)
[2025-01-14 07:24] VITALS: RESP 16
[2025-01-14] MEDS: CYANOCOBALAMIN (B-12) 500 MCG TABLET PO SCH (08:58)
[2025-01-14] MEDS ORDERED: INFLUENZA VACC TS2025-26(65y+)/PF (IIV3) 0.5mL Syr IM ONE (12:13)
[2025-01-14 12:38] LABS: Chlamydia pneumoniae PCR Not Detected (NotDetected); Coronavirus 229E PCR Not Detected (NotDetected); Coronavirus CoV-2 (COVID19)PCR Not Detected (NotDetected); Coronavirus HKU1 PCR Not Detected (NotDetected); Coronavirus NL63 PCR Not Detected (NotDetected); Coronavirus OC43PCR Not Detected (NotDetected); Human Metapneumovirus PCR Not Detected (NotDetected); Parainfluenza Virus 1 PCR Not Detected (NotDetected); Parainfluenza Virus 2 PCR Not Detected (NotDetected); Parainfluenza Virus 3 PCR Not Detected (NotDetected); Parainfluenza Virus 4 PCR Not Detected (NotDetected); Respiratory Syncytial VirusPCR Not Detected (NotDetected); Rhinovirus/Enterovirus PCR Not Detected (NotDetected)
[2025-01-14] MEDS ORDERED: Nursing to Pharmacy Communication SCH (13:30)
[2025-01-14] MEDS: PROMETHAZINE 12.5 MG/50.5 ML BAG IV PRN (14:52)
--- NOTE | 2025-01-14 14:56 | Hospitalist Progress Note ---
Date of Service January 14, 2025 Assessment & Plan (1) Intractable abdominal pain: (2) Intractable nausea: (3) History of ileus: Analy Pollock is a pleasant 74-year-old man with past medical history of multiple VTEs (postoperative LLE DVT in 2011, bilateral PE and bilateral LE DVTs in June 2024) on Coumadin, colon cancer at age 32, hypertension, morbid obesity, severe lumbar DDD s/p multiple surgeries, AMRIK, prior colostomy s/p reversal, hyperlipidemia. He presented to the ED due to intractable nausea and abdominal pain that feels similar to his prior ileus. His workup in the ED was fairly unremarkable regarding his labs and CT A/P. However due to no improvement with medications provided in ED, patient was referred for admission for management of his intractable nausea and abdominal pain. #Intractable nausea and abdominal pain - CT A/P on arrival notes a small right inguinal hernia containing the appendix. This finding was discussed by the ED provider with the on-call general surgeon who reportedly recommended no acute surgical interventions needed at this time - Respiratory BioFire ordered to assess for enterovirus and was negative - Lactate WNL at 1.0 - Nausea regimen: Zofran IV first line, Phenergan IV second line, Compazine IV third line - Pain regimen: Tylenol PRN mild pain/fever, Dilaudid 1-1.5 mg IV PRN mod-severe pain - Continue maintenance IV fluids with NSS - Diet advanced to full liquids. Can advance to low fiber diet for breakfast tomorrow 01/15 #History of VTE - INR goal of 2-3 - Continue Coumadin 2.5 mg on Sundays, 5mg daily for every other day of the week - PT/INR within goal. Continue to trend with AM labs #History of colon cancer ~age 32 - few details are known about his colon ca other than he had radiation & surgery along with colostomy for 1-2 years then reversal -gets colonoscopy every 5 years; is due this year - He was supposed to get established with [facility] after his hospitalization earlier this year in June, but has not yet done so - He needs a repeat colonoscopy given his seemingly unprovoked VTEs earlier this year with his history of colon cancer - recommend referral to [facility] since [facility] does not have availability to #HTN -BPs are controlled -continue losartan # HLD-no acute issues -continue crestor #chronic lumbar back pain/DDD with LLE radiculopathy - Continue gabapentin 200 mg TID, tizanidine as needed for muscle spasms. Home hydrocodone/acetaminophen 5-325 mg on hold with current IV Dilaudid ordered #anemia - mild low-grade anemia for some time. B12 low normal in the 200s, folate normal, iron studies normal in June 2024 - Continue B12 1000 mcg p.o. daily #AMRIK - CPAP HS #Prediabetes - HgbA1c elevated at 6.4% in June 2024 - Needs weight loss, diet control - Follow-up with PCP VTE PPx: Coumadin Dispo: Observation on med/surg Advanced diet Admission and Anticipated Discharge Date Admission Date: January 13, 2025 Supervising Physician Co-Signing Physician Notes KWADWO Supervision Note: I did not personally see or examine the patient today, but I verified all moralez points of KWADWO Muller's assessment and plan with the following exceptions/additions: None Subjective Patient seen and evaluated at bedside. He reports feeling about the same as ye sterday. He continues to have intermittent abdominal pain and nausea. After performing physical exam, he reports an increase in his nausea and would like to try Phenergan. He would like to advance to full liquid diet for dinner. We discussed if this is well-tolerated, he can be advanced to a low fiber diet for breakfast. He is hopeful for discharge home tomorrow. No additional complaints or concerns at this time. Physical Exam Physical Exam: General: No acute distress, nondiaphoretic, well-developed, well-nourished. Skin: Warm, dry. No rashes noted. Trace peripheral edema noted. Cardiac: Regular rate and rhythm without murmurs gallops or rubs. Pulm: Clear to auscultation bilaterally without wheezes, rales or rhonchi. Normal respiratory effort. 97% on room air. Abdominal: Soft, nondistended. Mild tenderness to palpation of lower quadrants. No rebound, guarding, or rigidity. Bowel sounds present. Neuro: A&O x3. No focal neurological deficits. Results & Data Results & Data Vital Signs (Past 12 Hours) Vital Signs Temp Pulse Resp BP Pulse Ox O2 Del Method 01/14/25 07:23 97.5 F L 57 L 16 132/78 98 Room Air Laboratory Results Reviewed CBC, coagulation studies, BMP, UA, bio fire PG Care Time/CCT Total # of Minutes Spent Total Time Spent with Patient: Total time spent is greater than 50% in coordination of care (as documented) at patient's floor/unit and/or counseling patient: Coding Level of Care Code 55054 SUB INP/OBS CARE 3/50MIN Diagnoses Intractable abdominal pain R10.9 Intractable nausea R11.0 History of ileus Z87.19
[2025-01-15 06:23] LABS: Hematocrit (blood only) 35.6 % (42.0-52.0); Hemoglobin 11.5 g/dL (14.0-18.0); Mean Corpuscular Hemoglobin 28.0 pg (25.0-34.0); Mean Corpuscular Volume 86.6 fL (80.0-100.0); Platelet Count 127 K/uL (130-400); RDW Standard Deviation 47.6 fL (36.4-46.3); Red Blood Count 4.11 M/uL (4.70-6.10); White Blood Count 4.49 K/ul (4.8-10.8)
[2025-01-15 06:39] LABS: Anion Gap 6.0 (3-11); Blood Urea Nitrogen 12.0 mg/dl (6-23); Calcium 8.0 mg/dl (8.6-10.3); Carbon Dioxide 24.0 mmol/L (21-32); Chloride 110.0 mmol/L (98-107); Creatinine Clr Calc Pharmacy 98.8 ml/min; Glucose 93.0 mg/dl (70-99(Fasting)); Potassium 3.9 mmol/L (3.5-5.1); Sodium 140.0 mmol/L (136-145)
[2025-01-15 06:59] LABS: INR 2.5 (0.9-1.1); Prothrombin Time 24.7 Seconds (9.0-12.0)
[2025-01-15 07:18] VITALS: BP 166/92; TEMP 97.3; O2SAT 99
[2025-01-15] MEDS: WARFARIN SOD 5 MG TAB PO SCH (09:22)
--- NOTE | 2025-01-15 10:26 | Discharge Summary ---
Discharge Summary Date of Service January 15, 2025 Principal Dx & Hospital Course #1 = Principal Diagnosis (1) Intractable abdominal pain: (2) Intractable nausea: (3) History of ileus: Analy Pollock is a pleasant 74-year-old man with past medical history of multiple VTEs (postoperative LLE DVT in 2011, bilateral PE and bilateral LE DVTs in June 2024) on Coumadin, colon cancer at age 32, hypertension, morbid obesity, severe lumbar DDD s/p multiple surgeries, AMRIK, prior colostomy s/p reversal, hyperlipidemia. He presented to the ED due to intractable nausea and abdominal pain that feels similar to his prior ileus. His workup in the ED was fairly unremarkable regarding his labs and CT A/P. However due to no improvement with medications provided in ED, patient was referred for admission for management of his intractable nausea and abdominal pain. #Intractable nausea and abdominal pain - CT A/P on arrival notes a small right inguinal hernia containing the appendix. This finding was discussed by the ED provider with the on-call general surgeon who reportedly recommended no acute surgical interventions needed at this time - Respiratory BioFire ordered to assess for enterovirus and was negative - Lactate WNL at 1.0 - Utilized IV Zofran, IV Phenergan, IV Dilaudid, and IV fluids while hospitalized - Well-tolerated advancement to low fiber diet without further nausea or abdominal pain - Continues to have active bowel sounds, passing gas. Last BM 01/13 - Zofran 4 mg PO Q6h PRN nausea. Instructed to use Tylenol for basic pain and his home Vicodin PRN severe pain. Counselled on not taking more than 3250 mg of acetaminophen daily and reminded that his home Vicodin prescription includes 325 mg of Tylenol #History of VTE - INR goal of 2-3 - Continue Coumadin 2.5 mg on Sundays, 5mg daily for every other day of the week - PT/INR within goal #History of colon cancer ~age 32 - few details are known about his colon ca other than he had radiation & surgery along with colostomy for 1-2 years then reversal -gets colonoscopy every 5 years; is due this year - He was supposed to get established with [facility] after his hospitalization [facility] this year in June, but has not yet done. He says he called them a few weeks ago but their soonest appointment was in March - He needs a repeat colonoscopy given his seemingly unprovoked VTEs earlier this year with his history of colon cancer - recommend referral to [facility], he is agreeable to seeing whomever can get him in soonest. Workload sent to risk prevention engineer on discharge to make this referral #HTN -BPs are controlled -continue losartan # HLD-no acute issues -continue crestor #chronic lumbar back pain/DDD with LLE radiculopathy - Continue gabapentin 200 mg TID, tizanidine as needed for muscle spasms, hydrocodone/acetaminophen 5-325 mg Q6h PRN severe pain #anemia - mild low-grade anemia for some time. B12 low normal in the 200s, folate normal, iron studies normal in June 2024 - Continue B12 1000 mcg p.o. daily #AMRIK - CPAP HS #Prediabetes - HgbA1c elevated at 6.4% in June 2024 - Needs weight loss, diet control - Follow-up with PCP VTE PPx: Coumadin Dispo: discharged home 01/15 Notes For Next Care Provider Recommend repeat colonoscopy given his seemingly unprovoked VTE's earlier this year and his history of colon cancer. He had a referral to [facility] after his hospitalization earlier this year in June. He says he called their office but their soonest appointment was in March 2025. We discussed a referral to [facility] with the hopes they could see him sooner, he is agreeable. I asked my risk prevention engineer to make this referral on discharge. Medication Changes From Visit Zofran 4 mg every 6 hours as needed for nausea Admission HPI Per Admitting Provider Phill is a pleasant 74-year-old man with past medical history of multiple VTEs (postoperative LLE DVT in 2011, bilateral PE and bilateral LE DVTs in June 2024) on Coumadin, colon cancer at age 32, hypertension, morbid obesity, severe lumbar DDD s/p multiple surgeries, AMRIK, prior colostomy s/p reversal, hyperlipidemia. He presented from home with intractable nausea and abdominal pain. At the time of my exam, the patient was lying in bed in no acute distress with his present. He states he began developing nausea and diffuse abdominal pain last Sunday 01/07. He attempted to manage this at home with dietary changes under the presumption the symptoms were from an ileus as he has had multiple times previously with similar presentation. He continues to pass gas and had a bowel movement this morning. He initially thought this was improving, however earlier today he experienced severe diffuse abdominal pain and nausea after eating a bowl of cereal for lunch. This prompted him to come to the ED. Patient reports that he took all of his regular morning medications today; no recent change in medications. He does not use supplemental oxygen at baseline. He does wear his CPAP at night. Vitals on admission significant for mild bradycardia with HR 54; vitals otherwise stable. Labs on admission are significant for normocytic anemia with Hgb 12.8 (baseline). No leukocytosis. Platelets WNL. Electrolytes WNL. Renal function WNL. Liver enzymes WNL. Troponin normal at 6.1. CT A/P on admission reveals unchanged small left adrenal nodule (indeterminate in nature but likely a benign adenoma), left renal cyst, small right inguinal hernia containing the appendix, small left inguinal hernia containing only fat. We discussed code status, patient wishes to be a full code. Discharge Exam General: No acute distress, nondiaphoretic, well-developed, well-nourished. Skin: Warm, dry. No rashes noted. Trace peripheral edema noted. Cardiac: Regular rate and rhythm without murmurs gallops or rubs. Pulm: Clear to auscultation bilaterally without wheezes, rales or rhonchi. Normal respiratory effort. 99% on room air. Abdominal: Soft, nondistended. Mild tenderness to palpation of lower quadrants. No rebound, guarding, or rigidity. Bowel sounds present. Neuro: A&O x3. No focal neurological deficits. Discharge Plan Discharge Items Patient Disposition: Home - Self-Care Reason For Visit: ABDOMINAL PAIN, INTRACTABLE NAUSEA Discharge Diagnosis: Abdominal pain, nausea Activity: Resume your previous activity Non-emergency contact: Primary Care Provider Call non-emergency contact if: you have any medication questions, your symptoms worsen, your pain is not controlled and you have a fever Follow-up/Referrals: Denver Dinero [Primary Care Provider] - (Follow-up in 1-2 weeks) Diet: Low Fiber Addtl Attending Provider Instructions: Phill, You were observed in the hospital due to persistent nausea and abdominal pain. You had a CT scan of your abdomen and pelvis that was overall unremarkable to explain your ongoing symptoms. It did note a small right inguinal hernia containing the appendix, however this was discussed with the general surgeon who did not feel this was related to the symptoms and did not require surgical intervention at this time. You were treated conservatively in the hospital with IV fluids, nausea medication, pain medication, and slow diet advancement. Upon discharge from the hospital: * Continue a low fiber diet for the next few days, then advance back to regular diet as tolerated. * Take Zofran every 6 hours as needed for nausea. * You can use Tylenol as needed for your basic pain. You can use your home hydrocodoneacetaminophen as needed for severe pain. Be cautious not to take more than 3250 mg of acetaminophen in a 24-hour period. Do not drive or operate heavy machinery when taking hydrocodoneacetaminophen as hydrocodone is a narcotic pain medication. * Continue your other home medications as prescribed. * Follow-up with your PCP in 1-2 weeks. Please return to the hospital if you experience any of the following: Severe uncontrolled abdominal pain, inability to tolerate oral intake, chest pain, difficulty breathing, new or worsening confusion, passing out, or any other symptoms concerning for you. It was a pleasure taking care of you while you were in the hospital! Pending Studies at Discharge: No Stand-Alone Forms: My [facility] [employer], Smoking Cessation Medications and DC Order Prescriptions: New ondansetron HCl 4 mg tablet 4 mg PO Q6H PRN (Reason: nausea and vomiting) Qty: 30 0RF Continued hydrocodone-acetaminophen 5-325 mg tablet 1 tab PO Q6H PRN (Reason: severe pain) warfarin 5 mg tablet See Rx Instructions PO UD Qty: 30 2RF Rx Instructions: 2.5mg q Friday, 5 mg x 6 days per [facility] orally use as directed diphenhydramine HCl [Benadryl] 25 mg Capsule 50 mg PO HS PRN (Reason: Insomnia) rosuvastatin 10 mg Tablet 10 mg PO HS cyanocobalamin (vitamin B-12) 500 mcg tablet 1,000 mcg PO QAM pantoprazole 40 mg Tablet,Delayed Release (Dr/Ec) 40 mg PO BID Qty: 60 0RF losartan 50 mg tablet 50 mg PO HS acetaminophen 325 mg Tablet 650 mg PO Q6H PRN (Reason: Pain) cholecalciferol (vitamin D3) [Vitamin D3] 25 mcg (1,000 unit) Tablet 25 mcg PO PM tizanidine 4 mg tablet 4 mg PO Q8H PRN (Reason: muscle spasticity) Qty: 10 0RF gabapentin 100 mg Capsule 200 mg PO TID Qty: 180 0RF Discharge Orders: Discharge Order (Routine); Ordered 01/15/25 Ordered By: Betty Cordova/Other Patient Handouts: Abdominal Pain Admission Data Admit Date/Time: 01/13/25 18:01 Attending Provider: Skye Pagan Admit Provider: Skye Pagan Primary Care Provider: [facility]ero Other Providers: Skye Pagan Other Interventions: Discharge Summary Assessment (RN) Last Done: 01/15/25 11:19 Hospital Stay Data Consultations 01/13/25 17:37 ED Decision to Admit Stat Diagnostic Imagining Performed Abdomen/Pelvis CT 01/13/25 14:57 Clinical History: Abdominal pain Technique: Axial computed tomography images were obtained of the abdomen and pelvis after the administration of intravenous contrast. Comparison is made to the prior CT dated 09/12/2024 Findings: The liver is overall of normal size, attenuation, and contour with no sign of cirrhosis or significant fatty infiltration. No liver mass lesion is seen. The portal vein is patent. The gallbladder appears unremarkable. No bile duct dilatation is noted. The spleen is of normal size. No focal splenic lesion is evident. The pancreas appears normal with no sign of acute or chronic pancreatitis and no mass lesion noted. The pancreatic duct is of normal caliber. There is an unchanged 1.7 cm left adrenal nodule. The right adrenal gland appears normal No definite renal or proximal ureteral calculi are seen on this contrast-enhanced study. There is no hydronephrosis or perinephric stranding. No renal mass lesion is identified. There is a 2.5 cm left renal cyst The aorta is of normal caliber. No abdominal adenopathy is seen. The stomach appears normal. There is no sign of small bowel obstruction. The colon appears unremarkable. There is a small right inguinal hernia containing the appendix. There is no definite side effect and situs. No free intraperitoneal fluid or air is identified. No distal ureteral or bladder calculi are seen. No bladder mass lesion is evident. The iliac arteries are of normal caliber. No pelvic adenopathy is noted. There is a small left inguinal hernia containing fat There is mild bilateral lower lobe atelectasis. There is a fusion of L1-S1. No fracture is identified. No focal osseous lesion is seen Impression: 1. Unchanged small left adrenal nodule, indeterminate in nature but likely a benign adenoma 2. Left renal cyst 3. Small right inguinal hernia containing the appendix 4. Small left inguinal hernia containing only fat ACT 112: Positive. There are findings on this exam that require communication between the performing entity and the patient following Patient Test Result Information Act ([place] ACT 112) guidelines. Electronically signed by Yury Vega 01-13-2025 4:29 PM Pending Results Patient Have Any Pending Studies at Discharge: No Discharge Instructions Given to Patient (Per Discharging Provider) Phill, You were observed in the hospital due to persistent nausea and abdominal pain. You had a CT scan of your abdomen and pelvis that was overall unremarkable to explain your ongoing symptoms. It did note a small right inguinal hernia containing the appendix, however this was discussed with the general surgeon who did not feel this was related to the symptoms and did not require surgical intervention at this time. You were treated conservatively in the hospital with IV fluids, nausea medication, pain medication, and slow diet advancement. Upon discharge from the hospital: * Continue a low fiber diet for the next few days, then advance back to regular diet as tolerated. * Take Zofran every 6 hours as needed for nausea. * You can use Tylenol as needed for your basic pain. You can use your home hydrocodoneacetaminophen as needed for severe pain. Be cautious not to take more than 3250 mg of acetaminophen in a 24-hour period. Do not drive or operate heavy machinery when taking hydrocodoneacetaminophen as hydrocodone is a narcotic pain medication. * Continue your other home medications as prescribed. * Follow-up with your PCP in 1-2 weeks. Please return to the hospital if you experience any of the following: Severe uncontrolled abdominal pain, inability to tolerate oral intake, chest pain, difficulty breathing, new or worsening confusion, passing out, or any other symptoms concerning for you. It was a pleasure taking care of you while you were in the hospital! Supervising Physician Co-Signing Physician Notes KWADWO Supervision Note: I did not personally see or examine the patient today, but I verified all moralez points of KWADWO Muller's assessment and plan with the following exceptions/additions: None Total Time Total Time Spent Total Time Spent (In Minutes): Greater than 30 minutes spent completing this discharge process including direct patient care, medication reconciliation, documentation, review of labs and images, and coordination of care. Coding Level of Care Code 67429 INP/OBS DISCH >30 MIN Diagnoses Intractable abdominal pain R10.9 Intractable nausea R11.0 History of ileus Z87.19
[2025-01-15 11:21] VITALS: PULSE 91
[2025-01-16] MEDS ORDERED: WARFARIN SOD 2.5 MG TAB PO SCH ×2 (09:00→16:00)
== END 2025-01-15 12:30 | disposition home or self-care (01) ==
LOC: 3E 14:06 → ED 14:06 → 3E 22:19